=== PATIENT | male | born 1930 | race Caucasian/White ===

== ENCOUNTER → 2016-05-17 | Outpatient (CLI) | payer MEDICARE, BC, OTHER ==
[2016-05-17 10:06] LABS: APPEARANCE,URINE SLIGHTLY-CLOUDY; BILIRUBIN,URINE NEGATIVE (NEGATIVE); GLUCOSE, URINE NEGATIVE (NEGATIVE); KETONES,URINE NEGATIVE (NEGATIVE); LEUKOCYTE ESTERASE,URINE SMALL (NEGATIVE); NITRITE,URINE NEGATIVE (NEGATIVE); PROTEIN,URINE NEGATIVE (NEGATIVE); UROBILINOGEN,URINE NEGATIVE mg/dL (<2.0)
[2016-05-17 10:16] LABS: ABSOLUTE BASOPHILS # (AUTO) 0.1 10^3/uL (0.0-0.2); ABSOLUTE EOSINOPHILS # (AUTO) 0.3 10^3/uL (0.0-0.6); ABSOLUTE LYMPHOCYTES (AUTO) 1.3 10^3/uL (0.5-4.7); ABSOLUTE MONOCYTES (AUTO) 0.6 10^3/uL (0.1-1.4); ABSOLUTE NEUT (AUTO) 5.5 10^3/uL (1.7-8.2); BASOPHILS % (AUTO) 0.8 % (0-2); EOSINOPHILS % (AUTO) 3.4 % (0-6); HEMATOCRIT 37.7 % (37.9-51.0); HEMOGLOBIN 12.8 g/dL (13.5-17.0); HGB HCT DIFFERENCE 0.7; LYMPHOCYTES % (AUTO) 16.6 % (13-45); MEAN CORPUSCULAR HEMOGLOBIN 31.2 pg (27.0-33.4); MEAN CORPUSCULAR HGB CONC 33.9 g/dL (32.0-36.0); MEAN CORPUSCULAR VOLUME 92 fl (80-97); MONOCYTES % (AUTO) 8.3 % (3-13); RED BLOOD COUNT 4.09 10^6/uL (4.35-5.55); RED CELL DISTRIBUTION WIDTH 13.5 % (11.5-14.0); SEGMENTED NEUTROPHILS % (AUTO) 70.9 % (42-78); WHITE BLOOD COUNT 7.7 10^3/uL (4.0-10.5)
[2016-05-17 10:38] LABS: ALANINE AMINOTRANSFERASE 46 U/L (21-72); ALBUMIN 3.5 g/dL (3.5-5.0); ALKALINE PHOSPHATASE 86 U/L (38-126); ANION GAP 11 (5-19); ASPARTATE AMINO TRANSFERASE 32 U/L (17-59); BILIRUBIN,DIRECT 0.3 mg/dL (0.0-0.4); BILIRUBIN,TOTAL 0.5 mg/dL (0.2-1.3); BLOOD UREA NITROGEN 11 mg/dL (7-20); CALCIUM 8.8 mg/dL (8.4-10.2); CARBON DIOXIDE 26 mmol/L (22-30); CHLORIDE 109 mmol/L (98-107); CHOLESTEROL 126.69 mg/dL (0-200); CREATININE RESULT 0.86 mg/dL (0.52-1.25); Direct HDL 48 mg/dL (>40); GLUCOSE 96 mg/dL (75-110); POTASSIUM 4.4 mmol/L (3.6-5.0); SODIUM 146.4 mmol/L (137-145); TOTAL PROTEIN 6.1 g/dL (6.3-8.2); TRIGLYCERIDES 107 mg/dL (<150); URIC ACID 3.7 mg/dL (3.5-8.5)
[2016-05-17 10:49] LABS: DIRECT LDL 55 mg/dL (<100)
[2016-05-17 11:06] LABS: THYROID STIMULATING HORMONE 1.14 uIU/mL (0.47-4.68)
[2016-05-18 11:40] LABS: CREATININE URINE 165.4 mg/dL (Not Estab.); MICROALBUMIN URINE 29.6 ug/mL (Not Estab.)
== END ==
LOC: OD 09:04
PROVIDERS: ATTEND Internal Medicine
DX: E11.42 Type 2 diabetes mellitus with diabetic polyneuropathy (principal)
CPT/HCPCS: 36415; 80053; 80061; 81001; 82043; 82570; 83036; 84439; 84443; 84550; 85025

== ENCOUNTER 2016-08-08 10:51 | Emergency (ER) | payer MEDICARE, BC ==
[2016-08-08 11:01] VITALS: BP 173/88
--- NOTE | 2016-08-08 11:24 | RADIOLOGY REPORT (SQ) ---
EXAM DESCRIPTION: CT HEAD WITHOUT COMPLETED DATE/TIME: 08/08/2016 11:15 am REASON FOR STUDY: fall COMPARISON: None. TECHNIQUE: Axial images acquired through the brain without intravenous contrast. Images reviewed wi th bone, brain and subdural windows. Images stored on PACS. All CT scanners at this facility use dose modulation, iterative reconstruction, and/or weight based d osing when appropriate to reduce radiation dose to as low as reasonably achievable (ALARA). [facility]: Dose Right [facility]: CareDose [facility]: Dose Right [facility]: Teradose 4D [facility]: [employer] RADIATION DOSE: 64.61mGy. LIMITATIONS: None. FINDINGS: VENTRICLES: Prominent. CEREBRUM: No masses. No hemorrhage. No midline shift. Areas of low density in the white matter mos t likely due to chronic micro-vascular ischemic change. No evidence for acute infarction. CEREBELLUM: No masses. No hemorrhage. No alteration of density. No evidence for acute infarction. EXTRAAXIAL SPACES: Age-related involutional change. No fluid collections. No masses. ORBITS AND GLOBE: No intra- or extraconal masses. Normal contour of globe without masses. CALVARIUM: No fracture. PARANASAL SINUSES: No fluid or mucosal thickening. SOFT TISSUES: Large posterior scalp hematoma. OTHER: No other significant finding. IMPRESSION: SCALP HEMATOMA. NO FRACTURE OR ACUTE INTRACRANIAL PROCESS IDENTIFIED. TECHNICAL DOCUMENTATION: JOB ID: [id number] Quality ID # [id number]: Final reports with documentation of one or more dose reduction techniques (e.g., Au tomated exposure control, adjustment of the mA and/or kV according to patient size, use of iterative reconstruction technique) 2010 [employer]- All Rights Reserved
--- NOTE | 2016-08-08 13:24 | ER Document Report ---
ED General - General Chief Complaint: Fall Stated Complaint: FELL/HEAD PAIN Time Seen by Provider: 08/08/16 10:59 TRAVEL OUTSIDE OF THE [place] IN LAST 30 DAYS: No - HPI Patient complains to provider of: fall head trauma Notes: Patient coming in after he fell out of a chair. Patient fell backwards and hitting his head. Denies any loss of consciousness. Patient denies any blood thinning medications. Patient is awake alert and oriented at this time appropriate according to family members. Patient does have some bleeding going down the back of the head. - Related Data Allergies/Adverse Reactions: No Known Allergies Allergy (Verified 08/08/16 11:01) Past Medical History - Social History Smoking Status: Unknown if Ever Smoked Family History: Reviewed & Not Pertinent - Past Medical History Cardiac Medical History: Reports: Hx Atrial Fibrillation, Hx Hypertension Denies: Hx Coronary Artery Disease, Hx Heart Attack Pulmonary Medical History: Denies: Hx Asthma, Hx Bronchitis, Hx COPD, Hx Pneumonia Neurological Medical History: Denies: Hx Cerebrovascular Accident, Hx Seizures Renal/ Medical History: Denies: Hx Peritoneal Dialysis Musculoskeltal Medical History: Denies Hx Arthritis Psychiatric Medical History: Reports: Hx Depression - Immunizations Hx Diphtheria, Pertussis, Tetanus Vaccination: No - unsure Review of Systems - Review of Systems Constitutional: Other - Trauma to the head EENT: No symptoms reported Cardiovascular: No symptoms reported Respiratory: No symptoms reported Gastrointestinal: No symptoms reported Genitourinary: No symptoms reported Male Genitourinary: No symptoms reported Musculoskeletal: No symptoms reported Skin: No symptoms reported Hematologic/Lymphatic: No symptoms reported Neurological/Psychological: No symptoms reported Physical Exam - Vital signs Vitals: Temp Pulse Resp BP Pulse Ox 97.2 F 67 17 173/88 H 98 08/08/16 10:58 08/08/16 10:58 08/08/16 10:58 08/08/16 10:58 08/08/16 10:58 Interpretation: Normal - General General appearance: Appears well, Alert - HEENT Head: Normocephalic. No: Atraumatic - P hematoma to the superior occipital region of the head no laceration Eyes: Normal Pupils: PERRL - Respiratory Respiratory status: No respiratory distress Chest status: Nontender Breath sounds: Normal Chest palpation: Normal - Cardiovascular Rhythm: Regular Heart sounds: Normal auscultation Murmur: No - Abdominal Inspection: Normal Distension: No distension Bowel sounds: Normal Tenderness: Nontender Organomegaly: No organomegaly - Back Back: Normal, Nontender - Extremities General upper extremity: Normal inspection, Nontender, Normal color, Normal ROM , Normal temperature General lower extremity: Normal inspection, Nontender, Normal color, Normal ROM , Normal temperature, Normal weight bearing. No: [place]'s sign - Neurological Neuro grossly intact: Yes Cognition: Normal Orientation: AAOx4 [place] Coma Scale Eye Opening: Spontaneous [place] Coma Scale Verbal: Oriented [place]ma Coma Scale Motor: Obeys Commands Salma Coma Scale Total: 15 Speech: Normal Motor strength normal: LUE, RUE, LLE, RLE Sensory: Normal - Psychological Associated symptoms: Normal affect, Normal mood - Skin Skin Temperature: Warm Skin Moisture: Dry Skin Color: Normal Course - Re-evaluation Re-evalutation: 08/08/16 15:29 Patient coming in for head injury abrasion patient was dressed bleeding controlled no signs of the laceration repair. Patient will be discharged home - Vital Signs Vital signs: Temp Pulse Resp BP Pulse Ox 97.2 F 67 17 173/88 H 98 08/08/16 11:20 08/08/16 11:20 08/08/16 11:20 08/08/16 11:20 08/08/16 11:20 Discharge - Discharge Clinical Impression: Abrasions Head injury Qualifiers: Encounter type: initial encounter Qualified Code(s): S09.90XA - Unspecified injury of head, initial encounter Condition: Good Disposition: HOME, SELF-CARE Instructions: Abrasions ([facility]), Head Injury Precautions ([facility]) Additional Instructions: Please follow-up with your doctor as needed. Return to the ER for any concerning symptoms. Please keep antibiotic ointment on the wound. Referrals: ADELINA BERTRAND MD [Primary Care Provider] - Follow up as needed
== END 2016-08-08 13:36 | disposition home or self-care (01) ==
LOC: ER 10:51
DX: S09.90XA Unspecified injury of head, initial encounter (principal); S00.91XA Abrasion of unspecified part of head, initial encounter; R51 Headache; W19.XXXA Unspecified fall, initial encounter
CPT/HCPCS: 70450; 99284

== ENCOUNTER 2018-03-10 11:28 | Inpatient (IN) | payer MEDICARE, BC, OTHER ==
[2018-03-10] MEDS ORDERED: MORPHINE SULFATE 10 MG/ML INJ IV ONE (12:08)
[2018-03-10] MEDS ORDERED: ONDANSETRON HCL INJ/PF 4 MG/2 ML SDV IV ONE (12:08)
--- NOTE | 2018-03-10 12:08 | ER Document Report ---
ED Hip Pain/Injury - General Chief Complaint: Hip Injury Stated Complaint: FALL/HIP PAIN Time Seen by Provider: 03/10/18 11:32 Notes: 87-year-old male who fell several days ago complains of left hip pain. The patient missed a chair trying to sit down. states he tends to plop in the chair. He hit the chair then fell off the chair. Denies hitting his head or neck or have any loss of consciousness. She complains of sharp left hip pain. Patient is come to the ER for evaluation. Denies chest pain denies shortness of breath denies abdominal pain denies nausea vomiting. Patient did not pass out before or after the fall. The pain is severe again worse with movement TRAVEL OUTSIDE OF THE [place] IN LAST 30 DAYS: No - Related Data Allergies/Adverse Reactions: No Known Allergies Allergy (Verified 08/08/16 11:01) Past Medical History - Social History Smoking Status: Unknown if Ever Smoked Family History: Reviewed & Not Pertinent - Past Medical History Cardiac Medical History: Reports: Hx Atrial Fibrillation, Hx Hypertension Denies: Hx Coronary Artery Disease, Hx Heart Attack Pulmonary Medical History: Denies: Hx Asthma, Hx Bronchitis, Hx COPD, Hx Pneumonia Neurological Medical History: Denies: Hx Cerebrovascular Accident, Hx Seizures Renal/ Medical History: Denies: Hx Peritoneal Dialysis Musculoskeletal Medical History: Denies Hx Arthritis Psychiatric Medical History: Reports: Hx Depression - Immunizations Hx Diphtheria, Pertussis, Tetanus Vaccination: No - unsure Review of Systems - Review of Systems Constitutional: denies: Chills, Fever Cardiovascular: denies: Chest pain, Dyspnea Respiratory: denies: Short of breath Musculoskeletal: Joint pain. denies: Back pain Neurological/Psychological: denies: Lost consciousness, Headaches -: Yes All other systems reviewed and negative Physical Exam - Vital signs Vitals: Temp Pulse Resp BP Pulse Ox 98.9 F 65 16 161/79 H 98 03/10/18 11:35 03/10/18 11:35 03/10/18 11:35 03/10/18 11:35 03/10/18 11:35 - Notes Notes: GENERAL_APPEARANCE: well_nourished, alert, cooperative, appears very uncomfortable VITALS: reviewed, see vital signs table. HEAD: no_swelling\tenderness on the head. EYES: PERRL, EOMI, conjunctiva_clear. NOSE: no_nasal_discharge. MOUTH: (-)decreased moisture. THROAT: no_throat_inflammation, no_airway_obstruction. no_lymphadenopathy NECK: supple, no_neck_tenderness, (-)thyromegaly. BACK: no_back_tenderness. CHEST_WALL: no_chest_tenderness. LUNGS: no_wheezing, no_rales, no_rhonchi, (-)accessory muscle use, good air exchange bilateral. HEART: normal_rate, normal_rhythm, normal_S1, normal_S2, (-)S3, (-)S4, no_murmur, no_rub. ABDOMEN: normal_BS, soft, no_abd_tenderness, (-)guarding, (-)rebound, no_organomegaly, no_abd_masses. EXTREMITIES: Left hip pain at the greater trochanter with rotation shortening noted PMS intact distal SKIN: warm, dry, good_color, no_rash. MENTAL_STATUS: speech_clear, oriented_X_3, normal_affect, responds_appropria tely to questions. NEURO: Neg Motor or Sensory Deficits on exam, CN 2-12 intact, DTR 2+ symmetric x 4, No cerbellar signs Course - Re-evaluation Re-evalutation: 03/10/18 12:07 Patient has had a delayed presentation from a fall. He had no head or neck injury. He has left hip pain has obvious rotation or shortening we will get an x-ray to confirm fracture. We will draw preop labs. Pain control. 03/10/18 13:46 The patient does have a left intertrochanteric hip fracture. I spoke with orthopedics plant protection officer Dr. Grijalva. He recommends medicine to admit. I spoke with Dr. Martin. He will do the medical admit for the hospital. Spoke with the patient. The patient's coagulopathy studies are off. He is not on any anticoagulants just on aspirin. We will have to recheck that before any surgery is performed. - Vital Signs Vital signs: Temp Pulse Resp BP Pulse Ox 98.9 F 65 16 157/67 H 96 03/10/18 11:35 03/10/18 11:35 03/10/18 12:27 03/10/18 12:27 03/10/18 12:27 - Laboratory Result Diagrams: 03/10/18 12:27 03/10/18 12:27 Laboratory results interpreted by me: 03/10/18 03/10/18 03/10/18 12:27 12:27 12:27 RBC 3.27 L Hgb 10.6 L Hct 30.2 L Plt Count 138 L Seg Neutrophils % 79.2 H Lymphocytes % 10.4 L PT 16.8 H APTT 42.1 H Potassium 3.4 L Chloride 109 H Glucose 150 H Calcium 8.1 L Discharge - Discharge Clinical Impression: Closed left hip fracture Qualifiers: Encounter type: initial encounter Qualified Code(s): S72.002A - Fracture of unspecified part of neck of left femur, initial encounter for closed fracture Condition: Good Disposition: ADMITTED INPATIENT Admitting Provider: Veronica Unit Admitted: Surgical Floor Referrals: ADELINA MARTIN MD [Primary Care Provider] - Follow up as needed
[2018-03-10 12:36] LABS: ABSOLUTE BASOPHILS # (AUTO) 0.1 10^3/uL (0.0-0.2); ABSOLUTE EOSINOPHILS # (AUTO) 0.1 10^3/uL (0.0-0.6); ABSOLUTE MONOCYTES (AUTO) 0.9 10^3/uL (0.1-1.4); BASOPHILS % (AUTO) 0.6 % (0-2); EOSINOPHILS % (AUTO) 0.8 % (0-6); HEMATOCRIT 30.2 % (37.9-51.0); HEMOGLOBIN 10.6 g/dL (13.5-17.0); LYMPHOCYTES % (AUTO) 10.4 % (13-45); MEAN CORPUSCULAR HEMOGLOBIN 32.4 pg (27.0-33.4); MEAN CORPUSCULAR VOLUME 93 fl (80-97); PLATELET COUNT 138 10^3/uL (150-450); RED BLOOD COUNT 3.27 10^6/uL (4.35-5.55); RED CELL DISTRIBUTION WIDTH 13.5 % (11.5-14.0); SEGMENTED NEUTROPHILS % (AUTO) 79.2 % (42-78); TOTAL CELLS COUNTED % (AUTO) 100 %; WHITE BLOOD COUNT 10.1 10^3/uL (4.0-10.5)
--- NOTE | 2018-03-10 12:40 | RADIOLOGY REPORT (SQ) ---
EXAM DESCRIPTION: HIP LEFT AP/LATERAL COMPLETED DATE/TIME: 03/10/2018 12:24 pm REASON FOR STUDY: shortening COMPARISON: 08/12/2014 NUMBER OF VIEWS: Two views. TECHNIQUE: AP pelvis and additional frog-leg view of the left hip. LIMITATIONS: None. FINDINGS: MINERALIZATION: Normal. LEFT HIP: Intertrochanteric fracture. RIGHT HIP: No fracture or dislocation. No worrisome bone lesions. PUBIS AND ISCHIUM: No fracture. PELVIS: No fracture. SACRUM: No fracture or dislocation. No worrisome bone lesions. LOWER LUMBAR SPINE: No fracture or dislocation. No worrisome bone lesions. No significant disc disea se. SOFT TISSUES: No findings. OTHER: No other significant finding. IMPRESSION: Intertrochanteric fracture of the left hip. TECHNICAL DOCUMENTATION: JOB ID: [id number] [employer]- All Rights Reserved Reading location - IP/workstation name: [email or web address]
[2018-03-10 12:48] LABS: INTERNATIONAL RATION (INR) 1.29; PROTHROMBIN TIME 16.8 SEC (11.4-15.4)
[2018-03-10 12:49] LABS: PARTIAL THROMBOPLASTIN TIME 42.1 SEC (23.5-35.8)
[2018-03-10 13:00] LABS: ANION GAP 7 (5-19); BLOOD UREA NITROGEN 20 mg/dL (7-20); CALCIUM 8.1 mg/dL (8.4-10.2); CARBON DIOXIDE 26 mmol/L (22-30); CHLORIDE 109 mmol/L (98-107); GLUCOSE 150 mg/dL (75-110); POTASSIUM 3.4 mmol/L (3.6-5.0); SODIUM 142.1 mmol/L (137-145)
--- NOTE | 2018-03-10 15:37 | PDOC CONSULTATION ---
History of Present Illness Admission Date/PCP: 03/10/18 14:02 ADELINA BERTRAND MD Patient complains of: Left hip pain History of Present Illness: SIMRAN ARRIETA is a 87 year old male who sustained a fall on 03/07/18. Patient was seen by EMS and had attempted to ambulate on his lower extremity but he continued to have difficulty and pain. Thus was brought by EMS to the emergency room. While in the emergency room x-rays demonstrated fracture. States pain has been noticeable with attempted ambulation. Denies headache dizziness or trauma. Denies chest pain or shortness of breath. Denies numbness or tingling. Pain /10. Past Medical History Cardiac Medical History: Reports: Atrial Fibrillation, Hypertension Denies: Coronary Artery Disease, Myocardial Infarction Pulmonary Medical History: Denies: Asthma, Bronchitis, Chronic Obstructive Pulmonary Disease (COPD), Pneumonia Neurological Medical History: Denies: Seizures Musculoskeltal Medical History: Denies: Arthritis Psychiatric Medical History: Reports: Depression Hematology: Denies: Anemia Social History Smoking Status: Unknown if Ever Smoked Family History Family History: Reviewed & Not Pertinent Parental Family History Reviewed: No Children Family History Reviewed: No Sibling(s) Family History Reviewed.: No Medication/Allergy Home Medications: Aspirin [Ecotrin 81 mg EC Tablet] 81 mg PO DAILY 03/10/18 Bupropion HCl [Bupropion HCl Sr] 150 mg PO BID 03/10/18 Diltiazem HCl [Cardizem Cd 240 mg Capsule.cr] 240 mg PO DAILY 03/10/18 Metoprolol Succinate [Toprol Xl 25 mg Tab.sr] 25 mg PO Q12 03/10/18 Multivitamin [Daily Multiple Vitamin] 1 tab PO DAILY 03/10/18 Simvastatin [Zocor 10 mg Tablet] 10 mg PO QHS 03/10/18 Tamsulosin HCl [Flomax 0.4 mg Cap.sr] 0.4 mg PO PCSUPPER 03/10/18 Venlafaxine HCl ER [Effexor Xr 75 mg Cap.sr] 75 mg PO DAILY 03/10/18 Allergies/Adverse Reactions: No Known Allergies Allergy (Verified 08/08/16 11:01) Review of Systems Constitutional: ABSENT: chills, fever(s), headache(s), weight gain, weight loss Eyes: ABSENT: visual disturbances Ears: ABSENT: hearing changes Cardiovascular: ABSENT: chest pain, dyspnea on exertion, edema, orthropnea, palpitations Respiratory: ABSENT: cough, hemoptysis Gastrointestinal: ABSENT: abdominal pain, constipation, diarrhea, hematemesis, hematochezia, nausea, vomiting Genitourinary: ABSENT: dysuria, hematuria Integumentary: ABSENT: rash, wounds Neurological: ABSENT: abnormal gait, abnormal speech, confusion, dizziness, focal weakness, syncope Psychiatric: ABSENT: anxiety, depression, homidical ideation, suicidal ideation Endocrine: ABSENT: cold intolerance, heat intolerance, menstrual abnormalities, polydipsia, polyuria Hematologic/Lymphatic: ABSENT: easy bleeding, easy bruising, lymphadenopathy Physical Exam Vital Signs: Temp Pulse Resp BP Pulse Ox 98.9 F 65 18 159/68 H 98 03/10/18 11:35 03/10/18 11:35 03/10/18 14:01 03/10/18 14:01 03/10/18 14:01 Intake & Output 03/09/18 03/10/18 03/11/18 06:59 06:59 06:59 Weight 72.575 kg General appearance: PRESENT: no acute distress, well-developed, well-nourished Head exam: PRESENT: atraumatic, normocephalic Eye exam: PRESENT: conjunctiva pink, EOMI, PERRLA. ABSENT: scleral icterus Ear exam: PRESENT: normal external ear exam Mouth exam: PRESENT: moist, tongue midline Neck exam: PRESENT: full ROM. ABSENT: carotid bruit, JVD, lymphadenopathy, thyromegaly Respiratory exam: PRESENT: unlabored Cardiovascular exam: PRESENT: RRR. ABSENT: diastolic murmur, rubs, systolic murmur Pulses: PRESENT: normal dorsalis pedis pul, +2 pedal pulses bilateral Vascular exam: PRESENT: normal capillary refill GI/Abdominal exam: PRESENT: normal bowel sounds, soft. ABSENT: distended, guarding, mass, organolmegaly, rebound, tenderness Rectal exam: PRESENT: deferred Musculoskeletal exam: PRESENT: other - Left hip: Positive logroll, tenderness along the trochanteric region. Moderate thigh swelling without change, intact plantarflexion/dorsiflexion. No sensory deficits. No calf tenderness. Neurological exam: PRESENT: alert, awake, oriented to person, oriented to place, oriented to time, oriented to situation, CN II-XII grossly intact. ABSENT: motor sensory deficit Psychiatric exam: PRESENT: appropriate affect, normal mood. ABSENT: homicidal ideation, suicidal ideation Skin exam: PRESENT: dry, intact, warm. ABSENT: cyanosis, rash Results Laboratory Results: 03/10/18 12:27 03/10/18 12:27 03/10/18 03/10/18 12:27 12:27 WBC 10.1 RBC 3.27 L Hgb 10.6 L Hct 30.2 L MCV 93 MCH 32.4 MCHC 35.0 RDW 13.5 Plt Count 138 L Seg Neutrophils % 79.2 H Lymphocytes % 10.4 L Monocytes % 9.0 Eosinophils % 0.8 Basophils % 0.6 Absolute Neutrophils 8.0 Absolute Lymphocytes 1.0 Absolute Monocytes 0.9 Absolute Eosinophils 0.1 Absolute Basophils 0.1 Sodium 142.1 Potassium 3.4 L Chloride 109 H Carbon Dioxide 26 Anion Gap 7 BUN 20 Creatinine 0.80 Est GFR ( Amer) > 60 Est GFR (Non-Af Amer) > 60 Glucose 150 H Calcium 8.1 L Impressions: Hip X-Ray 03/10/18 00:00 IMPRESSION: Intertrochanteric fracture of the left hip. Assessment & Plan - Diagnosis (1) Fracture, intertrochanteric, left femur Qualifiers: Encounter type: initial encounter Fracture type: closed Fracture alignment: displaced Qualified Code(s): S72.142A - Displaced intertrochanteric fracture of left femur, initial encounter for closed fracture Is this a current diagnosis for this admission?: Yes Plan: Patient sustained a intertrochanteric fracture. Today we discussed findings and treatment options including operative versus nonoperative intervention patient is a community ambulator and thus decision was made to proceed with operative treatment. Patient and family understand he is at increased risk of anesthesia risks given his history of atrial fibrillation but despite this fact I feel operative intervention is warranted in patient's situation. After discussing the options with the patient and joint decision was made to proceed with operative treatment which includes left cephalo-medullary nail intertrochanteric fracture. Risks discussed include anesthetic complications, excessive bleeding, infection, injury to surrounding nerves, vessels and tendons, bruising, healing difficulties, scar formation, posttraumatic arthritis and any unforseen complication.
--- NOTE | 2018-03-10 17:43 | EKG REPORT ---
SEVERITY:- ABNORMAL ECG - SINUS RHYTHM PROBABLE POSTERIOR INFARCT NONSPECIFIC T ABNORMALITIES, INFERIOR LEADS : Confirmed by: Alvarez Magallon MD 10-Mar-2018 17:42:32
[2018-03-10] MEDS ORDERED: POTASSI CL 20 MEQ/50 ML RIDER 20 MEQ/50 ML RTUPB IV ONE (18:29)
[2018-03-10] MEDS ORDERED: HYDROMORPHONE HCL INJ/PF 2 MG/ML AMPULE IV PRN (18:54)
[2018-03-10 18:57] LABS: INTERNATIONAL RATION (INR) 1.23; PROTHROMBIN TIME 16.1 SEC (11.4-15.4)
[2018-03-10 18:58] LABS: PARTIAL THROMBOPLASTIN TIME 40.9 SEC (23.5-35.8)
[2018-03-10 19:17] LABS: ALANINE AMINOTRANSFERASE 24 U/L (21-72); ALBUMIN 3.1 g/dL (3.5-5.0); ALKALINE PHOSPHATASE 71 U/L (38-126); ASPARTATE AMINO TRANSFERASE 25 U/L (17-59); BILIRUBIN,DIRECT 0.3 mg/dL (0.0-0.4); BILIRUBIN,TOTAL 0.5 mg/dL (0.2-1.3); PHOSPHORUS 3.4 mg/dL (2.5-4.5); TOTAL PROTEIN 5.6 g/dL (6.3-8.2)
[2018-03-10 19:25] LABS: AMYLASE < 30 U/L (30-110); LIPASE < 10.0 U/L (23-300)
[2018-03-10] MEDS: VENLAFAXINE HCL 75 MG CAP.SR.24H PO SCH (19:26)
[2018-03-10] MEDS: ENOXAPARIN SODIUM INJ 40 MG/0.4 ML DISP.SYRIN SUBCUT SCH (19:27)
[2018-03-10] MEDS: TAMSULOSIN HCL 0.4 MG CAP.SR.24H PO SCH (19:27)
[2018-03-10] MEDS: MULTIVITAMIN TABLET PO SCH (19:27)
[2018-03-10 19:29] LABS: CREATINE KINASE MB 3.44 ng/mL (<4.55); TROPONIN I 0.02 ng/mL
[2018-03-10 19:32] LABS: FREE T4 (FREE THYROXINE) 1.17 ng/dL (0.78-2.19)
[2018-03-10 19:46] LABS: THYROID STIMULATING HORMONE 0.68 uIU/mL (0.47-4.68)
[2018-03-10] MEDS: DILTIAZEM HCL 240 MG CAPSULE.CR PO SCH (20:14)
--- NOTE | 2018-03-10 20:19 | PDOC H&P ---
History of Present Illness Admission Date/PCP: 03/10/18 14:02 ADELINA BERTRAND MD History of Present Illness: SIMRAN ARRIETA is a 87 year old male,He came to the emergency room for evalu ation of pain of the left hip joint ,he fell off the chair about 2 days ago there was no antecedent history of chest pain, no loss of consciousness, no shortness of breath he was not dizzy, in the emergency room he was evaluated, x- ray of the left hip joint was obtained it demonstrated intertrochanteric fracture of the left hip. Based on the revised cardiac risk index score, he has no history of CVA, he has no history of CHF, he has no history of CAD, he has no history of CKD with a serum creatinine of more than 2 he has no history of Diabetes mellitus requiring insulin the prospective procedure is intermediate risk for complications based on all these factors he has a very low cardioVascu lar risk in the perioperative period , Patient can proceed to surgery. Past Medical History Cardiac Medical History: Reports: Hypertension Endocrine Medical History: Reports: Diabetes Mellitus Type 2 Musculoskeltal Medical History: Denies: Arthritis Psychiatric Medical History: Reports: Depression Social History Smoking Status: Never Smoker Frequency of Alcohol Use: None Drugs: None Family History Family History: Reviewed & Not Pertinent Parental Family History Reviewed: Yes Children Family History Reviewed: Yes Sibling(s) Family History Reviewed.: Yes Medication/Allergy Home Medications: Aspirin [Ecotrin 81 mg EC Tablet] 81 mg PO DAILY 03/10/18 Bupropion HCl [Bupropion HCl Sr] 150 mg PO BID 03/10/18 Diltiazem HCl [Cardizem Cd 240 mg Capsule.cr] 240 mg PO DAILY 03/10/18 Metoprolol Succinate [Toprol Xl 25 mg Tab.sr] 25 mg PO Q12 03/10/18 RX: Multivitamin [Daily Multiple Vitamin] 1 tab PO DAILY 03/10/18 RX: Venlafaxine HCl ER [Effexor Xr 75 mg Cap.sr] 75 mg PO DAILY 03/10/18 Simvastatin [Zocor 10 mg Tablet] 10 mg PO QHS 03/10/18 Tamsulosin HCl [Flomax 0.4 mg Cap.sr] 0.4 mg PO PCSUPPER 03/10/18 Allergies/Adverse Reactions: No Known Allergies Allergy (Verified 08/08/16 11:01) Review of Systems Constitutional: ABSENT: chills, fever(s), headache(s), weight gain, weight loss Eyes: ABSENT: visual disturbances Ears: ABSENT: hearing changes Cardiovascular: ABSENT: chest pain, dyspnea on exertion, edema, orthropnea, palpitations Respiratory: ABSENT: cough, hemoptysis Gastrointestinal: ABSENT: abdominal pain, constipation, diarrhea, hematemesis, hematochezia, nausea, vomiting Genitourinary: ABSENT: dysuria, hematuria Musculoskeletal: PRESENT: other - Left hip joint pain. ABSENT: joint swelling Integumentary: ABSENT: rash, wounds Neurological: ABSENT: abnormal gait, abnormal speech, confusion, dizziness, fo jeff weakness, syncope Psychiatric: ABSENT: anxiety, depression, homidical ideation, suicidal ideation Endocrine: ABSENT: cold intolerance, heat intolerance, menstrual abnormalities, polydipsia, polyuria Hematologic/Lymphatic: ABSENT: easy bleeding, easy bruising, lymphadenopathy Physical Exam Vital Signs: Temp Pulse Resp BP Pulse Ox 98.2 F 59 L 18 167/59 H 94 03/10/18 17:59 03/10/18 17:59 03/10/18 17:59 03/10/18 17:59 03/10/18 17:59 Intake & Output 03/09/18 03/10/18 03/11/18 06:59 06:59 06:59 Weight 74.5 kg General appearance: PRESENT: no acute distress, well-developed, well-nourished Head exam: PRESENT: atraumatic, normocephalic Eye exam: PRESENT: conjunctiva pink, EOMI, PERRLA Ear exam: PRESENT: normal external ear exam Mouth exam: PRESENT: moist, tongue midline Neck exam: PRESENT: full ROM Respiratory exam: PRESENT: clear to auscultation karrie Cardiovascular exam: PRESENT: RRR, +S1, +S2 Pulses: PRESENT: normal dorsalis pedis pul, +2 pedal pulses bilateral Vascular exam: PRESENT: normal capillary refill GI/Abdominal exam: PRESENT: normal bowel sounds, soft Rectal exam: PRESENT: deferred Neurological exam: PRESENT: alert, CN II-XII grossly intact Psychiatric exam: PRESENT: appropriate affect, normal mood Skin exam: PRESENT: dry, intact, warm Results Laboratory Results: 03/10/18 12:27 03/10/18 12:27 03/10/18 03/10/18 03/10/18 12:27 12:27 18:42 WBC 10.1 RBC 3.27 L Hgb 10.6 L Hct 30.2 L MCV 93 MCH 32.4 MCHC 35.0 RDW 13.5 Plt Count 138 L Seg Neutrophils % 79.2 H Lymphocytes % 10.4 L Monocytes % 9.0 Eosinophils % 0.8 Basophils % 0.6 Absolute Neutrophils 8.0 Absolute Lymphocytes 1.0 Absolute Monocytes 0.9 Absolute Eosinophils 0.1 Absolute Basophils 0.1 Sodium 142.1 Potassium 3.4 L Chloride 109 H Carbon Dioxide 26 Anion Gap 7 BUN 20 Creatinine 0.80 Est GFR ( Amer) > 60 Est GFR (Non-Af Amer) > 60 Glucose 150 H Calcium 8.1 L Phosphorus 3.4 Magnesium 1.8 Total Bilirubin 0.5 AST 25 ALT 24 Alkaline Phosphatase 71 Ammonia Total Protein 5.6 L Albumin 3.1 L Amylase < 30 L Lipase < 10.0 L TSH Free T4 03/10/18 03/10/18 18:42 18:42 WBC RBC Hgb Hct MCV MCH MCHC RDW Plt Count Seg Neutrophils % Lymphocytes % Monocytes % Eosinophils % Basophils % Absolute Neutrophils Absolute Lymphocytes Absolute Monocytes Absolute Eosinophils Absolute Basophils Sodium Potassium Chloride Carbon Dioxide Anion Gap BUN Creatinine Est GFR ( Amer) Est GFR (Non-Af Amer) Glucose Calcium Phosphorus Magnesium Total Bilirubin AST ALT Alkaline Phosphatase Ammonia < 8.7 L Total Protein Albumin Amylase Lipase TSH 0.68 Free T4 1.17 03/10/18 03/10/18 03/10/18 18:42 18:42 18:42 Creatine Kinase 132 CK-MB (CK-2) 3.44 Troponin I 0.020 NT-Pro-B Natriuret Pep 1710 H Impressions: Hip X-Ray 03/10/18 00:00 IMPRESSION: Intertrochanteric fracture of the left hip. Assessment & Plan - Diagnosis (1) Fracture, intertrochanteric, left femur Qualifiers: Encounter type: initial encounter Fracture type: closed Fracture alignment: displaced Qualified Code(s): S72.142A - Displaced intertrochanteric fracture of left femur, initial encounter for closed fracture Is this a current diagnosis for this admission?: Yes Plan: Orthopedic consultation obtained (2) Preprocedural cardiovascular examination Is this a current diagnosis for this admission?: Yes Plan: Based on the revised cardiac risk index score, patient can proceed to surgery no further testing necessary (3) T2DM (type 2 diabetes mellitus) 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
--- NOTE | 2018-03-10 21:32 | RADIOLOGY REPORT (SQ) ---
EXAM DESCRIPTION: XR CHEST 1 VIEW COMPLETED DATE/TME: 03/10/2018 00:00 CLINICAL HISTORY: elevated bnp COMPARISON: November 16, 2012 FINDINGS: Contour of the mediastinum is unchanged compared with the prior examination. Patient is rotated. Cardiac silhouette is mildly enlarged, unchanged compared with the prior exam. EKG leads project over the chest. There is no focal parenchymal or pleural disease. There is no acute osseous process visualized. IMPRESSION: No evidence of acute cardiopulmonary disease.
[2018-03-10] MEDS: SIMVASTATIN 10 MG TABLET PO SCH (21:54)
[2018-03-10] MEDS: BUPROPION HCL 100 MG TABLET PO SCH (21:54)
[2018-03-10] MEDS: METOPROLOL SUCCINATE 25 MG TAB.SR.24H PO SCH (21:54)
[2018-03-10 23:14] LABS: APPEARANCE,URINE CLOUDY; BILIRUBIN,URINE NEGATIVE (NEGATIVE); COLOR,URINE YELLOW; GLUCOSE, URINE NEGATIVE (NEGATIVE); KETONES,URINE NEGATIVE (NEGATIVE); LEUKOCYTE ESTERASE,URINE LARGE (NEGATIVE); NITRITE,URINE POSITIVE (NEGATIVE); PROTEIN,URINE 100 mg/dL (NEGATIVE); URINE SPECIFIC GRAVITY 1.024; UROBILINOGEN,URINE NEGATIVE mg/dL (<2.0)
[2018-03-10 23:27] LABS: URINE AMPHETAMINES SCREEN NEGATIVE; URINE BARBITURATES SCREEN NEGATIVE; URINE BENZODIAZEPINES SCREEN NEGATIVE; URINE COCAINE SCREEN NEGATIVE; URINE MARIJUANA (THC) SCREEN NEGATIVE; URINE METHADONE SCREEN NEGATIVE; URINE PHENCYCLIDINE SCREEN NEGATIVE
[2018-03-11 01:24] LABS: CREATINE KINASE MB 2.95 ng/mL (<4.55); TROPONIN I 0.015 ng/mL
[2018-03-11] MEDS: BUPROPION HCL 100 MG TABLET PO SCH ×3 (05:05→21:48)
[2018-03-11] MEDS: NORMAL SALINE 1000 ML 1,000 ML IV PRN (05:06)
[2018-03-11 06:32] LABS: ABSOLUTE BASOPHILS # (AUTO) 0.1 10^3/uL (0.0-0.2); ABSOLUTE EOSINOPHILS # (AUTO) 0.2 10^3/uL (0.0-0.6); ABSOLUTE LYMPHOCYTES (AUTO) 1.2 10^3/uL (0.5-4.7); ABSOLUTE MONOCYTES (AUTO) 0.7 10^3/uL (0.1-1.4); ABSOLUTE NEUT (AUTO) 5.7 10^3/uL (1.7-8.2); BASOPHILS % (AUTO) 0.7 % (0-2); EOSINOPHILS % (AUTO) 2.8 % (0-6); HEMATOCRIT 27.7 % (37.9-51.0); HEMOGLOBIN 9.4 g/dL (13.5-17.0); LYMPHOCYTES % (AUTO) 15.6 % (13-45); MEAN CORPUSCULAR HEMOGLOBIN 31.6 pg (27.0-33.4); MEAN CORPUSCULAR HGB CONC 34.1 g/dL (32.0-36.0); MEAN CORPUSCULAR VOLUME 93 fl (80-97); MONOCYTES % (AUTO) 8.8 % (3-13); PLATELET COUNT 144 10^3/uL (150-450); RED BLOOD COUNT 2.99 10^6/uL (4.35-5.55); RED CELL DISTRIBUTION WIDTH 13.5 % (11.5-14.0); SEGMENTED NEUTROPHILS % (AUTO) 72.1 % (42-78); TOTAL CELLS COUNTED % (AUTO) 100 %; WHITE BLOOD COUNT 7.9 10^3/uL (4.0-10.5)
[2018-03-11 06:42] LABS: BLOOD UREA NITROGEN 20 mg/dL (7-20); CALCIUM 7.6 mg/dL (8.4-10.2); CREATINE KINASE 83 U/L (55-170); GLUCOSE 114 mg/dL (75-110); POTASSIUM 3.7 mmol/L (3.6-5.0); TRIGLYCERIDES 105 mg/dL (<150)
[2018-03-11 06:47] LABS: CARBON DIOXIDE 26 mmol/L (22-30); CHLORIDE 113 mmol/L (98-107); SODIUM 143.7 mmol/L (137-145)
[2018-03-11 06:52] LABS: ANION GAP 5 (5-19); CREATINE KINASE MB 2.36 ng/mL (<4.55); DIRECT LDL 60 mg/dL (<100)
[2018-03-11 06:59] LABS: TROPONIN I < 0.012 ng/mL
--- NOTE | 2018-03-11 08:16 | PDOC PROGRESS REPORT ---
Subjective Progress Note for:: 03/11/18 Subjective:: Patient lying in bed comfortably. Pain currently tolerable. No issues overnight. Denies chest pain or shortness of breath. Reason For Visit: CLOSED FRACTURE LEFT HIP Physical Exam Vital Signs: Temp Pulse Resp BP Pulse Ox 98.6 F 71 19 129/63 H 95 03/10/18 20:07 03/10/18 20:07 03/10/18 20:07 03/10/18 20:07 03/10/18 20:07 Intake & Output 03/10/18 03/11/18 03/12/18 06:59 06:59 06:59 Intake Total 160 Output Total 380 Balance -220 Weight 75.1 kg Musculoskeletal exam: PRESENT: other - Left lower extremity: Shortened/external rotated positive logroll. Intact plantar flexion/dorsiflexion. No sensory deficits. No calf tenderness. Results Laboratory Results: 03/11/18 06:20 03/11/18 06:20 03/10/18 03/10/18 03/10/18 12:27 12:27 18:42 WBC 10.1 RBC 3.27 L Hgb 10.6 L Hct 30.2 L MCV 93 MCH 32.4 MCHC 35.0 RDW 13.5 Plt Count 138 L Seg Neutrophils % 79.2 H Lymphocytes % 10.4 L Monocytes % 9.0 Eosinophils % 0.8 Basophils % 0.6 Absolute Neutrophils 8.0 Absolute Lymphocytes 1.0 Absolute Monocytes 0.9 Absolute Eosinophils 0.1 Absolute Basophils 0.1 Sodium 142.1 Potassium 3.4 L Chloride 109 H Carbon Dioxide 26 Anion Gap 7 BUN 20 Creatinine 0.80 Est GFR ( Amer) > 60 Est GFR (Non-Af Amer) > 60 Glucose 150 H Calcium 8.1 L Phosphorus 3.4 Magnesium 1.8 Total Bilirubin 0.5 AST 25 ALT 24 Alkaline Phosphatase 71 Ammonia Total Protein 5.6 L Albumin 3.1 L Triglycerides Cholesterol LDL Cholesterol Direct VLDL Cholesterol HDL Cholesterol Amylase < 30 L Lipase < 10.0 L TSH Free T4 Urine Color Urine Appearance Urine pH Ur Specific [place] Urine Protein Urine Glucose (UA) Urine Ketones Urine Blood Urine Nitrite Ur Leukocyte Esterase Urine WBC (Auto) Urine RBC (Auto) 03/10/18 03/10/18 03/10/18 18:42 18:42 22:58 WBC RBC Hgb Hct MCV MCH MCHC RDW Plt Count Seg Neutrophils % Lymphocytes % Monocytes % Eosinophils % Basophils % Absolute Neutrophils Absolute Lymphocytes Absolute Monocytes Absolute Eosinophils Absolute Basophils Sodium Potassium Chloride Carbon Dioxide Anion Gap BUN Creatinine Est GFR ( Amer) Est GFR (Non-Af Amer) Glucose Calcium Phosphorus Magnesium Total Bilirubin AST ALT Alkaline Phosphatase Ammonia < 8.7 L Total Protein Albumin Triglycerides Cholesterol LDL Cholesterol Direct VLDL Cholesterol HDL Cholesterol Amylase Lipase TSH 0.68 Free T4 1.17 Urine Color YELLOW Urine Appearance CLOUDY Urine pH 6.0 Ur Specific [place] 1.024 Urine Protein 100 H Urine Glucose (UA) NEGATIVE Urine Ketones NEGATIVE Urine Blood NEGATIVE Urine Nitrite POSITIVE H Ur Leukocyte Esterase LARGE H Urine WBC (Auto) >182 Urine RBC (Auto) 24 03/11/18 03/11/18 06:20 06:20 WBC 7.9 RBC 2.99 L Hgb 9.4 L Hct 27.7 L MCV 93 MCH 31.6 MCHC 34.1 RDW 13.5 Plt Count 144 L Seg Neutrophils % 72.1 Lymphocytes % 15.6 Monocytes % 8.8 Eosinophils % 2.8 Basophils % 0.7 Absolute Neutrophils 5.7 Absolute Lymphocytes 1.2 Absolute Monocytes 0.7 Absolute Eosinophils 0.2 Absolute Basophils 0.1 Sodium 143.7 Potassium 3.7 Chloride 113 H Carbon Dioxide 26 Anion Gap 5 BUN 20 Creatinine 0.87 Est GFR ( Amer) > 60 Est GFR (Non-Af Amer) > 60 Glucose 114 H Calcium 7.6 L Phosphorus Magnesium Total Bilirubin AST ALT Alkaline Phosphatase Ammonia Total Protein Albumin Triglycerides 105 Cholesterol 113.80 LDL Cholesterol Direct 60 VLDL Cholesterol 21.0 HDL Cholesterol 38 L Amylase Lipase TSH Free T4 Urine Color Urine Appearance Urine pH Ur Specific [place] Urine Protein Urine Glucose (UA) Urine Ketones Urine Blood Urine Nitrite Ur Leukocyte Esterase Urine WBC (Auto) Urine RBC (Auto) 03/10/18 03/10/18 03/10/18 18:42 18:42 18:42 Creatine Kinase 132 CK-MB (CK-2) 3.44 Troponin I 0.020 NT-Pro-B Natriuret Pep 1710 H 03/11/18 03/11/18 03/11/18 00:48 00:48 06:20 Creatine Kinase 102 83 CK-MB (CK-2) 2.95 Troponin I 0.015 NT-Pro-B Natriuret Pep 03/11/18 06:20 Creatine Kinase CK-MB (CK-2) 2.36 Troponin I < 0.012 NT-Pro-B Natriuret Pep Impressions: Chest X-Ray 03/10/18 00:00 IMPRESSION: No evidence of acute cardiopulmonary disease. Hip X-Ray 03/10/18 00:00 IMPRESSION: Intertrochanteric fracture of the left hip. Assessment & Plan - Diagnosis (1) Fracture, intertrochanteric, left femur Qualifiers: Encounter type: initial encounter Fracture type: closed Fracture alignment: displaced Qualified Code(s): S72.142A - Displaced intertrochanteric fracture of left femur, initial encounter for closed fracture Is this a current diagnosis for this admission?: Yes Plan: Patient sustained a intertrochanteric fracture. Today we discussed findings and treatment options including operative versus nonoperative intervention patient is a community ambulator and thus decision was made to proceed with operative treatment. Patient and family understand he is at increased risk of anesthesia risks given his history of atrial fibrillation but despite this fact I feel operative intervention is warranted in patient's situation. After discussing the options with the patient and joint decision was made to proceed with operative treatment which includes left cephalo-medullary nail intertrochanteric fracture. Risks discussed include anesthetic complications, excessive bleeding, infection, injury to surrounding nerves, vessels and tendons, bruising, healing difficulties, scar formation, posttraumatic arthritis and any unforseen complication. Patient has been medically optimized for operative intervention we will proceed on 03/12/18
[2018-03-11] MEDS: CIPROFLOXACIN 400 MG/D5W RTU 400 MG/200 ML RTUPB IV SCH ×2 (11:46→21:49)
[2018-03-11 12:33] LABS: UR PRO/CREAT RATIO RESULT 0.6 mg/mg (0.0-0.2); URINE CREATININE 170.4 mg/dL (22-328); URINE PROTEIN 104.7 mg/dL (<12)
[2018-03-11] MEDS ORDERED: GLUCAGON,HUMAN RECOMB 1 MG INJ SUBCUT PRN (13:51)
[2018-03-11] MEDS ORDERED: DEXTROSE 40% GEL 15 GM TUBE PO PRN ×2 (13:51)
[2018-03-11] MEDS ORDERED: DEXTROSE 50%-WATER 25 GM/50 ML DISP.SYRIN IV PRN ×2 (13:51)
[2018-03-11] MEDS: VENLAFAXINE HCL 75 MG CAP.SR.24H PO SCH (13:57)
[2018-03-11] MEDS: METOPROLOL SUCCINATE 25 MG TAB.SR.24H PO SCH ×2 (13:57→21:48)
[2018-03-11] MEDS: MULTIVITAMIN TABLET PO SCH (13:58)
[2018-03-11] MEDS: ENOXAPARIN SODIUM INJ 40 MG/0.4 ML DISP.SYRIN SUBCUT SCH (13:59)
[2018-03-11] MEDS: DILTIAZEM HCL 240 MG CAPSULE.CR PO SCH (14:01)
--- NOTE | 2018-03-11 15:14 | PDOC PROGRESS REPORT ---
Subjective Progress Note for:: 03/11/18 Subjective:: Patient was admitted yesterday for the management of fracture of the left femur, he was seen by orthopedic, scheduled for surgery tomorrow. The urinalysis was grossly abnormal, the urine dipstick was positive for protein, blood, nitrites, leukocyte esterase, the microscopy demonstrated bacteriuria, red blood cells, white blood cells in the urine, patient was started on Cipro empirically for presumed UTI Reason For Visit: CLOSED FRACTURE LEFT HIP Physical Exam Vital Signs: Temp Pulse Resp BP Pulse Ox 98.3 F 48 L 22 H 116/47 L 98 03/11/18 11:44 03/11/18 11:44 03/11/18 11:44 03/11/18 11:44 03/11/18 11:44 Intake & Output 03/10/18 03/11/18 03/12/18 06:59 06:59 06:59 Intake Total 160 200 Output Total 380 Balance -220 200 Weight 75.1 kg General appearance: PRESENT: no acute distress Eye exam: PRESENT: PERRLA Respiratory exam: PRESENT: clear to auscultation karrie Cardiovascular exam: PRESENT: +S1, +S2 GI/Abdominal exam: PRESENT: soft Neurological exam: PRESENT: alert, CN II-XII grossly intact Results Laboratory Results: 03/11/18 06:20 03/11/18 06:20 03/10/18 03/10/18 03/10/18 18:42 18:42 18:42 WBC RBC Hgb Hct MCV MCH MCHC RDW Plt Count Seg Neutrophils % Lymphocytes % Monocytes % Eosinophils % Basophils % Absolute Neutrophils Absolute Lymphocytes Absolute Monocytes Absolute Eosinophils Absolute Basophils Sodium Potassium Chloride Carbon Dioxide Anion Gap BUN Creatinine Est GFR ( Amer) Est GFR (Non-Af Amer) Glucose Calcium Phosphorus 3.4 Magnesium 1.8 Total Bilirubin 0.5 AST 25 ALT 24 Alkaline Phosphatase 71 Ammonia < 8.7 L Total Protein 5.6 L Albumin 3.1 L Triglycerides Cholesterol LDL Cholesterol Direct VLDL Cholesterol HDL Cholesterol Amylase < 30 L Lipase < 10.0 L TSH 0.68 Free T4 1.17 Urine Color Urine Appearance Urine pH Ur Specific [place] Urine Protein Urine Glucose (UA) Urine Ketones Urine Blood Urine Nitrite Ur Leukocyte Esterase Urine WBC (Auto) Urine RBC (Auto) 03/10/18 03/11/18 03/11/18 22:58 06:20 06:20 WBC 7.9 RBC 2.99 L Hgb 9.4 L Hct 27.7 L MCV 93 MCH 31.6 MCHC 34.1 RDW 13.5 Plt Count 144 L Seg Neutrophils % 72.1 Lymphocytes % 15.6 Monocytes % 8.8 Eosinophils % 2.8 Basophils % 0.7 Absolute Neutrophils 5.7 Absolute Lymphocytes 1.2 Absolute Monocytes 0.7 Absolute Eosinophils 0.2 Absolute Basophils 0.1 Sodium 143.7 Potassium 3.7 Chloride 113 H Carbon Dioxide 26 Anion Gap 5 BUN 20 Creatinine 0.87 Est GFR ( Amer) > 60 Est GFR (Non-Af Amer) > 60 Glucose 114 H Calcium 7.6 L Phosphorus Magnesium Total Bilirubin AST ALT Alkaline Phosphatase Ammonia Total Protein Albumin Triglycerides 105 Cholesterol 113.80 LDL Cholesterol Direct 60 VLDL Cholesterol 21.0 HDL Cholesterol 38 L Amylase Lipase TSH Free T4 Urine Color YELLOW Urine Appearance CLOUDY Urine pH 6.0 Ur Specific [place] 1.024 Urine Protein 100 H Urine Glucose (UA) NEGATIVE Urine Ketones NEGATIVE Urine Blood NEGATIVE Urine Nitrite POSITIVE H Ur Leukocyte Esterase LARGE H Urine WBC (Auto) >182 Urine RBC (Auto) 24 03/10/18 03/10/18 03/10/18 18:42 18:42 18:42 Creatine Kinase 132 CK-MB (CK-2) 3.44 Troponin I 0.020 NT-Pro-B Natriuret Pep 1710 H 03/11/18 03/11/18 03/11/18 00:48 00:48 06:20 Creatine Kinase 102 83 CK-MB (CK-2) 2.95 Troponin I 0.015 NT-Pro-B Natriuret Pep 03/11/18 06:20 Creatine Kinase CK-MB (CK-2) 2.36 Troponin I < 0.012 NT-Pro-B Natriuret Pep Impressions: Chest X-Ray 03/10/18 00:00 IMPRESSION: No evidence of acute cardiopulmonary disease. Hip X-Ray 03/10/18 00:00 IMPRESSION: Intertrochanteric fracture of the left hip. Assessment & Plan - Diagnosis (1) Fracture, intertrochanteric, left femur Qualifiers: Encounter type: initial encounter Fracture type: closed Fracture alignment: displaced Qualified Code(s): S72.142A - Displaced intertrochanteric fracture of left femur, initial encounter for closed fracture Is this a current diagnosis for this admission?: Yes Plan: Per orthopedics (2) Preprocedural cardiovascular examination Is this a current diagnosis for this admission?: Yes Plan: Based on the revised cardiac risk index score, patient can proceed to surgery no further testing necessary (3) T2DM (type 2 diabetes mellitus) 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
[2018-03-11 15:18] LABS: INTERNATIONAL RATION (INR) 1.21
[2018-03-11 15:19] LABS: PARTIAL THROMBOPLASTIN TIME 43.7 SEC (23.5-35.8)
[2018-03-11] MEDS: TAMSULOSIN HCL 0.4 MG CAP.SR.24H PO SCH (17:48)
[2018-03-11] MEDS: SIMVASTATIN 10 MG TABLET PO SCH (21:48)
[2018-03-12 04:55] LABS: ABSOLUTE EOSINOPHILS # (AUTO) 0.2 10^3/uL (0.0-0.6); ABSOLUTE LYMPHOCYTES (AUTO) 1.2 10^3/uL (0.5-4.7); ABSOLUTE MONOCYTES (AUTO) 0.7 10^3/uL (0.1-1.4); ABSOLUTE NEUT (AUTO) 5.5 10^3/uL (1.7-8.2); BASOPHILS % (AUTO) 0.5 % (0-2); EOSINOPHILS % (AUTO) 2.7 % (0-6); HEMATOCRIT 25.2 % (37.9-51.0); HEMOGLOBIN 8.7 g/dL (13.5-17.0); LYMPHOCYTES % (AUTO) 15.3 % (13-45); MEAN CORPUSCULAR HEMOGLOBIN 31.9 pg (27.0-33.4); MEAN CORPUSCULAR HGB CONC 34.4 g/dL (32.0-36.0); MEAN CORPUSCULAR VOLUME 93 fl (80-97); MONOCYTES % (AUTO) 9.6 % (3-13); PLATELET COUNT 150 10^3/uL (150-450); RED BLOOD COUNT 2.71 10^6/uL (4.35-5.55); RED CELL DISTRIBUTION WIDTH 13.2 % (11.5-14.0); SEGMENTED NEUTROPHILS % (AUTO) 71.9 % (42-78); TOTAL CELLS COUNTED % (AUTO) 100 %; WHITE BLOOD COUNT 7.6 10^3/uL (4.0-10.5)
[2018-03-12 04:56] LABS: INTERNATIONAL RATION (INR) 1.18; PROTHROMBIN TIME 15.6 SEC (11.4-15.4)
[2018-03-12 04:57] LABS: PARTIAL THROMBOPLASTIN TIME 41.4 SEC (23.5-35.8)
[2018-03-12 05:06] LABS: ANION GAP 5 (5-19); BLOOD UREA NITROGEN 22 mg/dL (7-20); CALCIUM 7.5 mg/dL (8.4-10.2); CARBON DIOXIDE 26 mmol/L (22-30); CHLORIDE 113 mmol/L (98-107); GLUCOSE 107 mg/dL (75-110); POTASSIUM 3.4 mmol/L (3.6-5.0); SODIUM 143.6 mmol/L (137-145)
[2018-03-12] MEDS: BUPROPION HCL 100 MG TABLET PO SCH ×3 (06:01→21:23)
[2018-03-12] MEDS: NORMAL SALINE 1000 ML 1,000 ML IV PRN (06:02)
[2018-03-12] MEDS: CIPROFLOXACIN 400 MG/D5W RTU 400 MG/200 ML RTUPB IV SCH ×2 (09:12→21:24)
[2018-03-12] MEDS: METOPROLOL SUCCINATE 25 MG TAB.SR.24H PO SCH ×2 (09:12→21:23)
[2018-03-12] MEDS: VENLAFAXINE HCL 75 MG CAP.SR.24H PO SCH (09:12)
[2018-03-12] MEDS: MULTIVITAMIN TABLET PO SCH (09:18)
[2018-03-12] MEDS: DILTIAZEM HCL 240 MG CAPSULE.CR PO SCH (09:18)
[2018-03-12] MEDS: ENOXAPARIN SODIUM INJ 40 MG/0.4 ML DISP.SYRIN SUBCUT SCH (09:19)
--- NOTE | 2018-03-12 10:54 | PDOC PROGRESS REPORT ---
Subjective Progress Note for:: 03/12/18 Subjective:: Patient lying in bed comfortably. Pain currently tolerable. No issues overnight. Denies chest pain or shortness of breath. Reason For Visit: CLOSED FRACTURE LEFT HIP Physical Exam Vital Signs: Temp Pulse Resp BP Pulse Ox 98.9 F 65 18 160/64 H 94 03/12/18 07:55 03/12/18 07:55 03/12/18 07:55 03/12/18 07:55 03/12/18 07:55 Intake & Output 03/11/18 03/12/18 03/13/18 06:59 06:59 06:59 Intake Total 160 2116 Output Total 380 600 Balance -220 1516 Weight 75.1 kg 77.9 kg Musculoskeletal exam: PRESENT: other - Left lower extremity: Short/external rotated. Pain with logroll. Intact plantar flexion/dorsiflexion. No calf tenderness. No sensory deficits. Results Laboratory Results: 03/12/18 04:39 03/12/18 04:39 03/12/18 03/12/18 03/12/18 04:39 04:39 08:33 WBC 7.6 RBC 2.71 L Hgb 8.7 L Hct 25.2 L MCV 93 MCH 31.9 MCHC 34.4 RDW 13.2 Plt Count 150 Seg Neutrophils % 71.9 Lymphocytes % 15.3 Monocytes % 9.6 Eosinophils % 2.7 Basophils % 0.5 Absolute Neutrophils 5.5 Absolute Lymphocytes 1.2 Absolute Monocytes 0.7 Absolute Eosinophils 0.2 Absolute Basophils 0.0 Sodium 143.6 Potassium 3.4 L Chloride 113 H Carbon Dioxide 26 Anion Gap 5 BUN 22 H Creatinine 0.96 Est GFR ( Amer) > 60 Est GFR (Non-Af Amer) > 60 Glucose 107 Calcium 7.5 L Blood Type O POSITIVE Antibody Screen NEGATIVE 03/10/18 03/10/18 03/10/18 18:42 18:42 18:42 Creatine Kinase 132 CK-MB (CK-2) 3.44 Troponin I 0.020 NT-Pro-B Natriuret Pep 1710 H 03/11/18 03/11/18 03/11/18 00:48 00:48 06:20 Creatine Kinase 102 83 CK-MB (CK-2) 2.95 Troponin I 0.015 NT-Pro-B Natriuret Pep 03/11/18 06:20 Creatine Kinase CK-MB (CK-2) 2.36 Troponin I < 0.012 NT-Pro-B Natriuret Pep Impressions: Chest X-Ray 03/10/18 00:00 IMPRESSION: No evidence of acute cardiopulmonary disease. Hip X-Ray 03/10/18 00:00 IMPRESSION: Intertrochanteric fracture of the left hip. Assessment & Plan - Diagnosis (1) Fracture, intertrochanteric, left femur Qualifiers: Encounter type: initial encounter Fracture type: closed Fracture alignment: displaced Qualified Code(s): S72.142A - Displaced intertrochanteric fracture of left femur, initial encounter for closed fracture Is this a current diagnosis for this admission?: Yes Plan: Patient sustained a intertrochanteric fracture. Today we discussed findings and treatment options including operative versus nonoperative intervention patient is a community ambulator and thus decision was made to proceed with operative treatment. Patient and family understand he is at increased risk of anesthesia risks given his history of atrial fibrillation but despite this fact I feel operative intervention is warranted in patient's situation. After discussing the options with the patient and joint decision was made to proceed with operative treatment which includes left cephalo-medullary nail intertrochanteric fracture. Risks discussed include anesthetic complications, excessive bleeding, infection, injury to surrounding nerves, vessels and tendons, bruising, healing difficulties, scar formation, posttraumatic arthritis and any unforseen complication. Patient surgery has been postponed given anesthesia request that they obtain a spinal as opposed to general anesthesia will await PT/PTT/INR at the appropriate level for anesthesia to comfortably proceed with operative intervention.
--- NOTE | 2018-03-12 13:44 | PDOC PROGRESS REPORT ---
Subjective Progress Note for:: 03/12/18 Subjective:: Patient was supposed to have surgery today but anesthesiologist was concerned because of prolongation of PT/PTT because he intended to do spinal anesthesia and he felt that he might bleed. The prolongation of PT PTT is most likely from Lovenox, she is on Lovenox for VTE prophylaxis, Lovenox to be discontinued. He has no history of liver disease that would make me suspect coagulopathy but I will request for the analysis of factor VIII, factor VII, factor V Reason For Visit: CLOSED FRACTURE LEFT HIP Physical Exam Vital Signs: Temp Pulse Resp BP Pulse Ox 98.5 F 69 20 133/57 H 91 L 03/12/18 11:36 03/12/18 11:36 03/12/18 11:36 03/12/18 11:36 03/12/18 11:36 Intake & Output 03/11/18 03/12/18 03/13/18 06:59 06:59 06:59 Intake Total 160 2116 200 Output Total 380 600 Balance -220 1516 200 Weight 75.1 kg 77.9 kg General appearance: PRESENT: no acute distress Eye exam: PRESENT: PERRLA Respiratory exam: PRESENT: clear to auscultation karrie Cardiovascular exam: PRESENT: +S1, +S2 Neurological exam: PRESENT: alert Results Laboratory Results: 03/12/18 04:39 03/12/18 04:39 03/12/18 03/12/18 03/12/18 04:39 04:39 08:33 WBC 7.6 RBC 2.71 L Hgb 8.7 L Hct 25.2 L MCV 93 MCH 31.9 MCHC 34.4 RDW 13.2 Plt Count 150 Seg Neutrophils % 71.9 Lymphocytes % 15.3 Monocytes % 9.6 Eosinophils % 2.7 Basophils % 0.5 Absolute Neutrophils 5.5 Absolute Lymphocytes 1.2 Absolute Monocytes 0.7 Absolute Eosinophils 0.2 Absolute Basophils 0.0 Sodium 143.6 Potassium 3.4 L Chloride 113 H Carbon Dioxide 26 Anion Gap 5 BUN 22 H Creatinine 0.96 Est GFR ( Amer) > 60 Est GFR (Non-Af Amer) > 60 Glucose 107 Calcium 7.5 L Blood Type O POSITIVE Antibody Screen NEGATIVE 03/10/18 03/10/18 03/10/18 18:42 18:42 18:42 Creatine Kinase 132 CK-MB (CK-2) 3.44 Troponin I 0.020 NT-Pro-B Natriuret Pep 1710 H 03/11/18 03/11/18 03/11/18 00:48 00:48 06:20 Creatine Kinase 102 83 CK-MB (CK-2) 2.95 Troponin I 0.015 NT-Pro-B Natriuret Pep 03/11/18 06:20 Creatine Kinase CK-MB (CK-2) 2.36 Troponin I < 0.012 NT-Pro-B Natriuret Pep Impressions: Chest X-Ray 03/10/18 00:00 IMPRESSION: No evidence of acute cardiopulmonary disease. Hip X-Ray 03/10/18 00:00 IMPRESSION: Intertrochanteric fracture of the left hip. Assessment & Plan - Diagnosis (1) Fracture, intertrochanteric, left femur Qualifiers: Encounter type: initial encounter Fracture type: closed Fracture alignment: displaced Qualified Code(s): S72.142A - Displaced intertrochanteric fracture of left femur, initial encounter for closed fracture Is this a current diagnosis for this admission?: Yes (2) Preprocedural cardiovascular examination Is this a current diagnosis for this admission?: Yes (3) T2DM (type 2 diabetes mellitus) Qualifiers: Diabetes mellitus intermodal customer service insulin use: without half-way use Diabetes mellitus complication status: without complication Qualified Code(s): E11.9 - Type 2 diabetes mellitus without complications Is this a current diagnosis for this admission?: Yes (4) Urinary tract infection Qualifiers: Urinary tract infection type: acute cystitis Hematuria presence: without hematuria Qualified Code(s): N30.00 - Acute cystitis without hematuria Is this a current diagnosis for this admission?: Yes Plan: Urine culture is growing gram-negative rods patient already on IV antibiotic emprically (5) Medication induced coagulopathy Is this a current diagnosis for this admission?: Yes Plan: Coagulopathy is most likely from Lovenox, he has no history of liver disease for me to suspect deficiency of coagulation factors. Factor V factor VII factor VIII analysis is requested
[2018-03-12] MEDS ORDERED: POTASSIUM CHLORIDE 10 MEQ CAPSULE.ER PO ONE (16:00)
[2018-03-12] MEDS: TAMSULOSIN HCL 0.4 MG CAP.SR.24H PO SCH (17:40)
[2018-03-12 19:00] LABS: ALANINE AMINOTRANSFERASE 26 U/L (21-72); ALBUMIN 2.7 g/dL (3.5-5.0); ALKALINE PHOSPHATASE 60 U/L (38-126); ASPARTATE AMINO TRANSFERASE 23 U/L (17-59); BILIRUBIN,DIRECT 0.2 mg/dL (0.0-0.4); BILIRUBIN,TOTAL 0.6 mg/dL (0.2-1.3)
[2018-03-12] MEDS: SIMVASTATIN 10 MG TABLET PO SCH (21:23)
[2018-03-13] MEDS: BUPROPION HCL 100 MG TABLET PO SCH ×3 (05:29→21:22)
[2018-03-13] MEDS: NORMAL SALINE 1000 ML 1,000 ML IV PRN (05:43)
[2018-03-13 06:39] LABS: ABSOLUTE BASOPHILS # (AUTO) 0.1 10^3/uL (0.0-0.2); ABSOLUTE EOSINOPHILS # (AUTO) 0.2 10^3/uL (0.0-0.6); ABSOLUTE LYMPHOCYTES (AUTO) 1.3 10^3/uL (0.5-4.7); ABSOLUTE MONOCYTES (AUTO) 0.7 10^3/uL (0.1-1.4); ABSOLUTE NEUT (AUTO) 5.6 10^3/uL (1.7-8.2); BASOPHILS % (AUTO) 0.7 % (0-2); HEMATOCRIT 25.9 % (37.9-51.0); HEMOGLOBIN 8.8 g/dL (13.5-17.0); MEAN CORPUSCULAR HEMOGLOBIN 31.4 pg (27.0-33.4); MEAN CORPUSCULAR HGB CONC 33.9 g/dL (32.0-36.0); MEAN CORPUSCULAR VOLUME 93 fl (80-97); MONOCYTES % (AUTO) 9.3 % (3-13); PLATELET COUNT 153 10^3/uL (150-450); RED CELL DISTRIBUTION WIDTH 13.4 % (11.5-14.0); TOTAL CELLS COUNTED % (AUTO) 100 %; WHITE BLOOD COUNT 7.9 10^3/uL (4.0-10.5)
[2018-03-13 06:46] LABS: INTERNATIONAL RATION (INR) 1.12
[2018-03-13 06:47] LABS: PARTIAL THROMBOPLASTIN TIME 39.2 SEC (23.5-35.8)
[2018-03-13 06:59] LABS: BLOOD UREA NITROGEN 17 mg/dL (7-20); CALCIUM 7.7 mg/dL (8.4-10.2); GLUCOSE 108 mg/dL (75-110); POTASSIUM 3.6 mmol/L (3.6-5.0)
[2018-03-13 07:05] LABS: CARBON DIOXIDE 25 mmol/L (22-30); CHLORIDE 116 mmol/L (98-107); SODIUM 144.6 mmol/L (137-145)
[2018-03-13 07:11] LABS: ANION GAP 4 (5-19)
[2018-03-13] MEDS ORDERED: PROPOFOL INJ 200 MG/20 ML VIAL IV ONE (07:37)
[2018-03-13] MEDS ORDERED: LIDOCAINE 2% INJ-PF (20 MG/ML) 10 ML AMPUL ONE (07:37)
[2018-03-13] MEDS ORDERED: FENTANYL CITRATE INJ/PF 100 MCG/2 ML AMPUL ONE (07:37)
[2018-03-13] MEDS ORDERED: ACETAMINOPHEN 1,000 MG/100 ML RTUPB IV ONE (07:37)
[2018-03-13] MEDS ORDERED: EPHEDRINE SULFATE INJ 50 MG/1 ML AMPULE ONE (07:37)
[2018-03-13] MEDS ORDERED: MIDAZOLAM 2 MG/2 ML INJ ONE (07:40)
[2018-03-13] MEDS ORDERED: BUPIVACAINE HCL/DEX-WATER/PF 15 MG/2 ML AMPULE ONE (07:41)
[2018-03-13] MEDS: CIPROFLOXACIN 400 MG/D5W RTU 400 MG/200 ML RTUPB IV SCH ×2 (10:15→21:22)
[2018-03-13] MEDS ORDERED: MEPERIDINE HCL/PF INJ 25 MG/1 ML DISP.SYRIN IV PRN (10:42)
[2018-03-13] MEDS ORDERED: MORPHINE SULFATE 10 MG/ML INJ IV PRN (10:42)
[2018-03-13] MEDS ORDERED: DIPHENHYDRAMINE HCL 50 MG/ML VIAL IV PRN (10:42)
[2018-03-13] MEDS ORDERED: PROMETHAZINE HCL INJ 25 MG/1 ML VIAL IV PRN (10:42)
[2018-03-13] MEDS ORDERED: FENTANYL CITRATE INJ/PF 100 MCG/2 ML AMPUL IV PRN ×3 (10:42)
--- NOTE | 2018-03-13 10:58 | Operative Report ---
Operative Report DATE OF SURGERY: 03/13/18 PREOPERATIVE DIAGNOSIS: Left intratrochanteric femur fracture OPERATION: Open reduction internal fixation left intertrochanteric femur fracture SURGEON: PRAVEENA RAMIREZ ANESTHESIA: Spinal ESTIMATED BLOOD LOSS: 50 PROCEDURE: With the patient supine on the table the left lower extremity is manipulated fluoroscopic guidance to affect a near anatomic reduction. It subsequently prepped and draped in a sterile fashion. Under fluoroscopic guidance a pin is placed percutaneously through the greater trochanter down into the proximal metadiaphysis. A combined reamer was then used to fashion a cortical opening. The combined reamer and pin are subsequently removed. A ball-tipped guide rods placed down the femur and its length measured to be 360 mm. Subsequently a tocario gamma 3 nail 11 mm x 125 degrees x 360 mm is advanced over the ball- tipped guide ayana for appropriate depth for the proximal interlock. Subsequently a 95 mm proximal interlock is placed. Under fluoroscopic guidance a 52.5 mm distal interlock is placed. The entire construct is examined fluoroscopically for both fracture reduction and hardware placement felt to be adequate. The wounds are irrigated with bulb lavage. The closure is interrupted Vicryl followed by mike. A sterile compressive dressing is applied and patient's return to PACU in satisfactory condition.
[2018-03-13] MEDS ORDERED: ONDANSETRON 4 MG TAB.RAPDIS PO PRN (11:30)
[2018-03-13] MEDS ORDERED: RINGERS SOLUTION,LACTATED 1,000 ML IV PRN (11:32)
--- NOTE | 2018-03-13 11:54 | RADIOLOGY REPORT (SQ) ---
EXAM DESCRIPTION: NO CHG FLUORO; HIP IN OPERATING RM COMPLETED DATE/TIME: 03/13/2018 11:21 am REASON FOR STUDY: ORIF LEFT HIP ASST WITH FLUORO IN OR COMPARISON: None. FLUOROSCOPY TIME: 1.0 minutes 4 images saved to PACS. TECHNIQUE: Intra-operative images acquired during surgical procedure to evaluate progress. NUMBER OF IMAGES: 4 LIMITATIONS: None. FINDINGS: Selected images from ayana and dynamic hip compression screw fixation of intertrochanteric f emoral neck fracture. IMPRESSION: IMAGE(S) OBTAINED DURING PROCEDURE. COMMENT: Quality ID 145: Final reports for procedures using fluoroscopy that document radiation exp osure indices, or exposure time and number of fluorographic images (if radiation exposure indices are not available) Please consult full operative report of the attending physician for description of the procedure. TECHNICAL DOCUMENTATION: JOB ID: [id number] [employer]- All Rights Reserved Reading location - IP/workstation name: [email or web address]
--- NOTE | 2018-03-13 11:54 | RADIOLOGY REPORT (SQ) ---
EXAM DESCRIPTION: NO CHG FLUORO; HIP IN OPERATING RM COMPLETED DATE/TIME: 03/13/2018 11:21 am REASON FOR STUDY: ORIF LEFT HIP ASST WITH FLUORO IN OR COMPARISON: None. FLUOROSCOPY TIME: 1.0 minutes 4 images saved to PACS. TECHNIQUE: Intra-operative images acquired during surgical procedure to evaluate progress. NUMBER OF IMAGES: 4 LIMITATIONS: None. FINDINGS: Selected images from ayana and dynamic hip compression screw fixation of intertrochanteric f emoral neck fracture. IMPRESSION: IMAGE(S) OBTAINED DURING PROCEDURE. COMMENT: Quality ID 145: Final reports for procedures using fluoroscopy that document radiation exp osure indices, or exposure time and number of fluorographic images (if radiation exposure indices are not available) Please consult full operative report of the attending physician for description of the procedure. TECHNICAL DOCUMENTATION: JOB ID: [id number] [employer]- All Rights Reserved Reading location - IP/workstation name: [email or web address]
[2018-03-13] MEDS: OXYCODONE HCL IR 5 MG TABLET PO PRN (14:32)
[2018-03-13] MEDS: METOPROLOL SUCCINATE 25 MG TAB.SR.24H PO SCH ×2 (14:33→21:21)
[2018-03-13] MEDS: VENLAFAXINE HCL 75 MG CAP.SR.24H PO SCH (14:33)
[2018-03-13] MEDS: MULTIVITAMIN TABLET PO SCH (14:33)
[2018-03-13] MEDS: DILTIAZEM HCL 240 MG CAPSULE.CR PO SCH (14:35)
[2018-03-13] MEDS: TAMSULOSIN HCL 0.4 MG CAP.SR.24H PO SCH (17:33)
--- NOTE | 2018-03-13 20:42 | PDOC PROGRESS REPORT ---
Subjective Progress Note for:: 03/13/18 Subjective:: Patient had ORIF of the left femur today, still drowsy from anesthesia Reason For Visit: CLOSED FRACTURE LEFT HIP Physical Exam Vital Signs: Temp Pulse Resp BP Pulse Ox 98.4 F 59 L 18 149/52 H 95 03/13/18 17:10 03/13/18 17:10 03/13/18 17:10 03/13/18 17:10 03/13/18 17:10 Intake & Output 03/12/18 03/13/18 03/14/18 06:59 06:59 06:59 Intake Total 2116 2112 1686 Output Total 600 850 450 Balance 1516 1262 1236 Weight 77.9 kg 79.3 kg Eye exam: PRESENT: PERRLA Respiratory exam: PRESENT: clear to auscultation karrie Cardiovascular exam: PRESENT: +S1, +S2 Results Laboratory Results: 03/13/18 06:30 03/13/18 06:30 03/13/18 03/13/18 06:30 06:30 WBC 7.9 RBC 2.80 L Hgb 8.8 L Hct 25.9 L MCV 93 MCH 31.4 MCHC 33.9 RDW 13.4 Plt Count 153 Seg Neutrophils % 71.0 Lymphocytes % 16.0 Monocytes % 9.3 Eosinophils % 3.0 Basophils % 0.7 Absolute Neutrophils 5.6 Absolute Lymphocytes 1.3 Absolute Monocytes 0.7 Absolute Eosinophils 0.2 Absolute Basophils 0.1 Sodium 144.6 Potassium 3.6 Chloride 116 H Carbon Dioxide 25 Anion Gap 4 L BUN 17 Creatinine 0.88 Est GFR ( Amer) > 60 Est GFR (Non-Af Amer) > 60 Glucose 108 Calcium 7.7 L 03/10/18 22:58 Catheterized Urine Urine Culture - Final Proteus Mirabilis 03/11/18 12:00 Clean Catch Midstream Urine Culture - Final Proteus Mirabilis 03/10/18 03/10/18 03/10/18 18:42 18:42 18:42 Creatine Kinase 132 CK-MB (CK-2) 3.44 Troponin I 0.020 NT-Pro-B Natriuret Pep 1710 H 03/11/18 03/11/18 03/11/18 00:48 00:48 06:20 Creatine Kinase 102 83 CK-MB (CK-2) 2.95 Troponin I 0.015 NT-Pro-B Natriuret Pep 03/11/18 06:20 Creatine Kinase CK-MB (CK-2) 2.36 Troponin I < 0.012 NT-Pro-B Natriuret Pep Impressions: Chest X-Ray 03/10/18 00:00 IMPRESSION: No evidence of acute cardiopulmonary disease. Fluoroscopy 03/13/18 00:00 IMPRESSION: IMAGE(S) OBTAINED DURING PROCEDURE. Hip X-Ray 03/13/18 00:00 IMPRESSION: IMAGE(S) OBTAINED DURING PROCEDURE. Assessment & Plan - Diagnosis (1) Fracture, intertrochanteric, left femur Qualifiers: Encounter type: initial encounter Fracture type: closed Fracture alignment: displaced Qualified Code(s): S72.142A - Displaced intertrochanteric fracture of left femur, initial encounter for closed fracture Is this a current diagnosis for this admission?: Yes Plan: Status post ORIF of left femur (2) Preprocedural cardiovascular examination Is this a current diagnosis for this admission?: Yes (3) T2DM (type 2 diabetes mellitus) Qualifiers: Diabetes mellitus senior care insulin use: without manager intermediate use Diabetes mellitus complication status: without complication Qualified Code(s): E11.9 - Type 2 diabetes mellitus without complications Is this a current diagnosis for this admission?: Yes (4) Urinary tract infection Qualifiers: Urinary tract infection type: acute cystitis Hematuria presence: without hematuria Qualified Code(s): N30.00 - Acute cystitis without hematuria Is this a current diagnosis for this admission?: Yes (5) Medication induced coagulopathy Is this a current diagnosis for this admission?: Yes (6) Urinary tract infection due to Proteus Is this a current diagnosis for this admission?: Yes Plan: Urine culture grew Proteus mirabilis, continue IV Cipro
[2018-03-13] MEDS: SIMVASTATIN 10 MG TABLET PO SCH (21:22)
[2018-03-14] MEDS: OXYCODONE HCL IR 5 MG TABLET PO PRN ×2 (05:38→18:33)
[2018-03-14] MEDS: BUPROPION HCL 100 MG TABLET PO SCH ×3 (05:38→22:13)
[2018-03-14 05:57] LABS: HEMATOCRIT 23.6 % (37.9-51.0); HEMOGLOBIN 8.1 g/dL (13.5-17.0); MEAN CORPUSCULAR HEMOGLOBIN 31.9 pg (27.0-33.4); MEAN CORPUSCULAR HGB CONC 34.5 g/dL (32.0-36.0); MEAN CORPUSCULAR VOLUME 93 fl (80-97); PLATELET COUNT 161 10^3/uL (150-450); RED BLOOD COUNT 2.55 10^6/uL (4.35-5.55); RED CELL DISTRIBUTION WIDTH 13.5 % (11.5-14.0); WHITE BLOOD COUNT 9.1 10^3/uL (4.0-10.5)
[2018-03-14 06:21] LABS: BLOOD UREA NITROGEN 14 mg/dL (7-20); CALCIUM 7.4 mg/dL (8.4-10.2); GLUCOSE 104 mg/dL (75-110); POTASSIUM 3.2 mmol/L (3.6-5.0)
[2018-03-14 06:27] LABS: CARBON DIOXIDE 25 mmol/L (22-30); CHLORIDE 112 mmol/L (98-107); SODIUM 140.1 mmol/L (137-145)
[2018-03-14 06:33] LABS: ANION GAP 3 (5-19)
--- NOTE | 2018-03-14 06:51 | PDOC PROGRESS REPORT ---
Subjective Progress Note for:: 03/14/18 Reason For Visit: CLOSED FRACTURE LEFT HIP 87-year-old white male now postop day 1 status post open reduction internal fixation of the left intratrochanteric femur fracture. No complaints overnight. Hematocrit is down to 23%. Physical Exam Vital Signs: Temp Pulse Resp BP Pulse Ox 36.9 C 64 19 132/64 H 97 03/13/18 20:00 03/13/18 20:00 03/13/18 20:00 03/13/18 20:00 03/13/18 20:00 Intake & Output 03/12/18 03/13/18 03/14/18 06:59 06:59 06:59 Intake Total 2116 2112 2596 Output Total 600 850 450 Balance 1516 1262 2146 Weight 77.9 kg 79.3 kg 99.4 kg General appearance: PRESENT: no acute distress Head exam: PRESENT: normocephalic Respiratory exam: PRESENT: unlabored Cardiovascular exam: PRESENT: RRR Pulses: PRESENT: +1 pedal pulses bilateral Vascular exam: PRESENT: normal capillary refill GI/Abdominal exam: PRESENT: soft Rectal exam: PRESENT: deferred Extremities exam: PRESENT: other - Slight serosanguineous drainage on the upper to dressings. Lower dressing is dry. Leg lengths are equal. Distal neurovascular examination is intact. Neurological exam: PRESENT: alert, awake, oriented to person, oriented to place, oriented to time, oriented to situation. ABSENT: motor sensory deficit Skin exam: PRESENT: dry, intact, warm. ABSENT: cyanosis, rash Results Laboratory Results: 03/14/18 05:24 03/14/18 05:24 03/13/18 03/14/18 03/14/18 06:30 05:24 05:24 WBC 9.1 RBC 2.55 L Hgb 8.1 L Hct 23.6 L MCV 93 MCH 31.9 MCHC 34.5 RDW 13.5 Plt Count 161 Sodium 144.6 140.1 Potassium 3.6 3.2 L Chloride 116 H 112 H Carbon Dioxide 25 25 Anion Gap 4 L 3 L BUN 17 14 Creatinine 0.88 0.76 Est GFR ( Amer) > 60 > 60 Est GFR (Non-Af Amer) > 60 > 60 Glucose 108 104 Calcium 7.7 L 7.4 L 03/10/18 22:58 Catheterized Urine Urine Culture - Final Proteus Mirabilis 03/11/18 12:00 Clean Catch Midstream Urine Culture - Final Proteus Mirabilis 03/10/18 03/10/18 03/10/18 18:42 18:42 18:42 Creatine Kinase 132 CK-MB (CK-2) 3.44 Troponin I 0.020 NT-Pro-B Natriuret Pep 1710 H 03/11/18 03/11/18 03/11/18 00:48 00:48 06:20 Creatine Kinase 102 83 CK-MB (CK-2) 2.95 Troponin I 0.015 NT-Pro-B Natriuret Pep 03/11/18 06:20 Creatine Kinase CK-MB (CK-2) 2.36 Troponin I < 0.012 NT-Pro-B Natriuret Pep Impressions: Chest X-Ray 03/10/18 00:00 IMPRESSION: No evidence of acute cardiopulmonary disease. Fluoroscopy 03/13/18 00:00 IMPRESSION: IMAGE(S) OBTAINED DURING PROCEDURE. Hip X-Ray 03/13/18 00:00 IMPRESSION: IMAGE(S) OBTAINED DURING PROCEDURE. Status: Imported from PACS Assessment & Plan - Diagnosis (1) Acute blood loss anemia Is this a current diagnosis for this admission?: Yes Plan: Hematocrits down to 23%. 2 units of packed red blood cells have been typed and crossed. Nursing has been instructed to transfuse these with a post transfusion hematocrit tomorrow morning. (2) Fracture, intertrochanteric, left femur Qualifiers: Encounter type: initial encounter Fracture type: closed Fracture alignment: displaced Qualified Code(s): S72.142A - Displaced intertrochanteric fracture of left femur, initial encounter for closed fracture Is this a current diagnosis for this admission?: Yes Plan: Patient can be mobilized with physical therapy and weightbearing as tolerated basis. - Time Time Spent with patient: 15-24 minutes Anticipated discharge: SNF Within: when bed available - Plan Summary Plan Summary: [facility] be [facility] a [facility] when bed available.
[2018-03-14] MEDS: MULTIVITAMIN TABLET PO SCH (09:50)
[2018-03-14] MEDS: ENOXAPARIN SODIUM INJ 40 MG/0.4 ML DISP.SYRIN SUBCUT SCH (09:50)
[2018-03-14] MEDS: VENLAFAXINE HCL 75 MG CAP.SR.24H PO SCH (09:50)
[2018-03-14] MEDS: ASPIRIN 81 MG TABLET, ENT COATED PO SCH (09:50)
[2018-03-14] MEDS: METOPROLOL SUCCINATE 25 MG TAB.SR.24H PO SCH ×2 (09:50→22:12)
[2018-03-14] MEDS: CIPROFLOXACIN 400 MG/D5W RTU 400 MG/200 ML RTUPB IV SCH ×2 (10:44→22:12)
[2018-03-14 13:00] LABS: FACTOR V ACTIVITY 124 % (70-150)
[2018-03-14] MEDS: DILTIAZEM HCL 240 MG CAPSULE.CR PO SCH (14:15)
[2018-03-14] MEDS: TAMSULOSIN HCL 0.4 MG CAP.SR.24H PO SCH (17:23)
--- NOTE | 2018-03-14 21:34 | PDOC PROGRESS REPORT ---
Subjective Progress Note for:: 03/14/18 Subjective:: Patient seen by the bedside alert oriented no new complaints Reason For Visit: CLOSED FRACTURE LEFT HIP Physical Exam Vital Signs: Temp Pulse Resp BP Pulse Ox 99.7 F 67 20 165/75 H 92 03/14/18 17:45 03/14/18 17:45 03/14/18 17:45 03/14/18 17:45 03/14/18 17:45 Intake & Output 03/13/18 03/14/18 03/15/18 06:59 06:59 06:59 Intake Total 2112 2596 1155 Output Total 850 450 Balance 1262 2146 1155 Weight 79.3 kg 99.4 kg General appearance: PRESENT: no acute distress Eye exam: PRESENT: PERRLA Respiratory exam: PRESENT: clear to auscultation karrie Cardiovascular exam: PRESENT: +S1, +S2 GI/Abdominal exam: PRESENT: soft Neurological exam: PRESENT: alert, CN II-XII grossly intact Results Laboratory Results: 03/14/18 05:24 03/14/18 05:24 03/12/18 03/14/18 03/14/18 08:33 05:24 05:24 WBC 9.1 RBC 2.55 L Hgb 8.1 L Hct 23.6 L MCV 93 MCH 31.9 MCHC 34.5 RDW 13.5 Plt Count 161 Sodium 140.1 Potassium 3.2 L Chloride 112 H Carbon Dioxide 25 Anion Gap 3 L BUN 14 Creatinine 0.76 Est GFR ( Amer) > 60 Est GFR (Non-Af Amer) > 60 Glucose 104 Calcium 7.4 L Blood Type O POSITIVE Antibody Screen NEGATIVE 03/10/18 03/10/18 03/10/18 18:42 18:42 18:42 Creatine Kinase 132 CK-MB (CK-2) 3.44 Troponin I 0.020 NT-Pro-B Natriuret Pep 1710 H 03/11/18 03/11/18 03/11/18 00:48 00:48 06:20 Creatine Kinase 102 83 CK-MB (CK-2) 2.95 Troponin I 0.015 NT-Pro-B Natriuret Pep 03/11/18 06:20 Creatine Kinase CK-MB (CK-2) 2.36 Troponin I < 0.012 NT-Pro-B Natriuret Pep Impressions: Chest X-Ray 03/10/18 00:00 IMPRESSION: No evidence of acute cardiopulmonary disease. Fluoroscopy 03/13/18 00:00 IMPRESSION: IMAGE(S) OBTAINED DURING PROCEDURE. Hip X-Ray 03/13/18 00:00 IMPRESSION: IMAGE(S) OBTAINED DURING PROCEDURE. Assessment & Plan - Diagnosis (1) Fracture, intertrochanteric, left femur Qualifiers: Encounter type: initial encounter Fracture type: closed Fracture alignment: displaced Qualified Code(s): S72.142A - Displaced intertrochanteric fracture of left femur, initial encounter for closed fracture Is this a current diagnosis for this admission?: Yes (2) Preprocedural cardiovascular examination Is this a current diagnosis for this admission?: Yes (3) T2DM (type 2 diabetes mellitus) Qualifiers: Diabetes mellitus terminal computer operator insulin use: without terminal computer operator use Diabetes mellitus complication status: without complication Qualified Code(s): E11.9 - Type 2 diabetes mellitus without complications Is this a current diagnosis for this admission?: Yes (4) Urinary tract infection Qualifiers: Urinary tract infection type: acute cystitis Hematuria presence: without hematuria Qualified Code(s): N30.00 - Acute cystitis without hematuria Is this a current diagnosis for this admission?: Yes (5) Medication induced coagulopathy Is this a current diagnosis for this admission?: Yes (6) Urinary tract infection due to Proteus Is this a current diagnosis for this admission?: Yes Plan: Urine culture grew Proteus mirabilis, continue IV Cipro - Plan Summary Plan Summary: Continue present treatment
[2018-03-14] MEDS: SIMVASTATIN 10 MG TABLET PO SCH (22:12)
[2018-03-15 05:48] LABS: HEMATOCRIT 28.1 % (37.9-51.0); HEMOGLOBIN 9.9 g/dL (13.5-17.0); MEAN CORPUSCULAR HGB CONC 35.2 g/dL (32.0-36.0); MEAN CORPUSCULAR VOLUME 91 fl (80-97); PLATELET COUNT 152 10^3/uL (150-450); RED CELL DISTRIBUTION WIDTH 13.5 % (11.5-14.0); WHITE BLOOD COUNT 9.1 10^3/uL (4.0-10.5)
[2018-03-15 06:09] LABS: ANION GAP 5 (5-19); BLOOD UREA NITROGEN 14 mg/dL (7-20); CALCIUM 7.4 mg/dL (8.4-10.2); CARBON DIOXIDE 25 mmol/L (22-30); CHLORIDE 111 mmol/L (98-107); GLUCOSE 93 mg/dL (75-110); SODIUM 141.4 mmol/L (137-145)
[2018-03-15] MEDS: BUPROPION HCL 100 MG TABLET PO SCH ×2 (06:11→13:23)
[2018-03-15] MEDS ORDERED: POTASSIUM CHLORIDE 10 MEQ CAPSULE.ER PO ONE (07:00)
--- NOTE | 2018-03-15 07:52 | PDOC TRANSFER SUMMARY ---
General - Admit/Disc Date/PCP Admission Date/Primary Care Provider: 03/10/18 14:02 ADELINA BERTRAND MD Discharge Date: 03/15/18 - Discharge Diagnosis (1) Acute blood loss anemia Is this a current diagnosis for this admission?: Yes Summary: Posttransfusion hematocrit to 28% (2) Fracture, intertrochanteric, left femur Is this a current diagnosis for this admission?: Yes Summary: Status post open reduction internal fixation (3) Hypokalemia Is this a current diagnosis for this admission?: Yes Summary: Potassium this morning decreased to 3.0. Oral supplementation. - Additional Information Resuscitation Status: Full Code Home Medications: Aspirin [Ecotrin 81 mg EC Tablet] 81 mg PO DAILY 03/10/18 Bupropion HCl [Bupropion HCl Sr] 150 mg PO BID 03/10/18 Diltiazem HCl [Cardizem Cd 240 mg Capsule.cr] 240 mg PO DAILY 03/10/18 Metoprolol Succinate [Toprol Xl 25 mg Tab.sr] 25 mg PO Q12 03/10/18 Multivitamin [Daily Multiple Vitamin] 1 tab PO DAILY 03/10/18 Simvastatin [Zocor 10 mg Tablet] 10 mg PO QHS 03/10/18 Tamsulosin HCl [Flomax 0.4 mg Cap.sr] 0.4 mg PO PCSUPPER 03/10/18 Venlafaxine HCl ER [Effexor Xr 75 mg Cap.sr] 75 mg PO DAILY 03/10/18 History of Present Illness Admission Date/PCP: 03/10/18 14:02 ADELINA BERTRAND MD History of Present Illness: SIMRAN ARRIETA is a 87 year old male Patient is an 87-year-old white male who fell at home and sustained a left intratrochanteric femur fracture. He was brought to the emergency room and admitted to the primary care physician service. Orthopedics consulted for fracture management. Hospital Course Hospital Course: Patient is taken to the operating room and undergoes uncomplicated open reduction internal fixation of a left intratrochanteric femur fracture. Is returned to floor in satisfactory condition. Makes limited progress with physical therapy. Physical Exam Vital Signs: Temp Pulse Resp BP Pulse Ox 37.3 C 66 19 164/70 H 97 03/14/18 23:39 03/14/18 23:39 03/14/18 20:07 03/14/18 23:39 03/14/18 23:39 Intake & Output 03/14/18 03/15/18 03/16/18 06:59 06:59 06:59 Intake Total 2596 1495 Output Total 450 Balance 2146 1495 Weight 99.4 kg 87.7 kg Results Laboratory Results: 03/15/18 04:26 03/15/18 04:26 03/12/18 03/15/18 03/15/18 08:33 04:26 04:26 WBC 9.1 RBC 3.10 L Hgb 9.9 L Hct 28.1 L MCV 91 MCH 32.0 MCHC 35.2 RDW 13.5 Plt Count 152 Sodium 141.4 Potassium 3.0 L* Chloride 111 H Carbon Dioxide 25 Anion Gap 5 BUN 14 Creatinine 0.91 Est GFR ( Amer) > 60 Est GFR (Non-Af Amer) > 60 Glucose 93 Calcium 7.4 L Blood Type O POSITIVE Antibody Screen NEGATIVE 03/10/18 03/10/18 03/10/18 18:42 18:42 18:42 Creatine Kinase 132 CK-MB (CK-2) 3.44 Troponin I 0.020 NT-Pro-B Natriuret Pep 1710 H 03/11/18 03/11/18 03/11/18 00:48 00:48 06:20 Creatine Kinase 102 83 CK-MB (CK-2) 2.95 Troponin I 0.015 NT-Pro-B Natriuret Pep 03/11/18 06:20 Creatine Kinase CK-MB (CK-2) 2.36 Troponin I < 0.012 NT-Pro-B Natriuret Pep Impressions: Chest X-Ray 03/10/18 00:00 IMPRESSION: No evidence of acute cardiopulmonary disease. Fluoroscopy 03/13/18 00:00 IMPRESSION: IMAGE(S) OBTAINED DURING PROCEDURE. Hip X-Ray 03/13/18 00:00 IMPRESSION: IMAGE(S) OBTAINED DURING PROCEDURE. Status: Imported from PACS Transfer Plan - Disposition Transfer Plan: [facility] Patient can have dressing changes as needed to the left lower extremity. Physical therapy can work on weightbearing as tolerated ambulation. Follow-up with Dr. العلي in 2 weeks for staple removal. - Time Spent with Patient Time spent with patient: Less than 30 Minutes Qualifiers - * PATIENT BEING DISCHARGED WITH ANY OF THE FOLLOWING DIAGNOSIS: No VTE patient discharged on overlapping Therapy?: Yes
[2018-03-15] MEDS: OXYCODONE HCL IR 5 MG TABLET PO PRN (08:06)
[2018-03-15] MEDS: DILTIAZEM HCL 240 MG CAPSULE.CR PO SCH (10:05)
[2018-03-15] MEDS: CIPROFLOXACIN 400 MG/D5W RTU 400 MG/200 ML RTUPB IV SCH (10:05)
[2018-03-15] MEDS: MULTIVITAMIN TABLET PO SCH (10:06)
[2018-03-15] MEDS: ENOXAPARIN SODIUM INJ 40 MG/0.4 ML DISP.SYRIN SUBCUT SCH (10:06)
[2018-03-15] MEDS: ASPIRIN 81 MG TABLET, ENT COATED PO SCH (10:06)
[2018-03-15] MEDS: VENLAFAXINE HCL 75 MG CAP.SR.24H PO SCH (10:06)
[2018-03-15] MEDS: METOPROLOL SUCCINATE 25 MG TAB.SR.24H PO SCH (10:07)
--- NOTE | 2018-03-15 15:51 | PDOC TRANSFER SUMMARY ---
General - Admit/Disc Date/PCP Admission Date/Primary Care Provider: 03/10/18 14:02 ADLEINA BERTRAND MD Discharge Date: 03/15/18 - Discharge Diagnosis (1) Fracture, intertrochanteric, left femur Is this a current diagnosis for this admission?: Yes (2) Preprocedural cardiovascular examination Is this a current diagnosis for this admission?: Yes (3) T2DM (type 2 diabetes mellitus) Is this a current diagnosis for this admission?: Yes (4) Urinary tract infection Is this a current diagnosis for this admission?: Yes (5) Medication induced coagulopathy Is this a current diagnosis for this admission?: Yes (6) Urinary tract infection due to Proteus Is this a current diagnosis for this admission?: Yes - Additional Information Resuscitation Status: Full Code Prescriptions: Oxycodone HCl [Oxy-Ir 5 mg Tablet] 5 mg PO Q6HP PRN #60 tablet PRN Reason: Enoxaparin Sodium [Lovenox Inj 40 mg/0.4 ml Disp.syrin] 40 mg SUBCUT DAILY #99 disp.syrin Home Medications: Aspirin [Ecotrin 81 mg EC Tablet] 81 mg PO DAILY 03/10/18 Bupropion HCl [Bupropion HCl Sr] 150 mg PO BID 03/10/18 Diltiazem HCl [Cardizem Cd 240 mg Capsule.cr] 240 mg PO DAILY 03/10/18 Metoprolol Succinate [Toprol Xl 25 mg Tab.sr] 25 mg PO Q12 03/10/18 Multivitamin [Daily Multiple Vitamin] 1 tab PO DAILY 03/10/18 Tamsulosin HCl [Flomax 0.4 mg Cap.sr] 0.4 mg PO PCSUPPER 03/10/18 Venlafaxine HCl ER [Effexor Xr 75 mg Cap.sr] 75 mg PO DAILY 03/10/18 Enoxaparin Sodium [Lovenox Inj 40 mg/0.4 ml Disp.syrin] 40 mg SUBCUT DAILY #99 disp.syrin 03/15/18 Oxycodone HCl [Oxy-Ir 5 mg Tablet] 5 mg PO Q6HP PRN #60 tablet 03/15/18 Venlafaxine HCl ER [Effexor Xr 75 mg Cap.sr] 75 mg PO DAILY cap.sr.24h 03/15/18 History of Present Illness Admission Date/PCP: 03/10/18 14:02 ADELINA BERTRAND MD History of Present Illness: SIMRAN ARRIETA is a 87 year old male,He came to the emergency room for evaluation of pain of the left hip joint ,he fell off the chair about 2 days ago there was no antecedent history of chest pain, no loss of consciousness, no shortness of breath he was not dizzy, in the emergency room he was evaluated, x- ray of the left hip joint was obtained it demonstrated intertrochanteric fracture of the left hip. Based on the revised cardiac risk index score, he has no history of CVA, he has no history of CHF, he has no history of CAD, he has no history of CKD with a serum creatinine of more than 2 he has no history of Di abetes mellitus requiring insulin the prospective procedure is intermediate risk for complications based on all these factors he has a very low cardioVascular risk in the perioperative period , Patient can proceed to surgery. Hospital Course Hospital Course: Patient was admitted for the management of left hip fracture, UTI due to Proteus, he was seen by orthopedic he underwent ORIF, the plan is to transfer the care home for rehabilitation Physical Exam Vital Signs: Temp Pulse Resp BP Pulse Ox 98.4 F 72 17 146/56 H 96 03/15/18 12:00 03/15/18 12:00 03/15/18 12:00 03/15/18 12:00 03/15/18 12:00 Intake & Output 03/14/18 03/15/18 03/16/18 06:59 06:59 06:59 Intake Total 2596 1495 318 Output Total 450 Balance 2146 1495 318 Weight 99.4 kg 87.7 kg General appearance: PRESENT: no acute distress Head exam: PRESENT: atraumatic Eye exam: PRESENT: PERRLA Ear exam: PRESENT: normal external ear exam Respiratory exam: PRESENT: clear to auscultation karrie Cardiovascular exam: PRESENT: RRR, +S1, +S2 Pulses: PRESENT: normal dorsalis pedis pul Vascular exam: PRESENT: normal capillary refill GI/Abdominal exam: PRESENT: normal bowel sounds, soft Rectal exam: PRESENT: deferred Extremities exam: PRESENT: full ROM Neurological exam: PRESENT: alert, awake, oriented to person, oriented to place, oriented to time, oriented to situation, CN II-XII grossly intact Psychiatric exam: PRESENT: appropriate affect, normal mood Skin exam: PRESENT: dry, intact, warm Results Laboratory Results: 03/15/18 04:26 03/15/18 04:26 03/15/18 03/15/18 04:26 04:26 WBC 9.1 RBC 3.10 L Hgb 9.9 L Hct 28.1 L MCV 91 MCH 32.0 MCHC 35.2 RDW 13.5 Plt Count 152 Sodium 141.4 Potassium 3.0 L* Chloride 111 H Carbon Dioxide 25 Anion Gap 5 BUN 14 Creatinine 0.91 Est GFR ( Amer) > 60 Est GFR (Non-Af Amer) > 60 Glucose 93 Calcium 7.4 L 03/10/18 03/10/18 03/10/18 18:42 18:42 18:42 Creatine Kinase 132 CK-MB (CK-2) 3.44 Troponin I 0.020 NT-Pro-B Natriuret Pep 1710 H 03/11/18 03/11/18 03/11/18 00:48 00:48 06:20 Creatine Kinase 102 83 CK-MB (CK-2) 2.95 Troponin I 0.015 NT-Pro-B Natriuret Pep 03/11/18 06:20 Creatine Kinase CK-MB (CK-2) 2.36 Troponin I < 0.012 NT-Pro-B Natriuret Pep Impressions: Chest X-Ray 03/10/18 00:00 IMPRESSION: No evidence of acute cardiopulmonary disease. Fluoroscopy 03/13/18 00:00 IMPRESSION: IMAGE(S) OBTAINED DURING PROCEDURE. Hip X-Ray 03/13/18 00:00 IMPRESSION: IMAGE(S) OBTAINED DURING PROCEDURE. Qualifiers - * PATIENT BEING DISCHARGED WITH ANY OF THE FOLLOWING DIAGNOSIS: No
[2018-03-15] MEDS: TAMSULOSIN HCL 0.4 MG CAP.SR.24H PO SCH (17:18)
[2018-03-15 20:20] VITALS: BP 149/53
== END 2018-03-15 21:30 | DRG 481 ==
LOC: ER 11:28 → EH 14:02 → 4N 17:58
PROVIDERS: ADMIT Internal Medicine; ATTEND Internal Medicine
PROC: 0QS736Z Reposition Left Upper Femur with Intramedullary Internal Fixation Device, Percutaneous Approach (ICD-10-PCS; principal; 2018-03-13 08:45)
PROC: 30233N1 Transfusion of Nonautologous Red Blood Cells into Peripheral Vein, Percutaneous Approach (ICD-10-PCS; 2018-03-14)
DX: S72.142A Displaced intertrochanteric fracture of left femur, initial encounter for closed fracture (principal); N30.00 Acute cystitis without hematuria; D62 Acute posthemorrhagic anemia; D68.32 Hemorrhagic disorder due to extrinsic circulating anticoagulants; E11.9 Type 2 diabetes mellitus without complications; B96.4 Proteus (mirabilis) (morganii) as the cause of diseases classified elsewhere; I48.91 Unspecified atrial fibrillation; W07.XXXA Fall from chair, initial encounter; I10 Essential (primary) hypertension; F32.9 Major depressive disorder, single episode, unspecified; E87.6 Hypokalemia; R33.9 Retention of urine, unspecified; Z79.82 Long term (current) use of aspirin
CPT/HCPCS: 01230; 36415; 36430; 71045; 80048; 80061; 80076; 80307; 81001; 82140; 82150; 82550; 82553; 82570; 83036; 83690; 83735; 83880; 84100; 84156; 84439; 84443; 84484; 85025; 85027; 85220; 85230; 85240; 85384; 85610; 85730; 86850; 86900; 86901; 86920; 87086; 87088; 87186; 93005; 93010; 96374; 96375; 99285; C1713; C1769; J0131; J0744; J1170; J1650; J2250; J2270; J2405; J2704; J3010; J3480; J3490; J7030; P9016

== ENCOUNTER 2018-08-04 15:01 | Emergency (ER) | payer MEDICARE, BC, OTHER ==
--- NOTE | 2018-08-04 15:15 | ER Document Report ---
ED General - General Chief Complaint: Near Syncope Stated Complaint: SYNCOPE Time Seen by Provider: 08/04/18 15:11 Primary Care Provider: ADELINA BERTRAND MD [Primary Care Provider] - Follow up as needed Notes: Patient is a 88-year-old male with history of atrial fibrillation and hypertension that presents to the emergency department for chief complaint of near syncopal episode, shortly after a bowel movement. Patient states that he apparently had almost passed out, but does not remember all these events, his apparently thought it looked like he was going to pass out. He states that he is feeling well at this time, denies any complaints. Denies any recent chest pain, shortness of breath, nausea, vomiting. Denies any lightheadedness or dizziness at this time. No complaints of pain. He reports being on several blood pressure medications. Per EMS the patient was hypotensive with a systolic pressure in the 80s upon arrival, they gave him a small fluid bolus in route to the hospital. Past Medical History: Atrial fibrillation, hypertension, BPH Past Surgical History: Back surgery, left hip ORIF Social History: Denies current tobacco, alcohol or drug use, lives at home, gets around using wheelchair. Family History: Reviewed and noncontributory for presenting illness Allergies: Reviewed, see documented allergy list. REVIEW OF SYSTEMS: Other than noted above, the 12 point review of systems was reviewed with the patient and were negative, all pertinent findings are included in the HPI. PHYSICAL EXAMINATION: Vital signs reviewed, nursing noted reviewed. GENERAL: Elderly male, no acute distress HEAD: Atraumatic, normocephalic. EYES: Eyes appear normal, extraocular movements intact, sclera anicteric, conjunctiva are normal. ENT: nares patent, oropharynx clear without exudates. Moist mucous membranes. NECK: Normal range of motion, supple without lymphadenopathy LUNGS: Breath sounds clear to auscultation bilaterally and equal. No wheezes rales or rhonchi. HEART: Heart rate bradycardic, regular rhythm, no audible murmur ABDOMEN: Soft, nontender, normoactive bowel sounds. No rebound, guarding, or rigidity. No masses appreciated. EXTREMITIES: Nontender, decreased range of motion of the left hip, chronic per patient after her left hip surgery, 2+ pitting edema to the proximal tibias bilaterally, chronic per patient. NEUROLOGICAL: No focal neurological deficits. Moves all extremities spontaneously Motor and sensory grossly intact on exam. PSYCH: Normal mood, normal affect. SKIN: Warm, Dry, normal turgor, no rashes or lesions noted on exposed skin TRAVEL OUTSIDE OF THE [place] IN LAST 30 DAYS: No - Related Data Allergies/Adverse Reactions: No Known Allergies Allergy (Verified 03/10/18 20:45) Past Medical History - Social History Smoking Status: Former Smoker Family History: Reviewed & Not Pertinent - Past Medical History Cardiac Medical History: Reports: Hx Atrial Fibrillation, Hx Hypertension Denies: Hx Coronary Artery Disease, Hx Heart Attack Pulmonary Medical History: Denies: Hx Asthma, Hx Bronchitis, Hx COPD, Hx Pneumonia Neurological Medical History: Denies: Hx Cerebrovascular Accident, Hx Seizures Endocrine Medical History: Reports: Hx Diabetes Mellitus Type 2 Renal/ Medical History: Denies: Hx Peritoneal Dialysis Musculoskeletal Medical History: Denies Hx Arthritis Psychiatric Medical History: Reports: Hx Depression - Immunizations Hx Diphtheria, Pertussis, Tetanus Vaccination: No - unsure Physical Exam - Vital signs Vitals: Temp Pulse Resp BP Pulse Ox 97.9 F 50 L 13 138/89 H 96 08/04/18 15:05 08/04/18 15:05 08/04/18 15:05 08/04/18 15:05 08/04/18 15:05 Course - Re-evaluation Re-evalutation: Patient seen and examined vital signs reviewed. Laboratory data and/or imaging were ordered as appropriate for the patient's presenting symptoms and complaint, with consideration of any critical or life threatening conditions that may be associated with their obtained history and exam as noted above. Patient was treated with IV magnesium, and IV potassium chloride, 40 mEq, and p.o. potassium chloride 40 mEq, as his potassium was noted to be 2.7 The patient was re-evaluated and was stable, no acute complaints, was overall feeling well. I did discuss the case with the patient's primary care physician, Dr. Bertrand, who agreed with plan of care to replace potassium, and I discussed with him holding his Cardizem, which he agreed with as well, and to follow-up in the office next week of which the patient was agreeable to. Evaluation was most consistent with symptomatic bradycardia, hypokalemia Results were discussed with the patient at this point, after careful cons ideration I feel that that patient can be discharged from the emergency department, the patient was educated treatments and reasons to return to the emergency department based on their presumed diagnosis as noted above, they were advised to followup with a primary care physician in 2-3 days. Patient was agreeable to plan of care. *Note is created using voice recognition software and may contain spelling, syntax or grammatical errors. Laboratory 08/04/18 08/04/18 08/04/18 15:00 15:00 15:00 WBC 9.3 RBC 3.59 L Hgb 10.9 L Hct 32.2 L MCV 90 MCH 30.3 MCHC 33.7 RDW 14.6 H Plt Count 211 Seg Neutrophils % 71.6 Lymphocytes % 16.4 Monocytes % 8.0 Eosinophils % 3.1 Basophils % 0.9 Absolute Neutrophils 6.7 Absolute Lymphocytes 1.5 Absolute Monocytes 0.7 Absolute Eosinophils 0.3 Absolute Basophils 0.1 Sodium 145.1 H Potassium 2.7 L* Chloride 109 H Carbon Dioxide 28 Anion Gap 8 BUN 12 Creatinine 1.04 Est GFR ( Amer) > 60 Est GFR (Non-Af Amer) > 60 Glucose 132 H Calcium 7.1 L Total Bilirubin 0.2 Direct Bilirubin 0.2 Neonat Total Bilirubin Not Reportable Neonat Direct Bilirubin Not Reportable Neonat Indirect Bili Not Reportable AST 20 ALT 22 Alkaline Phosphatase 72 Creatine Kinase Cancelled CK-MB (CK-2) Cancelled Troponin I < 0.012 Total Protein 5.3 L Albumin 2.7 L Chest X-Ray 08/04/18 15:12 IMPRESSION: Prominence the upper mediastinum. This has progressed when compared to 2012. No significant interval change from February of this year. - Vital Signs Vital signs: Temp Pulse Resp BP Pulse Ox 97.9 F 50 L 17 157/69 H 95 08/04/18 15:05 08/04/18 15:05 08/04/18 16:01 08/04/18 16:01 08/04/18 16:01 - Laboratory Result Diagrams: 08/04/18 15:00 08/04/18 15:00 Laboratory results interpreted by me: 08/04/18 08/04/18 15:00 15:00 RBC 3.59 L Hgb 10.9 L Hct 32.2 L RDW 14.6 H Sodium 145.1 H Potassium 2.7 L* Chloride 109 H Glucose 132 H Calcium 7.1 L Total Protein 5.3 L Albumin 2.7 L - EKG Interpretation by Me Additional EKG results interpreted by me: EKG demonstrates atrial fibrillation with a ventricular rate of 48 bpm, normal axis, QTC 447 ms, T wave flattening in leads aVF, V4 through V6, this is compared with a prior EKG from 03/10/2018, without significant change aside from decreased rate. Critical Care Note - Critical Care Note Total time excluding time spent on procedures (mins): 35 Comments: Critical care time 35 minutes exclusive from separate billable procedures for a patient requiring complex medical decision making, and high potential for clinical deterioration. In a patient with severe hyperkalemia requiring IV replacement, and close monitoring. Time spent obtaining history from patient or surrogate, discussions with consultants, development of treatment plan with patient or surrogate, evaluation of patient's response to treatment, examination of patient, ordering and performing treatments and interventions, ordering and review of laboratory studies, re-evaluation of patient's condition, ordering and review of radiographic studies and review of old charts Discharge - Discharge Clinical Impression: Near syncope, Bradycardia, Hypokalemia Condition: Stable Disposition: HOME, SELF-CARE Instructions: Near Syncopal Episode ([facility]) Additional Instructions: Please discontinue taking your diltiazem XL, 240 mg tablet, until further instructed by your primary care physician, Dr. Bertrand. If you develop any worsening of your symptoms, do not hesitate to return to the emergency department. Referrals: ADELINA BERTRAND MD [Primary Care Provider] - Follow up in 3-5 days
[2018-08-04 15:19] LABS: ABSOLUTE BASOPHILS # (AUTO) 0.1 10^3/uL (0.0-0.2); ABSOLUTE EOSINOPHILS # (AUTO) 0.3 10^3/uL (0.0-0.6); ABSOLUTE LYMPHOCYTES (AUTO) 1.5 10^3/uL (0.5-4.7); ABSOLUTE MONOCYTES (AUTO) 0.7 10^3/uL (0.1-1.4); ABSOLUTE NEUT (AUTO) 6.7 10^3/uL (1.7-8.2); BASOPHILS % (AUTO) 0.9 % (0-2); EOSINOPHILS % (AUTO) 3.1 % (0-6); HEMATOCRIT 32.2 % (37.9-51.0); HEMOGLOBIN 10.9 g/dL (13.5-17.0); LYMPHOCYTES % (AUTO) 16.4 % (13-45); MEAN CORPUSCULAR HEMOGLOBIN 30.3 pg (27.0-33.4); MEAN CORPUSCULAR HGB CONC 33.7 g/dL (32.0-36.0); MEAN CORPUSCULAR VOLUME 90 fl (80-97); PLATELET COUNT 211 10^3/uL (150-450); RED BLOOD COUNT 3.59 10^6/uL (4.35-5.55); RED CELL DISTRIBUTION WIDTH 14.6 % (11.5-14.0); SEGMENTED NEUTROPHILS % (AUTO) 71.6 % (42-78); TOTAL CELLS COUNTED % (AUTO) 100 %; WHITE BLOOD COUNT 9.3 10^3/uL (4.0-10.5)
[2018-08-04 15:39] LABS: ALANINE AMINOTRANSFERASE 22 U/L (21-72); ALBUMIN 2.7 g/dL (3.5-5.0); ALKALINE PHOSPHATASE 72 U/L (38-126); ANION GAP 8 (5-19); ASPARTATE AMINO TRANSFERASE 20 U/L (17-59); BILIRUBIN,DIRECT 0.2 mg/dL (0.0-0.4); BILIRUBIN,TOTAL 0.2 mg/dL (0.2-1.3); BLOOD UREA NITROGEN 12 mg/dL (7-20); CALCIUM 7.1 mg/dL (8.4-10.2); CARBON DIOXIDE 28 mmol/L (22-30); CHLORIDE 109 mmol/L (98-107); GLUCOSE 132 mg/dL (75-110); SODIUM 145.1 mmol/L (137-145); TOTAL PROTEIN 5.3 g/dL (6.3-8.2)
[2018-08-04 15:41] LABS: POTASSIUM 2.7 mmol/L (3.6-5.0)
[2018-08-04] MEDS ORDERED: POTASSIUM CHLORIDE 10 MEQ CAPSULE.ER PO ONE (15:45)
[2018-08-04] MEDS ORDERED: POTASSI CL 20 MEQ/50 ML RIDER 20 MEQ/50 ML RTUPB IV SCH (15:45)
--- NOTE | 2018-08-04 15:46 | RADIOLOGY REPORT (SQ) ---
EXAM DESCRIPTION: CHEST SINGLE VIEW COMPLETED DATE/TIME: 08/04/2018 3:36 pm REASON FOR STUDY: near syncope COMPARISON: 03/10/2018 NUMBER OF VIEWS: One view. TECHNIQUE: Single frontal radiographic view of the chest acquired. LIMITATIONS: None. FINDINGS: LUNGS AND PLEURA: No opacities, masses or pneumothorax. No pleural effusion. MEDIASTINUM AND HILAR STRUCTURES: There is persistent fullness in the upper mediastinum this may repr esent tortuous great vessels. Upper mediastinal mass cannot be excluded. HEART AND VASCULAR STRUCTURES: Heart normal in size. Normal vasculature. BONES: No acute findings. HARDWARE: None in the chest. OTHER: No other significant finding. IMPRESSION: Prominence the upper mediastinum. This has progressed when compared to 2013. No signif icant interval change from February of this year. TECHNICAL DOCUMENTATION: JOB ID: [id number] [employer]- All Rights Reserved Reading location - IP/workstation name: [email or web address]
[2018-08-04] MEDS: MAGNESIUM SULFATE/D5W 1 GM/100 ML RTUPB IV SCH ×2 (16:05→17:41)
[2018-08-04] MEDS ORDERED: POTASSIUM CHLORIDE 20 MEQ/50 ML RTU IV ONE ×2 (18:30→21:00)
[2018-08-04 21:08] LABS: APPEARANCE,URINE SLIGHTLY-CLOUDY; BILIRUBIN,URINE NEGATIVE (NEGATIVE); COLOR,URINE YELLOW; GLUCOSE, URINE NEGATIVE (NEGATIVE); KETONES,URINE NEGATIVE (NEGATIVE); LEUKOCYTE ESTERASE,URINE TRACE (NEGATIVE); NITRITE,URINE POSITIVE (NEGATIVE); PROTEIN,URINE NEGATIVE (NEGATIVE); URINE SPECIFIC GRAVITY 1.009; UROBILINOGEN,URINE NEGATIVE mg/dL (<2.0)
[2018-08-04] MEDS ORDERED: CEPHALEXIN 500 MG CAPSULE PO ONE (21:10)
--- NOTE | 2018-08-04 22:19 | EKG REPORT ---
SEVERITY:- BORDERLINE ECG - BRADYCARDIA WITH IRREGULAR RATE 40-51 BORDERLINE T ABNORMALITIES, DIFFUSE LEADS : Confirmed by: Alvarez Magallon MD 04-Aug-2018 22:18:58
[2018-08-04 23:33] VITALS: BP 183/78
== END 2018-08-04 22:36 | disposition home or self-care (01) ==
LOC: ER 15:01
DX: R55 Syncope and collapse (principal); R00.1 Bradycardia, unspecified; E87.6 Hypokalemia; N39.0 Urinary tract infection, site not specified; I10 Essential (primary) hypertension; R60.0 Localized edema; E11.9 Type 2 diabetes mellitus without complications; I48.91 Unspecified atrial fibrillation; Z87.891 Personal history of nicotine dependence
CPT/HCPCS: 93005; 36415; 87086; 85025; 87088; 80053; 81001; 84484; 87186; 71045; 93010; A9270 ×2; J3475; J3480; 96365; 96366; 96367; 99284

== ENCOUNTER → 2019-09-24 | Outpatient (CLI) | payer MEDICARE, BC ==
--- NOTE | 2019-09-24 16:23 | RADIOLOGY REPORT (SQ) ---
EXAM DESCRIPTION: U/S RETROPERITON (RENAL/AORTA) IMAGES COMPLETED DATE/TIME: 09/24/2019 4:08 pm REASON FOR STUDY: R94.4 ABNORMAL RESULTS OF KIDNEY FUNCTION STUDIES R94.4 ABNORMAL RESULTS OF KIDNE Y FUNCTION STUDIES COMPARISON: None. TECHNIQUE: Dynamic and static grayscale images acquired of the kidneys and bladder and recorded on P ACS. Additional selected color Doppler and spectral images recorded. LIMITATIONS: None. FINDINGS: RIGHT KIDNEY: The right kidney measures 8.7 cm in length. Normal echogenicity. No annalisa id or suspicious masses. No hydronephrosis. No calcifications. LEFT KIDNEY: The left kidney measures 10.3 cm in length. Normal echogenicity. No solid or suspic ious masses. No hydronephrosis. No calcifications. BLADDER: No masses. OTHER FINDINGS: No other significant finding. IMPRESSION: NORMAL RENAL AND BLADDER ULTRASOUND. TECHNICAL DOCUMENTATION: JOB ID: [id number] [employer]- All Rights Reserved Reading location - IP/workstation name: [email or web address]
== END ==
LOC: RAD 15:31
PROVIDERS: ATTEND Internal Medicine
DX: R94.4 Abnormal results of kidney function studies (principal)
CPT/HCPCS: 76770

== ENCOUNTER 2019-10-04 12:29 | Observation (INO) | payer MEDICARE, BC, OTHER ==
--- NOTE | 2019-10-04 12:49 | ER Document Report ---
ED Medical Screen (RME) - General Chief Complaint: Direct Admit/Private MD Stated Complaint: DIRECT ADMIT Primary Care Provider: ADELINA BERTRAND MD [Primary Care Provider] - Follow up as needed Notes: Patient is an 89-year-old male sent here from his primary doctor Dr. Bertrand for direct admission of CHF and lower extremity edema. Patient is well- appearing at this time. I have treated and performed a rapid initial assessment of this patient. A comprehensive ED assessment and evaluation of the patient, analysis of test results and completion of medical decision making process will be conducted by additional ED providers. PHYSICAL EXAMINATION: GENERAL: Well-appearing, well-nourished and in no acute distress. A&Ox4. Answers questions appropriately. TRAVEL OUTSIDE OF THE [place] IN LAST 30 DAYS: No - Related Data Allergies/Adverse Reactions: No Known Allergies Allergy (Verified 10/04/19 12:45) Past Medical History - Past Medical History Cardiac Medical History: Reports: Hx Atrial Fibrillation, Hx Hypertension Denies: Hx Coronary Artery Disease, Hx Heart Attack Pulmonary Medical History: Denies: Hx Asthma, Hx Bronchitis, Hx COPD, Hx Pneumonia Neurological Medical History: Denies: Hx Cerebrovascular Accident, Hx Seizures Endocrine Medical History: Reports: Hx Diabetes Mellitus Type 2 Renal/ Medical History: Denies: Hx Peritoneal Dialysis Musculoskeltal Medical History: Denies Hx Arthritis Psychiatric Medical History: Reports: Hx Depression Past Surgical History: Reports: Hx Orthopedic Surgery - back, R ankle, R hip - Immunizations Hx Diphtheria, Pertussis, Tetanus Vaccination: No - unsure Physical Exam - Vital signs Vitals: Temp Pulse Resp BP Pulse Ox 97.6 F 59 L 20 145/63 H 98 10/04/19 12:36 10/04/19 12:36 10/04/19 12:36 10/04/19 12:36 10/04/19 12:36 Course - Vital Signs Vital signs: Temp Pulse Resp BP Pulse Ox 97.6 F 59 L 20 145/63 H 98 10/04/19 12:36 10/04/19 12:36 10/04/19 12:36 10/04/19 12:36 10/04/19 12:36 Doctor's Discharge - Discharge Referrals: ADELINA BERTRAND MD [Primary Care Provider] - Follow up as needed
[2019-10-04] MEDS ORDERED: NORMAL SALINE 250 ML with FUROSEMIDE 250 MG IV PRN ×2 (13:23)
--- NOTE | 2019-10-04 13:50 | RADIOLOGY REPORT (SQ) ---
EXAM DESCRIPTION: CHEST 2 VIEWS IMAGES COMPLETED DATE/TIME: 10/04/2019 1:36 pm REASON FOR STUDY: er chf,cellulitis COMPARISON: 08/04/2018, 03/10/2018, 11/16/2012 EXAM PARAMETERS: NUMBER OF VIEWS: two views TECHNIQUE: Digital Frontal and Lateral radiographic views of the chest acquired. RADIATION DOSE: NA LIMITATIONS: none FINDINGS: LUNGS AND PLEURA: No opacities, masses or pneumothorax. No pleural effusion. MEDIASTINUM AND HILAR STRUCTURES: The appearance of a widened superior mediastinum is not significant ly changed dating back to 11/16/2012. HEART AND VASCULAR STRUCTURES: Heart normal size. No evidence for failure. BONES: No acute findings. HARDWARE: None in the chest. OTHER: No other significant finding. IMPRESSION: No evidence of acute cardiopulmonary abnormality. 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 TECHNICAL DOCUMENTATION: JOB ID: [id number] 2010 [employer]- All Rights Reserved Reading location - IP/workstation name: [email or web address]
[2019-10-04 13:54] LABS: ABSOLUTE BASOPHILS # (AUTO) 0.1 10^3/uL (0.0-0.2); ABSOLUTE EOSINOPHILS # (AUTO) 0.5 10^3/uL (0.0-0.6); ABSOLUTE LYMPHOCYTES (AUTO) 1.8 10^3/uL (0.5-4.7); ABSOLUTE MONOCYTES (AUTO) 0.7 10^3/uL (0.1-1.4); BASOPHILS % (AUTO) 1.1 % (0-2); EOSINOPHILS % (AUTO) 5.9 % (0-6); HEMATOCRIT 36.1 % (37.9-51.0); HEMOGLOBIN 12.1 g/dL (13.5-17.0); LYMPHOCYTES % (AUTO) 22.3 % (13-45); MEAN CORPUSCULAR HEMOGLOBIN 31.7 pg (27.0-33.4); MEAN CORPUSCULAR HGB CONC 33.6 g/dL (32.0-36.0); MEAN CORPUSCULAR VOLUME 94 fl (80-97); MONOCYTES % (AUTO) 8.3 % (3-13); PLATELET COUNT 183 10^3/uL (150-450); RED BLOOD COUNT 3.82 10^6/uL (4.35-5.55); RED CELL DISTRIBUTION WIDTH 13.6 % (11.5-14.0); SEGMENTED NEUTROPHILS % (AUTO) 62.4 % (42-78); TOTAL CELLS COUNTED % (AUTO) 100 %; WHITE BLOOD COUNT 8.1 10^3/uL (4.0-10.5)
[2019-10-04 13:57] LABS: APPEARANCE,URINE SLIGHTLY-CLOUDY; BILIRUBIN,URINE NEGATIVE (NEGATIVE); COLOR,URINE YELLOW; GLUCOSE, URINE NEGATIVE (NEGATIVE); KETONES,URINE NEGATIVE (NEGATIVE); LEUKOCYTE ESTERASE,URINE NEGATIVE (NEGATIVE); NITRITE,URINE POSITIVE (NEGATIVE); PROTEIN,URINE NEGATIVE (NEGATIVE); URINE SPECIFIC GRAVITY 1.013; UROBILINOGEN,URINE NEGATIVE mg/dL (<2.0)
[2019-10-04 14:04] LABS: ALKALINE PHOSPHATASE 94 U/L (38-126); ANION GAP 6 (5-19); ASPARTATE AMINO TRANSFERASE 31 U/L (17-59); BILIRUBIN,TOTAL 0.3 mg/dL (0.2-1.3); BLOOD UREA NITROGEN 19 mg/dL (7-20); CALCIUM 7.9 mg/dL (8.4-10.2); CARBON DIOXIDE 23 mmol/L (22-30); CHLORIDE 114 mmol/L (98-107); GLUCOSE 107 mg/dL (75-110); TOTAL PROTEIN 7.3 g/dL (6.3-8.2)
[2019-10-04 14:20] LABS: FREE T4 (FREE THYROXINE) 0.92 ng/dL (0.78-2.19); URINE CREATININE 60.7 mg/dL (22-328); URINE PROTEIN 24.1 mg/dL (<12)
[2019-10-04 14:33] LABS: THYROID STIMULATING HORMONE 1.21 uIU/mL (0.47-4.68)
[2019-10-04] MEDS: CLINDAMYCIN 600 MG/D5W RTU 600 MG/50 ML RTUPB IV SCH ×2 (16:42→23:19)
--- NOTE | 2019-10-04 19:10 | PDOC H&P ---
History of Present Illness Admission Date/PCP: 10/04/19 17:09 ADELINA BERTRAND MD History of Present Illness: SIMRAN ARRIETA is a 89 year old male, He came to the office for evaluation of bilateral leg swelling with redness of the skin, he denies any shortness of breath or chest pain. Patient is sedentary, he ambulates in a wheelchair, it was difficult to completely rule out CHF, nephrotic syndrome, I felt patient needed to be admitted into the hospital for further evaluation especially this particular patient very elderly, sedentary.The B type natruretic peptide was elevated, but today she was normal, the transthoracic echocardiogram, a very poor study, showed preserved ejection fraction of left ventricle difficult to evaluate for diastolic function, the venous Doppler of the legs negative for DVT.The urine protein creatinine ratio 0.4 this essentially rule out nephrotic s yndrome, patient was admitted treated with intravenous diuretic. Initially the intent was to admit inpatient but after evaluation it was felt that patient only meets observation Past Medical History Cardiac Medical History: Reports: Hypertension Endocrine Medical History: Reports: Diabetes Mellitus Type 2 Musculoskeltal Medical History: Denies: Arthritis Psychiatric Medical History: Reports: Depression Past Surgical History Past Surgical History: Reports: Orthopedic Surgery - back, R ankle, R hip Social History Smoking Status: Former Smoker Electronic Cigarette use?: No Frequency of Alcohol Use: None Hx Recreational Drug Use: No Drugs: None Hx Prescription Drug Abuse: No Family History Family History: Reviewed & Not Pertinent Parental Family History Reviewed: Yes Children Family History Reviewed: Yes Sibling(s) Family History Reviewed.: Yes Medication/Allergy Home Medications: Bupropion HCl [Bupropion HCl Sr] 150 mg PO BID 03/10/18 Tamsulosin HCl [Flomax 0.4 mg Cap.sr] 0.4 mg PO PCSUPPER 03/10/18 Venlafaxine HCl ER [Effexor Xr 75 mg Cap.sr] 75 mg PO DAILY cap.sr.24h 03/15/18 Amlodipine/Valsartan/Hcthiazid [Exforge Hct 10-320-25 mg Tab] 1 each PO DAILY 10/04/19 Cholecalciferol (Vitamin D3) [Vitamin D3 400 Unit Tablet] 400 unit PO DAILY 10/04/19 Metoprolol Succinate [Toprol Xl] 100 mg PO DAILY 10/04/19 Potassium Chloride 20 meq PO DAILY 10/04/19 Simvastatin [Zocor 10 mg Tablet] 10 mg PO QHS 10/04/19 Allergies/Adverse Reactions: No Known Allergies Allergy (Verified 10/04/19 12:45) Review of Systems Constitutional: ABSENT: chills, fever(s), headache(s), weight gain, weight loss Eyes: ABSENT: visual disturbances Ears: ABSENT: hearing changes Cardiovascular: PRESENT: edema. ABSENT: chest pain, dyspnea on exertion, orthropnea, palpitations Respiratory: ABSENT: cough, hemoptysis Gastrointestinal: ABSENT: abdominal pain, constipation, diarrhea, hematemesis, hematochezia, nausea, vomiting Genitourinary: ABSENT: dysuria, hematuria Musculoskeletal: ABSENT: joint swelling Integumentary: ABSENT: rash, wounds Neurological: ABSENT: abnormal gait, abnormal speech, confusion, dizziness, f ocal weakness, syncope Psychiatric: ABSENT: anxiety, depression, homidical ideation, suicidal ideation Endocrine: ABSENT: cold intolerance, heat intolerance, menstrual abnormalities, polydipsia, polyuria Hematologic/Lymphatic: ABSENT: easy bleeding, easy bruising, lymphadenopathy Physical Exam Vital Signs: Temp Pulse Resp BP Pulse Ox 97.9 F 59 L 17 128/73 H 98 10/04/19 16:16 10/04/19 12:36 10/04/19 18:01 10/04/19 18:01 10/04/19 18:01 Intake & Output 10/03/19 10/04/19 10/05/19 06:59 06:59 06:59 Intake Total 50 Balance 50 Weight 78.7 kg General appearance: PRESENT: no acute distress Head exam: PRESENT: atraumatic, normocephalic Eye exam: PRESENT: PERRLA Ear exam: PRESENT: normal external ear exam Mouth exam: PRESENT: moist, tongue midline Neck exam: PRESENT: full ROM Respiratory exam: PRESENT: clear to auscultation karrie Cardiovascular exam: PRESENT: RRR, +S1, +S2 Pulses: PRESENT: normal dorsalis pedis pul, +2 pedal pulses bilateral Vascular exam: PRESENT: normal capillary refill GI/Abdominal exam: PRESENT: normal bowel sounds, soft Rectal exam: PRESENT: deferred Extremities exam: PRESENT: pedal edema Neurological exam: PRESENT: alert, CN II-XII grossly intact Psychiatric exam: PRESENT: appropriate affect, normal mood Skin exam: PRESENT: dry, intact, warm Results Laboratory Results: 10/04/19 13:11 10/04/19 13:11 10/04/19 10/04/19 10/04/19 13:11 13:11 13:11 WBC 8.1 RBC 3.82 L Hgb 12.1 L Hct 36.1 L MCV 94 MCH 31.7 MCHC 33.6 RDW 13.6 Plt Count 183 Seg Neutrophils % 62.4 Sodium 143.3 Potassium 4.0 Chloride 114 H Carbon Dioxide 23 Anion Gap 6 BUN 19 Creatinine 1.28 H Est GFR ( Amer) > 60 Glucose 107 Calcium 7.9 L Total Bilirubin 0.3 AST 31 Alkaline Phosphatase 94 Total Protein 7.3 Albumin 4.0 TSH 1.21 Free T4 0.92 Urine Color Urine Appearance Urine pH Ur Specific [place] Urine Protein Urine Glucose (UA) Urine Ketones Urine Blood Urine Nitrite Ur Leukocyte Esterase Urine WBC (Auto) Urine RBC (Auto) 10/04/19 13:11 WBC RBC Hgb Hct MCV MCH MCHC RDW Plt Count Seg Neutrophils % Sodium Potassium Chloride Carbon Dioxide Anion Gap BUN Creatinine Est GFR ( Amer) Glucose Calcium Total Bilirubin AST Alkaline Phosphatase Total Protein Albumin TSH Free T4 Urine Color YELLOW Urine Appearance SLIGHTLY-CLOUDY Urine pH 5.0 Ur Specific [place] 1.013 Urine Protein NEGATIVE Urine Glucose (UA) NEGATIVE Urine Ketones NEGATIVE Urine Blood NEGATIVE Urine Nitrite POSITIVE H Ur Leukocyte Esterase NEGATIVE Urine WBC (Auto) 5 Urine RBC (Auto) 1 10/04/19 13:11 NT-Pro-B Natriuret Pep 1150 H Impressions: Chest X-Ray 10/04/19 00:00 IMPRESSION: No evidence of acute cardiopulmonary abnormality. 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
[2019-10-04 19:55] LABS: UR PRO/CREAT RATIO RESULT 0.4 mg/mg (0.0-0.2); URINE CREATININE 60.7 mg/dL (22-328); URINE PROTEIN 24.1 mg/dL (<12)
[2019-10-05] MEDS: CLINDAMYCIN 600 MG/D5W RTU 600 MG/50 ML RTUPB IV SCH (05:06)
[2019-10-05] MEDS ORDERED: (PENDING PHARMACY ID) (Amlodipine/Valsartan/Hcthiazid [Exforge Hct 10-320-25 Mg Tab] 1 EAC PO SCH (08:00)
[2019-10-05] MEDS ORDERED: CHOLECALCIFEROL (D3) 400 UNIT TABLET PO SCH (10:00)
[2019-10-05] MEDS ORDERED: ENOXAPARIN SODIUM INJ 40 MG/0.4 ML DISP.SYRIN SUBCUT SCH (10:00)
[2019-10-05] MEDS ORDERED: VENLAFAXINE HCL 75 MG CAP.SR.24H PO SCH (10:00)
[2019-10-05] MEDS ORDERED: BUPROPION HCL 100 MG TABLET PO SCH (10:15)
[2019-10-05] MEDS ORDERED: METOPROLOL SUCCINATE 50 MG TAB.SR.24H PO SCH (10:30)
[2019-10-05] MEDS ORDERED: AMLODIPINE BESYLATE 10 MG TABLET PO SCH (10:30)
--- NOTE | 2019-10-05 10:34 | RADIOLOGY REPORT (SQ) ---
EXAM DESCRIPTION: VENOUS BILATERAL LOWER IMAGES COMPLETED DATE/TIME: 10/05/2019 10:24 am REASON FOR STUDY: BLE EDEMA, suspect DVT COMPARISON: None. TECHNIQUE: Dynamic and static erwin scale and color images acquired of both lower extremity venous sy stems. Selected spectral images acquired with additional compression and augmentation maneuvers. Imag es stored on PACS. LIMITATIONS: None. FINDINGS: RIGHT LEG COMMON FEMORAL AND FEMORAL: Normal phasicity, compression and augmentation. No visualized echogenic m aterial on erwin scale. No defects on color images. POPLITEAL: Normal compression and augmentation. No visualized echogenic material on erwin scale. No de fects on color images. CALF VESSELS: Normal compression and augmentation. No visualized echogenic material on erwin scale. No defects on color image. GSV AND SSV: Normal compression. No visualized echogenic material on erwin scale. No defects on color images. ANY DEEP VENOUS INSUFFICIENCY: Not evaluated. ANY EVIDENCE OF POPLITEAL CYST: No. OTHER: There is right lower extremity subcutaneous edema. LEFT LEG COMMON FEMORAL AND FEMORAL: Normal phasicity, compression and augmentation. No visualized echogenic m aterial on erwin scale. No defects on color images. POPLITEAL: Normal compression and augmentation. No visualized echogenic material on erwin scale. No de fects on color images. CALF VESSELS: Normal compression and augmentation. No visualized echogenic material on erwin scale. No defects on color images. GSV AND SSV: Normal compression. No visualized echogenic material on erwin scale. No defects on color images. ANY DEEP VENOUS INSUFFICIENCY: Not evaluated. ANY EVIDENCE POPLITEAL CYST: No. OTHER: There is left lower extremity subcutaneous edema. IMPRESSION: 1. No evidence of DVT or SVT in either leg. 2. Bilateral lower extremity subcutaneous edema. TECHNICAL DOCUMENTATION: JOB ID: [id number] 2010 [employer]- All Rights Reserved Reading location - IP/workstation name: [email or web address]
[2019-10-05 10:42] LABS: ALBUMIN 3.8 g/dL (3.5-5.0); ALKALINE PHOSPHATASE 89 U/L (38-126); ANION GAP 8 (5-19); ASPARTATE AMINO TRANSFERASE 25 U/L (17-59); BILIRUBIN,DIRECT 0.1 mg/dL (0.0-0.4); BILIRUBIN,TOTAL 0.4 mg/dL (0.2-1.3); BLOOD UREA NITROGEN 22 mg/dL (7-20); CALCIUM 7.4 mg/dL (8.4-10.2); CARBON DIOXIDE 25 mmol/L (22-30); CHLORIDE 110 mmol/L (98-107); GLUCOSE 94 mg/dL (75-110); POTASSIUM 3.2 mmol/L (3.6-5.0); TOTAL PROTEIN 6.9 g/dL (6.3-8.2)
[2019-10-05] MEDS ORDERED: VALSARTAN 160 MG TABLET PO SCH (11:00)
[2019-10-05] MEDS ORDERED: HYDROCHLOROTHIAZIDE 12.5 MG TABLET PO SCH (11:00)
[2019-10-05] MEDS ORDERED: POTASSIUM CHLORIDE 10 MEQ TABLET.ER PO ONE (12:15)
[2019-10-05 13:48] VITALS: BP 128/73
--- NOTE | 2019-10-05 17:51 | PDOC DISCHARGE SUMMARY ---
Impression - Admit/DC Date/PCP Admission Date/Primary Care Provider: 10/04/19 17:09 ADELINA BERTRAND MD Discharge Date: 10/05/19 - Discharge Diagnosis (1) Chronic venous hypertension (idiopathic) with inflammation of bilateral lower extremity Is this a current diagnosis for this admission?: Yes (2) T2DM (type 2 diabetes mellitus) Is this a current diagnosis for this admission?: Yes - Additional Information Referrals: ADELINA BERTRAND MD [Primary Care Provider] - 10/11/19 1:30 pm Home Medications: RX: Bupropion HCl [Bupropion HCl Sr] 150 mg PO BID 03/10/18 RX: Tamsulosin HCl [Flomax 0.4 mg Cap.sr] 0.4 mg PO PCSUPPER 03/10/18 RX: Venlafaxine HCl ER [Effexor Xr 75 mg Cap.sr] 75 mg PO DAILY cap.sr.24h 03/15/18 RX: Amlodipine/Valsartan/Hcthiazid [Exforge Hct 10-320-25 mg Tab] 1 each PO DAILY 10/04/19 RX: Cholecalciferol (Vitamin D3) [Vitamin D3 400 Unit Tablet] 400 unit PO DAILY 10/04/19 RX: Metoprolol Succinate [Toprol Xl] 100 mg PO DAILY 10/04/19 RX: Potassium Chloride 20 meq PO DAILY 10/04/19 RX: Simvastatin [Zocor 10 mg Tablet] 10 mg PO QHS 10/04/19 History of Present Illiness History of Present Illness: SIMRAN ARRIETA is a 89 year old male, He came to the office for evaluation of bilateral leg swelling with redness of the skin, he denies any shortness of breath or chest pain. Patient is sedentary, he ambulates in a wheelchair, it was difficult to completely rule out CHF, nephrotic syndrome, I felt patient needed to be admitted into the hospital for further evaluation especially this particular patient very elderly, sedentary.The B type natruretic peptide was elevated, but today she was normal, the transthoracic echocardiogram, a very poor study, showed preserved ejection fraction of left ventricle difficult to evaluate for diastolic function, the venous Doppler of the legs negative for DVT.The urine protein creatinine ratio 0.4 this essentially rule out nephrotic syndrome, patient was admitted treated with intravenous diuretic. Initially the intent was to admit inpatient but after evaluation it was felt that patient only met observation Hospital Course Hospital Course: Patient was admitted for the management of edema of lower extremity he was treated with furosemide infusion with good result, CHF was ruled out, nephrotic syndrome was ruled out. He had redness of the skin initially cellulitis was suspected, he was empirically treated with IV antibiotic clindamycin ultimately it was felt that erythema of the skin is most likely from venous stasis Physical Exam Vital Signs: Temp Pulse Resp BP Pulse Ox 98.5 F 63 17 128/73 H 95 10/05/19 13:46 10/05/19 13:46 10/05/19 13:46 10/05/19 13:46 10/05/19 13:46 Intake & Output 10/04/19 10/05/19 10/06/19 06:59 06:59 06:59 Intake Total 150 472 Output Total 825 1000 Balance -675 -528 Weight 79 kg General appearance: PRESENT: no acute distress Eye exam: PRESENT: PERRLA Respiratory exam: PRESENT: clear to auscultation karrie Cardiovascular exam: PRESENT: +S1, +S2 GI/Abdominal exam: PRESENT: soft Neurological exam: PRESENT: alert Results Laboratory Results: WBC 8.1 10^3/uL (4.0-10.5) 10/04/19 13:11 RBC 3.82 10^6/uL (4.35-5.55) L 10/04/19 13:11 Hgb 12.1 g/dL (13.5-17.0) L 10/04/19 13:11 Hct 36.1 % (37.9-51.0) L 10/04/19 13:11 MCV 94 fl (80-97) 10/04/19 13:11 MCH 31.7 pg (27.0-33.4) 10/04/19 13:11 MCHC 33.6 g/dL (32.0-36.0) 10/04/19 13:11 RDW 13.6 % (11.5-14.0) 10/04/19 13:11 Plt Count 183 10^3/uL (150-450) 10/04/19 13:11 Lymph % (Auto) 22.3 % (13-45) 10/04/19 13:11 [place] % (Auto) 8.3 % (3-13) 10/04/19 13:11 Eos % (Auto) 5.9 % (0-6) 10/04/19 13:11 Baso % (Auto) 1.1 % (0-2) 10/04/19 13:11 Absolute Neuts (auto) 5.0 10^3/uL (1.7-8.2) 10/04/19 13:11 Absolute Lymphs (auto) 1.8 10^3/uL (0.5-4.7) 10/04/19 13:11 Absolute Monos (auto) 0.7 10^3/uL (0.1-1.4) 10/04/19 13:11 Absolute Eos (auto) 0.5 10^3/uL (0.0-0.6) 10/04/19 13:11 Absolute Basos (auto) 0.1 10^3/uL (0.0-0.2) 10/04/19 13:11 Seg Neutrophils % 62.4 % (42-78) 10/04/19 13:11 Sodium 143.3 mmol/L (137-145) 10/05/19 09:36 Potassium 3.2 mmol/L (3.6-5.0) L 10/05/19 09:36 Chloride 110 mmol/L (98-107) H 10/05/19 09:36 Carbon Dioxide 25 mmol/L (22-30) 10/05/19 09:36 Anion Gap 8 (5-19) 10/05/19 09:36 BUN 22 mg/dL (7-20) H 10/05/19 09:36 Creatinine 1.46 mg/dL (0.52-1.25) H 10/05/19 09:36 Est GFR ( Amer) 55 (>60) L 10/05/19 09:36 Est GFR (MDRD) Non-Af 45 (>60) L 10/05/19 09:36 Glucose 94 mg/dL (75-110) 10/05/19 09:36 POC Glucose 147 mg/dL (70-110) H 10/04/19 18:39 Calcium 7.4 mg/dL (8.4-10.2) L 10/05/19 09:36 Total Bilirubin 0.4 mg/dL (0.2-1.3) 10/05/19 09:36 Direct Bilirubin 0.1 mg/dL (0.0-0.4) 10/05/19 09:36 Neonat Total Bilirubin Not Reportable 10/05/19 09:36 Neonat Direct Bilirubin Not Reportable 10/05/19 09:36 Neonat Indirect Bili Not Reportable 10/05/19 09:36 AST 25 U/L (17-59) 10/05/19 09:36 ALT 28 U/L (<50) 10/05/19 09:36 Alkaline Phosphatase 89 U/L (38-126) 10/05/19 09:36 NT-Pro-B Natriuret Pep 1150 pg/mL (<450) H 10/04/19 13:11 Total Protein 6.9 g/dL (6.3-8.2) 10/05/19 09:36 Albumin 3.8 g/dL (3.5-5.0) 10/05/19 09:36 TSH 1.21 uIU/mL (0.47-4.68) 10/04/19 13:11 Free T4 0.92 ng/dL (0.78-2.19) 10/04/19 13:11 Urine Color YELLOW 10/04/19 13:11 Urine Appearance SLIGHTLY-CLOUDY 10/04/19 13:11 Urine pH 5.0 (5.0-9.0) 10/04/19 13:11 Ur Specific [place] 1.013 10/04/19 13:11 Urine Protein NEGATIVE mg/dL (NEGATIVE) 10/04/19 13:11 Urine Glucose (UA) NEGATIVE mg/dL (NEGATIVE) 10/04/19 13:11 Urine Ketones NEGATIVE mg/dL (NEGATIVE) 10/04/19 13:11 Urine Blood NEGATIVE (NEGATIVE) 10/04/19 13:11 Urine Nitrite POSITIVE (NEGATIVE) H 10/04/19 13:11 Urine Bilirubin NEGATIVE (NEGATIVE) 10/04/19 13:11 Urine Urobilinogen NEGATIVE mg/dL (<2.0) 10/04/19 13:11 Ur Leukocyte Esterase NEGATIVE (NEGATIVE) 10/04/19 13:11 Urine WBC (Auto) 5 /HPF 10/04/19 13:11 Urine RBC (Auto) 1 /HPF 10/04/19 13:11 Squamous Epi Cells Auto 1 /HPF 10/04/19 13:11 Urine Mucus (Auto) RARE /LPF 10/04/19 13:11 Urine Creatinine 60.7 mg/dL (22-328) 10/04/19 13:11 Urine Creatinine 60.7 mg/dL (22-328) 10/04/19 13:11 Protein/Creatinin Ratio 0.4 mg/mg (0.0-0.2) H 10/04/19 13:11 Urine Total Protein 24.1 mg/dL (<12) H 10/04/19 13:11 Urine Total Protein 24.1 mg/dL (<12) H 10/04/19 13:11 Urine Ascorbic Acid NEGATIVE (NEGATIVE) 10/04/19 13:11 10/04/19 13:11 NT-Pro-B Natriuret Pep 1150 H Impressions: Chest X-Ray 10/04/19 00:00 IMPRESSION: No evidence of acute cardiopulmonary abnormality. 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 Venous Doppler Study 10/05/19 00:00 IMPRESSION: 1. No evidence of DVT or SVT in either leg. 2. Bilateral lower extremity subcutaneous edema. Stroke Is this a Stroke Patient?: No Acute Heart Failure - Is this a Heart Failure Patient?: No
[2019-10-05] MEDS ORDERED: TAMSULOSIN HCL 0.4 MG CAP.SR.24H PO SCH (18:00)
[2019-10-05] MEDS ORDERED: PHARMACY COMMUNICATION ORDER MC SCH (18:00)
--- NOTE | 2019-10-05 21:33 | XCELERA REPORT ---
[address] [address] Transthoracic Echocardiogram Report Name: SIMRAN ARRIETA Age: 89 yrs Gender: Male : 1930 Patient Status: Inpatient Patient Location: [place] [address]^A Study Date: 10/04/2019 05:19 PM Height: 67 in Weight: 173 lb BSA: 1.9 m2 Procedure: A two-dimensional transthoracic echocardiogram with color flow and Doppler was performed. Study Quality: Poor. Reason For Study: CHF / EDEMA History: CHF / EDEMA. Ordering Physician: ADELINA BERTRAND Performed By: Lona Ag Interpretation Summary The left ventricle is normal in size. There is normal left ventricular wall thickness. Left ventricular systolic function is normal. LV EF is 55% to 60% Doppler measurements suggest impaired left ventricular relaxation, which is associated with grade I/IV or mild diastolic dysfunction There is no thrombus. Cannot assess ASD ,VSD,or PFO. The right ventricle is grossly normal size. The right atrium is normal. The left atrial size is normal. There is no evidence of mitral valve prolapse. There is no vegetation seen on the mitral valve. There is no mitral valve stenosis. There is a mild amount of mitral regurgitation There is no aortic valvular vegetation. There is no aortic valve stenosis There is aortic sclerosis without aortic stenosis. There is no LVOT obstruction. No aortic regurgitation is present. There is no tricuspid stenosis. There is a trace amount of tricuspid regurgitation Tricuspid regurgitation jet envelope not well defined to measure RV systolic pressure accurately. There is no pulmonic valvular stenosis. There is no pulmonic valvular regurgitation. The aortic root is not well visualized but is probably normal size. The inferior vena cava appeared normal and decreased < 50% with respiration (RAP 10-15 mmHg) There is no pericardial effusion. MMode/2D Measurements & Calculations RVDd: 4.0 cm LVIDd: 5.0 cm FS: 29.4 % Ao root diam: 2.7 cm IVSd: 1.1 cm LVIDs: 3.5 cm EDV(Teich): 118.2 ml Ao root area: 5.5 cm2 LVPWd: 0.98 cm ESV(Teich): 52.0 ml LA dimension: 3.8 cm EF(Teich): 56.1 % Doppler Measurements & Calculations MV E max omar: MV P1/2t max omar: Ao V2 max: AI max omar: 51.4 cm/sec 67.5 cm/sec 159.0 cm/sec 142.7 cm/sec MV A max omar: MV P1/2t: 108.1 msec Ao max PG: AI max P.1 mmHg 77.8 cm/sec MVA(P1/2t): 2.0 cm2 10.1 mmHg AI dec slope: MV E/A: 0.66 MV dec slope: 16.7 cm/sec2 AI P1/2t: 2502 msec 182.8 cm/sec2 MV dec time: 0.30 sec LV V1 max PG: PA V2 max: AV P1/2t-pr_phl: MV P1/2t-pr_phl: 2.9 mmHg 87.8 cm/sec 2502 msec 108.1 msec LV V1 max: PA max P.1 mmHg 85.4 cm/sec Left Ventricle The left ventricle is normal in size. There is normal left ventricular wall thickness. Left ventricular systolic function is normal. LV EF is 55% to 60%. Doppler measurements suggest impaired left ventricular relaxation, which is associated with grade I/IV or mild diastolic dysfunction. The left ventricular wall motion is normal. There is no thrombus. Cannot assess ASD ,VSD,or PFO. Right Ventricle The right ventricle is grossly normal size. The right ventricle is not well visualized secondary to technical limitations. Atria The right atrium is normal. The left atrial size is normal. Mitral Valve There is no evidence of mitral valve prolapse. There is no vegetation seen on the mitral valve. There is no mitral valve stenosis. There is a mild amount of mitral regurgitation. Aortic Valve There is no aortic valvular vegetation. There is no aortic valve stenosis. There is aortic sclerosis without aortic stenosis. There is no LVOT obstruction. No aortic regurgitation is present. Tricuspid Valve There is no tricuspid stenosis. There is a trace amount of tricuspid regurgitation. Tricuspid regurgitation jet envelope not well defined to measure RV systolic pressure accurately. Pulmonic Valve There is no pulmonic valvular stenosis. There is no pulmonic valvular regurgitation. Great Vessels The aortic root is not well visualized but is probably normal size. The inferior vena cava appeared normal and decreased < 50% with respiration (RAP 10-15 mmHg). Effusions There is no pericardial effusion. : ADELINA BERTRAND Lakshmi
[2019-10-05] MEDS ORDERED: SIMVASTATIN 10 MG TABLET PO SCH (22:00)
== END 2019-10-05 14:34 | disposition home or self-care (01) ==
LOC: ER 12:29 → EH 17:09 → INTOOBSV 17:09 → 5 18:59
PROVIDERS: ADMIT Internal Medicine; ATTEND Internal Medicine
DX: I87.323 Chronic venous hypertension (idiopathic) with inflammation of bilateral lower extremity (principal); E11.9 Type 2 diabetes mellitus without complications; I10 Essential (primary) hypertension; Z79.899 Other long term (current) drug therapy; Z87.891 Personal history of nicotine dependence
CPT/HCPCS: 99284; 36415 ×2; 87040; 87086; 84439; 82962; 84156; 84443; 82570; 85025; 87088; 80076; 80048; 80053; 81001; 87186; 83880; 93306; 93970; 71046; J1940; A9270 ×6; J1650; J7050; J3490

== ENCOUNTER 2019-10-20 10:29 | Inpatient (IN) | payer MEDICARE, BC, OTHER ==
[2019-10-20] MEDS ORDERED: NORMAL SALINE 500 ML IV ONE (11:54)
[2019-10-20 12:07] LABS: ABSOLUTE LYMPHOCYTES (AUTO) 0.7 10^3/uL (0.5-4.7); ABSOLUTE MONOCYTES (AUTO) 0.7 10^3/uL (0.1-1.4); ABSOLUTE NEUT (AUTO) 11.4 10^3/uL (1.7-8.2); BASOPHILS % (AUTO) 0.2 % (0-2); EOSINOPHILS % (AUTO) 0.3 % (0-6); HEMATOCRIT 30.6 % (37.9-51.0); HEMOGLOBIN 10.4 g/dL (13.5-17.0); LYMPHOCYTES % (AUTO) 5.3 % (13-45); MEAN CORPUSCULAR HEMOGLOBIN 31.3 pg (27.0-33.4); MEAN CORPUSCULAR VOLUME 92 fl (80-97); MONOCYTES % (AUTO) 5.1 % (3-13); PLATELET COUNT 171 10^3/uL (150-450); RED BLOOD COUNT 3.32 10^6/uL (4.35-5.55); RED CELL DISTRIBUTION WIDTH 13.8 % (11.5-14.0); SEGMENTED NEUTROPHILS % (AUTO) 89.1 % (42-78); TOTAL CELLS COUNTED % (AUTO) 100 %; WHITE BLOOD COUNT 12.8 10^3/uL (4.0-10.5)
[2019-10-20 12:49] LABS: APPEARANCE,URINE SLIGHTLY-CLOUDY; BILIRUBIN,URINE NEGATIVE (NEGATIVE); COLOR,URINE YELLOW; GLUCOSE, URINE NEGATIVE (NEGATIVE); KETONES,URINE NEGATIVE (NEGATIVE); LEUKOCYTE ESTERASE,URINE NEGATIVE (NEGATIVE); NITRITE,URINE NEGATIVE (NEGATIVE); PROTEIN,URINE NEGATIVE (NEGATIVE); URINE SPECIFIC GRAVITY 1.011; UROBILINOGEN,URINE NEGATIVE mg/dL (<2.0)
[2019-10-20 13:08] LABS: ALBUMIN 2.9 g/dL (3.5-5.0); ALKALINE PHOSPHATASE 67 U/L (38-126); ANION GAP 17 (5-19); ASPARTATE AMINO TRANSFERASE 58 U/L (17-59); BILIRUBIN,DIRECT 0.4 mg/dL (0.0-0.4); BILIRUBIN,TOTAL 0.5 mg/dL (0.2-1.3); BLOOD UREA NITROGEN 74 mg/dL (7-20); CHLORIDE 117 mmol/L (98-107); CREATINE KINASE 1513 U/L (55-170); GLUCOSE 79 mg/dL (75-110); POTASSIUM 3.1 mmol/L (3.6-5.0); TOTAL PROTEIN 6.1 g/dL (6.3-8.2)
[2019-10-20 13:21] LABS: CALCIUM 4.5 mg/dL (8.4-10.2); CARBON DIOXIDE 10 mmol/L (22-30)
--- NOTE | 2019-10-20 14:16 | RADIOLOGY REPORT (SQ) ---
EXAM DESCRIPTION: CT HEAD WITHOUT IMAGES COMPLETED DATE/TIME: 10/20/2019 1:07 pm REASON FOR STUDY: traumatic fall COMPARISON: CT head, 08/08/2016 TECHNIQUE: Axial images acquired through the brain without intravenous contrast. Images reviewed wi th bone, brain and subdural windows. Additional sagittal and coronal reconstructions were generated. Images stored on PACS. All CT scanners at this facility use dose modulation, iterative reconstruction, and/or weight based d osing when appropriate to reduce radiation dose to as low as reasonably achievable (ALARA). [facility]: Dose Right [facility]: CareDose [facility]: Dose Right [facility]: Teradose 4D [facility]: Smart WizIQ RADIATION DOSE: CT Rad equipment meets quality standard of care and radiation dose reduction techniq ues were employed. CTDIvol: 53.2 mGy. DLP: 1928 mGy-cm. mGy. LIMITATIONS: None. FINDINGS: VENTRICLES: Normal size and contour. CEREBRUM: No masses. No hemorrhage. No midline shift. No evidence for acute infarction. Normal gra y-white matter differentiation. Mild patchy periventricular and deep white matter hypodense attenuat ion consistent with mild chronic small vessel ischemic change. There is intracranial atherosclerosis . CEREBELLUM: No masses. No hemorrhage. No alteration of density. No evidence for acute infarction. EXTRAAXIAL SPACES: No fluid collections. No masses. ORBITS AND GLOBE: No intra- or extraconal masses. Normal contour of globe without masses. CALVARIUM: No fracture. PARANASAL SINUSES: No fluid or mucosal thickening. SOFT TISSUES: No mass or hematoma. OTHER: No other significant finding. IMPRESSION: No acute intracranial hemorrhage, mass, or evidence of acute territorial infarct. EVIDENCE OF ACUTE STROKE: NO. COMMENT: Quality ID # [id number]: Final reports with documentation of one or more dose reduction techniques (e.g., Automated exposure control, adjustment of the mA and/or kV according to patient size, use of iterative reconstruction technique) TECHNICAL DOCUMENTATION: JOB ID: [id number] 2010 [employer]- All Rights Reserved Reading location - IP/workstation name: [email or web address]
--- NOTE | 2019-10-20 14:31 | RADIOLOGY REPORT (SQ) ---
EXAM DESCRIPTION: CT CERVICAL SPINE WITHOUT IMAGES COMPLETED DATE/TIME: 10/20/2019 1:07 pm REASON FOR STUDY: traumatic fall COMPARISON: None. TECHNIQUE: Axial images acquired through the cervical spine without intravenous contrast. Images re viewed with lung, soft tissue and bone windows. Reconstructed coronal and sagittal MPR images review ed. Images stored on PACS. All CT scanners at this facility use dose modulation, iterative reconstruction, and/or weight based d osing when appropriate to reduce radiation dose to as low as reasonably achievable (ALARA). [facility]: Dose Right [facility]: CareDose [facility]: Dose Right [facility]: Teradose 4D [facility]: Smart [employer] RADIATION DOSE: CT Rad equipment meets quality standard of care and radiation dose reduction techniq ues were employed. CTDIvol: 22.1 mGy. DLP: 481 mGy-cm. mGy. LIMITATIONS: None. FINDINGS: ALIGNMENT: There is mild anterolisthesis C3 on C4 approximately 5 mm. MINERALIZATION: Normal. VERTEBRAL BODIES: No acute fracture or loss of vertebral body heights. Multilevel spondylosis, subch ondral sclerosis and cystic change. Posterior projecting marginal osteophytes. DISCS: Degenerative disc disease with loss of intervertebral disc height. FACETS, LATERAL MASSES, POSTERIOR ELEMENTS: No fractures. No dislocation. No acute findings. HARDWARE: None in the spine. VISUALIZED RIBS: No fractures. LUNG APICES AND SOFT TISSUES: Patchy areas of ground-glass attenuation and mild consolidation in the upper lobes. Please see separate dictation of CT chest, abdomen and pelvis. OTHER: No other significant finding. IMPRESSION: No acute fracture or dislocation of the cervical spine. Multilevel spondylosis, degener ative disc disease, and facet arthropathy. TECHNICAL DOCUMENTATION: JOB ID: [id number] Quality ID # [id number]: Final reports with documentation of one or more dose reduction techniques (e.g., Au tomated exposure control, adjustment of the mA and/or kV according to patient size, use of iterative reconstruction technique) 2010 [employer]- All Rights Reserved Reading location - IP/workstation name: [email or web address]
--- NOTE | 2019-10-20 14:38 | RADIOLOGY REPORT (SQ) ---
EXAM DESCRIPTION: CT CHEST WITHOUT; CT ABD/PELVIS NO ORAL OR IV IMAGES COMPLETED DATE/TIME: 10/20/2019 1:07 pm REASON FOR STUDY: traumatic fall COMPARISON: Pelvis radiograph, 03/10/2018. Two-view chest radiograph, 10/04/2019. TECHNIQUE: CT scan of the chest performed without intravenous contrast using helical scanning techni que. Images reviewed with lung, soft tissue and bone windows. Reconstructed coronal and sagittal MPR images reviewed. All images stored on PACS. CT scan of the abdomen and pelvis performed without intravenous contrast and withoutoral contrast usi ng helical scanning technique with dynamic intravenous contrast injection. Images reviewed with lung , soft tissue and bone windows. Reconstructed coronal and sagittal MPR images reviewed. All images stored on PACS. All CT scanners at this facility use dose modulation, iterative reconstruction, and/or weight based d osing when appropriate to reduce radiation dose to as low as reasonably achievable (ALARA). [facility]: Dose Right [facility]: CareDose [facility]: Dose Right [facility]: Teradose 4D [facility]: [employer] RADIATION DOSE: CT Rad equipment meets quality standard of care and radiation dose reduction techniq ues were employed. CTDIvol: 14.4 mGy. DLP: 961 mGy-cm. mGy. LIMITATIONS: No technical limitations. FINDINGS: CHEST: AXILLAE: No adenopathy. CHEST WALL: No masses. No subcutaneous air. LUNGS: The trachea has normal caliber and appearance. There are patchy areas of consolidation and gr ound-glass attenuation in both lungs, with more nodular components in the left upper lobe with a grou nd-glass nodule measuring 1.3 cm and a more focal nodule in the right upper lobe, sub solid nodule me asuring 2.3 cm. No pleural effusion or pneumothorax. PLEURA: No effusions. No calcifications. THYROID: Thyromegaly with retrosternal component. No focal thyroid nodule. HILAR AND MEDIASTINAL STRUCTURES: Small hiatal hernia. No mediastinal mass or adenopathy. AORTA AND GREAT VESSELS: No aneurysm. HEART: There is moderate cardiomegaly. No pericardial effusion. Calcified coronary arteries. HARDWARE AND LIFELINES: None. BONES: A nondisplaced fractures of the left anterior 8th, 9th, and 10th ribs. No suspicious bone les ions. Spondylosis and degenerative disc disease in the thoracic spine. Osteoarthritis bilateral braxton ulders. Chronic healed right anterolateral 5th-7th ribs. OTHER: No other significant finding. ABDOMEN AND PELVIS: LIVER: There is beam hardening artifact through the liver which obscures some detail. Evaluation of the parenchyma is limited due to artifact and lack of IV contrast. Normal size and contour. No bili tracy ductal dilation. SPLEEN: Pain has normal size. Evaluation of the parenchyma is limited due to motion and beam hardeni ng artifact. PANCREAS: There appear to be multiple pancreatic calcifications within the parenchyma, consistent wit h sequelae from chronic pancreatitis. No peripancreatic inflammation. No pancreatic ductal dilation . GALLBLADDER: No identified stones by CT criteria. No inflammatory changes to suggest cholecystitis. ADRENAL GLANDS: No significant masses or asymmetry. RIGHT KIDNEY AND URETER: No solid masses. Assessment limited by lack of IV contrast. No significant calcifications. No hydronephrosis or hydroureter. LEFT KIDNEY AND URETER: No solid masses. Assessment limited by lack of IV contrast. No significant calcifications. No hydronephrosis or hydroureter. AORTA AND VESSELS: No aneurysm. RETROPERITONEUM: No retroperitoneal adenopathy, hemorrhage or masses. APPENDIX: Normal. LARGE AND SMALL BOWEL: No dilatation. No masses. No wall thickening. ABDOMINAL WALL: No hernia or masses. PERITONEAL CAVITY: No free air. No free fluid. No peritoneal implants or masses. PELVIS: Multiple calcified pelvic phleboliths. Urinary bladder is unremarkable. Small fat containin g left inguinal hernia. Prostate has normal size. No pelvic mass. No pelvic adenopathy. No free f luid. BONES: Although there is motion in the area, there appears to be an acute subcapital fracture of th e right femur. Partial visualization left femur intramedullary ayana and pin fixation. Age-indetermin ate compression fracture at T12 with moderate height loss. No retropulsed fracture fragments. Posto perative changes with laminectomy in the lumbar spine. No suspicious bone lesions. OTHER: No other significant finding. IMPRESSION: 1. Although there is motion in the pelvis, there appears to be an acute impacted subcapital fracture of the right proximal femur. Further evaluation with dedicated two view radiograph is recommended. 2. Age-indeterminate moderate compression fracture at T12, however this is stable since 10/04/2019 radi ograph. This may be subacute or chronic. No retropulsed fracture fragments. 3. Acute appearing fractures of the anterolateral left 8-10th ribs. 4. Patchy areas of consolidation with areas of nodular consolidation in both lungs, suggestive of inf ectious/ inflammatory process. Given nodular components, a follow-up CT of the chest in 3 months is recommended to confirm complete resolution. Commonly reported imaging features of COVID-19 pneumoni a are present. Other processes such as influenza pneumonia and organizing pneumonia, as can be seen w ith drug toxicity and connective tissue disease, can cause a similar imaging pattern. 5. No evidence of acute traumatic solid organ or vascular injury in the chest, abdomen or pelvis. COMMENT: Findings were called to Dr. Pedersen on 10/20/2019 at 1425 hours. TECHNICAL DOCUMENTATION: JOB ID: [id number] Quality ID # [id number]: Final reports with documentation of one or more dose reduction techniques (e.g., Au tomated exposure control, adjustment of the mA and/or kV according to patient size, use of iterative reconstruction technique) 2010 [employer]- All Rights Reserved Reading location - IP/workstation name: [email or web address]
[2019-10-20] MEDS ORDERED: MORPHINE SULFATE 10 MG/ML INJ IV ONE ×2 (14:45→17:13)
[2019-10-20] MEDS ORDERED: ONDANSETRON HCL INJ/PF 4 MG/2 ML SDV IV ONE (14:46)
[2019-10-20] MEDS ORDERED: POTASSI CL 20 MEQ/50 ML RIDER 20 MEQ/50 ML RTUPB IV ONE (14:47)
[2019-10-20] MEDS ORDERED: CEFEPIME 2 GM/D5W RTU 2 GM/50 ML RTUPB IV ONE (14:51)
[2019-10-20] MEDS ORDERED: AZITHROMYCIN INJ 500 MG VIAL IV ONE (14:52)
[2019-10-20] MEDS ORDERED: CALCIUM GLUCONATE 1000 MG/10 ML INJ IV ONE ×5 (14:53→20:41)
[2019-10-20] MEDS: NORMAL SALINE 1000 ML 1,000 ML IV PRN ×4 (14:55→21:50)
--- NOTE | 2019-10-20 15:16 | RADIOLOGY REPORT (SQ) ---
EXAM DESCRIPTION: HIP RIGHT AP/LATERAL IMAGES COMPLETED DATE/TIME: 10/20/2019 1:53 pm REASON FOR STUDY: pain COMPARISON: CT chest, abdomen and pelvis same date. NUMBER OF VIEWS: Two views. TECHNIQUE: AP pelvis and cross-table lateral view of the right hip. LIMITATIONS: None. FINDINGS: MINERALIZATION: Osteopenia. RIGHT HIP: There is an acute subcapital fracture of the right proximal femur. Moderate osteoarthriti s of the femoroacetabular joint. LEFT HIP: Postoperative changes of ORIF left femur. Moderate osteoarthritis femoroacetabular joint. PUBIS AND ISCHIUM: No fracture. PELVIS: No fracture. SACRUM: No fracture or dislocation. No worrisome bone lesions. LOWER LUMBAR SPINE: No fracture or dislocation. No worrisome bone lesions. No significant disc disea se. SOFT TISSUES: No findings. OTHER: No other significant finding. IMPRESSION: 1. Acute subcapital fracture right femur. 2. Moderate osteopenia. TECHNICAL DOCUMENTATION: JOB ID: [id number] 2010 [employer]- All Rights Reserved Reading location - IP/workstation name: [email or web address]
[2019-10-20] MEDS ORDERED: LIDOCAINE 2% URO-JET 5 ML KIT MM ONE (15:23)
[2019-10-20 17:02] LABS: INTERNATIONAL RATION (INR) 1.65; PROTHROMBIN TIME 19.6 SEC (11.4-15.4)
[2019-10-20 17:03] LABS: PARTIAL THROMBOPLASTIN TIME 52.1 SEC (23.5-35.8)
[2019-10-20 17:10] LABS: ANION GAP 15 (5-19); CHLORIDE 119 mmol/L (98-107)
[2019-10-20 17:22] LABS: BLOOD UREA NITROGEN 71 mg/dL (7-20); GLUCOSE 87 mg/dL (75-110); POTASSIUM 3.3 mmol/L (3.6-5.0)
[2019-10-20 17:34] LABS: CALCIUM 4.6 mg/dL (8.4-10.2); CARBON DIOXIDE 10 mmol/L (22-30)
[2019-10-20] MEDS: MAGNESIUM SULFATE/D5W 1 GM/100 ML RTUPB IV PRN ×2 (17:47→19:45)
[2019-10-20] MEDS ORDERED: POTASSI CL 20 MEQ/50 ML RIDER 20 MEQ/50 ML RTUPB IV SCH (17:54)
[2019-10-20 17:56] LABS: ARTERIAL BLOOD BASE EXCESS -16.6 mmol/L; ARTERIAL BLOOD H2CO3 0.65 mmol/L (1.05-1.35); ARTERIAL BLOOD HCO3 9.1 mmol/L (20-24); ARTERIAL BLOOD PCO2 21.7 mmHg (35-45); ARTERIAL BLOOD PH 7.24 (7.35-7.45); ARTERIAL BLOOD PO2 74.9 mmHg (80-100); ARTERIAL BLOOD TOTAL CO2 9.7 mmol/L (23-27)
[2019-10-20 17:57] LABS: ARTERIAL BLOOD FIO2 28%
[2019-10-20] MEDS ORDERED: MAGNESIUM SULFATE/D5W 1 GM/100 ML RTUPB IV SCH (18:00)
[2019-10-20] MEDS ORDERED: MAGNESIUM SULFATE/D5W 1 GM/100 ML RTUPB IV ONE ×3 (18:19→21:30)
[2019-10-20] MEDS ORDERED: NORMAL SALINE 1000 ML 1,000 ML IV PRN (18:33)
--- NOTE | 2019-10-20 18:34 | PDOC CRITICAL CARE PROG REPORT ---
General Date:: 10/20/19 Hospital Day:: 1 Resuscitation Status: Do Not Resuscitate Events in the past 12 to 24 Hours:: Weak, fractured hip multiple electrolyte disturbances, ARF Review of systems relevant to events:: Renal, pulmonary Reason for ICU Addmission:: Evaluation - Medications: Medications reviewed and adjusted accordingly: Yes Vasopressors:: None Sedation:: None Physical Exam Vital Signs: Temp Pulse Resp BP Pulse Ox 98 F 70 19 114/60 92 10/20/19 10:44 10/20/19 10:44 10/20/19 14:07 10/20/19 10:44 10/20/19 14:07 Intake & Output 10/19/19 10/20/19 10/21/19 06:59 06:59 06:59 Intake Total 2287 Balance 2287 Weight 76.1 kg Weight/Height Weight 76.1 kg Height 5 ft 7 in General appearance: PRESENT: no acute distress, cooperative Head exam: PRESENT: atraumatic, normocephalic Eye exam: PRESENT: conjunctiva pink, EOMI, PERRLA. ABSENT: scleral icterus Ear exam: PRESENT: normal external ear exam Mouth exam: PRESENT: dry mucosa Respiratory exam: PRESENT: crackles, symmetrical, unlabored Cardiovascular exam: PRESENT: RRR. ABSENT: diastolic murmur, rubs, systolic murmur GI/Abdominal exam: PRESENT: normal bowel sounds, soft. ABSENT: distended, guarding, mass, organolmegaly, rebound, tenderness Rectal exam: PRESENT: deferred Extremities exam: PRESENT: +2 edema, other - R foot rotated outward, says normal. Neurological exam: PRESENT: alert, awake, oriented to person, oriented to place, oriented to time, oriented to situation, CN II-XII grossly intact. ABSENT: motor sensory deficit Psychiatric exam: PRESENT: appropriate affect, normal mood. ABSENT: homicidal ideation, suicidal ideation Skin exam: PRESENT: dry, intact, warm. ABSENT: cyanosis, rash Laboratory/Radiographs Laboratory Results: 10/20/19 11:40 10/20/19 16:40 10/20/19 10/20/19 10/20/19 11:40 11:40 12:27 WBC 12.8 H RBC 3.32 L Hgb 10.4 L Hct 30.6 L MCV 92 MCH 31.3 MCHC 34.0 RDW 13.8 Plt Count 171 Seg Neutrophils % 89.1 H Carbonic Acid HCO3/H2CO3 Ratio ABG pH ABG pCO2 ABG pO2 ABG HCO3 ABG O2 Saturation ABG Base Excess FiO2 Sodium Cancelled Potassium Cancelled Chloride Cancelled Carbon Dioxide Cancelled Anion Gap Cancelled BUN Cancelled Creatinine Cancelled Est GFR ( Amer) Cancelled Est GFR (Non-Af Amer) Cancelled Glucose Cancelled Lactic Acid Calcium Cancelled Magnesium Total Bilirubin Cancelled AST Cancelled Alkaline Phosphatase Cancelled Total Protein Cancelled Albumin Cancelled Urine Color YELLOW Urine Appearance SLIGHTLY-CLOUDY Urine pH 5.0 Ur Specific Dairy 1.011 Urine Protein NEGATIVE Urine Glucose (UA) NEGATIVE Urine Ketones NEGATIVE Urine Blood SMALL H Urine Nitrite NEGATIVE Ur Leukocyte Esterase NEGATIVE Urine WBC (Auto) 2 Urine RBC (Auto) 1 10/20/19 10/20/19 10/20/19 12:38 12:38 12:38 WBC RBC Hgb Hct MCV MCH MCHC RDW Plt Count Seg Neutrophils % Carbonic Acid HCO3/H2CO3 Ratio ABG pH ABG pCO2 ABG pO2 ABG HCO3 ABG O2 Saturation ABG Base Excess FiO2 Sodium 144.0 Potassium 3.1 L Chloride 117 H Carbon Dioxide 10 L* Anion Gap 17 BUN 74 H Creatinine 4.77 H Est GFR ( Amer) 14 L Est GFR (Non-Af Amer) Glucose 79 Lactic Acid 0.6 L Calcium 4.5 L* Magnesium 0.9 L* Total Bilirubin 0.5 AST 58 Alkaline Phosphatase 67 Total Protein 6.1 L Albumin 2.9 L Urine Color Urine Appearance Urine pH Ur Specific Dairy Urine Protein Urine Glucose (UA) Urine Ketones Urine Blood Urine Nitrite Ur Leukocyte Esterase Urine WBC (Auto) Urine RBC (Auto) 10/20/19 10/20/19 16:40 17:35 WBC RBC Hgb Hct MCV MCH MCHC RDW Plt Count Seg Neutrophils % Carbonic Acid 0.65 L HCO3/H2CO3 Ratio 14:1 ABG pH 7.24 L ABG pCO2 21.7 L ABG pO2 74.9 L ABG HCO3 9.1 L ABG O2 Saturation 93.0 L ABG Base Excess -16.6 FiO2 28% Sodium 143.9 Potassium 3.3 L Chloride 119 H Carbon Dioxide 10 L* Anion Gap 15 BUN 71 H Creatinine 4.29 H Est GFR ( Amer) 16 L Est GFR (Non-Af Amer) Glucose 87 Lactic Acid Calcium 4.6 L* Magnesium Total Bilirubin AST Alkaline Phosphatase Total Protein Albumin Urine Color Urine Appearance Urine pH Ur Specific Dairy Urine Protein Urine Glucose (UA) Urine Ketones Urine Blood Urine Nitrite Ur Leukocyte Esterase Urine WBC (Auto) Urine RBC (Auto) 10/20/19 10/20/19 10/20/19 11:40 11:40 12:38 Creatine Kinase Cancelled 1513 H Troponin I Cancelled NT-Pro-B Natriuret Pep 10/20/19 10/20/19 12:38 12:38 Creatine Kinase Troponin I 0.122 NT-Pro-B Natriuret Pep 4610 H Impressions: Cervical Spine CT 10/20/19 12:18 IMPRESSION: No acute fracture or dislocation of the cervical spine. Multilevel spondylosis, degenerative disc disease, and facet arthropathy. Head CT 10/20/19 12:18 IMPRESSION: No acute intracranial hemorrhage, mass, or evidence of acute territorial infarct. EVIDENCE OF ACUTE STROKE: NO. Chest CT 10/20/19 12:21 IMPRESSION: 1. Although there is motion in the pelvis, there appears to be an acute impacted subcapital fracture of the right proximal femur. Further evaluation with dedicated two view radiograph is recommended. 2. Age-indeterminate moderate compression fracture at T12, however this is stable since 10/04/2019 radiograph. This may be subacute or chronic. No retropulsed fracture fragments. 3. Acute appearing fractures of the anterolateral left 8-10th ribs. 4. Patchy areas of consolidation with areas of nodular consolidation in both lungs, suggestive of infectious/ inflammatory process. Given nodular components, a follow-up CT of the chest in 3 months is recommended to confirm complete resolution. Commonly reported imaging features of COVID-19 pneumonia are present. Other processes such as influenza pneumonia and organizing pneumonia, as can be seen with drug toxicity and connective tissue disease, can cause a similar imaging pattern. 5. No evidence of acute traumatic solid organ or vascular injury in the chest, abdomen or pelvis. Abdomen/Pelvis CT 10/20/19 12:23 IMPRESSION: 1. Although there is motion in the pelvis, there appears to be an acute impacted subcapital fracture of the right proximal femur. Further evaluation with dedicated two view radiograph is recommended. 2. Age-indeterminate moderate compression fracture at T12, however this is stable since 10/04/2019 radiograph. This may be subacute or chronic. No retropulsed fracture fragments. 3. Acute appearing fractures of the anterolateral left 8-10th ribs. 4. Patchy areas of consolidation with areas of nodular consolidation in both lungs, suggestive of infectious/ inflammatory process. Given nodular co mponents, a follow-up CT of the chest in 3 months is recommended to confirm complete resolution. Commonly reported imaging features of COVID-19 pneumonia are present. Other processes such as influenza pneumonia and organizing pneumonia, as can be seen with drug toxicity and connective tissue disease, can cause a similar imaging pattern. 5. No evidence of acute traumatic solid organ or vascular injury in the chest, abdomen or pelvis. Hip/Pelvis X-Ray 10/20/19 14:33 IMPRESSION: 1. Acute subcapital fracture right femur. 2. Moderate osteopenia. EKG: Accelerated junctional All labs, radiographs, diagnostic studies and EKGs were personally reviewed: Yes In addition, reports of radiographic and diagnostic studies were read: Yes Assessment and Plan - Diagnosis (1) ARF (acute renal failure) Qualifiers: Acute renal failure type: unspecified Qualified Code(s): N17.9 - Acute kidney failure, unspecified Is this a current diagnosis for this admission?: Yes Plan: He is very dehydrated. His says he has not been eating or drinking well for 3 days or more. He is acidotic but not hyperkalemic and does not need dialysis. He needs fluid slowly in view of his BNP which is likely pulmonary HTN. (2) Hypocalcemia Is this a current diagnosis for this admission?: Yes Plan: His level is 4.5. I would give calcium, 4gms and recheck level in AM (3) Hypomagnesemia Is this a current diagnosis for this admission?: Yes Plan: This is quite low at 0.9. He will likely need more than 2 gms, but I would do 2 then recheck in a day in view of his ARF (4) Pneumonia Qualifiers: Pneumonia type: due to unspecified organism Laterality: bilateral Is this a current diagnosis for this admission?: Yes Plan: This is likel aspiration. However a bacterial infection cannot be ruled out. COVID is a possibility but at age 89 I would think he would be sicker. (5) Closed left hip fracture Qualifiers: Encounter type: initial encounter Qualified Code(s): S72.002A - Fracture of unspecified part of neck of left femur, initial encounter for closed fracture Is this a current diagnosis for this admission?: Yes Plan: Impacted fracture of L hip. Ideally this should be intraoperatively repaired. His dehydration, electrolytes must be replaced, recovery from PNA before this can be entertained at all, if ever. He will need SNF placement regardless. (6) Metabolic acidosis Is this a current diagnosis for this admission?: Yes Plan: This is from renal failure and he would benefit from a bicarb drip and nephrology consult. Plan Summary: He needs admission for these issues but he is not in need of the ICU at this time. He is also DNR Critical Time Critical Time (minutes): 40 Level of Care: IMCU Anticipated discharge: SNF Anticipated DC Timeframe: Other -: 1. The care of a critical patient is a dynamic process. This note is a event sales representative synopsis but static in nature. The timeframe for treatments given in order is not necessarily the actual time these treatments may have been done. 2. This patient requires critical care secondary to ongoing requirements for therapy not offered or safe outside the critical care environment. Transfer to a lower level of care will result in altered life or limb morbidity and mortality. 3. Multidisciplinary rounds completed. 4. ABCDE bundle addressed.
--- NOTE | 2019-10-20 18:34 | ER Document Report ---
Entered by CHEYENNE PELAYO SCRIBE 10/20/19 1146 Acting as scribe for:ALVINO EUBANKS MD ED General - General Chief Complaint: Medical Complaint Stated Complaint: WELLNESS CHECK Time Seen by Provider: 10/20/19 10:43 Primary Care Provider: ADELINA BERTRAND MD [Primary Care Provider] - Follow up as needed Mode of Arrival: Ambulatory Information source: Patient Notes: This 89 year old male patient presents to the emergency department today with absolutely no complaints. He states that his called EMS because she did not think he was acting right. Patient denies any and all symptoms including pain, headache, dizziness, chest pain, or shortness of breath. is now here and is able to provide more history. Per they have been 70 years and she is unable to care for him at home any longer. She reports multiple recent falls at home. Today he asked her for pain medication for a painful hip likely related to a fall. TRAVEL OUTSIDE OF THE [place] IN LAST 30 DAYS: No - Related Data Allergies/Adverse Reactions: No Known Allergies Allergy (Verified 10/04/19 12:45) Home Medications: aspirin, bupropion, hydrochlorothiazide, metoprolol, tamsulosin, venlafaxine Past Medical History - General Information source: Patient - Social History Smoking Status: Never Smoker Cigarette use (# per day): No Chew tobacco use (# tins/day): No Frequency of alcohol use: None Drug Abuse: None Lives with: Family Family History: Reviewed & Not Pertinent - Past Medical History Cardiac Medical History: Reports: Hx Atrial Fibrillation, Hx Hypertension Endocrine Medical History: Reports: Hx Diabetes Mellitus Type 2 Psychiatric Medical History: Reports: Hx Depression Past Surgical History: Reports: Hx Orthopedic Surgery - back, R ankle, R hip - Immunizations Hx Diphtheria, Pertussis, Tetanus Vaccination: No - unsure Review of Systems - Review of Systems Constitutional: No symptoms reported EENT: No symptoms reported Cardiovascular: No symptoms reported Respiratory: No symptoms reported Gastrointestinal: No symptoms reported Genitourinary: No symptoms reported Male Genitourinary: No symptoms reported Musculoskeletal: No symptoms reported Skin: No symptoms reported Hematologic/Lymphatic: No symptoms reported Neurological/Psychological: No symptoms reported -: Yes All other systems reviewed and negative Physical Exam - Vital signs Vitals: Temp Pulse Resp BP Pulse Ox 98 F 70 18 114/60 94 0822/20 10:44 10/20/19 10:44 10/20/19 10:44 10/20/19 10:44 10/20/19 10:44 Interpretation: Normal - General General appearance: Appears well, Alert - HEENT Head: Normocephalic, Atraumatic Eyes: Normal Pupils: PERRL Mucous membranes: Dry - oral mucosa is quite dry - Respiratory Respiratory status: No respiratory distress Chest status: Nontender Breath sounds: Normal Chest palpation: Normal - Cardiovascular Rhythm: Regular Heart sounds: Normal auscultation Murmur: No - Abdominal Inspection: Normal Distension: No distension Bowel sounds: Normal Tenderness: Nontender Organomegaly: No organomegaly - Back Back: Normal, Nontender - Extremities General upper extremity: Normal ROM Hip: Tender - There is tenderness to palpation of the right hip. Passive ROM of knee causes pain in right hip. - Neurological Neuro grossly intact: Yes Cognition: Normal Orientation: AAOx4 [place] Coma Scale Eye Opening: Spontaneous [place] Coma Scale Verbal: Oriented [place] Coma Scale Motor: Obeys Commands [place] Coma Scale Total: 15 Speech: Normal Motor strength normal: LUE, RUE, LLE, RLE Sensory: Normal - Psychological Associated symptoms: Normal affect, Normal mood - Skin Skin Temperature: Warm Skin Moisture: Dry Skin Color: Normal Course - Re-evaluation Re-evalutation: 10/20/19 16:26 Right hip pain, still causing distress with movement. Patient has multiple medical conditions occurring at this time patient has a cl osed left hip fracture right hip fracture also pneumonia noted on CT scan of chest with left rib fractures 8 through 10 without a pneumothorax or hemothorax , elevated troponin non-STEMI without ST elevations, acute metabolic acidosis with acute on chronic renal failure with a BUN of 74 and creatinine of 4.7, , and metabolic derangement with a low potassium low magnesium and a low calcium level. Patient has acute onset of congestive heart failure with a BNP of 4000 at this time.. A Slater catheter was placed and patient diuresed about 700 mL of urine clear color. Patient is on 2 L nasal O2 at this time with a sat around 92 to 95%. 10/20/19 16:57 Of note discussed with patient advanced directive considerations and she reports to me that she and her have talked about this prior to this date and neither 1 would prefer to have any heroic measures including CPR intubation or resuscitation performed if there heart or respirations were . Therefore DNR DO NOT RESUSCITATE order has been implemented and signed by Dr. Eubanks today. 10/20/19 17:01 Patient is hemodynamically stable at this time and his diuresed over thousand milliliters of urine at this time. Patient sats are 95 to 97% on 2 L nasal O2 patient appears to be resting more comfortable at this time. As noted patient is a DO NOT RESUSCITATE with multiple medical and traumatic problems at this time. The trauma seems to be subacute inasmuch as patient has ecchymosis on the right hip area that appears to be changed in color from purple to green to yellow. Patient's history is that he is been falling over the last 3 weeks and more recently was getting worse and being able to turn and stand with his assisting him out of the wheelchair. At this point waiting for consultation from Dr. Serrato the licensed weigher as to placing patient in the ICU, versus transfer to a trauma center, versus admit to local hospital. 10/20/19 17:05 My opinion at this point time patient does not indicate any need for emergent dialysis inasmuch as he is diuresing fluid and does not have hyperkalemia and is tolerating p.o. 2 L nasal O2 with a normal saturation. - Vital Signs Vital signs: Temp Pulse Resp BP Pulse Ox 98 F 70 19 114/60 92 10/20/19 10:44 10/20/19 10:44 10/20/19 14:07 10/20/19 10:44 10/20/19 14:07 10/20/19 16:31 As above pulse ox 92% with a blood pressure 114/60 respiratory rate 19 pulse of 70 and afebrile. Patient denies any chest pain at this time. - Laboratory Result Diagrams: 10/20/19 11:40 10/20/19 16:40 Laboratory results interpreted by me: 10/20/19 10/20/19 10/20/19 11:40 11:40 11:40 WBC 12.8 H RBC 3.32 L Hgb 10.4 L Hct 30.6 L Lymph % (Auto) 5.3 L Absolute Neuts (auto) 11.4 H Seg Neutrophils % 89.1 H PT 19.6 H APTT 52.1 H D-Dimer 3.00 H Carbonic Acid ABG pH ABG pCO2 ABG pO2 ABG HCO3 ABG Total CO2 ABG O2 Saturation Potassium Chloride Carbon Dioxide BUN Creatinine Est GFR ( Amer) Est GFR (MDRD) Non-Af Lactic Acid Calcium Magnesium Creatine Kinase NT-Pro-B Natriuret Pep Total Protein Albumin Urine Blood 10/20/19 10/20/19 10/20/19 12:27 12:38 12:38 WBC RBC Hgb Hct Lymph % (Auto) Absolute Neuts (auto) Seg Neutrophils % PT APTT D-Dimer Carbonic Acid ABG pH ABG pCO2 ABG pO2 ABG HCO3 ABG Total CO2 ABG O2 Saturation Potassium 3.1 L Chloride 117 H Carbon Dioxide 10 L* BUN 74 H Creatinine 4.77 H Est GFR ( Amer) 14 L Est GFR (MDRD) Non-Af 12 L Lactic Acid 0.6 L Calcium 4.5 L* Magnesium Creatine Kinase 1513 H NT-Pro-B Natriuret Pep Total Protein 6.1 L Albumin 2.9 L Urine Blood SMALL H 10/20/19 10/20/19 10/20/19 12:38 12:38 16:40 WBC RBC Hgb Hct Lymph % (Auto) Absolute Neuts (auto) Seg Neutrophils % PT APTT D-Dimer Carbonic Acid ABG pH ABG pCO2 ABG pO2 ABG HCO3 ABG Total CO2 ABG O2 Saturation Potassium 3.3 L Chloride 119 H Carbon Dioxide 10 L* BUN 71 H Creatinine 4.29 H Est GFR ( Amer) 16 L Est GFR (MDRD) Non-Af 13 L Lactic Acid Calcium 4.6 L* Magnesium 0.9 L* Creatine Kinase NT-Pro-B Natriuret Pep 4610 H Total Protein Albumin Urine Blood 10/20/19 17:35 WBC RBC Hgb Hct Lymph % (Auto) Absolute Neuts (auto) Seg Neutrophils % PT APTT D-Dimer Carbonic Acid 0.65 L ABG pH 7.24 L ABG pCO2 21.7 L ABG pO2 74.9 L ABG HCO3 9.1 L ABG Total CO2 9.7 L ABG O2 Saturation 93.0 L Potassium Chloride Carbon Dioxide BUN Creatinine Est GFR ( Amer) Est GFR (MDRD) Non-Af Lactic Acid Calcium Magnesium Creatine Kinase NT-Pro-B Natriuret Pep Total Protein Albumin Urine Blood Other laboratory abnormalities not mentioned above in the course includes a CO2 of 10 and a d-dimer 3.0 - Diagnostic Test Radiology reviewed: Image reviewed, Reports reviewed Radiology results interpreted by me: 10/20/19 16:35 CT scan of head shows no acute stroke no evidence of trauma. 10/20/19 16:35 CT scan scan cervical spine shows multilevel degenerative changes no no fracture and spondylo-los is noted 10/20/19 16:37 CT scan chest shows multinodular and patchy densities of consolidation in both lungs consistent with an infectious/inflammatory process. Of interest this could be COVID-19 pneumonia.. All also noted on chest CT is apparent acute left rib fractures 8 through 10 without evidence of any pneumothorax or hemothorax. Also an old T12 vertebral body fracture. 10/20/19 16:38 10/20/19 16:39 CT abdomen and pelvis shows no acute injury to the abdomen pelvis solid organs or skeleton. However noted is a subcapital femoral neck fracture in the right hip area. 10/20/19 16:42 Plain film x-rays right hip shows a sup acute subcapital femoral fracture. 10/20/19 16:50 - EKG Interpretation by Me Additional EKG results interpreted by me: 10/20/19 16:48 Twelve-lead EKG shows 10/20/19 16:56 Twelve-lead EKG shows an indeterminate rhythm ventricular rate is 69 with artifact noted to obscure interpretation as to P waves versus artifact. No ST elevations or depressions to suggest ischemia. Repeat EKG is ordered. Apparent prolonged QT interval noted 10/20/19 17:32 Repeat twelve-lead EKG shows an accelerated junctional rhythm rate of 70 with nonspecific intraventricular conduction delay. Critical Care Note - Critical Care Note Total time excluding time spent on procedures (mins): 65 - Patient with multiple medical problems and trauma problems including closed right hip fracture closed left rib fractures, metabolic derangement with acute renal failure and hypokalemia hypocalcemia and hypomagnesemia, acute metabolic acidosis, pneumonia with concerns for COVID-19 and the appearance of the pneumonia, IV fluid management and replacement of metabolic derangement minerals. IV antibiotics to treat pneumonia and pain management. Also consultation with primary care physician who is doing the admission as well as licensed weigher. Also consult with orthopedic physician. Discharge - Discharge Clinical Impression: Acute renal failure, Hypokalemia, Hypomagnesemia, Hypocalcemia, Leukocytosis, Pneumonia, Suspected COVID-19 virus infection, Closed right hip fracture, Left rib fracture, Congestive heart failure, Metabolic acidosis, Do not resuscitate Condition: Critical Disposition: ADMITTED INPATIENT Admitting Provider: Abby Unit Admitted: [facility] Referrals: ADELINA BERTRAND MD [Primary Care Provider] - Follow up as needed I personally performed the services described in the documentation, reviewed and edited the documentation which was dictated to the scribe in my presence, and it accurately records my words and actions.
[2019-10-20] MEDS ORDERED: POTASSIUM CHLORIDE 20 MEQ/50 ML RTU IV ONE (20:30)
[2019-10-20] MEDS: CALCIUM GLUCONATE 1 GM/NS 50 ML RTU IV SCH ×3 (20:52→22:21)
[2019-10-21 00:37] LABS: C-REACTIVE PROTEIN 152.3 mg/L (<10.0)
[2019-10-21] MEDS: NORMAL SALINE 1000 ML 1,000 ML IV PRN ×3 (02:12→23:26)
[2019-10-21] MEDS: PANTOPRAZOLE SODIUM 40 MG TABLET.DR PO SCH (05:00)
[2019-10-21 05:53] LABS: ABSOLUTE EOSINOPHILS # (AUTO) 0.1 10^3/uL (0.0-0.6); ABSOLUTE LYMPHOCYTES (AUTO) 0.8 10^3/uL (0.5-4.7); ABSOLUTE MONOCYTES (AUTO) 0.6 10^3/uL (0.1-1.4); ABSOLUTE NEUT (AUTO) 9.4 10^3/uL (1.7-8.2); BASOPHILS % (AUTO) 0.2 % (0-2); EOSINOPHILS % (AUTO) 0.9 % (0-6); HEMATOCRIT 27.8 % (37.9-51.0); HEMOGLOBIN 9.4 g/dL (13.5-17.0); MEAN CORPUSCULAR HEMOGLOBIN 31.5 pg (27.0-33.4); MEAN CORPUSCULAR HGB CONC 33.9 g/dL (32.0-36.0); MEAN CORPUSCULAR VOLUME 93 fl (80-97); MONOCYTES % (AUTO) 5.9 % (3-13); PLATELET COUNT 167 10^3/uL (150-450); RED BLOOD COUNT 2.99 10^6/uL (4.35-5.55); RED CELL DISTRIBUTION WIDTH 13.7 % (11.5-14.0); TOTAL CELLS COUNTED % (AUTO) 100 %; WHITE BLOOD COUNT 10.9 10^3/uL (4.0-10.5)
[2019-10-21 06:19] LABS: ALBUMIN 2.4 g/dL (3.5-5.0); ALKALINE PHOSPHATASE 58 U/L (38-126); ANION GAP 15 (5-19); ASPARTATE AMINO TRANSFERASE 54 U/L (17-59); BILIRUBIN,DIRECT 0.3 mg/dL (0.0-0.4); BILIRUBIN,TOTAL 0.4 mg/dL (0.2-1.3); BLOOD UREA NITROGEN 63 mg/dL (7-20); CHLORIDE 120 mmol/L (98-107); POTASSIUM 3.3 mmol/L (3.6-5.0); TOTAL PROTEIN 5.4 g/dL (6.3-8.2)
[2019-10-21 06:23] LABS: GLUCOSE 67 mg/dL (75-110)
[2019-10-21 06:37] LABS: CALCIUM 5.2 mg/dL (8.4-10.2); CARBON DIOXIDE 9 mmol/L (22-30)
[2019-10-21] MEDS: MORPHINE SULFATE 10 MG/ML INJ IV PRN (06:55)
[2019-10-21] MEDS: HEPARIN SOD (PORCINE) 5,000 UNIT/ML 1 ML VIAL SUBCUT SCH ×3 (07:06→23:19)
[2019-10-21] MEDS: ZINC SULFATE 220 MG CAPSULE PO SCH (09:34)
[2019-10-21] MEDS: CEFEPIME 1 GM/D5W RTU 1 GM/50 ML RTUPB IV SCH (09:34)
[2019-10-21] MEDS: ASCORBIC ACID 500 MG TABLET PO SCH ×2 (09:34→17:51)
[2019-10-21] MEDS ORDERED: CALCIUM GLUCONATE 6,666 MG in DEXTROSE 5%-WATER 500 ML IV ONE (10:00)
[2019-10-21] MEDS ORDERED: AZITHROMYCIN 500 MG in DEXTROSE 5%-WATER 250 ML IV SCH (10:00)
--- NOTE | 2019-10-21 13:53 | PDOC CONSULTATION ---
Consultation Consult Date: 10/21/19 Attending physician:: ADELINA BERTRAND Provider Consulted: RADHA RODRIGUEZ Consult reason:: Displaced right subcapital femoral neck fracture History of Present Illness Admission Date/PCP: 10/20/19 18:50 ADELINA BERTRAND MD Patient complains of: 1. Right hip pain and inability to ambulate. 2. General malaise History of Present Illness: SIMRAN ARRIETA is a 89 year old male brought by EMS to the emergency department. The patient was brought by his because she felt that he was not acting normally and she was unable to care for him. He has sustained multiple falls over the last week. He has not been eating or drinking well. The patient is admitted to the [facility] service with acute renal failure, multiple electrolyte abnormalities, pneumonia(COVID test pending), multiple left-sided rib fractures, and a displaced subcapital femoral neck fracture of the right hip. Past Medical History Cardiac Medical History: Reports: Atrial Fibrillation, Hypertension Denies: Coronary Artery Disease, Myocardial Infarction Pulmonary Medical History: Denies: Asthma, Bronchitis, Chronic Obstructive Pulmonary Disease (COPD), Pneumonia Neurological Medical History: Denies: Seizures Endocrine Medical History: Reports: Diabetes Mellitus Type 2 Musculoskeltal Medical History: Denies: Arthritis Psychiatric Medical History: Reports: Depression Hematology: Denies: Anemia Past Surgical History Past Surgical History: Reports: Orthopedic Surgery - back, R ankle, left hip gamma nail Social History Lives with: Family Smoking Status: Never Smoker Electronic Cigarette use?: No Frequency of Alcohol Use: None Hx Recreational Drug Use: No Drugs: None Hx Prescription Drug Abuse: No - Advance Directive Resuscitation Status: Do Not Resuscitate Family History Family History: Reviewed & Not Pertinent Parental Family History Reviewed: No Children Family History Reviewed: No Sibling(s) Family History Reviewed.: No Medication/Allergy Home Medications: Bupropion HCl [Bupropion HCl Sr] 150 mg PO BID 03/10/18 Tamsulosin HCl [Flomax 0.4 mg Cap.sr] 0.4 mg PO PCSUPPER 03/10/18 Amlodipine/Valsartan/Hcthiazid [Exforge Hct 10-320-25 mg Tab] 1 tab PO QAM 10/04/19 Cholecalciferol (Vitamin D3) [Vitamin D3 400 Unit Tablet] 400 unit PO QAM 10/04/19 Metoprolol Succinate [Toprol Xl] 100 mg PO QAM 10/04/19 Potassium Chloride 20 meq PO DAILY 10/04/19 Simvastatin [Zocor 10 mg Tablet] 10 mg PO QHS 10/04/19 Aspirin [Adult Low Dose Aspirin EC] 81 mg PO QAM 10/21/19 Multivitamin [Multiple Vitamins] 1 tab PO QAM 10/21/19 Venlafaxine HCl ER [Effexor Xr 75 mg Cap.sr] 75 mg PO QAM 10/21/19 Allergies/Adverse Reactions: No Known Allergies Allergy (Verified 10/04/19 12:45) Review of Systems ROS unobtainable: Other - As per HPI Physical Exam Vital Signs: Temp Pulse Resp BP Pulse Ox 99.2 F 80 21 H 151/71 H 95 10/21/19 12:00 10/21/19 12:00 10/21/19 12:00 10/21/19 12:00 10/21/19 12:00 Intake & Output 10/20/19 10/21/19 10/22/19 06:59 06:59 06:59 Intake Total 4716 787 Output Total 2220 Balance 2496 787 Weight 82.7 kg General appearance: PRESENT: cooperative, disheveled Head exam: PRESENT: atraumatic Respiratory exam: PRESENT: accessory muscle use, crackles Cardiovascular exam: PRESENT: systolic murmur Pulses: PRESENT: other - Pedal pulses are not palpable on the right leg. There is significant edema present of both lower extremities. Rectal exam: PRESENT: deferred Musculoskeletal exam: PRESENT: other - The right leg is shortened and externally rotated. The patient is able to dorsiflex and plantarflex the right foot. Sensation is diminished symmetrically in a stocking glove distribution which the patient states is his baseline. Pulses are nonpalpable. Results Laboratory Results: 10/21/19 05:15 10/21/19 05:15 10/20/19 10/20/19 10/20/19 12:38 16:40 16:55 WBC RBC Hgb Hct MCV MCH MCHC RDW Plt Count Seg Neutrophils % Carbonic Acid HCO3/H2CO3 Ratio ABG pH ABG pCO2 ABG pO2 ABG HCO3 ABG O2 Saturation ABG Base Excess FiO2 Sodium 143.9 Potassium 3.3 L Chloride 119 H Carbon Dioxide 10 L* Anion Gap 15 BUN 71 H Creatinine 4.29 H Est GFR ( Amer) 16 L Glucose 87 Calcium 4.6 L* Magnesium 0.9 L* Total Bilirubin AST Alkaline Phosphatase C-Reactive Protein Total Protein Albumin Triglycerides Blood Type O POSITIVE Antibody Screen NEGATIVE 10/20/19 10/20/19 10/21/19 17:35 23:53 05:15 WBC 10.9 H RBC 2.99 L Hgb 9.4 L Hct 27.8 L MCV 93 MCH 31.5 MCHC 33.9 RDW 13.7 Plt Count 167 Seg Neutrophils % 86.0 H Carbonic Acid 0.65 L HCO3/H2CO3 Ratio 14:1 ABG pH 7.24 L ABG pCO2 21.7 L ABG pO2 74.9 L ABG HCO3 9.1 L ABG O2 Saturation 93.0 L ABG Base Excess -16.6 FiO2 28% Sodium Potassium Chloride Carbon Dioxide Anion Gap BUN Creatinine Est GFR ( Amer) Glucose Calcium Magnesium Total Bilirubin AST Alkaline Phosphatase C-Reactive Protein 152.3 H Total Protein Albumin Triglycerides 132 Blood Type Antibody Screen 10/21/19 05:15 WBC RBC Hgb Hct MCV MCH MCHC RDW Plt Count Seg Neutrophils % Carbonic Acid HCO3/H2CO3 Ratio ABG pH ABG pCO2 ABG pO2 ABG HCO3 ABG O2 Saturation ABG Base Excess FiO2 Sodium 144.1 Potassium 3.3 L Chloride 120 H Carbon Dioxide 9 L* Anion Gap 15 BUN 63 H Creatinine 3.83 H Est GFR ( Amer) 18 L Glucose 67 L Calcium 5.2 L* Magnesium 1.5 L Total Bilirubin 0.4 AST 54 Alkaline Phosphatase 58 C-Reactive Protein Total Protein 5.4 L Albumin 2.4 L Triglycerides Blood Type Antibody Screen 10/20/19 10/20/19 10/20/19 11:40 11:40 12:38 Creatine Kinase Cancelled 1513 H Troponin I Cancelled NT-Pro-B Natriuret Pep 10/20/19 10/20/19 10/20/19 12:38 12:38 16:55 Creatine Kinase Troponin I 0.122 0.111 NT-Pro-B Natriuret Pep 4610 H Impressions: Cervical Spine CT 10/20/19 12:18 IMPRESSION: No acute fracture or dislocation of the cervical spine. Multilevel spondylosis, degenerative disc disease, and facet arthropathy. Head CT 10/20/19 12:18 IMPRESSION: No acute intracranial hemorrhage, mass, or evidence of acute territorial infarct. EVIDENCE OF ACUTE STROKE: NO. Chest CT 10/20/19 12:21 IMPRESSION: 1. Although there is motion in the pelvis, there appears to be an acute impacted subcapital fracture of the right proximal femur. Further evaluation with de dicated two view radiograph is recommended. 2. Age-indeterminate moderate compression fracture at T12, however this is stable since 10/04/2019 radiograph. This may be subacute or chronic. No retropulsed fracture fragments. 3. Acute appearing fractures of the anterolateral left 8-10th ribs. 4. Patchy areas of consolidation with areas of nodular consolidation in both lungs, suggestive of infectious/ inflammatory process. Given nodular components, a follow-up CT of the chest in 3 months is recommended to confirm complete resolution. Commonly reported imaging features of COVID-19 pneumonia are present. Other processes such as influenza pneumonia and organizing pneumonia, as can be seen with drug toxicity and connective tissue disease, can cause a similar imaging pattern. 5. No evidence of acute traumatic solid organ or vascular injury in the chest, abdomen or pelvis. Abdomen/Pelvis CT 10/20/19 12:23 IMPRESSION: 1. Although there is motion in the pelvis, there appears to be an acute impacted subcapital fracture of the right proximal femur. Further evaluation with dedicated two view radiograph is recommended. 2. Age-indeterminate moderate compression fracture at T12, however this is stable since 10/04/2019 radiograph. This may be subacute or chronic. No retropulsed fracture fragments. 3. Acute appearing fractures of the anterolateral left 8-10th ribs. 4. Patchy areas of consolidation with areas of nodular consolidation in both lungs, suggestive of infectious/ inflammatory process. Given nodular components, a follow-up CT of the chest in 3 months is recommended to confirm complete resolution. Commonly reported imaging features of COVID-19 pneumonia are present. Other processes such as influenza pneumonia and organizing pneumonia, as can be seen with drug toxicity and connective tissue disease, can cause a similar imaging pattern. 5. No evidence of acute traumatic solid organ or vascular injury in the chest, abdomen or pelvis. Hip/Pelvis X-Ray 10/20/19 14:33 IMPRESSION: 1. Acute subcapital fracture right femur. 2. Moderate osteopenia. Assessment & Plan - Diagnosis (1) ARF (acute renal failure) Qualifiers: Acute renal failure type: unspecified Qualified Code(s): N17.9 - Acute kidney failure, unspecified Is this a current diagnosis for this admission?: Yes (4) Hypocalcemia Is this a current diagnosis for this admission?: Yes (7) Subcapital fracture of right femur Qualifiers: Encounter type: initial encounter Is this a current diagnosis for this admission?: Yes - Time Time Spent: 30 to 50 Minutes Anticipated discharge: SNF Anticipated DC Timeframe: Other - Plan Summary Plan Summary: The patient is an 89-year-old man with multiple medical abnormalities including acute renal failure, congestive heart failure, pneumonia, multiple left-sided rib fractures, electrolyte abnormalities, and a displaced subcapital fracture of the right hip. The patient may benefit from right hip hemiarthroplasty to restore his ability to ambulate once his medical morbidities are optimized. This may take several days given his current status. I have discussed the findings and surgical procedure with the patient. I will tentatively plan on performing hemiarthroplasty Tuesday or Tuesday this week if this is medically feasible. I would appreciate some form of direct communication through the page operator/assistant foreman when the medical team feels that he is optimized to undergo the surgical procedure.
[2019-10-21] MEDS: AZITHROMYCIN 500 MG in DEXTROSE 5%-WATER 250 ML IV SCH (17:51)
--- NOTE | 2019-10-21 19:41 | PDOC H&P ---
History of Present Illness Admission Date/PCP: 10/20/19 18:50 ADELINA BERTRAND MD History of Present Illness: SIMRAN ARRIETA is a 89 year old male patient of Dr. Bertrand who presented to the ED with spouse reported recurrent falls and worsening ability to care for himself or participate in his assistance. Patient denied any difficulty with his breathing or chest pain but expressed right hip pain and requested for pain medication as per his report. No reported nausea, vomiting, or abdominal pain. He denied headache, dizziness, fever or chills. His initial ED evaluation revealed severe electrolytes derangement, right hip subcapital fracture with multiple left rib fractures and bilateral consolidations suggestive of COVID-19 infection. Also, there is thyromegaly with retrosternal component. Patient was advised hospitalization for further evaluation and management. His morbidities are as listed below. Past Medical History Cardiac Medical History: Reports: Atrial Fibrillation, Hypertension Denies: Coronary Artery Disease, Myocardial Infarction Pulmonary Medical History: Denies: Asthma, Bronchitis, Chronic Obstructive Pulmonary Disease (COPD), Pneumonia Neurological Medical History: Denies: Seizures Endocrine Medical History: Reports: Diabetes Mellitus Type 2 Musculoskeltal Medical History: Denies: Arthritis Psychiatric Medical History: Reports: Depression Hematology: Denies: Anemia Past Surgical History Past Surgical History: Reports: Orthopedic Surgery - back, R ankle, R hip Social History Lives with: Family Smoking Status: Never Smoker Electronic Cigarette use?: No Frequency of Alcohol Use: None Hx Recreational Drug Use: No Drugs: None Hx Prescription Drug Abuse: No - Advance Directive Resuscitation Status: Do Not Resuscitate Family History Family History: Reviewed & Not Pertinent Parental Family History Reviewed: Yes Children Family History Reviewed: Yes Sibling(s) Family History Reviewed.: Yes Medication/Allergy Home Medications: Bupropion HCl [Bupropion HCl Sr] 150 mg PO BID 03/10/18 Tamsulosin HCl [Flomax 0.4 mg Cap.sr] 0.4 mg PO PCSUPPER 03/10/18 Amlodipine/Valsartan/Hcthiazid [Exforge Hct 10-320-25 mg Tab] 1 tab PO QAM 10/04/19 Cholecalciferol (Vitamin D3) [Vitamin D3 400 Unit Tablet] 400 unit PO QAM 10/04/19 Metoprolol Succinate [Toprol Xl] 100 mg PO QAM 10/04/19 Potassium Chloride 20 meq PO DAILY 10/04/19 Simvastatin [Zocor 10 mg Tablet] 10 mg PO QHS 10/04/19 Aspirin [Adult Low Dose Aspirin EC] 81 mg PO QAM 10/21/19 Multivitamin [Multiple Vitamins] 1 tab PO QAM 10/21/19 Venlafaxine HCl ER [Effexor Xr 75 mg Cap.sr] 75 mg PO QAM 10/21/19 Allergies/Adverse Reactions: No Known Allergies Allergy (Verified 10/04/19 12:45) Review of Systems Constitutional: PRESENT: weakness. ABSENT: chills, fever(s), headache(s) Eyes: ABSENT: visual disturbances Ears: ABSENT: hearing changes Cardiovascular: ABSENT: chest pain, dyspnea on exertion, edema, orthropnea, palpitations Respiratory: ABSENT: cough, hemoptysis Gastrointestinal: ABSENT: abdominal pain, constipation, diarrhea, hematemesis, hematochezia, nausea, vomiting Genitourinary: ABSENT: dysuria, hematuria Musculoskeletal: PRESENT: other - right hip pain. ABSENT: joint swelling Integumentary: ABSENT: rash, wounds Neurological: PRESENT: confusion - reported that he was not acting right., weakness - generalized. ABSENT: abnormal gait, abnormal speech, dizziness, focal weakness, syncope Psychiatric: ABSENT: anxiety, depression, homidical ideation, suicidal ideation Endocrine: ABSENT: cold intolerance, heat intolerance, menstrual abnormalities, polydipsia, polyuria Hematologic/Lymphatic: ABSENT: easy bleeding, easy bruising, lymphadenopathy Allergic/Immunologic: ABSENT: seasonal rhinorrhea Physical Exam Vital Signs: Temp Pulse Resp BP Pulse Ox 98.2 F 60 18 119/70 94 10/20/19 20:43 10/20/19 20:43 10/20/19 20:43 10/20/19 20:43 10/20/19 20:43 Intake & Output 10/19/19 10/20/19 10/21/19 06:59 06:59 06:59 Intake Total 4716 Output Total 970 Balance 3746 Weight 76.1 kg General appearance: PRESENT: no acute distress, disheveled Head exam: PRESENT: atraumatic, normocephalic Eye exam: PRESENT: conjunctiva pink, EOMI, PERRLA. ABSENT: scleral icterus Ear exam: PRESENT: normal external ear exam Mouth exam: PRESENT: moist, tongue midline Neck exam: PRESENT: full ROM. ABSENT: carotid bruit, JVD, lymphadenopathy, thyromegaly Respiratory exam: PRESENT: crackles - scattered bilaterally, decreased breath sounds Cardiovascular exam: PRESENT: RRR, +S1, +S2. ABSENT: diastolic murmur, rubs, systolic murmur Pulses: PRESENT: normal dorsalis pedis pul, +2 pedal pulses bilateral Vascular exam: PRESENT: normal capillary refill. ABSENT: pallor GI/Abdominal exam: PRESENT: normal bowel sounds, soft. ABSENT: distended, guarding, mass, organolmegaly, rebound, tenderness Rectal exam: PRESENT: deferred Musculoskeletal exam: PRESENT: deformity - exterally rotated right lower extremity, tenderness - right hip joint with motion Neurological exam: PRESENT: alert, awake, oriented to person, oriented to place, oriented to time, oriented to situation, CN II-XII grossly intact. ABSENT: motor sensory deficit Psychiatric exam: PRESENT: appropriate affect, normal mood. ABSENT: homicidal ideation, suicidal ideation Skin exam: PRESENT: dry, intact, warm. ABSENT: cyanosis, rash Results Laboratory Results: 10/20/19 11:40 10/20/19 16:40 10/20/19 10/20/19 10/20/19 11:40 11:40 12:27 WBC 12.8 H RBC 3.32 L Hgb 10.4 L Hct 30.6 L MCV 92 MCH 31.3 MCHC 34.0 RDW 13.8 Plt Count 171 Seg Neutrophils % 89.1 H Carbonic Acid HCO3/H2CO3 Ratio ABG pH ABG pCO2 ABG pO2 ABG HCO3 ABG O2 Saturation ABG Base Excess FiO2 Sodium Cancelled Potassium Cancelled Chloride Cancelled Carbon Dioxide Cancelled Anion Gap Cancelled BUN Cancelled Creatinine Cancelled Est GFR ( Amer) Cancelled Est GFR (Non-Af Amer) Cancelled Glucose Cancelled Lactic Acid Calcium Cancelled Magnesium Total Bilirubin Cancelled AST Cancelled Alkaline Phosphatase Cancelled Total Protein Cancelled Albumin Cancelled Urine Color YELLOW Urine Appearance SLIGHTLY-CLOUDY Urine pH 5.0 Ur Specific [place] 1.011 Urine Protein NEGATIVE Urine Glucose (UA) NEGATIVE Urine Ketones NEGATIVE Urine Blood SMALL H Urine Nitrite NEGATIVE Ur Leukocyte Esterase NEGATIVE Urine WBC (Auto) 2 Urine RBC (Auto) 1 Blood Type Antibody Screen 10/20/19 10/20/19 10/20/19 12:38 12:38 12:38 WBC RBC Hgb Hct MCV MCH MCHC RDW Plt Count Seg Neutrophils % Carbonic Acid HCO3/H2CO3 Ratio ABG pH ABG pCO2 ABG pO2 ABG HCO3 ABG O2 Saturation ABG Base Excess FiO2 Sodium 144.0 Potassium 3.1 L Chloride 117 H Carbon Dioxide 10 L* Anion Gap 17 BUN 74 H Creatinine 4.77 H Est GFR ( Amer) 14 L Est GFR (Non-Af Amer) Glucose 79 Lactic Acid 0.6 L Calcium 4.5 L* Magnesium 0.9 L* Total Bilirubin 0.5 AST 58 Alkaline Phosphatase 67 Total Protein 6.1 L Albumin 2.9 L Urine Color Urine Appearance Urine pH Ur Specific [place] Urine Protein Urine Glucose (UA) Urine Ketones Urine Blood Urine Nitrite Ur Leukocyte Esterase Urine WBC (Auto) Urine RBC (Auto) Blood Type Antibody Screen 10/20/19 10/20/19 10/20/19 16:40 16:55 17:35 WBC RBC Hgb Hct MCV MCH MCHC RDW Plt Count Seg Neutrophils % Carbonic Acid 0.65 L HCO3/H2CO3 Ratio 14:1 ABG pH 7.24 L ABG pCO2 21.7 L ABG pO2 74.9 L ABG HCO3 9.1 L ABG O2 Saturation 93.0 L ABG Base Excess -16.6 FiO2 28% Sodium 143.9 Potassium 3.3 L Chloride 119 H Carbon Dioxide 10 L* Anion Gap 15 BUN 71 H Creatinine 4.29 H Est GFR ( Amer) 16 L Est GFR (Non-Af Amer) Glucose 87 Lactic Acid Calcium 4.6 L* Magnesium Total Bilirubin AST Alkaline Phosphatase Total Protein Albumin Urine Color Urine Appearance Urine pH Ur Specific [place] Urine Protein Urine Glucose (UA) Urine Ketones Urine Blood Urine Nitrite Ur Leukocyte Esterase Urine WBC (Auto) Urine RBC (Auto) Blood Type O POSITIVE Antibody Screen NEGATIVE 10/20/19 10/20/19 10/20/19 11:40 11:40 12:38 Creatine Kinase Cancelled 1513 H Troponin I Cancelled NT-Pro-B Natriuret Pep 10/20/19 10/20/19 10/20/19 12:38 12:38 16:55 Creatine Kinase Troponin I 0.122 0.111 NT-Pro-B Natriuret Pep 4610 H Impressions: Cervical Spine CT 10/20/19 12:18 IMPRESSION: No acute fracture or dislocation of the cervical spine. Multilevel spondylosis, degenerative disc disease, and facet arthropathy. Head CT 10/20/19 12:18 IMPRESSION: No acute intracranial hemorrhage, mass, or evidence of acute territorial infarct. EVIDENCE OF ACUTE STROKE: NO. Chest CT 10/20/19 12:21 IMPRESSION: 1. Although there is motion in the pelvis, there appears to be an acute impacted subcapital fracture of the right proximal femur. Further evaluation with dedicated two view radiograph is recommended. 2. Age-indeterminate moderate compression fracture at T12, however this is stable since 10/04/2019 radiograph. This may be subacute or chronic. No retro pulsed fracture fragments. 3. Acute appearing fractures of the anterolateral left 8-10th ribs. 4. Patchy areas of consolidation with areas of nodular consolidation in both lungs, suggestive of infectious/ inflammatory process. Given nodular components, a follow-up CT of the chest in 3 months is recommended to confirm complete resolution. Commonly reported imaging features of COVID-19 pneumonia are present. Other processes such as influenza pneumonia and organizing pneumonia, as can be seen with drug toxicity and connective tissue disease, can cause a similar imaging pattern. 5. No evidence of acute traumatic solid organ or vascular injury in the chest, abdomen or pelvis. Abdomen/Pelvis CT 10/20/19 12:23 IMPRESSION: 1. Although there is motion in the pelvis, there appears to be an acute impacted subcapital fracture of the right proximal femur. Further evaluation with dedicated two view radiograph is recommended. 2. Age-indeterminate moderate compression fracture at T12, however this is stable since 10/04/2019 radiograph. This may be subacute or chronic. No retropulsed fracture fragments. 3. Acute appearing fractures of the anterolateral left 8-10th ribs. 4. Patchy areas of consolidation with areas of nodular consolidation in both lungs, suggestive of infectious/ inflammatory process. Given nodular components, a follow-up CT of the chest in 3 months is recommended to confirm complete resolution. Commonly reported imaging features of COVID-19 pneumonia are present. Other processes such as influenza pneumonia and organizing pneumonia, as can be seen with drug toxicity and connective tissue disease, can cause a similar imaging pattern. 5. No evidence of acute traumatic solid organ or vascular injury in the chest, abdomen or pelvis. Hip/Pelvis X-Ray 10/20/19 14:33 IMPRESSION: 1. Acute subcapital fracture right femur. 2. Moderate osteopenia. Assessment & Plan - Diagnosis (1) Recurrent falls Is this a current diagnosis for this admission?: Yes Plan: See covering attending physician orders for details about care plan. (2) Subcapital fracture of right femur Qualifiers: Encounter type: initial encounter Is this a current diagnosis for this admission?: Yes Plan: See covering attending physician orders for details about care plan. (3) Pneumonia Qualifiers: Pneumonia type: due to unspecified organism Laterality: bilateral Is this a current diagnosis for this admission?: Yes Plan: See covering attending physician orders for details about care plan. (4) Suspected COVID-19 virus infection Is this a current diagnosis for this admission?: Yes Plan: See covering attending physician orders for details about care plan. (5) ARF (acute renal failure) Qualifiers: Acute renal failure type: unspecified Qualified Code(s): N17.9 - Acute kidney failure, unspecified Is this a current diagnosis for this admission?: Yes Plan: See covering attending physician orders for details about care plan. (6) Hypocalcemia Is this a current diagnosis for this admission?: Yes Plan: See covering attending physician orders for details about care plan. (7) Hypokalemia Is this a current diagnosis for this admission?: Yes Plan: See covering attending physician orders for details about care plan. (8) Hypomagnesemia Is this a current diagnosis for this admission?: Yes Plan: See covering attending physician orders for details about care plan. (9) Left rib fracture Qualifiers: Encounter type: initial encounter Fracture type: closed Is this a current diagnosis for this admission?: Yes Plan: See covering attending physician orders for details about care plan. (10) Thyromegaly Is this a current diagnosis for this admission?: Yes Plan: See covering attending physician orders for details about care plan. - Time Time Spent: 50 to 70 Minutes Medications reviewed and adjusted accordingly: Yes Anticipated Discharge Disposition: [facility] Facility Anticipated Discharge Timeframe: within 72 hours - Inpatient Certification Based on my medical assessment, after consideration of the patient's comorbidities, presenting symptoms, or acuity I expect that the services needed warrant INPATIENT care.: Yes I certify that my determination is in accordance with my understanding of Medicare's requirements for reasonable and necessary INPATIENT services [42 CFR 412.3e].: Yes Medical Necessity: Significant Comorbidiites Make Outpatient Treatment Too Risky, Need Close Monitoring Due to Risk of Patient Decompensation, Need For IV Fluids, Need For Continuous Telemetry Monitoring, Need for Pain Control, Need for IV Antibiotics, Need for Surgery, Risk of Complication if Not Cared For in Hospital, Risk of Diagnosis Which Will Require Inpatient Eval/Care/Monitoring Post Hospital Care: D/C or Transfer Summary - Plan Summary Plan Summary: See covering attending physician orders for details about care plan.
--- NOTE | 2019-10-21 19:52 | PDOC PROGRESS REPORT ---
Subjective Progress Note for:: 10/21/19 Subjective:: Patient reported adequate pain control. Awaiting COVID-19 test result to determine time for surgical intervention. No chest pain or difficulty with breathing. Reason For Visit: RECURRENT FALLS,RIGHT FEMORAL FRACTURE,PNEUMONIA, Physical Exam Vital Signs: Temp Pulse Resp BP Pulse Ox 99.1 F 87 23 H 166/88 H 94 10/21/19 16:00 10/21/19 16:00 10/21/19 16:00 10/21/19 16:00 10/21/19 16:00 Intake & Output 10/20/19 10/21/19 10/22/19 06:59 06:59 06:59 Intake Total 4716 1823.66 Output Total 2220 1100 Balance 2496 723.66 Weight 82.7 kg General appearance: PRESENT: no acute distress Head exam: PRESENT: atraumatic, normocephalic Eye exam: PRESENT: conjunctiva pink. ABSENT: scleral icterus Mouth exam: PRESENT: moist Respiratory exam: PRESENT: clear to auscultation karrie Cardiovascular exam: PRESENT: RRR, +S1, +S2. ABSENT: diastolic murmur, rubs, systolic murmur Vascular exam: ABSENT: pallor GI/Abdominal exam: PRESENT: normal bowel sounds, soft. ABSENT: tenderness Musculoskeletal exam: PRESENT: deformity - external rotation of right lower extremity, tenderness - right hip joint Neurological exam: PRESENT: alert, awake, oriented to person, oriented to place, oriented to time, oriented to situation, CN II-XII grossly intact. ABSENT: motor sensory deficit Psychiatric exam: PRESENT: appropriate affect, normal mood. ABSENT: homicidal ideation, suicidal ideation Skin exam: PRESENT: dry, warm Results Laboratory Results: 10/21/19 05:15 10/21/19 05:15 10/20/19 10/21/19 10/21/19 23:53 05:15 05:15 WBC 10.9 H RBC 2.99 L Hgb 9.4 L Hct 27.8 L MCV 93 MCH 31.5 MCHC 33.9 RDW 13.7 Plt Count 167 Seg Neutrophils % 86.0 H Sodium 144.1 Potassium 3.3 L Chloride 120 H Carbon Dioxide 9 L* Anion Gap 15 BUN 63 H Creatinine 3.83 H Est GFR ( Amer) 18 L Glucose 67 L Calcium 5.2 L* Magnesium 1.5 L Total Bilirubin 0.4 AST 54 Alkaline Phosphatase 58 C-Reactive Protein 152.3 H Total Protein 5.4 L Albumin 2.4 L Triglycerides 132 10/20/19 10/20/19 10/20/19 11:40 11:40 12:38 Creatine Kinase Cancelled 1513 H Troponin I Cancelled NT-Pro-B Natriuret Pep 10/20/19 10/20/19 10/20/19 12:38 12:38 16:55 Creatine Kinase Troponin I 0.122 0.111 NT-Pro-B Natriuret Pep 4610 H Impressions: Cervical Spine CT 10/20/19 12:18 IMPRESSION: No acute fracture or dislocation of the cervical spine. Multilevel spondylosis, degenerative disc disease, and facet arthropathy. Head CT 10/20/19 12:18 IMPRESSION: No acute intracranial hemorrhage, mass, or evidence of acute territorial infarct. EVIDENCE OF ACUTE STROKE: NO. Chest CT 10/20/19 12:21 IMPRESSION: 1. Although there is motion in the pelvis, there appears to be an acute impacted subcapital fracture of the right proximal femur. Further evaluation with dedicated two view radiograph is recommended. 2. Age-indeterminate moderate compression fracture at T12, however this is stable since 10/04/2019 radiograph. This may be subacute or chronic. No retropulsed fracture fragments. 3. Acute appearing fractures of the anterolateral left 8-10th ribs. 4. Patchy areas of consolidation with areas of nodular consolidation in both lungs, suggestive of infectious/ inflammatory process. Given nodular components, a follow-up CT of the chest in 3 months is recommended to confirm complete resolution. Commonly reported imaging features of COVID-19 pneumonia are present. Other processes such as influenza pneumonia and organizing pneumonia, as can be seen with drug toxicity and connective tissue disease, can cause a similar imaging pattern. 5. No evidence of acute traumatic solid organ or vascular injury in the chest, abdomen or pelvis. Abdomen/Pelvis CT 10/20/19 12:23 IMPRESSION: 1. Although there is motion in the pelvis, there appears to be an acute impacted subcapital fracture of the right proximal femur. Further evaluation with dedicated two view radiograph is recommended. 2. Age-indeterminate moderate compression fracture at T12, however this is stable since 10/04/2019 radiograph. This may be subacute or chronic. No retropulsed fracture fragments. 3. Acute appearing fractures of the anterolateral left 8-10th ribs. 4. Patchy areas of consolidation with areas of nodular consolidation in both lungs, suggestive of infectious/ inflammatory process. Given nodular components, a follow-up CT of the chest in 3 months is recommended to confirm complete resolution. Commonly reported imaging features of COVID-19 pneumonia are present. Other processes such as influenza pneumonia and organizing pneumonia, as can be seen with drug toxicity and connective tissue disease, can cause a similar imaging pattern. 5. No evidence of acute traumatic solid organ or vascular injury in the chest, abdomen or pelvis. Hip/Pelvis X-Ray 10/20/19 14:33 IMPRESSION: 1. Acute subcapital fracture right femur. 2. Moderate osteopenia. Assessment & Plan - Diagnosis (1) Recurrent falls Is this a current diagnosis for this admission?: Yes (2) Subcapital fracture of right femur Qualifiers: Encounter type: initial encounter Is this a current diagnosis for this admission?: Yes (3) Pneumonia Qualifiers: Pneumonia type: due to unspecified organism Laterality: bilateral Is this a current diagnosis for this admission?: Yes (4) Suspected COVID-19 virus infection Is this a current diagnosis for this admission?: Yes (5) ARF (acute renal failure) Qualifiers: Acute renal failure type: unspecified Qualified Code(s): N17.9 - Acute kidney failure, unspecified Is this a current diagnosis for this admission?: Yes (6) Hypocalcemia Is this a current diagnosis for this admission?: Yes (7) Hypokalemia Is this a current diagnosis for this admission?: Yes (8) Hypomagnesemia Is this a current diagnosis for this admission?: Yes (9) Left rib fracture Qualifiers: Encounter type: initial encounter Fracture type: closed Is this a current diagnosis for this admission?: Yes (10) Thyromegaly Is this a current diagnosis for this admission?: Yes - Time Time Spent with patient: 25-34 minutes Level of Care: IMCU Medications reviewed and adjusted accordingly: Yes Anticipated discharge: SNF Anticipated DC Timeframe: within 72 hours - Inpatient Certification Based on my medical assessment, after consideration of the patient's comorbidities, presenting symptoms, or acuity I expect that the services needed warrant INPATIENT care.: Yes I certify that my determination is in accordance with my understanding of Medicare's requirements for reasonable and necessary INPATIENT services [42 CFR 412.3e].: Yes Medical Necessity: Significant Comorbidiites Make Outpatient Treatment Too Risky, Need Close Monitoring Due to Risk of Patient Decompensation, Need For IV Fluids, Need For Continuous Telemetry Monitoring, Need for Pain Control, Need for IV Antibiotics, Risk of Complication if Not Cared For in Hospital, Risk of Diagnosis Which Will Require Inpatient Eval/Care/Monitoring Post Hospital Care: D/C or Transfer Summary - Plan Summary Plan Summary: Continue current medication management. Follow up on pending lab results.
--- NOTE | 2019-10-21 20:29 | EKG REPORT ---
SEVERITY:- ABNORMAL ECG - SINUS RHYTHM PROBABLE LEFT ATRIAL ABNORMALITY NONSPECIFIC T ABNORMALITIES, INFERIOR LEADS PROLONGED QT INTERVAL : Confirmed by: Nan Lea 21-Oct-2019 20:27:58
--- NOTE | 2019-10-21 20:29 | EKG REPORT ---
SEVERITY:- ABNORMAL ECG - SINUS RHYTHM NONSPECIFIC INTRAVENTRICULAR CONDUCTION DELAY : Confirmed by: Nan Lea 21-Oct-2019 20:27:40
[2019-10-22] MEDS ORDERED: LINEZOLID 600 MG/300 ML RTUPB IV ONE
[2019-10-22] MEDS: HEPARIN SOD (PORCINE) 5,000 UNIT/ML 1 ML VIAL SUBCUT SCH ×3 (05:02→21:09)
[2019-10-22] MEDS: PANTOPRAZOLE SODIUM 40 MG TABLET.DR PO SCH (05:08)
[2019-10-22] MEDS: MORPHINE SULFATE 10 MG/ML INJ IV PRN ×2 (06:14→21:08)
[2019-10-22] MEDS: NORMAL SALINE 1000 ML 1,000 ML IV PRN ×2 (06:15→21:09)
[2019-10-22] MEDS: MULTIVITAMIN TABLET PO SCH (08:22)
[2019-10-22] MEDS: ZINC SULFATE 220 MG CAPSULE PO SCH (10:12)
[2019-10-22] MEDS: ASCORBIC ACID 500 MG TABLET PO SCH ×2 (10:12→18:40)
[2019-10-22] MEDS: LINEZOLID 600 MG/300 ML RTUPB IV SCH ×2 (10:12)
[2019-10-22] MEDS: CEFEPIME 1 GM/D5W RTU 1 GM/50 ML RTUPB IV SCH (10:12)
[2019-10-22] MEDS: AZITHROMYCIN 500 MG in DEXTROSE 5%-WATER 250 ML IV SCH (18:40)
[2019-10-22] MEDS: DEXAMETHASONE SOD PHOSPHATE INJ 4 MG/1 ML VIAL IV SCH (18:40)
[2019-10-22 18:49] LABS: ABSOLUTE EOSINOPHILS # (AUTO) 0.2 10^3/uL (0.0-0.6); ABSOLUTE LYMPHOCYTES (AUTO) 0.8 10^3/uL (0.5-4.7); ABSOLUTE MONOCYTES (AUTO) 0.6 10^3/uL (0.1-1.4); BASOPHILS % (AUTO) 0.4 % (0-2); EOSINOPHILS % (AUTO) 2.1 % (0-6); HEMATOCRIT 28.2 % (37.9-51.0); HEMOGLOBIN 9.7 g/dL (13.5-17.0); LYMPHOCYTES % (AUTO) 10.9 % (13-45); MEAN CORPUSCULAR HEMOGLOBIN 31.4 pg (27.0-33.4); MEAN CORPUSCULAR HGB CONC 34.4 g/dL (32.0-36.0); MEAN CORPUSCULAR VOLUME 91 fl (80-97); MONOCYTES % (AUTO) 7.5 % (3-13); PLATELET COUNT 178 10^3/uL (150-450); RED BLOOD COUNT 3.09 10^6/uL (4.35-5.55); RED CELL DISTRIBUTION WIDTH 13.9 % (11.5-14.0); SEGMENTED NEUTROPHILS % (AUTO) 79.1 % (42-78); TOTAL CELLS COUNTED % (AUTO) 100 %; WHITE BLOOD COUNT 7.6 10^3/uL (4.0-10.5)
[2019-10-22 18:55] LABS: ALBUMIN 2.5 g/dL (3.5-5.0); ALKALINE PHOSPHATASE 58 U/L (38-126); ANION GAP 9 (5-19); ASPARTATE AMINO TRANSFERASE 41 U/L (17-59); BILIRUBIN,DIRECT 0.1 mg/dL (0.0-0.4); BILIRUBIN,TOTAL 0.4 mg/dL (0.2-1.3); BLOOD UREA NITROGEN 46 mg/dL (7-20); CARBON DIOXIDE 17 mmol/L (22-30); CHLORIDE 117 mmol/L (98-107); GLUCOSE 123 mg/dL (75-110); TOTAL PROTEIN 5.5 g/dL (6.3-8.2)
[2019-10-22 19:11] LABS: CALCIUM 5.8 mg/dL (8.4-10.2); POTASSIUM 2.8 mmol/L (3.6-5.0)
[2019-10-22] MEDS ORDERED: REMDESIVIR (EUA) 200 MG in NORMAL SALINE 250 ML IV ONE (20:15)
--- NOTE | 2019-10-22 20:34 | PDOC PROGRESS REPORT ---
Subjective Progress Note for:: 10/22/19 Subjective:: Patient was admitted over the weekend for the management of pneumonia, he was admitted in IMCU in isolation, the SARS-CoV-2 test was positive suggesting he has COVID pneumonia. I reviewed records he had CT chest done without contrast, the trachea was normal in caliber. There are patchy areas of consolidation and groundglass attenuation in both lungs with more nodular components in the left upper lobe with a ground glass nodule that measure 1.3 cm and the more focal nodule in the right upper lobe also found was a nondisplaced fractures of the left anterior eighth ninth and 10th ribs, no suspicious bone lesion, the pancreas also suggest multiple calcifications to the parenchyma consistent with chronic pancreatitis also found was an acute subcapital fracture of the right femur. Age indeterminate fracture at T12. I spoke to the today, she stated that he did not have a major injury/fall she was very surprised of this multiple fractures, this sounds like pathologic fracture either from osteoporosis or other causes, we need to rule out paraproteinemia Reason For Visit: RECURRENT FALLS,RIGHT FEMORAL FRACTURE,PNEUMONIA, Physical Exam Vital Signs: Temp Pulse Resp BP Pulse Ox 98.7 F 74 20 137/58 H 91 L 10/22/19 15:28 10/22/19 15:28 10/22/19 15:28 10/22/19 15:28 10/22/19 15:28 Intake & Output 10/21/19 10/22/19 10/23/19 06:59 06:59 06:59 Intake Total 4716 3055.66 865 Output Total 2220 2650 1400 Balance 2496 405.66 -535 Weight 82.7 kg 78.6 kg 78.6 kg General appearance: PRESENT: no acute distress Eye exam: PRESENT: PERRLA Respiratory exam: PRESENT: rhonchi Cardiovascular exam: PRESENT: +S1, +S2 GI/Abdominal exam: PRESENT: soft Neurological exam: PRESENT: other - Alert but confused Results Laboratory Results: 10/22/19 18:28 10/22/19 18:28 10/22/19 10/22/19 10/22/19 18:28 18:28 18:28 WBC 7.6 RBC 3.09 L Hgb 9.7 L Hct 28.2 L MCV 91 MCH 31.4 MCHC 34.4 RDW 13.9 Plt Count 178 Seg Neutrophils % 79.1 H Sodium 143.2 Potassium 2.8 L* Chloride 117 H Carbon Dioxide 17 L Anion Gap 9 BUN 46 H Creatinine 3.01 H Est GFR ( Amer) 24 L Glucose 123 H Calcium 5.8 L* Total Bilirubin 0.4 AST 41 Alkaline Phosphatase 58 Total Protein 5.5 L Albumin 2.5 L PTH Intact 234.7 H 10/20/19 10/20/19 10/20/19 11:40 11:40 12:38 Creatine Kinase Cancelled 1513 H Troponin I Cancelled NT-Pro-B Natriuret Pep 10/20/19 10/20/19 10/20/19 12:38 12:38 16:55 Creatine Kinase Troponin I 0.122 0.111 NT-Pro-B Natriuret Pep 4610 H Impressions: Cervical Spine CT 10/20/19 12:18 IMPRESSION: No acute fracture or dislocation of the cervical spine. Multilevel spondylosis, degenerative disc disease, and facet arthropathy. Head CT 10/20/19 12:18 IMPRESSION: No acute intracranial hemorrhage, mass, or evidence of acute territorial infarct. EVIDENCE OF ACUTE STROKE: NO. Chest CT 10/20/19 12:21 IMPRESSION: 1. Although there is motion in the pelvis, there appears to be an acute impacted subcapital fracture of the right proximal femur. Further evaluation with dedicated two view radiograph is recommended. 2. Age-indeterminate moderate compression fracture at T12, however this is stable since 10/04/2019 radiograph. This may be subacute or chronic. No retropulsed fracture fragments. 3. Acute appearing fractures of the anterolateral left 8-10th ribs. 4. Patchy areas of consolidation with areas of nodular consolidation in both lungs, suggestive of infectious/ inflammatory process. Given nodular components, a follow-up CT of the chest in 3 months is recommended to confirm complete resolution. Commonly reported imaging features of COVID-19 pneumonia are present. Other processes such as influenza pneumonia and organizing pneumonia, as can be seen with drug toxicity and connective tissue disease, can cause a similar imaging pattern. 5. No evidence of acute traumatic solid organ or vascular injury in the chest, abdomen or pelvis. Abdomen/Pelvis CT 10/20/19 12:23 IMPRESSION: 1. Although there is motion in the pelvis, there appears to be an acute impacted subcapital fracture of the right proximal femur. Further evaluation with dedicated two view radiograph is recommended. 2. Age-indeterminate moderate compression fracture at T12, however this is stable since 10/04/2019 radiograph. This may be subacute or chronic. No retropulsed fracture fragments. 3. Acute appearing fractures of the anterolateral left 8-10th ribs. 4. Patchy areas of consolidation with areas of nodular consolidation in both lungs, suggestive of infectious/ inflammatory process. Given nodular components, a follow-up CT of the chest in 3 months is recommended to confirm complete resolution. Commonly reported imaging features of COVID-19 pneumonia are present. Other processes such as influenza pneumonia and organizing pneumon ia, as can be seen with drug toxicity and connective tissue disease, can cause a similar imaging pattern. 5. No evidence of acute traumatic solid organ or vascular injury in the chest, abdomen or pelvis. Hip/Pelvis X-Ray 10/20/19 14:33 IMPRESSION: 1. Acute subcapital fracture right femur. 2. Moderate osteopenia. Assessment & Plan - Diagnosis (1) Sepsis Qualifiers: Sepsis type: methicillin susceptible Staphylococcus aureus Sepsis acute organ dysfunction status: with acute organ dysfunction Severe sepsis acute organ dysfunction type: acute renal failure Acute renal failure type: with acute tubular necrosis Severe sepsis shock status: without septic shock Qualified Code(s): A41.01 - Sepsis due to Methicillin susceptible Staphylococcus aureus; R65.20 - Severe sepsis without septic shock; N17.0 - Acute kidney failure with tubular necrosis Is this a current diagnosis for this admission?: Yes (2) Pneumonia due to COVID-19 virus Is this a current diagnosis for this admission?: Yes Plan: The patient be started on Remdesivir and dexamethasone (3) Staphylococcus aureus septicemia Is this a current diagnosis for this admission?: Yes Plan: He has a methicillin sensitive staph aureus, MSSA, and with de-escalate antibiotic, DC Zyvox, DC azithromycin continue cefepime (4) Acute kidney injury Is this a current diagnosis for this admission?: Yes Plan: CKD he has acute kidney injury on a persistent CKD continue present treatment (5) Multiple fractures of ribs of left side Qualifiers: Encounter type: initial encounter Fracture type: closed Qualified Code(s): S22.42XA - Multiple fractures of ribs, left side, initial encounter for closed fracture Is this a current diagnosis for this admission?: Yes (6) Compression fracture of T12 vertebra Qualifiers: Encounter type: initial encounter Qualified Code(s): S22.080A - Wedge compression fracture of T11-T12 vertebra, initial encounter for closed fracture Is this a current diagnosis for this admission?: Yes (7) Pathologic fracture Qualifiers: Pathology associated with fracture: osteoporosis Osteoporosis type: age- related Site of pathological fracture: vertebra Encounter type: initial encounter Qualified Code(s): M80.08XA - Age-related osteoporosis with current pathological fracture, vertebra(e), initial encounter for fracture Is this a current diagnosis for this admission?: Yes Plan: He has multiple fracture in the setting of very minimal fall that would warrant such extensive fracture suggesting this is probably pathology fracture. Probably from the osteoporosis related to elevated PTH (8) Hypocalcemia Is this a current diagnosis for this admission?: Yes Plan: He has severe hypocalcemia with appropriate hyperparathyroidism hypocalcemia is the most potent stimulus of PTH secretion, this suggests the hypercalcemia is probably related to kidney disease patient has underlining CKD stage II -III now present with acute kidney injury probably related to sepsis. Patient will be treated with calcium intravenously (9) Metabolic acidosis Is this a current diagnosis for this admission?: Yes (10) Subcapital fracture of right femur Qualifiers: Encounter type: initial encounter Fracture type: closed Qualified Code(s): S72.011A - Unspecified intracapsular fracture of right femur, initial encounter for closed fracture Is this a current diagnosis for this admission?: Yes Plan: Consult orthopedic - Time Time Spent with patient: 35 or more minutes Level of Care: ICU Medications reviewed and adjusted accordingly: Yes Anticipated discharge: Home Anticipated DC Timeframe: Other - Inpatient Certification Based on my medical assessment, after consideration of the patient's comorbidities, presenting symptoms, or acuity I expect that the services needed warrant INPATIENT care.: Yes I certify that my determination is in accordance with my understanding of Medicare's requirements for reasonable and necessary INPATIENT services [42 CFR 412.3e].: Yes
--- NOTE | 2019-10-22 20:37 | ADVANCED CARE ---
- Diagnosis (1) Sepsis Diagnosis Current: Yes (2) Pneumonia due to COVID-19 virus Diagnosis Current: Yes (3) Staphylococcus aureus septicemia Diagnosis Current: Yes (4) Acute kidney injury Diagnosis Current: Yes (5) Multiple fractures of ribs of left side Diagnosis Current: Yes (6) Compression fracture of T12 vertebra Diagnosis Current: Yes (7) Pathologic fracture Diagnosis Current: Yes (8) Hypocalcemia Diagnosis Current: Yes (9) Metabolic acidosis Diagnosis Current: Yes (10) Subcapital fracture of right femur Diagnosis Current: Yes Resuscitation Status: Do Not Resuscitate Discussion: Discussed with spouse
[2019-10-22 20:57] LABS: ALKALINE PHOSPHATASE 57 U/L (38-126); AMYLASE < 30 U/L (30-110)
[2019-10-22] MEDS: POTASSI CL 20 MEQ/50 ML RIDER 20 MEQ/50 ML RTUPB IV SCH ×2 (21:07→23:03)
[2019-10-22] MEDS: CALCITRIOL 0.25 MCG CAPSULE PO SCH (21:08)
[2019-10-22] MEDS: CALCIUM CARBONATE 600 MG TABLET PO SCH (21:08)
[2019-10-22] MEDS ORDERED: CALCIUM GLUC IN NACL, ISO-OSM 1 GM/50 ML RTUPB IV ONE (21:45)
[2019-10-23] MEDS: MORPHINE SULFATE 10 MG/ML INJ IV PRN ×2 (03:51→22:36)
[2019-10-23] MEDS: NORMAL SALINE 1000 ML 1,000 ML IV PRN ×2 (03:53→17:34)
[2019-10-23] MEDS: HEPARIN SOD (PORCINE) 5,000 UNIT/ML 1 ML VIAL SUBCUT SCH ×3 (05:10→22:35)
[2019-10-23] MEDS: DEXAMETHASONE SOD PHOSPHATE INJ 4 MG/1 ML VIAL IV SCH ×2 (05:16→17:34)
[2019-10-23] MEDS: PANTOPRAZOLE SODIUM 40 MG VIAL IV SCH (05:54)
[2019-10-23 06:42] LABS: ABSOLUTE LYMPHOCYTES (AUTO) 0.4 10^3/uL (0.5-4.7); ABSOLUTE MONOCYTES (AUTO) 0.2 10^3/uL (0.1-1.4); ABSOLUTE NEUT (AUTO) 5.7 10^3/uL (1.7-8.2); BASOPHILS % (AUTO) 0.1 % (0-2); HEMATOCRIT 28.6 % (37.9-51.0); HEMOGLOBIN 9.8 g/dL (13.5-17.0); LYMPHOCYTES % (AUTO) 6.3 % (13-45); MEAN CORPUSCULAR HEMOGLOBIN 31.3 pg (27.0-33.4); MEAN CORPUSCULAR HGB CONC 34.3 g/dL (32.0-36.0); MEAN CORPUSCULAR VOLUME 91 fl (80-97); MONOCYTES % (AUTO) 2.7 % (3-13); PLATELET COUNT 170 10^3/uL (150-450); RED BLOOD COUNT 3.14 10^6/uL (4.35-5.55); RED CELL DISTRIBUTION WIDTH 13.7 % (11.5-14.0); SEGMENTED NEUTROPHILS % (AUTO) 90.9 % (42-78); TOTAL CELLS COUNTED % (AUTO) 100 %; WHITE BLOOD COUNT 6.3 10^3/uL (4.0-10.5)
[2019-10-23 07:00] LABS: ALBUMIN 2.6 g/dL (3.5-5.0); ALKALINE PHOSPHATASE 60 U/L (38-126); ANION GAP 12 (5-19); ASPARTATE AMINO TRANSFERASE 42 U/L (17-59); BILIRUBIN,DIRECT 0.4 mg/dL (0.0-0.4); BILIRUBIN,TOTAL 0.5 mg/dL (0.2-1.3); BLOOD UREA NITROGEN 44 mg/dL (7-20); CARBON DIOXIDE 15 mmol/L (22-30); CHLORIDE 119 mmol/L (98-107); GLUCOSE 161 mg/dL (75-110); POTASSIUM 3.6 mmol/L (3.6-5.0); TOTAL PROTEIN 5.5 g/dL (6.3-8.2)
[2019-10-23] MEDS: ZINC SULFATE 220 MG CAPSULE PO SCH (09:31)
[2019-10-23] MEDS: ASCORBIC ACID 500 MG TABLET PO SCH ×2 (09:31→17:34)
[2019-10-23] MEDS: METOPROLOL SUCCINATE 50 MG TAB.SR.24H PO SCH (09:31)
[2019-10-23] MEDS: ASPIRIN 81 MG TABLET, CHEWABLE PO SCH (09:31)
[2019-10-23] MEDS: AMLODIPINE BESYLATE 2.5 MG TABLET PO SCH (09:31)
[2019-10-23] MEDS: CALCITRIOL 0.25 MCG CAPSULE PO SCH (09:31)
[2019-10-23] MEDS: MULTIVITAMIN TABLET PO SCH (09:31)
[2019-10-23] MEDS: CALCIUM CARBONATE 600 MG TABLET PO SCH ×2 (09:31→22:33)
[2019-10-23] MEDS: CEFEPIME 1 GM/D5W RTU 1 GM/50 ML RTUPB IV SCH (09:32)
--- NOTE | 2019-10-23 17:18 | RADIOLOGY REPORT (SQ) ---
EXAM DESCRIPTION: BONE SURVEY COMPLETE IMAGES COMPLETED DATE/TIME: 10/23/2019 4:25 pm REASON FOR STUDY: multiple bone fracture COMPARISON: None. TECHNIQUE: Images of the axial and proximal appendicular skeleton are obtained, along with lateral s kull and frontal chest films. LIMITATIONS: None. FINDINGS: AP CHEST: No bony findings. Lungs are clear. Possible widening of the upper mediastinum. SKULL: No worrisome bone lesions or fractures. AP BOTH HUMERI: No worrisome bone lesions or fractures. TWO-VIEW LUMBAR SPINE: No worrisome bone lesions. Scoliosis. Degenerative disc disease and spondylo sis. No fractures. TWO-VIEW THORACIC SPINE: Thoracic spondylosis. No fractures. No worrisome bone lesions. AP PELVIS: Impacted fracture of the right femoral neck. AP BOTH FEMURS: No worrisome bone lesions. Impacted fracture of the right femoral neck. OTHER: Internal fixation of prior right ankle fracture. IMPRESSION: 1. Acute/subacute impacted fracture of the right femoral neck. 2. Findings as described. TECHNICAL DOCUMENTATION: JOB ID: [id number] 2010 [employer]- All Rights Reserved Reading location - IP/workstation name: [email or web address]
[2019-10-23] MEDS: TAMSULOSIN HCL 0.4 MG CAP.SR.24H PO SCH (17:34)
--- NOTE | 2019-10-23 19:05 | PDOC PROGRESS REPORT ---
Subjective Progress Note for:: 10/23/19 Subjective:: Patient seen by the bedside, he is more alert today and responsive Reason For Visit: RECURRENT FALLS,RIGHT FEMORAL FRACTURE,PNEUMONIA, Physical Exam Vital Signs: Temp Pulse Resp BP Pulse Ox 97.8 F 58 L 19 141/50 H 93 10/23/19 16:50 10/23/19 16:50 10/23/19 16:50 10/23/19 16:50 10/23/19 16:50 Intake & Output 10/22/19 10/23/19 10/24/19 06:59 06:59 06:59 Intake Total 3055.66 2741 1050 Output Total 2650 2800 Balance 405.66 -59 1050 Weight 78.6 kg 78.6 kg General appearance: PRESENT: no acute distress Respiratory exam: PRESENT: clear to auscultation karrie Cardiovascular exam: PRESENT: +S1, +S2 GI/Abdominal exam: PRESENT: soft Results Laboratory Results: 10/23/19 06:05 10/23/19 06:05 10/22/19 10/22/19 10/22/19 18:28 18:28 18:28 WBC RBC Hgb Hct MCV MCH MCHC RDW Plt Count Seg Neutrophils % Sodium 143.2 Potassium 2.8 L* Chloride 117 H Carbon Dioxide 17 L Anion Gap 9 BUN 46 H Creatinine 3.01 H Est GFR ( Amer) 24 L Glucose 123 H Calcium 5.8 L* Phosphorus 4.3 Total Bilirubin 0.4 AST 41 Alkaline Phosphatase 58 Total Protein 5.5 L Albumin 2.5 L Amylase Lipase PTH Intact 234.7 H 10/22/19 10/23/19 10/23/19 18:28 06:05 06:05 WBC 6.3 RBC 3.14 L Hgb 9.8 L Hct 28.6 L MCV 91 MCH 31.3 MCHC 34.3 RDW 13.7 Plt Count 170 Seg Neutrophils % 90.9 H Sodium 145.5 H Potassium 3.6 Chloride 119 H Carbon Dioxide 15 L Anion Gap 12 BUN 44 H Creatinine 2.72 H Est GFR ( Amer) 27 L Glucose 161 H Calcium 6.0 L* Phosphorus Total Bilirubin 0.5 AST 42 Alkaline Phosphatase 57 60 Total Protein 5.5 L Albumin 2.6 L Amylase < 30 L Lipase < 10.0 L PTH Intact 10/20/19 13:05 Blood Blood Culture (PCR) - Final 10/20/19 10/20/19 10/20/19 11:40 11:40 12:38 Creatine Kinase Cancelled 1513 H Troponin I Cancelled NT-Pro-B Natriuret Pep 10/20/19 10/20/19 10/20/19 12:38 12:38 16:55 Creatine Kinase Troponin I 0.122 0.111 NT-Pro-B Natriuret Pep 4610 H Impressions: Cervical Spine CT 10/20/19 12:18 IMPRESSION: No acute fracture or dislocation of the cervical spine. Multilevel spondylosis, degenerative disc disease, and facet arthropathy. Head CT 10/20/19 12:18 IMPRESSION: No acute intracranial hemorrhage, mass, or evidence of acute territorial infarct. EVIDENCE OF ACUTE STROKE: NO. Chest CT 10/20/19 12:21 IMPRESSION: 1. Although there is motion in the pelvis, there appears to be an acute impacted subcapital fracture of the right proximal femur. Further evaluation with dedicated two view radiograph is recommended. 2. Age-indeterminate moderate compression fracture at T12, however this is stable since 10/04/2019 radiograph. This may be subacute or chronic. No retropulsed fracture fragments. 3. Acute appearing fractures of the anterolateral left 8-10th ribs. 4. Patchy areas of consolidation with areas of nodular consolidation in both lungs, suggestive of infectious/ inflammatory process. Given nodular components, a follow-up CT of the chest in 3 months is recommended to confirm complete resolution. Commonly reported imaging features of COVID-19 pneumonia are present. Other processes such as influenza pneumonia and organizing pneumonia, as can be seen with drug toxicity and connective tissue disease, can cause a similar imaging pattern. 5. No evidence of acute traumatic solid organ or vascular injury in the chest, abdomen or pelvis. Abdomen/Pelvis CT 10/20/19 12:23 IMPRESSION: 1. Although there is motion in the pelvis, there appears to be an acute impacted subcapital fracture of the right proximal femur. Further evaluation with dedicated two view radiograph is recommended. 2. Age-indeterminate moderate compression fracture at T12, however this is stable since 10/04/2019 radiograph. This may be subacute or chronic. No retropulsed fracture fragments. 3. Acute appearing fractures of the anterolateral left 8-10th ribs. 4. Patchy areas of consolidation with areas of nodular consolidation in both lungs, suggestive of infectious/ inflammatory process. Given nodular co mponents, a follow-up CT of the chest in 3 months is recommended to confirm complete resolution. Commonly reported imaging features of COVID-19 pneumonia are present. Other processes such as influenza pneumonia and organizing pneumonia, as can be seen with drug toxicity and connective tissue disease, can cause a similar imaging pattern. 5. No evidence of acute traumatic solid organ or vascular injury in the chest, abdomen or pelvis. Hip/Pelvis X-Ray 10/20/19 14:33 IMPRESSION: 1. Acute subcapital fracture right femur. 2. Moderate osteopenia. Skeletal Survey 10/23/19 07:00 IMPRESSION: 1. Acute/subacute impacted fracture of the right femoral neck. 2. Findings as described. Assessment & Plan - Diagnosis (1) Sepsis Qualifiers: Sepsis type: methicillin susceptible Staphylococcus aureus Sepsis acute organ dysfunction status: with acute organ dysfunction Severe sepsis acute organ dysfunction type: acute renal failure Acute renal failure type: with acute tubular necrosis Severe sepsis shock status: without septic shock Qualified Code(s): A41.01 - Sepsis due to Methicillin susceptible Staphylococcus aureus; R65.20 - Severe sepsis without septic shock; N17.0 - Acute kidney failure with tubular necrosis Is this a current diagnosis for this admission?: Yes Plan: He has staph aureus septicemia, on IV antibiotic, Cefepime (2) Pneumonia due to COVID-19 virus Is this a current diagnosis for this admission?: Yes Plan: continue Remdesivir for 5 days and dexamethasone for 10 days (3) Staphylococcus aureus septicemia Is this a current diagnosis for this admission?: Yes Plan: He has methicillin sensitive staph aureus, MSSA, continue cefepime (4) Acute kidney injury Is this a current diagnosis for this admission?: Yes Plan: improving (5) Multiple fractures of ribs of left side Qualifiers: Encounter type: initial encounter Fracture type: closed Qualified Code(s): S22.42XA - Multiple fractures of ribs, left side, initial encounter for closed fracture Is this a current diagnosis for this admission?: Yes (6) Compression fracture of T12 vertebra Qualifiers: Encounter type: initial encounter Qualified Code(s): S22.080A - Wedge compression fracture of T11-T12 vertebra, initial encounter for closed fracture Is this a current diagnosis for this admission?: Yes Plan: This is due to osteoporosis (7) Pathologic fracture Qualifiers: Pathology associated with fracture: osteoporosis Osteoporosis type: age-related Site of pathological fracture: vertebra Encounter type: initial encounter Qualified Code(s): M80.08XA - Age-related osteoporosis with current pathological fracture, vertebra(e), initial encounter for fracture Is this a current diagnosis for this admission?: Yes (8) Hypocalcemia Is this a current diagnosis for this admission?: Yes (9) Metabolic acidosis Is this a current diagnosis for this admission?: Yes Plan: improving (10) Subcapital fracture of right femur Qualifiers: Encounter type: initial encounter Fracture type: closed Qualified Code(s): S72.011A - Unspecified intracapsular fracture of right femur, initial encounter for closed fracture Is this a current diagnosis for this admission?: Yes Plan: This is most likely secondary to osteoporotic fracture (11) Secondary hyperparathyroidism Is this a current diagnosis for this admission?: Yes Plan: He has secondary hyperparathyroidism, he was started on calcitriol yesterday - Time Time Spent with patient: 25-34 minutes Level of Care: IMCU Medications reviewed and adjusted accordingly: Yes Anticipated discharge: SNF Anticipated DC Timeframe: when bed available - Inpatient Certification Based on my medical assessment, after consideration of the patient's comorbidities, presenting symptoms, or acuity I expect that the services needed warrant INPATIENT care.: Yes I certify that my determination is in accordance with my understanding of Medicare's requirements for reasonable and necessary INPATIENT services [42 CFR 412.3e].: Yes
[2019-10-23 21:20] LABS: UR PRO/CREAT RATIO RESULT 1.9 mg/mg (0.0-0.2); URINE CREATININE 15.9 mg/dL (22-328); URINE PROTEIN 30.6 mg/dL (<12)
[2019-10-23] MEDS: REMDESIVIR (EUA) 100 MG in NORMAL SALINE 250 ML IV SCH (22:34)
[2019-10-23] MEDS: SIMVASTATIN 10 MG TABLET PO SCH (22:35)
[2019-10-24] MEDS: NORMAL SALINE 1000 ML 1,000 ML IV PRN ×3 (04:33→15:46)
[2019-10-24] MEDS: HEPARIN SOD (PORCINE) 5,000 UNIT/ML 1 ML VIAL SUBCUT SCH ×3 (05:39→21:20)
[2019-10-24] MEDS: DEXAMETHASONE SOD PHOSPHATE INJ 4 MG/1 ML VIAL IV SCH ×2 (06:24→17:05)
[2019-10-24] MEDS: PANTOPRAZOLE SODIUM 40 MG VIAL IV SCH (06:24)
[2019-10-24 07:28] LABS: ALBUMIN 2.7 g/dL (3.5-5.0); ALKALINE PHOSPHATASE 60 U/L (38-126); ANION GAP 11 (5-19); ASPARTATE AMINO TRANSFERASE 34 U/L (17-59); BILIRUBIN,DIRECT 0.4 mg/dL (0.0-0.4); BILIRUBIN,TOTAL 0.6 mg/dL (0.2-1.3); BLOOD UREA NITROGEN 39 mg/dL (7-20); CARBON DIOXIDE 17 mmol/L (22-30); CHLORIDE 119 mmol/L (98-107); GLUCOSE 162 mg/dL (75-110); TOTAL PROTEIN 5.8 g/dL (6.3-8.2)
[2019-10-24 07:40] LABS: CALCIUM 5.7 mg/dL (8.4-10.2)
[2019-10-24] MEDS ORDERED: CALCIUM GLUC IN NACL, ISO-OSM 1 GM/50 ML RTUPB IV ONE (08:29)
[2019-10-24] MEDS: MAGNESIUM SULFATE 1 GM/D5W 100 ML IV SCH ×2 (08:30→10:38)
[2019-10-24] MEDS: MULTIVITAMIN TABLET PO SCH (08:30)
[2019-10-24] MEDS: POTASSIUM CHLORIDE 20 MEQ/50 ML RTU IV SCH ×2 (08:31→10:39)
[2019-10-24] MEDS ORDERED: CALCIUM GLUCONATE 1 GM/NS 50 ML RTU IV ONE (09:30)
[2019-10-24] MEDS: CALCITRIOL 0.25 MCG CAPSULE PO SCH (10:38)
[2019-10-24] MEDS: CEFEPIME 1 GM/D5W RTU 1 GM/50 ML RTUPB IV SCH (10:38)
[2019-10-24] MEDS: ZINC SULFATE 220 MG CAPSULE PO SCH (10:38)
[2019-10-24] MEDS: AMLODIPINE BESYLATE 2.5 MG TABLET PO SCH (10:38)
[2019-10-24] MEDS: CALCIUM CARBONATE 600 MG TABLET PO SCH ×2 (10:39→21:56)
[2019-10-24] MEDS: ASPIRIN 81 MG TABLET, CHEWABLE PO SCH (10:39)
[2019-10-24] MEDS: METOPROLOL SUCCINATE 50 MG TAB.SR.24H PO SCH (10:39)
[2019-10-24] MEDS: ASCORBIC ACID 500 MG TABLET PO SCH ×2 (10:39→17:05)
--- NOTE | 2019-10-24 15:36 | PDOC PROGRESS REPORT ---
Subjective Progress Note for:: 10/24/19 Subjective:: Patient seen by the bedside, there is lateral derangement with ,hypokalemia hyperchloremic metabolic acidosis, he is more alert today and oriented Reason For Visit: RECURRENT FALLS,RIGHT FEMORAL FRACTURE,PNEUMONIA, Physical Exam Vital Signs: Temp Pulse Resp BP Pulse Ox 97.2 F 53 L 19 142/78 H 99 10/24/19 12:17 10/24/19 14:00 10/24/19 12:17 10/24/19 12:17 10/24/19 12:17 Intake & Output 10/23/19 10/24/19 10/25/19 06:59 06:59 06:59 Intake Total 2741 2300 752 Output Total 2800 4250 Balance - 752 Weight 78.6 kg 80.7 kg General appearance: PRESENT: no acute distress Eye exam: PRESENT: PERRLA Respiratory exam: PRESENT: rhonchi Cardiovascular exam: PRESENT: +S1, +S2 GI/Abdominal exam: PRESENT: soft Neurological exam: PRESENT: alert Results Laboratory Results: 10/23/19 06:05 10/24/19 06:53 10/24/19 06:53 Sodium 146.8 H Potassium 3.0 L* Chloride 119 H Carbon Dioxide 17 L Anion Gap 11 BUN 39 H Creatinine 2.06 H Est GFR ( Amer) 37 L Glucose 162 H Calcium 5.7 L* Magnesium 1.1 L* Total Bilirubin 0.6 AST 34 Alkaline Phosphatase 60 Total Protein 5.8 L Albumin 2.7 L 10/22/19 00:00 Stool - Stool - Final 10/22/19 00:00 Stool - Stool Stool Culture - Final NO SALMONELLA, SHIGELLA, CAMPYLOBACTER, OR E.COLI 0157 RECOVERED. NEGATIVE FOR SHIGA TOXINS 1&2. 10/20/19 13:05 Blood Blood Culture (PCR) - Final 10/20/19 13:05 Blood Blood Culture - Final Staphylococcus Aureus Streptococcus Salivarius 10/20/19 10/20/19 10/20/19 11:40 11:40 12:38 Creatine Kinase Cancelled 1513 H Troponin I Cancelled NT-Pro-B Natriuret Pep 10/20/19 10/20/19 10/20/19 12:38 12:38 16:55 Creatine Kinase Troponin I 0.122 0.111 NT-Pro-B Natriuret Pep 4610 H Impressions: Cervical Spine CT 10/20/19 12:18 IMPRESSION: No acute fracture or dislocation of the cervical spine. Multilevel spondylosis, degenerative disc disease, and facet arthropathy. Head CT 10/20/19 12:18 IMPRESSION: No acute intracranial hemorrhage, mass, or evidence of acute territorial infarct. EVIDENCE OF ACUTE STROKE: NO. Chest CT 10/20/19 12:21 IMPRESSION: 1. Although there is motion in the pelvis, there appears to be an acute impacted subcapital fracture of the right proximal femur. Further evaluation with dedicated two view radiograph is recommended. 2. Age-indeterminate moderate compression fracture at T12, however this is stable since 10/04/2019 radiograph. This may be subacute or chronic. No retropulsed fracture fragments. 3. Acute appearing fractures of the anterolateral left 8-10th ribs. 4. Patchy areas of consolidation with areas of nodular consolidation in both lungs, suggestive of infectious/ inflammatory process. Given nodular components, a follow-up CT of the chest in 3 months is recommended to confirm complete resolution. Commonly reported imaging features of COVID-19 pneumonia are present. Other processes such as influenza pneumonia and organizing pneumonia, as can be seen with drug toxicity and connective tissue disease, can cause a similar imaging pattern. 5. No evidence of acute traumatic solid organ or vascular injury in the chest, abdomen or pelvis. Abdomen/Pelvis CT 10/20/19 12:23 IMPRESSION: 1. Although there is motion in the pelvis, there appears to be an acute impacted subcapital fracture of the right proximal femur. Further evaluation with dedicated two view radiograph is recommended. 2. Age-indeterminate moderate compression fracture at T12, however this is stable since 10/04/2019 radiograph. This may be subacute or chronic. No retropulsed fracture fragments. 3. Acute appearing fractures of the anterolateral left 8-10th ribs. 4. Patchy areas of consolidation with areas of nodular consolidation in both lungs, suggestive of infectious/ inflammatory process. Given nodular components, a follow-up CT of the chest in 3 months is recommended to confirm complete resolution. Commonly reported imaging features of COVID-19 pneumonia are present. Other processes such as influenza pneumonia and organizing pneumonia, as can be seen with drug toxicity and connective tissue disease, can cause a similar imaging pattern. 5. No evidence of acute traumatic solid organ or vascular injury in the chest, abdomen or pelvis. Hip/Pelvis X-Ray 10/20/19 14:33 IMPRESSION: 1. Acute subcapital fracture right femur. 2. Moderate osteopenia. Skeletal Survey 10/23/19 07:00 IMPRESSION: 1. Acute/subacute impacted fracture of the right femoral neck. 2. Findings as described. Assessment & Plan - Diagnosis (1) Sepsis Qualifiers: Sepsis type: methicillin susceptible Staphylococcus aureus Sepsis acute organ dysfunction status: with acute organ dysfunction Severe sepsis acute organ dysfunction type: acute renal failure Acute renal failure type: with acute tubular necrosis Severe sepsis shock status: without septic shock Qualified Code(s): A41.01 - Sepsis due to Methicillin susceptible Staphylococcus aureus; R65.20 - Severe sepsis without septic shock; N17.0 - Acute kidney failure with tubular necrosis Is this a current diagnosis for this admission?: Yes Plan: Patient with staph aureus septicemia, on antibiotic with cefepime he has MSSA (2) Pneumonia due to COVID-19 virus Is this a current diagnosis for this admission?: Yes Plan: Patient will continue remdesivir for 5 days, dexamethasone for 10 days (3) Staphylococcus aureus septicemia Is this a current diagnosis for this admission?: Yes Plan: He has methicillin sensitive staph aureus, MSSA, continue cefepime (4) Acute kidney injury Is this a current diagnosis for this admission?: Yes Plan: improving (5) Multiple fractures of ribs of left side Qualifiers: Encounter type: initial encounter Fracture type: closed Qualified Code(s ): S22.42XA - Multiple fractures of ribs, left side, initial encounter for closed fracture Is this a current diagnosis for this admission?: Yes Plan: This is most likely from osteoporosis (6) Compression fracture of T12 vertebra Qualifiers: Encounter type: initial encounter Qualified Code(s): S22.080A - Wedge compression fracture of T11-T12 vertebra, initial encounter for closed fracture Is this a current diagnosis for this admission?: Yes Plan: This is due to osteoporotic fracture (7) Pathologic fracture Qualifiers: Pathology associated with fracture: osteoporosis Osteoporosis type: age- related Site of pathological fracture: vertebra Encounter type: initial encounter Qualified Code(s): M80.08XA - Age-related osteoporosis with current pathological fracture, vertebra(e), initial encounter for fracture Is this a current diagnosis for this admission?: Yes (8) Hypocalcemia Is this a current diagnosis for this admission?: Yes Plan: This is secondary to CKD (9) Metabolic acidosis Is this a current diagnosis for this admission?: Yes (10) Subcapital fracture of right femur Qualifiers: Encounter type: initial encounter Fracture type: closed Qualified Code(s): S72.011A - Unspecified intracapsular fracture of right femur, initial encounter for closed fracture Is this a current diagnosis for this admission?: Yes Plan: This is due to osteoporotic fracture (11) Secondary hyperparathyroidism Is this a current diagnosis for this admission?: Yes Plan: He has secondary hyperparathyroidism,Continue, calcitriol ,vitamin D - Time Time Spent with patient: 35 or more minutes Level of Care: IMCU Medications reviewed and adjusted accordingly: Yes Anticipated discharge: SNF Anticipated DC Timeframe: Other
[2019-10-24] MEDS: TAMSULOSIN HCL 0.4 MG CAP.SR.24H PO SCH (17:05)
[2019-10-24 21:37] LABS: URINE PROTEIN 31.4 mg/dL (<12)
[2019-10-24 21:38] LABS: 24 HOUR URINE PROTEIN RESULT 502 mg/day (42-225)
[2019-10-24] MEDS: SIMVASTATIN 10 MG TABLET PO SCH (21:56)
[2019-10-24] MEDS: REMDESIVIR (EUA) 100 MG in NORMAL SALINE 250 ML IV SCH (21:56)
[2019-10-25] MEDS: PANTOPRAZOLE SODIUM 40 MG VIAL IV SCH (05:08)
[2019-10-25] MEDS: DEXAMETHASONE SOD PHOSPHATE INJ 4 MG/1 ML VIAL IV SCH ×2 (05:08→17:51)
[2019-10-25] MEDS: HEPARIN SOD (PORCINE) 5,000 UNIT/ML 1 ML VIAL SUBCUT SCH ×3 (05:09→21:56)
[2019-10-25] MEDS: AMLODIPINE BESYLATE 2.5 MG TABLET PO SCH (10:13)
[2019-10-25] MEDS: CALCITRIOL 0.25 MCG CAPSULE PO SCH (10:13)
[2019-10-25] MEDS: ZINC SULFATE 220 MG CAPSULE PO SCH (10:13)
[2019-10-25] MEDS: CALCIUM CARBONATE 600 MG TABLET PO SCH ×2 (10:13→21:55)
[2019-10-25] MEDS: ASPIRIN 81 MG TABLET, CHEWABLE PO SCH (10:14)
[2019-10-25] MEDS: NORMAL SALINE 1000 ML 1,000 ML IV PRN ×3 (10:14→21:58)
[2019-10-25] MEDS: CEFEPIME 1 GM/D5W RTU 1 GM/50 ML RTUPB IV SCH (10:14)
[2019-10-25] MEDS: METOPROLOL SUCCINATE 50 MG TAB.SR.24H PO SCH (10:14)
[2019-10-25] MEDS: MULTIVITAMIN TABLET PO SCH (10:14)
[2019-10-25] MEDS: ASCORBIC ACID 500 MG TABLET PO SCH ×2 (10:15→17:51)
[2019-10-25 10:17] LABS: HEMATOCRIT 34.8 % (37.9-51.0); HEMOGLOBIN 11.7 g/dL (13.5-17.0); MEAN CORPUSCULAR HEMOGLOBIN 30.6 pg (27.0-33.4); MEAN CORPUSCULAR HGB CONC 33.6 g/dL (32.0-36.0); MEAN CORPUSCULAR VOLUME 91 fl (80-97); PLATELET COUNT 255 10^3/uL (150-450); RED BLOOD COUNT 3.83 10^6/uL (4.35-5.55); RED CELL DISTRIBUTION WIDTH 14.3 % (11.5-14.0)
[2019-10-25 10:36] LABS: ALBUMIN 2.8 g/dL (3.5-5.0); ALKALINE PHOSPHATASE 66 U/L (38-126); ANION GAP 8 (5-19); ASPARTATE AMINO TRANSFERASE 29 U/L (17-59); BILIRUBIN,DIRECT 0.4 mg/dL (0.0-0.4); BILIRUBIN,TOTAL 0.5 mg/dL (0.2-1.3); BLOOD UREA NITROGEN 32 mg/dL (7-20); CARBON DIOXIDE 23 mmol/L (22-30); CHLORIDE 116 mmol/L (98-107); GLUCOSE 164 mg/dL (75-110)
[2019-10-25 10:46] LABS: CALCIUM 5.7 mg/dL (8.4-10.2); POTASSIUM 2.9 mmol/L (3.6-5.0)
[2019-10-25 10:47] LABS: ABSOLUTE LYMPHOCYTES# (MANUAL) 0.3 10^3/uL (0.5-4.7); ABSOLUTE MONOCYTES # (MANUAL) 0.4 10^3/uL (0.1-1.4); BASOPHILS % (MANUAL) 0 % (0-2); EOSINOPHILS % (MANUAL) 0 % (0-6); LYMPHOCYTES % (MANUAL) 3 % (13-45); MONOCYTES % (MANUAL) 4 % (3-13); SEGMENTED NEUTROPHILS % (MAN) 93 % (42-78); TOTAL CELLS COUNTED 100
[2019-10-25 10:49] LABS: ANISOCYTOSIS SLIGHT; BURR CELLS SLIGHT; PLATELET COMMENT ADEQUATE; TARGET CELLS SLIGHT
[2019-10-25 15:37] LABS: ALBUMIN UR 24.3 % (.); ALPHA-1-GLOBULIN URINE 3.6 % (.); ALPHA-2-GLOBULIN URINE 16.1 % (.); GAMMA GLOBULIN URINE 29.6 % (.); M-SPIKE % UR 4.1 % (Not Observ)
[2019-10-25] MEDS: POTASSIUM CHLORIDE 10 MEQ TABLET.ER PO SCH ×3 (17:51→23:09)
[2019-10-25] MEDS: TAMSULOSIN HCL 0.4 MG CAP.SR.24H PO SCH (17:51)
[2019-10-25] MEDS: MORPHINE SULFATE 10 MG/ML INJ IV PRN (18:22)
--- NOTE | 2019-10-25 19:04 | PDOC PROGRESS REPORT ---
Subjective Progress Note for:: 10/25/19 Subjective:: Patient seen by the bedside, there is no new complaints Reason For Visit: RECURRENT FALLS,RIGHT FEMORAL FRACTURE,PNEUMONIA, Physical Exam Vital Signs: Temp Pulse Resp BP Pulse Ox 98.3 F 57 L 16 168/80 H 93 10/25/19 17:06 10/25/19 17:06 10/25/19 17:06 10/25/19 17:06 10/25/19 17:06 Intake & Output 10/24/19 10/25/19 10/26/19 06:59 06:59 06:59 Intake Total 2300 3752 50 Output Total 4250 1500 Balance -1950 2252 50 Weight 80.7 kg 80.7 kg 80.7 kg General appearance: PRESENT: no acute distress Eye exam: PRESENT: PERRLA Respiratory exam: PRESENT: clear to auscultation karrie Cardiovascular exam: PRESENT: +S1, +S2 GI/Abdominal exam: PRESENT: soft Results Laboratory Results: 10/25/19 09:36 10/25/19 09:36 10/24/19 10/25/19 10/25/19 20:30 09:36 09:36 WBC 9.0 RBC 3.83 L Hgb 11.7 L Hct 34.8 L MCV 91 MCH 30.6 MCHC 33.6 RDW 14.3 H Plt Count 255 Seg Neutrophils % Not Reportable Sodium 147.0 H Potassium 2.9 L* Chloride 116 H Carbon Dioxide 23 Anion Gap 8 BUN 32 H Creatinine 1.56 H Est GFR ( Amer) 51 L Glucose 164 H Calcium 5.7 L* Total Bilirubin 0.5 AST 29 Alkaline Phosphatase 66 Total Protein 6.0 L Albumin 2.8 L Ur 24 Hour Volume 1600 Ur Total Protein 24 Hr 502 H 10/20/19 12:38 Blood Blood Culture - Final NO GROWTH IN 5 DAYS 10/20/19 10/20/19 10/20/19 11:40 11:40 12:38 Creatine Kinase Cancelled 1513 H Troponin I Cancelled NT-Pro-B Natriuret Pep 10/20/19 10/20/19 10/20/19 12:38 12:38 16:55 Creatine Kinase Troponin I 0.122 0.111 NT-Pro-B Natriuret Pep 4610 H Impressions: Cervical Spine CT 10/20/19 12:18 IMPRESSION: No acute fracture or dislocation of the cervical spine. Multilevel spondylosis, degenerative disc disease, and facet arthropathy. Head CT 10/20/19 12:18 IMPRESSION: No acute intracranial hemorrhage, mass, or evidence of acute t erritorial infarct. EVIDENCE OF ACUTE STROKE: NO. Chest CT 10/20/19 12:21 IMPRESSION: 1. Although there is motion in the pelvis, there appears to be an acute impacted subcapital fracture of the right proximal femur. Further evaluation with dedicated two view radiograph is recommended. 2. Age-indeterminate moderate compression fracture at T12, however this is stable since 10/04/2019 radiograph. This may be subacute or chronic. No retropulsed fracture fragments. 3. Acute appearing fractures of the anterolateral left 8-10th ribs. 4. Patchy areas of consolidation with areas of nodular consolidation in both lungs, suggestive of infectious/ inflammatory process. Given nodular components, a follow-up CT of the chest in 3 months is recommended to confirm complete resolution. Commonly reported imaging features of COVID-19 pneumonia are present. Other processes such as influenza pneumonia and organizing pneumonia, as can be seen with drug toxicity and connective tissue disease, can cause a similar imaging pattern. 5. No evidence of acute traumatic solid organ or vascular injury in the chest, abdomen or pelvis. Abdomen/Pelvis CT 10/20/19 12:23 IMPRESSION: 1. Although there is motion in the pelvis, there appears to be an acute impacted subcapital fracture of the right proximal femur. Further evaluation with dedicated two view radiograph is recommended. 2. Age-indeterminate moderate compression fracture at T12, however this is stable since 10/04/2019 radiograph. This may be subacute or chronic. No retropulsed fracture fragments. 3. Acute appearing fractures of the anterolateral left 8-10th ribs. 4. Patchy areas of consolidation with areas of nodular consolidation in both lungs, suggestive of infectious/ inflammatory process. Given nodular components, a follow-up CT of the chest in 3 months is recommended to confirm complete resolution. Commonly reported imaging features of COVID-19 pneumonia are present. Other processes such as influenza pneumonia and organizing pneumonia, as can be seen with drug toxicity and connective tissue disease, can cause a similar imaging pattern. 5. No evidence of acute traumatic solid organ or vascular injury in the chest, abdomen or pelvis. Hip/Pelvis X-Ray 10/20/19 14:33 IMPRESSION: 1. Acute subcapital fracture right femur. 2. Moderate osteopenia. Skeletal Survey 10/23/19 07:00 IMPRESSION: 1. Acute/subacute impacted fracture of the right femoral neck. 2. Findings as described. Assessment & Plan - Diagnosis (1) Sepsis Qualifiers: Sepsis type: methicillin susceptible Staphylococcus aureus Sepsis acute organ dysfunction status: with acute organ dysfunction Severe sepsis acute or fide dysfunction type: acute renal failure Acute renal failure type: with acute tubular necrosis Severe sepsis shock status: without septic shock Qualified Code(s): A41.01 - Sepsis due to Methicillin susceptible Staphylococcus aureus; R65.20 - Severe sepsis without septic shock; N17.0 - Acute kidney failure with tubular necrosis Is this a current diagnosis for this admission?: Yes Plan: Patient with staph aureus septicemia, on antibiotic with cefepime he has MSSA (2) Pneumonia due to COVID-19 virus Is this a current diagnosis for this admission?: Yes Plan: Patient will continue remdesivir for 5 days, dexamethasone for 10 days (3) Staphylococcus aureus septicemia Is this a current diagnosis for this admission?: Yes Plan: He has methicillin sensitive staph aureus, MSSA, continue cefepime (4) Acute kidney injury Is this a current diagnosis for this admission?: Yes Plan: improving (5) Multiple fractures of ribs of left side Qualifiers: Encounter type: initial encounter Fracture type: closed Qualified Code(s): S22.42XA - Multiple fractures of ribs, left side, initial encounter for closed fracture Is this a current diagnosis for this admission?: Yes Plan: This is most likely from osteoporosis (6) Compression fracture of T12 vertebra Qualifiers: Encounter type: initial encounter Qualified Code(s): S22.080A - Wedge compression fracture of T11-T12 vertebra, initial encounter for closed fracture Is this a current diagnosis for this admission?: Yes Plan: This is due to osteoporotic fracture (7) Pathologic fracture Qualifiers: Pathology associated with fracture: osteoporosis Osteoporosis type: age- related Site of pathological fracture: vertebra Encounter type: initial encounter Qualified Code(s): M80.08XA - Age-related osteoporosis with current pathological fracture, vertebra(e), initial encounter for fracture Is this a current diagnosis for this admission?: Yes (8) Hypocalcemia Is this a current diagnosis for this admission?: Yes Plan: This is secondary to CKD (9) Metabolic acidosis Is this a current diagnosis for this admission?: Yes (10) Subcapital fracture of right femur Qualifiers: Encounter type: initial encounter Fracture type: closed Qualified Co de(s): S72.011A - Unspecified intracapsular fracture of right femur, initial encounter for closed fracture Is this a current diagnosis for this admission?: Yes Plan: This is due to osteoporotic fracture (11) Secondary hyperparathyroidism Is this a current diagnosis for this admission?: Yes Plan: He has secondary hyperparathyroidism,Continue, calcitriol ,vitamin D - Time Time Spent with patient: 35 or more minutes Level of Care: IMCU Medications reviewed and adjusted accordingly: Yes Anticipated discharge: SNF Anticipated DC Timeframe: when bed available - Inpatient Certification Based on my medical assessment, after consideration of the patient's comorbidities, presenting symptoms, or acuity I expect that the services needed warrant INPATIENT care.: Yes I certify that my determination is in accordance with my understanding of Medicare's requirements for reasonable and necessary INPATIENT services [42 CFR 412.3e].: Yes
[2019-10-25] MEDS: REMDESIVIR (EUA) 100 MG in NORMAL SALINE 250 ML IV SCH (21:54)
[2019-10-25] MEDS: SIMVASTATIN 10 MG TABLET PO SCH (21:55)
[2019-10-26] MEDS: MORPHINE SULFATE 10 MG/ML INJ IV PRN ×2 (00:32→16:36)
[2019-10-26] MEDS: POTASSIUM CHLORIDE 10 MEQ TABLET.ER PO SCH (03:13)
[2019-10-26 05:13] LABS: ABSOLUTE LYMPHOCYTES (AUTO) 0.5 10^3/uL (0.5-4.7); ABSOLUTE MONOCYTES (AUTO) 0.6 10^3/uL (0.1-1.4); ABSOLUTE NEUT (AUTO) 9.2 10^3/uL (1.7-8.2); BASOPHILS % (AUTO) 0.1 % (0-2); HEMATOCRIT 32.8 % (37.9-51.0); HEMOGLOBIN 11.3 g/dL (13.5-17.0); LYMPHOCYTES % (AUTO) 5.2 % (13-45); MEAN CORPUSCULAR HEMOGLOBIN 31.2 pg (27.0-33.4); MEAN CORPUSCULAR HGB CONC 34.3 g/dL (32.0-36.0); MEAN CORPUSCULAR VOLUME 91 fl (80-97); MONOCYTES % (AUTO) 5.7 % (3-13); PLATELET COUNT 252 10^3/uL (150-450); RED CELL DISTRIBUTION WIDTH 14.3 % (11.5-14.0); TOTAL CELLS COUNTED % (AUTO) 100 %; WHITE BLOOD COUNT 10.4 10^3/uL (4.0-10.5)
[2019-10-26] MEDS: PANTOPRAZOLE SODIUM 40 MG TABLET.DR PO SCH (05:17)
[2019-10-26] MEDS: DEXAMETHASONE SOD PHOSPHATE INJ 4 MG/1 ML VIAL IV SCH ×2 (05:17→17:01)
[2019-10-26] MEDS: HEPARIN SOD (PORCINE) 5,000 UNIT/ML 1 ML VIAL SUBCUT SCH ×3 (05:18→21:58)
[2019-10-26 05:37] LABS: ALBUMIN 2.6 g/dL (3.5-5.0); ALKALINE PHOSPHATASE 69 U/L (38-126); ANION GAP 8 (5-19); ASPARTATE AMINO TRANSFERASE 35 U/L (17-59); BILIRUBIN,DIRECT 0.4 mg/dL (0.0-0.4); BILIRUBIN,TOTAL 0.5 mg/dL (0.2-1.3); BLOOD UREA NITROGEN 31 mg/dL (7-20); CARBON DIOXIDE 22 mmol/L (22-30); CHLORIDE 117 mmol/L (98-107); GLUCOSE 164 mg/dL (75-110); TOTAL PROTEIN 5.7 g/dL (6.3-8.2)
[2019-10-26 05:46] LABS: POTASSIUM 4.1 mmol/L (3.6-5.0)
[2019-10-26 05:47] LABS: CALCIUM 5.5 mg/dL (8.4-10.2)
[2019-10-26] MEDS: ASPIRIN 81 MG TABLET, CHEWABLE PO SCH (09:26)
[2019-10-26] MEDS: ASCORBIC ACID 500 MG TABLET PO SCH ×2 (09:26→17:01)
[2019-10-26] MEDS: ZINC SULFATE 220 MG CAPSULE PO SCH (09:26)
[2019-10-26] MEDS: METOPROLOL SUCCINATE 50 MG TAB.SR.24H PO SCH (09:26)
[2019-10-26] MEDS: CALCIUM CARBONATE 600 MG TABLET PO SCH ×2 (09:26→21:54)
[2019-10-26] MEDS: CALCITRIOL 0.25 MCG CAPSULE PO SCH (09:26)
[2019-10-26] MEDS: AMLODIPINE BESYLATE 2.5 MG TABLET PO SCH (09:26)
[2019-10-26] MEDS: CEFEPIME 1 GM/D5W RTU 1 GM/50 ML RTUPB IV SCH (09:26)
[2019-10-26] MEDS: MULTIVITAMIN TABLET PO SCH (09:26)
[2019-10-26] MEDS: NORMAL SALINE 1000 ML 1,000 ML IV PRN (16:36)
[2019-10-26] MEDS: TAMSULOSIN HCL 0.4 MG CAP.SR.24H PO SCH (16:37)
--- NOTE | 2019-10-26 20:17 | PDOC PROGRESS REPORT ---
Subjective Progress Note for:: 10/26/19 Subjective:: Patient seen by the bedside,Patient is improving still somewhat confused, he had a video conference with the spouse today. Reason For Visit: RECURRENT FALLS,RIGHT FEMORAL FRACTURE,PNEUMONIA, Physical Exam Vital Signs: Temp Pulse Resp BP Pulse Ox 97.4 F 68 16 163/75 H 97 10/26/19 15:37 10/26/19 15:37 10/26/19 15:37 10/26/19 15:37 10/26/19 15:37 Intake & Output 10/25/19 10/26/19 10/27/19 06:59 06:59 06:59 Intake Total 4002 1665 1050 Output Total 1500 3575 Balance 2502 -1910 1050 Weight 80.7 kg 78 kg General appearance: PRESENT: no acute distress Eye exam: PRESENT: PERRLA Respiratory exam: PRESENT: clear to auscultation karrie Cardiovascular exam: PRESENT: +S1, +S2 GI/Abdominal exam: PRESENT: soft Neurological exam: PRESENT: alert Results Laboratory Results: 10/26/19 03:50 10/26/19 03:50 10/26/19 10/26/19 03:50 03:50 WBC 10.4 RBC 3.60 L Hgb 11.3 L Hct 32.8 L MCV 91 MCH 31.2 MCHC 34.3 RDW 14.3 H Plt Count 252 Seg Neutrophils % 89.0 H Sodium 147.4 H Potassium 4.1 D Chloride 117 H Carbon Dioxide 22 Anion Gap 8 BUN 31 H Creatinine 1.48 H Est GFR ( Amer) 54 L Glucose 164 H Calcium 5.5 L* Total Bilirubin 0.5 AST 35 Alkaline Phosphatase 69 Total Protein 5.7 L Albumin 2.6 L 10/20/19 10/20/19 10/20/19 11:40 11:40 12:38 Creatine Kinase Cancelled 1513 H Troponin I Cancelled NT-Pro-B Natriuret Pep 10/20/19 10/20/19 10/20/19 12:38 12:38 16:55 Creatine Kinase Troponin I 0.122 0.111 NT-Pro-B Natriuret Pep 4610 H Impressions: Cervical Spine CT 10/20/19 12:18 IMPRESSION: No acute fracture or dislocation of the cervical spine. Multilevel spondylosis, degenerative disc disease, and facet arthropathy. Head CT 10/20/19 12:18 IMPRESSION: No acute intracranial hemorrhage, mass, or evidence of acute territorial infarct. EVIDENCE OF ACUTE STROKE: NO. Chest CT 10/20/19 12:21 IMPRESSION: 1. Although there is motion in the pelvis, there appears to be an acute impacted subcapital fracture of the right proximal femur. Further evaluation with dedicated two view radiograph is recommended. 2. Age-indeterminate moderate compression fracture at T12, however this is stable since 10/04/2019 radiograph. This may be subacute or chronic. No retropulsed fracture fragments. 3. Acute appearing fractures of the anterolateral left 8-10th ribs. 4. Patchy areas of consolidation with areas of nodular consolidation in both lungs, suggestive of infectious/ inflammatory process. Given nodular components, a follow-up CT of the chest in 3 months is recommended to confirm complete resolution. Commonly reported imaging features of COVID-19 pneumonia are present. Other processes such as influenza pneumonia and organizing pneumonia, as can be seen with drug toxicity and connective tissue disease, can cause a similar imaging pattern. 5. No evidence of acute traumatic solid organ or vascular injury in the chest, abdomen or pelvis. Abdomen/Pelvis CT 10/20/19 12:23 IMPRESSION: 1. Although there is motion in the pelvis, there appears to be an acute impacted subcapital fracture of the right proximal femur. Further evaluation with dedica sydnie two view radiograph is recommended. 2. Age-indeterminate moderate compression fracture at T12, however this is stable since 10/04/2019 radiograph. This may be subacute or chronic. No retropulsed fracture fragments. 3. Acute appearing fractures of the anterolateral left 8-10th ribs. 4. Patchy areas of consolidation with areas of nodular consolidation in both lungs, suggestive of infectious/ inflammatory process. Given nodular components, a follow-up CT of the chest in 3 months is recommended to confirm complete resolution. Commonly reported imaging features of COVID-19 pneumonia are present. Other processes such as influenza pneumonia and organizing pneumonia, as can be seen with drug toxicity and connective tissue disease, can cause a similar imaging pattern. 5. No evidence of acute traumatic solid organ or vascular injury in the chest, abdomen or pelvis. Hip/Pelvis X-Ray 10/20/19 14:33 IMPRESSION: 1. Acute subcapital fracture right femur. 2. Moderate osteopenia. Skeletal Survey 10/23/19 07:00 IMPRESSION: 1. Acute/subacute impacted fracture of the right femoral neck. 2. Findings as described. Assessment & Plan - Diagnosis (1) Sepsis Qualifiers: Sepsis type: methicillin susceptible Staphylococcus aureus Sepsis acute organ dysfunction status: with acute organ dysfunction Severe sepsis acute organ dysfunction type: acute renal failure Acute renal failure type: with acute tubular necrosis Severe sepsis shock status: without septic shock Qualified Code(s): A41.01 - Sepsis due to Methicillin susceptible Staphylococcus aureus; R65.20 - Severe sepsis without septic shock; N17.0 - Acute kidney failure with tubular necrosis Is this a current diagnosis for this admission?: Yes Plan: Patient with staph aureus septicemia, on antibiotic with cefepime he has MSSA (2) Pneumonia due to COVID-19 virus Is this a current diagnosis for this admission?: Yes Plan: Patient will continue remdesivir for 5 days, dexamethasone for 10 days (3) Staphylococcus aureus septicemia Is this a current diagnosis for this admission?: Yes Plan: He has methicillin sensitive staph aureus, MSSA, continue cefepime (4) Acute kidney injury Is this a current diagnosis for this admission?: Yes Plan: improving (5) Multiple fractures of ribs of left side Qualifiers: Encounter type: initial encounter Fracture type: closed Qualified Code(s): S22.42XA - Multiple fractures of ribs, left side, initial encounter for closed fracture Is this a current diagnosis for this admission?: Yes Plan: This is most likely from osteoporosis (6) Compression fracture of T12 vertebra Qualifiers: Encounter type: initial encounter Qualified Code(s): S22.080A - Wedge compression fracture of T11-T12 vertebra, initial encounter for closed fracture Is this a current diagnosis for this admission?: Yes Plan: This is due to osteoporotic fracture (7) Pathologic fracture Qualifiers: Pathology associated with fracture: osteoporosis Osteoporosis type: age- related Site of pathological fracture: vertebra Encounter type: initial encounter Qualified Code(s): M80.08XA - Age-related osteoporosis with current pathological fracture, vertebra(e), initial encounter for fracture Is this a current diagnosis for this admission?: Yes (8) Hypocalcemia Is this a current diagnosis for this admission?: Yes Plan: This is secondary to CKD (9) Metabolic acidosis Is this a current diagnosis for this admission?: Yes (10) Subcapital fracture of right femur Qualifiers: Encounter type: initial encounter Fracture type: closed Qualified Code(s): S72.011A - Unspecified intracapsular fracture of right femur, initial encounter for closed fracture Is this a current diagnosis for this admission?: Yes Plan: This is due to osteoporotic fracture (11) Secondary hyperparathyroidism Is this a current diagnosis for this admission?: Yes Plan: He has secondary hyperparathyroidism,Continue, calcitriol ,vitamin D - Time Time Spent with patient: 25-34 minutes Level of Care: IMCU Medications reviewed and adjusted accordingly: Yes Anticipated discharge: SNF Anticipated DC Timeframe: when bed available
[2019-10-26] MEDS: REMDESIVIR (EUA) 100 MG in NORMAL SALINE 250 ML IV SCH (21:58)
[2019-10-26] MEDS: ACETAMINOPHEN 325 MG TABLET PO PRN (21:59)
[2019-10-26] MEDS: SIMVASTATIN 10 MG TABLET PO SCH (21:59)
[2019-10-27] MEDS: MORPHINE SULFATE 10 MG/ML INJ IV PRN ×2 (01:01→22:31)
[2019-10-27 02:40] LABS: HEMATOCRIT 35.5 % (37.9-51.0); HEMOGLOBIN 11.9 g/dL (13.5-17.0); MEAN CORPUSCULAR HEMOGLOBIN 30.6 pg (27.0-33.4); MEAN CORPUSCULAR HGB CONC 33.5 g/dL (32.0-36.0); MEAN CORPUSCULAR VOLUME 91 fl (80-97); PLATELET COUNT 259 10^3/uL (150-450); RED BLOOD COUNT 3.88 10^6/uL (4.35-5.55); RED CELL DISTRIBUTION WIDTH 14.2 % (11.5-14.0); WHITE BLOOD COUNT 9.4 10^3/uL (4.0-10.5)
[2019-10-27] MEDS: NORMAL SALINE 1000 ML 1,000 ML IV PRN ×2 (02:40→13:52)
[2019-10-27 03:00] LABS: ANION GAP 8 (5-19); BLOOD UREA NITROGEN 31 mg/dL (7-20); CARBON DIOXIDE 22 mmol/L (22-30); CHLORIDE 116 mmol/L (98-107); CREATINE KINASE 106 U/L (55-170); GLUCOSE 188 mg/dL (75-110)
[2019-10-27 03:07] LABS: CALCIUM 5.5 mg/dL (8.4-10.2)
[2019-10-27 03:11] LABS: CREATINE KINASE MB 2.04 ng/mL (<4.55); TROPONIN I 0.013 ng/mL
[2019-10-27] MEDS: PANTOPRAZOLE SODIUM 40 MG TABLET.DR PO SCH (05:23)
[2019-10-27] MEDS: DEXAMETHASONE SOD PHOSPHATE INJ 4 MG/1 ML VIAL IV SCH ×2 (05:23→17:19)
[2019-10-27] MEDS: HEPARIN SOD (PORCINE) 5,000 UNIT/ML 1 ML VIAL SUBCUT SCH ×3 (05:24→22:32)
[2019-10-27] MEDS: MULTIVITAMIN TABLET PO SCH (09:16)
[2019-10-27] MEDS: CALCIUM CARBONATE 600 MG TABLET PO SCH ×2 (09:16→22:32)
[2019-10-27] MEDS: CALCITRIOL 0.25 MCG CAPSULE PO SCH (09:16)
[2019-10-27] MEDS: CEFEPIME 1 GM/D5W RTU 1 GM/50 ML RTUPB IV SCH (09:16)
[2019-10-27] MEDS: ASCORBIC ACID 500 MG TABLET PO SCH ×2 (09:17→17:19)
[2019-10-27] MEDS: ZINC SULFATE 220 MG CAPSULE PO SCH (09:17)
[2019-10-27] MEDS: ASPIRIN 81 MG TABLET, CHEWABLE PO SCH (09:17)
[2019-10-27] MEDS: METOPROLOL SUCCINATE 50 MG TAB.SR.24H PO SCH ×2 (09:17→10:40)
[2019-10-27] MEDS: AMLODIPINE BESYLATE 2.5 MG TABLET PO SCH (09:17)
[2019-10-27 10:19] LABS: C DIFFICILE GDH NEGATIVE (NEGATIVE)
[2019-10-27] MEDS: MAGNESIUM SULFATE 1 GM/D5W 100 ML IV SCH ×2 (10:40→11:50)
[2019-10-27] MEDS: MAGNESIUM OXIDE 400 MG TABLET PO SCH (10:40)
--- NOTE | 2019-10-27 12:19 | PDOC PROGRESS REPORT ---
Subjective Progress Note for:: 10/27/19 Subjective:: Patient seen by the bedside, I spoke to his to update about patient's condition, I indicated that patient will be in the hospital for at least 10 days, after that, he will be seen by orthopedic for ORIF of the fracture hip joint and then transferred to rehabilitation.The nursing staff upset because patient is in sinus bradycardia, he is on metoprolol for rate control blood pressure, sinus bradycardia is expected effects of beta-devin provided blood pressure is maintained there is no need for panic. The systolic blood pressures actually was 170, there is no indication not to administer metoprolol because of bradycardia especially when the blood pressure is severely elevated. The urine electrophoresis was positive for M spike suggesting multiple myeloma, I will request for serum protein electrophoresis Reason For Visit: RECURRENT FALLS,RIGHT FEMORAL FRACTURE,PNEUMONIA, Physical Exam Vital Signs: Temp Pulse Resp BP Pulse Ox 97.7 F 63 13 172/81 H 94 10/27/19 10:00 10/27/19 08:03 10/27/19 08:03 10/27/19 08:03 10/27/19 08:03 Intake & Output 10/26/19 10/27/19 10/28/19 06:59 06:59 06:59 Intake Total 1665 2300 150 Output Total 3575 1900 Balance -1910 400 150 Weight 78 kg 78 kg 78 kg General appearance: PRESENT: no acute distress Eye exam: PRESENT: PERRLA Respiratory exam: PRESENT: clear to auscultation karrie Cardiovascular exam: PRESENT: +S1, +S2 GI/Abdominal exam: PRESENT: soft Neurological exam: PRESENT: alert Results Laboratory Results: 10/27/19 02:31 10/27/19 02:31 10/27/19 10/27/19 10/27/19 02:31 02:31 02:31 WBC 9.4 RBC 3.88 L Hgb 11.9 L Hct 35.5 L MCV 91 MCH 30.6 MCHC 33.5 RDW 14.2 H Plt Count 259 Sodium 145.7 H Potassium 4.0 Chloride 116 H Carbon Dioxide 22 Anion Gap 8 BUN 31 H Creatinine 1.21 Est GFR ( Amer) > 60 Glucose 188 H Lactic Acid 0.9 Calcium 5.5 L* Magnesium 1.1 L* 10/20/19 10/20/19 10/20/19 11:40 11:40 12:38 Creatine Kinase Cancelled 1513 H CK-MB (CK-2) Troponin I Cancelled NT-Pro-B Natriuret Pep 10/20/19 10/20/19 10/20/19 12:38 12:38 16:55 Creatine Kinase CK-MB (CK-2) Troponin I 0.122 0.111 NT-Pro-B Natriuret Pep 4610 H 10/27/19 10/27/19 02:31 02:31 Creatine Kinase 106 CK-MB (CK-2) 2.04 Troponin I 0.013 NT-Pro-B Natriuret Pep Impressions: Cervical Spine CT 10/20/19 12:18 IMPRESSION: No acute fracture or dislocation of the cervical spine. Multilevel spondylosis, degenerative disc disease, and facet arthropathy. Head CT 10/20/19 12:18 IMPRESSION: No acute intracranial hemorrhage, mass, or evidence of acute territorial infarct. EVIDENCE OF ACUTE STROKE: NO. Chest CT 10/20/19 12:21 IMPRESSION: 1. Although there is motion in the pelvis, there appears to be an acute impacted subcapital fracture of the right proximal femur. Further evaluation with dedicated two view radiograph is recommended. 2. Age-indeterminate moderate compression fracture at T12, however this is stable since 10/04/2019 radiograph. This may be subacute or chronic. No retropulsed fracture fragments. 3. Acute appearing fractures of the anterolateral left 8-10th ribs. 4. Patchy areas of consolidation with areas of nodular consolidation in both lungs, suggestive of infectious/ inflammatory process. Given nodular components, a follow-up CT of the chest in 3 months is recommended to confirm complete resolution. Commonly reported imaging features of COVID-19 pneumonia are present. Other processes such as influenza pneumonia and organizing pneumonia, as can be seen with drug toxicity and connective tissue disease, can cause a similar imaging pattern. 5. No evidence of acute traumatic solid organ or vascular injury in the chest, abdomen or pelvis. Abdomen/Pelvis CT 10/20/19 12:23 IMPRESSION: 1. Although there is motion in the pelvis, there appears to be an acute impacted subcapital fracture of the right proximal femur. Further evaluation with de dicated two view radiograph is recommended. 2. Age-indeterminate moderate compression fracture at T12, however this is stable since 10/04/2019 radiograph. This may be subacute or chronic. No retropulsed fracture fragments. 3. Acute appearing fractures of the anterolateral left 8-10th ribs. 4. Patchy areas of consolidation with areas of nodular consolidation in both lungs, suggestive of infectious/ inflammatory process. Given nodular components, a follow-up CT of the chest in 3 months is recommended to confirm complete resolution. Commonly reported imaging features of COVID-19 pneumonia are present. Other processes such as influenza pneumonia and organizing pneumonia, as can be seen with drug toxicity and connective tissue disease, can cause a similar imaging pattern. 5. No evidence of acute traumatic solid organ or vascular injury in the chest, abdomen or pelvis. Hip/Pelvis X-Ray 10/20/19 14:33 IMPRESSION: 1. Acute subcapital fracture right femur. 2. Moderate osteopenia. Skeletal Survey 10/23/19 07:00 IMPRESSION: 1. Acute/subacute impacted fracture of the right femoral neck. 2. Findings as described. Assessment & Plan - Diagnosis (1) Sepsis Qualifiers: Sepsis type: methicillin susceptible Staphylococcus aureus Sepsis acute organ dysfunction status: with acute organ dysfunction Severe sepsis acute organ dysfunction type: acute renal failure Acute renal failure type: with acute tubular necrosis Severe sepsis shock status: without septic shock Qualified Code(s): A41.01 - Sepsis due to Methicillin susceptible Staphylococcus aureus; R65.20 - Severe sepsis without septic shock; N17.0 - Acute kidney failure with tubular necrosis Is this a current diagnosis for this admission?: Yes Plan: Patient with staph aureus septicemia, on antibiotic with cefepime he has MSSA (2) Pneumonia due to COVID-19 virus Is this a current diagnosis for this admission?: Yes Plan: Patient will continue remdesivir for 5 days, dexamethasone for 10 days (3) Staphylococcus aureus septicemia Is this a current diagnosis for this admission?: Yes Plan: He has methicillin sensitive staph aureus, MSSA, continue cefepime (4) Acute kidney injury Is this a current diagnosis for this admission?: Yes Plan: improving (5) Multiple fractures of ribs of left side Qualifiers: Encounter type: initial encounter Fracture type: closed Qualified Code(s): S22.42XA - Multiple fractures of ribs, left side, initial encounter for closed fracture Is this a current diagnosis for this admission?: Yes Plan: This is most likely from osteoporosis (6) Compression fracture of T12 vertebra Qualifiers: Encounter type: initial encounter Qualified Code(s): S22.080A - Wedge compression fracture of T11-T12 vertebra, initial encounter for closed fracture Is this a current diagnosis for this admission?: Yes Plan: This is due to osteoporotic fracture (7) Pathologic fracture Qualifiers: Pathology associated with fracture: osteoporosis Osteoporosis type: age- related Site of pathological fracture: vertebra Encounter type: initial encounter Qualified Code(s): M80.08XA - Age-related osteoporosis with current pathological fracture, vertebra(e), initial encounter for fracture Is this a current diagnosis for this admission?: Yes (8) Hypocalcemia Is this a current diagnosis for this admission?: Yes Plan: This is secondary to CKD (9) Metabolic acidosis Is this a current diagnosis for this admission?: Yes (10) Subcapital fracture of right femur Qualifiers: Encounter type: initial encounter Fracture type: closed Qualified Code(s): S72.011A - Unspecified intracapsular fracture of right femur, initial encounter for closed fracture Is this a current diagnosis for this admission?: Yes Plan: This is due to osteoporotic fracture (11) Secondary hyperparathyroidism Is this a current diagnosis for this admission?: Yes Plan: He has secondary hyperparathyroidism,Continue, calcitriol ,vitamin D (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
[2019-10-27] MEDS: TAMSULOSIN HCL 0.4 MG CAP.SR.24H PO SCH (17:19)
[2019-10-27] MEDS: ACETAMINOPHEN 325 MG TABLET PO PRN (22:32)
[2019-10-27] MEDS: SIMVASTATIN 10 MG TABLET PO SCH (22:32)
[2019-10-28] MEDS: HEPARIN SOD (PORCINE) 5,000 UNIT/ML 1 ML VIAL SUBCUT SCH ×3 (05:30→21:29)
[2019-10-28] MEDS: PANTOPRAZOLE SODIUM 40 MG TABLET.DR PO SCH (05:30)
[2019-10-28] MEDS: DEXAMETHASONE SOD PHOSPHATE INJ 4 MG/1 ML VIAL IV SCH ×2 (05:31→17:56)
[2019-10-28 06:14] LABS: ABSOLUTE EOSINOPHILS # (AUTO) 0.1 10^3/uL (0.0-0.6); ABSOLUTE LYMPHOCYTES (AUTO) 0.7 10^3/uL (0.5-4.7); ABSOLUTE MONOCYTES (AUTO) 0.9 10^3/uL (0.1-1.4); ABSOLUTE NEUT (AUTO) 11.1 10^3/uL (1.7-8.2); BASOPHILS % (AUTO) 0.2 % (0-2); EOSINOPHILS % (AUTO) 0.5 % (0-6); HEMATOCRIT 33.6 % (37.9-51.0); HEMOGLOBIN 11.2 g/dL (13.5-17.0); LYMPHOCYTES % (AUTO) 5.7 % (13-45); MEAN CORPUSCULAR HGB CONC 33.3 g/dL (32.0-36.0); MEAN CORPUSCULAR VOLUME 93 fl (80-97); MONOCYTES % (AUTO) 6.9 % (3-13); PLATELET COUNT 210 10^3/uL (150-450); RED CELL DISTRIBUTION WIDTH 14.3 % (11.5-14.0); SEGMENTED NEUTROPHILS % (AUTO) 86.7 % (42-78); TOTAL CELLS COUNTED % (AUTO) 100 %; WHITE BLOOD COUNT 12.8 10^3/uL (4.0-10.5)
[2019-10-28] MEDS: ACETAMINOPHEN 325 MG TABLET PO PRN (06:14)
[2019-10-28 06:42] LABS: ALBUMIN 2.6 g/dL (3.5-5.0); ALKALINE PHOSPHATASE 53 U/L (38-126); ANION GAP 9 (5-19); ASPARTATE AMINO TRANSFERASE 35 U/L (17-59); BILIRUBIN,DIRECT 0.4 mg/dL (0.0-0.4); BILIRUBIN,TOTAL 0.7 mg/dL (0.2-1.3); BLOOD UREA NITROGEN 32 mg/dL (7-20); CARBON DIOXIDE 22 mmol/L (22-30); CHLORIDE 111 mmol/L (98-107); GLUCOSE 160 mg/dL (75-110); POTASSIUM 4.4 mmol/L (3.6-5.0); TOTAL PROTEIN 5.4 g/dL (6.3-8.2)
[2019-10-28 07:10] LABS: CALCIUM 5.8 mg/dL (8.4-10.2)
[2019-10-28] MEDS: ZINC SULFATE 220 MG CAPSULE PO SCH (10:22)
[2019-10-28] MEDS: AMLODIPINE BESYLATE 2.5 MG TABLET PO SCH (10:22)
[2019-10-28] MEDS: ASCORBIC ACID 500 MG TABLET PO SCH ×2 (10:22→17:56)
[2019-10-28] MEDS: CALCITRIOL 0.25 MCG CAPSULE PO SCH (10:23)
[2019-10-28] MEDS: CEFEPIME 1 GM/D5W RTU 1 GM/50 ML RTUPB IV SCH (10:23)
[2019-10-28] MEDS: ASPIRIN 81 MG TABLET, CHEWABLE PO SCH (10:23)
[2019-10-28] MEDS: MAGNESIUM OXIDE 400 MG TABLET PO SCH (10:23)
[2019-10-28] MEDS: METOPROLOL SUCCINATE 25 MG TAB.SR.24H PO SCH (10:23)
[2019-10-28] MEDS: CALCIUM CARBONATE 600 MG TABLET PO SCH ×2 (10:23→21:29)
[2019-10-28] MEDS: MULTIVITAMIN TABLET PO SCH (10:23)
--- NOTE | 2019-10-28 12:31 | RADIOLOGY REPORT (SQ) ---
EXAM DESCRIPTION: CHEST SINGLE VIEW IMAGES COMPLETED DATE/TIME: 10/28/2019 11:52 am REASON FOR STUDY: pneumonia COMPARISON: Chest radiograph 10/04/2019 NUMBER OF VIEWS: One view. TECHNIQUE: Single frontal radiographic view of the chest acquired. LIMITATIONS: None. FINDINGS: LUNGS AND PLEURA: Interval development of patchy opacity at the left lung base obscuring t he left hemidiaphragm. MEDIASTINUM AND HILAR STRUCTURES: Similar widened mediastinum, unchanged dating back to 2012. HEART AND VASCULAR STRUCTURES: Heart normal in size. Normal vasculature. BONES: No acute findings. HARDWARE: None in the chest. OTHER: No other significant finding. IMPRESSION: Interval development of patchy opacity at the left lung base obscuring the left hemidiap hragm suspicious for infection. Recommend radiographic follow-up after appropriate treatment interva l to document resolution. TECHNICAL DOCUMENTATION: JOB ID: [id number] 2010 [employer]- All Rights Reserved Reading location - IP/workstation name: [email or web address]
[2019-10-28] MEDS ORDERED: MORPHINE SULFATE 10 MG/ML INJ IV PRN (13:19)
[2019-10-28] MEDS ORDERED: DEXTROSE 50%-WATER SYRINGE 25 GM/50 ML DOSE IV PRN (14:00)
[2019-10-28] MEDS ORDERED: GLUCAGON,HUMAN RECOMB 1 MG INJ IM PRN (14:00)
[2019-10-28] MEDS ORDERED: DEXTROSE 50%-WATER SYRINGE 12.5 GM/25 ML DOSE IV PRN (14:00)
[2019-10-28] MEDS ORDERED: DEXTROSE 40% GEL 15 GM TUBE PO PRN (14:00)
[2019-10-28] MEDS ORDERED: DEXTROSE 40% GEL 15 GM TUBE X 2 PO PRN (14:00)
[2019-10-28] MEDS: BUPROPION HCL 100 MG TABLET PO SCH ×2 (14:06→21:29)
[2019-10-28] MEDS: VENLAFAXINE HCL 75 MG CAP.SR.24H PO SCH (14:06)
[2019-10-28] MEDS: NORMAL SALINE 1000 ML 1,000 ML IV PRN ×2 (14:06)
--- NOTE | 2019-10-28 15:16 | PDOC PROGRESS REPORT ---
Subjective Progress Note for:: 10/28/19 Subjective:: Patient somewhat confused today, started back on Effexor Reason For Visit: RECURRENT FALLS,RIGHT FEMORAL FRACTURE,PNEUMONIA, Physical Exam Vital Signs: Temp Pulse Resp BP Pulse Ox 97.6 F 61 19 180/75 H 92 10/28/19 08:00 10/28/19 08:00 10/28/19 08:00 10/28/19 08:00 10/28/19 08:00 Intake & Output 10/27/19 10/28/19 10/29/19 06:59 06:59 06:59 Intake Total 2300 3590 1050 Output Total 1900 2700 600 Balance 400 890 450 Weight 78 kg 80.2 kg General appearance: PRESENT: no acute distress Eye exam: PRESENT: PERRLA Respiratory exam: PRESENT: clear to auscultation karrie Cardiovascular exam: PRESENT: +S1, +S2 Results Laboratory Results: 10/28/19 06:01 10/28/19 06:01 10/28/19 10/28/19 10/28/19 06:01 06:01 06:44 WBC 12.8 H RBC 3.60 L Hgb 11.2 L Hct 33.6 L MCV 93 MCH 31.0 MCHC 33.3 RDW 14.3 H Plt Count 210 Seg Neutrophils % 86.7 H Sodium 141.5 Potassium 4.4 Chloride 111 H Carbon Dioxide 22 Anion Gap 9 BUN 32 H Creatinine 1.13 Est GFR ( Amer) > 60 Glucose 160 H Calcium 5.8 L* Magnesium 1.4 L Total Bilirubin 0.7 AST 35 Alkaline Phosphatase 53 Total Protein 5.4 L Albumin 2.6 L 10/20/19 10/20/19 10/20/19 11:40 11:40 12:38 Creatine Kinase Cancelled 1513 H CK-MB (CK-2) Troponin I Cancelled NT-Pro-B Natriuret Pep 10/20/19 10/20/19 10/20/19 12:38 12:38 16:55 Creatine Kinase CK-MB (CK-2) Troponin I 0.122 0.111 NT-Pro-B Natriuret Pep 4610 H 10/27/19 10/27/19 02:31 02:31 Creatine Kinase 106 CK-MB (CK-2) 2.04 Troponin I 0.013 NT-Pro-B Natriuret Pep Impressions: Cervical Spine CT 08/22/20 12:18 IMPRESSION: No acute fracture or dislocation of the cervical spine. Multilevel spondylosis, degenerative disc disease, and facet arthropathy. Head CT 10/20/19 12:18 IMPRESSION: No acute intracranial hemorrhage, mass, or evidence of acute territorial infarct. EVIDENCE OF ACUTE STROKE: NO. Chest CT 10/20/19 12:21 IMPRESSION: 1. Although there is motion in the pelvis, there appears to be an acute impacted subcapital fracture of the right proximal femur. Further evaluation with dedicated two view radiograph is recommended. 2. Age-indeterminate moderate compression fracture at T12, however this is stable since 10/04/2019 radiograph. This may be subacute or chronic. No retropulsed fracture fragments. 3. Acute appearing fractures of the anterolateral left 8-10th ribs. 4. Patchy areas of consolidation with areas of nodular consolidation in both lungs, suggestive of infectious/ inflammatory process. Given nodular components, a follow-up CT of the chest in 3 months is recommended to confirm complete resolution. Commonly reported imaging features of COVID-19 pneumonia are present. Other processes such as influenza pneumonia and organizing pneumo breanne, as can be seen with drug toxicity and connective tissue disease, can cause a similar imaging pattern. 5. No evidence of acute traumatic solid organ or vascular injury in the chest, abdomen or pelvis. Abdomen/Pelvis CT 10/20/19 12:23 IMPRESSION: 1. Although there is motion in the pelvis, there appears to be an acute impacted subcapital fracture of the right proximal femur. Further evaluation with dedicated two view radiograph is recommended. 2. Age-indeterminate moderate compression fracture at T12, however this is stable since 10/04/2019 radiograph. This may be subacute or chronic. No retropulsed fracture fragments. 3. Acute appearing fractures of the anterolateral left 8-10th ribs. 4. Patchy areas of consolidation with areas of nodular consolidation in both lungs, suggestive of infectious/ inflammatory process. Given nodular components, a follow-up CT of the chest in 3 months is recommended to confirm complete resolution. Commonly reported imaging features of COVID-19 pneumonia are present. Other processes such as influenza pneumonia and organizing pneumonia, as can be seen with drug toxicity and connective tissue disease, can cause a similar imaging pattern. 5. No evidence of acute traumatic solid organ or vascular injury in the chest, abdomen or pelvis. Hip/Pelvis X-Ray 10/20/19 14:33 IMPRESSION: 1. Acute subcapital fracture right femur. 2. Moderate osteopenia. Skeletal Survey 10/23/19 07:00 IMPRESSION: 1. Acute/subacute impacted fracture of the right femoral neck. 2. Findings as described. Chest X-Ray 10/28/19 00:00 IMPRESSION: Interval development of patchy opacity at the left lung base obscuring the left hemidiaphragm suspicious for infection. Recommend radiographic follow-up after appropriate treatment interval to document resolu tion. Assessment & Plan - Diagnosis (1) Sepsis Qualifiers: Sepsis type: methicillin susceptible Staphylococcus aureus Sepsis acute organ dysfunction status: with acute organ dysfunction Severe sepsis acute organ dysfunction type: acute renal failure Acute renal failure type: with acute tubular necrosis Severe sepsis shock status: without septic shock Qualified Code(s): A41.01 - Sepsis due to Methicillin susceptible Staphylococcus aureus; R65.20 - Severe sepsis without septic shock; N17.0 - Acute kidney failure with tubular necrosis Is this a current diagnosis for this admission?: Yes Plan: Patient with staph aureus septicemia, on antibiotic with cefepime he has MSSA (2) Pneumonia due to COVID-19 virus Is this a current diagnosis for this admission?: Yes (3) Staphylococcus aureus septicemia Is this a current diagnosis for this admission?: Yes Plan: He has methicillin sensitive staph aureus, MSSA, continue cefepime (4) Acute kidney injury Is this a current diagnosis for this admission?: Yes Plan: improving (5) Multiple fractures of ribs of left side Qualifiers: Encounter type: initial encounter Fracture type: closed Qualified Code(s): S22.42XA - Multiple fractures of ribs, left side, initial encounter for closed fracture Is this a current diagnosis for this admission?: Yes Plan: This is most likely from osteoporosis (6) Compression fracture of T12 vertebra Qualifiers: Encounter type: initial encounter Qualified Code(s): S22.080A - Wedge compression fracture of T11-T12 vertebra, initial encounter for closed fracture Is this a current diagnosis for this admission?: Yes Plan: This is due to osteoporotic fracture (7) Pathologic fracture Qualifiers: Pathology associated with fracture: osteoporosis Osteoporosis type: age- related Site of pathological fracture: vertebra Encounter type: initial encounter Qualified Code(s): M80.08XA - Age-related osteoporosis with current pathological fracture, vertebra(e), initial encounter for fracture Is this a current diagnosis for this admission?: Yes (8) Hypocalcemia Is this a current diagnosis for this admission?: Yes Plan: This is secondary to CKD (9) Metabolic acidosis Is this a current diagnosis for this admission?: Yes (10) Subcapital fracture of right femur Qualifiers: Encounter type: initial encounter Fracture type: closed Qualified Code(s): S72.011A - Unspecified intracapsular fracture of right femur, initial encounter for closed fracture Is this a current diagnosis for this admission?: Yes Plan: This is due to osteoporotic fracture (11) Secondary hyperparathyroidism Is this a current diagnosis for this admission?: Yes Plan: He has secondary hyperparathyroidism,Continue, calcitriol ,vitamin D (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
[2019-10-28] MEDS: TAMSULOSIN HCL 0.4 MG CAP.SR.24H PO SCH (17:57)
[2019-10-28] MEDS: INSULIN LISPRO 100 UNIT/ML 3 ML VIAL SUBCUT SCH ×2 (17:57→21:30)
[2019-10-28] MEDS ORDERED: TAMSULOSIN HCL 0.4 MG CAP.SR.24H PO SCH (18:00)
[2019-10-28] MEDS: SIMVASTATIN 10 MG TABLET PO SCH (21:29)
[2019-10-29] MEDS: PANTOPRAZOLE SODIUM 40 MG TABLET.DR PO SCH (06:08)
[2019-10-29] MEDS: BUPROPION HCL 100 MG TABLET PO SCH ×3 (06:08→22:25)
[2019-10-29] MEDS: HEPARIN SOD (PORCINE) 5,000 UNIT/ML 1 ML VIAL SUBCUT SCH ×3 (06:09→22:26)
[2019-10-29] MEDS: DEXAMETHASONE SOD PHOSPHATE INJ 4 MG/1 ML VIAL IV SCH ×2 (06:09→17:02)
[2019-10-29] MEDS: INSULIN LISPRO 100 UNIT/ML 3 ML VIAL SUBCUT SCH ×5 (09:42→22:26)
[2019-10-29] MEDS: CEFEPIME 1 GM/D5W RTU 1 GM/50 ML RTUPB IV SCH (09:47)
[2019-10-29] MEDS: ASCORBIC ACID 500 MG TABLET PO SCH ×2 (09:48→17:03)
[2019-10-29] MEDS: MAGNESIUM OXIDE 400 MG TABLET PO SCH (09:48)
[2019-10-29] MEDS: ASPIRIN 81 MG TABLET, CHEWABLE PO SCH (09:48)
[2019-10-29] MEDS: VENLAFAXINE HCL 75 MG CAP.SR.24H PO SCH (09:48)
[2019-10-29] MEDS: ZINC SULFATE 220 MG CAPSULE PO SCH (09:48)
[2019-10-29] MEDS: METOPROLOL SUCCINATE 25 MG TAB.SR.24H PO SCH (09:48)
[2019-10-29] MEDS: CALCITRIOL 0.25 MCG CAPSULE PO SCH (09:48)
[2019-10-29] MEDS: AMLODIPINE BESYLATE 2.5 MG TABLET PO SCH (09:49)
[2019-10-29] MEDS: MULTIVITAMIN TABLET PO SCH (09:49)
[2019-10-29] MEDS: CALCIUM CARBONATE 600 MG TABLET PO SCH ×2 (09:49→22:25)
[2019-10-29 10:31] LABS: HEMATOCRIT 35.1 % (37.9-51.0); HEMOGLOBIN 11.7 g/dL (13.5-17.0); MEAN CORPUSCULAR HEMOGLOBIN 30.5 pg (27.0-33.4); MEAN CORPUSCULAR HGB CONC 33.4 g/dL (32.0-36.0); MEAN CORPUSCULAR VOLUME 91 fl (80-97); PLATELET COUNT 224 10^3/uL (150-450); RED BLOOD COUNT 3.84 10^6/uL (4.35-5.55); WHITE BLOOD COUNT 13.3 10^3/uL (4.0-10.5)
[2019-10-29 10:49] LABS: ALBUMIN 2.7 g/dL (3.5-5.0); ALKALINE PHOSPHATASE 71 U/L (38-126); ANION GAP 6 (5-19); ASPARTATE AMINO TRANSFERASE 41 U/L (17-59); BILIRUBIN,DIRECT 0.4 mg/dL (0.0-0.4); BILIRUBIN,TOTAL 0.8 mg/dL (0.2-1.3); BLOOD UREA NITROGEN 31 mg/dL (7-20); CARBON DIOXIDE 27 mmol/L (22-30); CHLORIDE 107 mmol/L (98-107); GLUCOSE 104 mg/dL (75-110); POTASSIUM 4.2 mmol/L (3.6-5.0); TOTAL PROTEIN 5.3 g/dL (6.3-8.2)
[2019-10-29 10:57] LABS: CALCIUM 5.9 mg/dL (8.4-10.2)
[2019-10-29 11:30] LABS: ABSOLUTE LYMPHOCYTES# (MANUAL) 0.7 10^3/uL (0.5-4.7); ABSOLUTE MONOCYTES # (MANUAL) 0.5 10^3/uL (0.1-1.4); BAND NEUTROPHILS % (MANUAL) 1 % (3-5); BASOPHILS % (MANUAL) 0 % (0-2); EOSINOPHILS % (MANUAL) 0 % (0-6); LYMPHOCYTES % (MANUAL) 4 % (13-45); MONOCYTES % (MANUAL) 4 % (3-13); SEGMENTED NEUTROPHILS % (MAN) 90 % (42-78); TOTAL CELLS COUNTED 100
[2019-10-29 11:31] LABS: ANISOCYTOSIS SLIGHT; PLATELET COMMENT ADEQUATE; POLYCHROMASIA SLIGHT
[2019-10-29] MEDS: TAMSULOSIN HCL 0.4 MG CAP.SR.24H PO SCH (17:03)
--- NOTE | 2019-10-29 19:43 | PDOC PROGRESS REPORT ---
Subjective Progress Note for:: 10/29/19 Subjective:: Patient seen by the bedside Reason For Visit: RECURRENT FALLS,RIGHT FEMORAL FRACTURE,PNEUMONIA, Physical Exam Vital Signs: Temp Pulse Resp BP Pulse Ox 97.9 F 63 18 133/64 H 97 10/29/19 12:08 10/29/19 19:00 10/29/19 12:08 10/29/19 12:08 10/29/19 12:08 Intake & Output 10/28/19 10/29/19 10/30/19 06:59 06:59 06:59 Intake Total 3590 1150 822 Output Total 2700 1500 400 Balance 890 -350 422 Weight 80.2 kg 79.6 kg General appearance: PRESENT: no acute distress Neurological exam: PRESENT: alert, CN II-XII grossly intact Results Laboratory Results: 10/29/19 10:01 10/29/19 10:01 10/29/19 10/29/19 10:01 10:01 WBC 13.3 H RBC 3.84 L Hgb 11.7 L Hct 35.1 L MCV 91 MCH 30.5 MCHC 33.4 RDW 14.0 Plt Count 224 Seg Neutrophils % Not Reportable Sodium 140.4 Potassium 4.2 Chloride 107 Carbon Dioxide 27 Anion Gap 6 BUN 31 H Creatinine 1.04 Est GFR ( Amer) > 60 Glucose 104 Calcium 5.9 L* Total Bilirubin 0.8 AST 41 Alkaline Phosphatase 71 Total Protein 5.3 L Albumin 2.7 L 10/20/19 10/20/19 10/20/19 11:40 11:40 12:38 Creatine Kinase Cancelled 1513 H CK-MB (CK-2) Troponin I Cancelled NT-Pro-B Natriuret Pep 10/20/19 10/20/19 10/20/19 12:38 12:38 16:55 Creatine Kinase CK-MB (CK-2) Troponin I 0.122 0.111 NT-Pro-B Natriuret Pep 4610 H 10/27/19 10/27/19 02:31 02:31 Creatine Kinase 106 CK-MB (CK-2) 2.04 Troponin I 0.013 NT-Pro-B Natriuret Pep Impressions: Cervical Spine CT 10/20/19 12:18 IMPRESSION: No acute fracture or dislocation of the cervical spine. Multilevel spondylosis, degenerative disc disease, and facet arthropathy. Head CT 10/20/19 12:18 IMPRESSION: No acute intracranial hemorrhage, mass, or evidence of acute territorial infarct. EVIDENCE OF ACUTE STROKE: NO. Chest CT 10/20/19 12:21 IMPRESSION: 1. Although there is motion in the pelvis, there appears to be an acute impacted subcapital fracture of the right proximal femur. Further evaluation with dedicated two view radiograph is recommended. 2. Age-indeterminate moderate compression fracture at T12, however this is stable since 10/04/2019 radiograph. This may be subacute or chronic. No retropulsed fracture fragments. 3. Acute appearing fractures of the anterolateral left 8-10th ribs. 4. Patchy areas of consolidation with areas of nodular consolidation in both lungs, suggestive of infectious/ inflammatory process. Given nodular components, a follow-up CT of the chest in 3 months is recommended to confirm complete resolution. Commonly reported imaging features of COVID-19 pneumonia are present. Other processes such as influenza pneumonia and organizing pneumonia, as can be seen with drug toxicity and connective tissue disease, can cause a similar imaging pattern. 5. No evidence of acute traumatic solid organ or vascular injury in the chest, abdomen or pelvis. Abdomen/Pelvis CT 10/20/19 12:23 IMPRESSION: 1. Although there is motion in the pelvis, there appears to be an acute impacted subcapital fracture of the right proximal femur. Further evaluation with dedicated two view radiograph is recommended. 2. Age-indeterminate moderate compression fracture at T12, however this is stable since 10/04/2019 radiograph. This may be subacute or chronic. No retropulsed fracture fragments. 3. Acute appearing fractures of the anterolateral left 8-10th ribs. 4. Patchy areas of consolidation with areas of nodular consolidation in both lungs, suggestive of infectious/ inflammatory process. Given nodular components, a follow-up CT of the chest in 3 months is recommended to confirm complete resolution. Commonly reported imaging features of COVID-19 pneumonia are present. Other processes such as influenza pneumonia and organizing pneumonia, as can be seen with drug toxicity and connective tissue disease, can cause a similar imaging pattern. 5. No evidence of acute traumatic solid organ or vascular injury in the chest, abdomen or pelvis. Hip/Pelvis X-Ray 10/20/19 14:33 IMPRESSION: 1. Acute subcapital fracture right femur. 2. Moderate osteopenia. Skeletal Survey 10/23/19 07:00 IMPRESSION: 1. Acute/subacute impacted fracture of the right femoral neck. 2. Findings as described. Chest X-Ray 10/28/19 00:00 IMPRESSION: Interval development of patchy opacity at the left lung base obscuring the left hemidiaphragm suspicious for infection. Recommend radiographic follow-up after appropriate treatment interval to document resolution. Assessment & Plan - Diagnosis (1) Sepsis Qualifiers: Sepsis type: methicillin susceptible Staphylococcus aureus Sepsis acute organ dysfunction status: with acute organ dysfunction Severe sepsis acute organ dysfunction type: acute renal failure Acute renal failure type: with acute tubular necrosis Severe sepsis shock status: without septic shock Qualified Code(s): A41.01 - Sepsis due to Methicillin susceptible Staphylococcus aureus; R65.20 - Severe sepsis without septic shock; N17.0 - Acute kidney failure with tubular necrosis Is this a current diagnosis for this admission?: Yes Plan: Patient with staph aureus septicemia, on antibiotic with cefepime he has MSSA (2) Pneumonia due to COVID-19 virus Is this a current diagnosis for this admission?: Yes (3) Staphylococcus aureus septicemia Is this a current diagnosis for this admission?: Yes Plan: He has methicillin sensitive staph aureus, MSSA, continue cefepime (4) Acute kidney injury Is this a current diagnosis for this admission?: Yes Plan: improving (5) Multiple fractures of ribs of left side Qualifiers: Encounter type: initial encounter Fracture type: closed Qualified Code (s): S22.42XA - Multiple fractures of ribs, left side, initial encounter for closed fracture Is this a current diagnosis for this admission?: Yes Plan: This is most likely from osteoporosis (6) Compression fracture of T12 vertebra Qualifiers: Encounter type: initial encounter Qualified Code(s): S22.080A - Wedge compression fracture of T11-T12 vertebra, initial encounter for closed fracture Is this a current diagnosis for this admission?: Yes Plan: This is due to osteoporotic fracture (7) Pathologic fracture Qualifiers: Pathology associated with fracture: osteoporosis Osteoporosis type: age- related Site of pathological fracture: vertebra Encounter type: initial encounter Qualified Code(s): M80.08XA - Age-related osteoporosis with current pathological fracture, vertebra(e), initial encounter for fracture Is this a current diagnosis for this admission?: Yes (8) Hypocalcemia Is this a current diagnosis for this admission?: Yes Plan: This is secondary to CKD (9) Metabolic acidosis Is this a current diagnosis for this admission?: Yes (10) Subcapital fracture of right femur Qualifiers: Encounter type: initial encounter Fracture type: closed Qualified Code(s): S72.011A - Unspecified intracapsular fracture of right femur, initial encounter for closed fracture Is this a current diagnosis for this admission?: Yes (11) Secondary hyperparathyroidism Is this a current diagnosis for this admission?: Yes Plan: He has secondary hyperparathyroidism,Continue, calcitriol ,vitamin D (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
[2019-10-29] MEDS: SIMVASTATIN 10 MG TABLET PO SCH (22:25)
[2019-10-29] MEDS: NORMAL SALINE 1000 ML 1,000 ML IV PRN (22:30)
[2019-10-30] MEDS: HEPARIN SOD (PORCINE) 5,000 UNIT/ML 1 ML VIAL SUBCUT SCH ×3 (05:25→22:26)
[2019-10-30] MEDS: BUPROPION HCL 100 MG TABLET PO SCH ×3 (05:25→22:26)
[2019-10-30] MEDS: DEXAMETHASONE SOD PHOSPHATE INJ 4 MG/1 ML VIAL IV SCH ×2 (05:25→17:32)
[2019-10-30] MEDS: PANTOPRAZOLE SODIUM 40 MG TABLET.DR PO SCH (05:25)
[2019-10-30 05:56] LABS: ALBUMIN 2.5 g/dL (3.5-5.0); ALKALINE PHOSPHATASE 68 U/L (38-126); ANION GAP 7 (5-19); ASPARTATE AMINO TRANSFERASE 33 U/L (17-59); BILIRUBIN,DIRECT 0.3 mg/dL (0.0-0.4); BILIRUBIN,TOTAL 0.6 mg/dL (0.2-1.3); BLOOD UREA NITROGEN 32 mg/dL (7-20); CARBON DIOXIDE 26 mmol/L (22-30); CHLORIDE 108 mmol/L (98-107); GLUCOSE 129 mg/dL (75-110); POTASSIUM 3.9 mmol/L (3.6-5.0); TOTAL PROTEIN 4.9 g/dL (6.3-8.2)
[2019-10-30 06:07] LABS: HEMATOCRIT 31.4 % (37.9-51.0); HEMOGLOBIN 10.2 g/dL (13.5-17.0); MEAN CORPUSCULAR HEMOGLOBIN 29.8 pg (27.0-33.4); MEAN CORPUSCULAR HGB CONC 32.6 g/dL (32.0-36.0); MEAN CORPUSCULAR VOLUME 92 fl (80-97); PLATELET COUNT 192 10^3/uL (150-450); RED BLOOD COUNT 3.42 10^6/uL (4.35-5.55); RED CELL DISTRIBUTION WIDTH 13.9 % (11.5-14.0); WHITE BLOOD COUNT 11.7 10^3/uL (4.0-10.5)
[2019-10-30 06:09] LABS: CALCIUM 5.8 mg/dL (8.4-10.2)
[2019-10-30 06:10] LABS: ABSOLUTE LYMPHOCYTES# (MANUAL) 1.5 10^3/uL (0.5-4.7); ABSOLUTE MONOCYTES # (MANUAL) 0.2 10^3/uL (0.1-1.4); BASOPHILS % (MANUAL) 0 % (0-2); EOSINOPHILS % (MANUAL) 0 % (0-6); LYMPHOCYTES % (MANUAL) 13 % (13-45); MONOCYTES % (MANUAL) 2 % (3-13); SEGMENTED NEUTROPHILS % (MAN) 85 % (42-78); TOTAL CELLS COUNTED 100
[2019-10-30 06:12] LABS: OVALOCYTES SLIGHT; PLATELET COMMENT ADEQUATE; POIKILOCYTOSIS SLIGHT; TEAR DROP CELLS SLIGHT; TOXIC GRANULATION 1+
[2019-10-30] MEDS: INSULIN LISPRO 100 UNIT/ML 3 ML VIAL SUBCUT SCH ×4 (09:35→22:27)
[2019-10-30] MEDS: VENLAFAXINE HCL 75 MG CAP.SR.24H PO SCH (09:38)
[2019-10-30] MEDS: MULTIVITAMIN TABLET PO SCH (09:38)
[2019-10-30] MEDS: ZINC SULFATE 220 MG CAPSULE PO SCH (09:38)
[2019-10-30] MEDS: ASCORBIC ACID 500 MG TABLET PO SCH ×2 (09:38→17:32)
[2019-10-30] MEDS: ASPIRIN 81 MG TABLET, CHEWABLE PO SCH (09:38)
[2019-10-30] MEDS: METOPROLOL SUCCINATE 25 MG TAB.SR.24H PO SCH (09:38)
[2019-10-30] MEDS: MAGNESIUM OXIDE 400 MG TABLET PO SCH (09:38)
[2019-10-30] MEDS: CEFEPIME 1 GM/D5W RTU 1 GM/50 ML RTUPB IV SCH (09:38)
[2019-10-30] MEDS: CALCITRIOL 0.25 MCG CAPSULE PO SCH (09:38)
[2019-10-30] MEDS: CALCIUM CARBONATE 600 MG TABLET PO SCH ×2 (09:38→22:26)
[2019-10-30] MEDS: AMLODIPINE BESYLATE 2.5 MG TABLET PO SCH (09:47)
[2019-10-30 14:37] LABS: ALBUMIN 3 2.8 g/dL (2.9-4.4); ALPHA-1-GLOBULIN 0.3 g/dL (0.0-0.4); BETA GLOBULIN 0.7 g/dL (0.7-1.3); GAMMA GLOBULINS 1.2 g/dL (0.4-1.8); IMMUNOGLOBULIN A 486 mg/dL (61-437); IMMUNOGLOBULIN G 1116 mg/dL (603-1613); IMMUNOGLOBULIN M 80 mg/dL (15-143); MONOCLONAL-SPIKE Not Observed g/dL (Not Observ); PROTEIN TOTAL SERUM 5.8 g/dL (6.0-8.5)
[2019-10-30] MEDS: TAMSULOSIN HCL 0.4 MG CAP.SR.24H PO SCH (16:35)
--- NOTE | 2019-10-30 20:21 | PDOC PROGRESS REPORT ---
Subjective Progress Note for:: 10/30/19 Subjective:: Patient seen by the bedside, more alert today more oriented making progress Reason For Visit: RECURRENT FALLS,RIGHT FEMORAL FRACTURE,PNEUMONIA, Physical Exam Vital Signs: Temp Pulse Resp BP Pulse Ox 98.0 F 79 20 135/67 H 94 10/30/19 16:24 10/30/19 19:00 10/30/19 16:24 10/30/19 16:24 10/30/19 16:24 Intake & Output 10/29/19 10/30/19 10/31/19 06:59 06:59 06:59 Intake Total 1150 2617 50 Output Total 1500 1250 700 Balance -350 1367 -650 Weight 79.6 kg 79.7 kg General appearance: PRESENT: no acute distress Eye exam: PRESENT: PERRLA Respiratory exam: PRESENT: clear to auscultation karrie Cardiovascular exam: PRESENT: +S1, +S2 Neurological exam: PRESENT: alert Results Laboratory Results: 10/30/19 04:46 10/30/19 04:46 10/27/19 10/30/19 10/30/19 12:45 04:46 04:46 WBC 11.7 H RBC 3.42 L Hgb 10.2 L Hct 31.4 L MCV 92 MCH 29.8 MCHC 32.6 RDW 13.9 Plt Count 192 Seg Neutrophils % Not Reportable Sodium 140.7 Potassium 3.9 Chloride 108 H Carbon Dioxide 26 Anion Gap 7 BUN 32 H Creatinine 1.27 H Est GFR ( Amer) > 60 Glucose 129 H Calcium 5.8 L* Total Bilirubin 0.6 AST 33 Alkaline Phosphatase 68 Total Protein 5.8 L 4.9 L Albumin 2.5 L 10/20/19 10/20/19 10/20/19 11:40 11:40 12:38 Creatine Kinase Cancelled 1513 H CK-MB (CK-2) Troponin I Cancelled NT-Pro-B Natriuret Pep 10/20/19 10/20/19 10/20/19 12:38 12:38 16:55 Creatine Kinase CK-MB (CK-2) Troponin I 0.122 0.111 NT-Pro-B Natriuret Pep 4610 H 10/27/19 10/27/19 02:31 02:31 Creatine Kinase 106 CK-MB (CK-2) 2.04 Troponin I 0.013 NT-Pro-B Natriuret Pep Impressions: Cervical Spine CT 10/20/19 12:18 IMPRESSION: No acute fracture or dislocation of the cervical spine. Multilevel spondylosis, degenerative disc disease, and facet arthropathy. Head CT 10/20/19 12:18 IMPRESSION: No acute intracranial hemorrhage, mass, or evidence of acute territorial infarct. EVIDENCE OF ACUTE STROKE: NO. Chest CT 10/20/19 12:21 IMPRESSION: 1. Although there is motion in the pelvis, there appears to be an acute impacted subcapital fracture of the right proximal femur. Further evaluation with de dicated two view radiograph is recommended. 2. Age-indeterminate moderate compression fracture at T12, however this is stable since 10/04/2019 radiograph. This may be subacute or chronic. No retropulsed fracture fragments. 3. Acute appearing fractures of the anterolateral left 8-10th ribs. 4. Patchy areas of consolidation with areas of nodular consolidation in both lungs, suggestive of infectious/ inflammatory process. Given nodular components, a follow-up CT of the chest in 3 months is recommended to confirm complete resolution. Commonly reported imaging features of COVID-19 pneumonia are present. Other processes such as influenza pneumonia and organizing pneumonia, as can be seen with drug toxicity and connective tissue disease, can cause a similar imaging pattern. 5. No evidence of acute traumatic solid organ or vascular injury in the chest, abdomen or pelvis. Abdomen/Pelvis CT 10/20/19 12:23 IMPRESSION: 1. Although there is motion in the pelvis, there appears to be an acute impacted subcapital fracture of the right proximal femur. Further evaluation with dedicated two view radiograph is recommended. 2. Age-indeterminate moderate compression fracture at T12, however this is stable since 10/04/2019 radiograph. This may be subacute or chronic. No retropulsed fracture fragments. 3. Acute appearing fractures of the anterolateral left 8-10th ribs. 4. Patchy areas of consolidation with areas of nodular consolidation in both lungs, suggestive of infectious/ inflammatory process. Given nodular components, a follow-up CT of the chest in 3 months is recommended to confirm complete resolution. Commonly reported imaging features of COVID-19 pneumonia are present. Other processes such as influenza pneumonia and organizing pneumonia, as can be seen with drug toxicity and connective tissue disease, can cause a similar imaging pattern. 5. No evidence of acute traumatic solid organ or vascular injury in the chest, abdomen or pelvis. Hip/Pelvis X-Ray 10/20/19 14:33 IMPRESSION: 1. Acute subcapital fracture right femur. 2. Moderate osteopenia. Skeletal Survey 10/23/19 07:00 IMPRESSION: 1. Acute/subacute impacted fracture of the right femoral neck. 2. Findings as described. Chest X-Ray 10/28/19 00:00 IMPRESSION: Interval development of patchy opacity at the left lung base obscuring the left hemidiaphragm suspicious for infection. Recommend radi ographic follow-up after appropriate treatment interval to document resolution. Assessment & Plan - Diagnosis (1) Sepsis Qualifiers: Sepsis type: methicillin susceptible Staphylococcus aureus Sepsis acute organ dysfunction status: with acute organ dysfunction Severe sepsis acute organ dysfunction type: acute renal failure Acute renal failure type: with acute tubular necrosis Severe sepsis shock status: without septic shock Qualified Code(s): A41.01 - Sepsis due to Methicillin susceptible Staphylococcus aureus; R65.20 - Severe sepsis without septic shock; N17.0 - Acute kidney failure with tubular necrosis Is this a current diagnosis for this admission?: Yes (2) Pneumonia due to COVID-19 virus Is this a current diagnosis for this admission?: Yes Plan: Patient will continue dexamethasone for a total of 10 days (3) Staphylococcus aureus septicemia Is this a current diagnosis for this admission?: Yes Plan: Continue antibiotic (4) Acute kidney injury Is this a current diagnosis for this admission?: Yes (5) Multiple fractures of ribs of left side Qualifiers: Encounter type: initial encounter Fracture type: closed Qualified Code(s): S22.42XA - Multiple fractures of ribs, left side, initial encounter for closed fracture Is this a current diagnosis for this admission?: Yes (6) Compression fracture of T12 vertebra Qualifiers: Encounter type: initial encounter Qualified Code(s): S22.080A - Wedge compression fracture of T11-T12 vertebra, initial encounter for closed fracture Is this a current diagnosis for this admission?: Yes (7) Pathologic fracture Qualifiers: Pathology associated with fracture: osteoporosis Osteoporosis type: age- related Site of pathological fracture: vertebra Encounter type: initial encounter Qualified Code(s): M80.08XA - Age-related osteoporosis with current pathological fracture, vertebra(e), initial encounter for fracture Is this a current diagnosis for this admission?: Yes (8) Hypocalcemia Is this a current diagnosis for this admission?: Yes (9) Metabolic acidosis Is this a current diagnosis for this admission?: Yes (10) Subcapital fracture of right femur Qualifiers: Encounter type: initial encounter Fracture type: closed Qualified Code (s): S72.011A - Unspecified intracapsular fracture of right femur, initial encounter for closed fracture Is this a current diagnosis for this admission?: Yes (11) Secondary hyperparathyroidism Is this a current diagnosis for this admission?: Yes (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
[2019-10-30] MEDS: SIMVASTATIN 10 MG TABLET PO SCH (22:26)
[2019-10-30] MEDS: NORMAL SALINE 1000 ML 1,000 ML IV PRN (22:29)
[2019-10-31] MEDS: BUPROPION HCL 100 MG TABLET PO SCH ×3 (05:48→23:26)
[2019-10-31] MEDS: HEPARIN SOD (PORCINE) 5,000 UNIT/ML 1 ML VIAL SUBCUT SCH ×3 (05:49→23:26)
[2019-10-31] MEDS: PANTOPRAZOLE SODIUM 40 MG TABLET.DR PO SCH (05:49)
[2019-10-31] MEDS: DEXAMETHASONE SOD PHOSPHATE INJ 4 MG/1 ML VIAL IV SCH ×2 (05:49→17:13)
[2019-10-31] MEDS: INSULIN LISPRO 100 UNIT/ML 3 ML VIAL SUBCUT SCH ×4 (09:38→23:20)
[2019-10-31] MEDS: CALCIUM CARBONATE 600 MG TABLET PO SCH ×2 (09:39→23:25)
[2019-10-31] MEDS: METOPROLOL SUCCINATE 25 MG TAB.SR.24H PO SCH (09:39)
[2019-10-31] MEDS: AMLODIPINE BESYLATE 2.5 MG TABLET PO SCH (09:39)
[2019-10-31] MEDS: ASCORBIC ACID 500 MG TABLET PO SCH ×2 (09:39→17:13)
[2019-10-31] MEDS: CALCITRIOL 0.25 MCG CAPSULE PO SCH (09:39)
[2019-10-31] MEDS: ZINC SULFATE 220 MG CAPSULE PO SCH (09:39)
[2019-10-31] MEDS: MAGNESIUM OXIDE 400 MG TABLET PO SCH (09:39)
[2019-10-31] MEDS: VENLAFAXINE HCL 75 MG CAP.SR.24H PO SCH (09:39)
[2019-10-31] MEDS: MULTIVITAMIN TABLET PO SCH (09:39)
[2019-10-31] MEDS: ASPIRIN 81 MG TABLET, CHEWABLE PO SCH (09:39)
[2019-10-31] MEDS: CEFEPIME 1 GM/D5W RTU 1 GM/50 ML RTUPB IV SCH (09:40)
[2019-10-31] MEDS: NORMAL SALINE 1000 ML 1,000 ML IV PRN (09:47)
--- NOTE | 2019-10-31 15:45 | PDOC PROGRESS REPORT ---
Subjective Progress Note for:: 10/31/19 Subjective:: Patient seen by the bedside Reason For Visit: RECURRENT FALLS,RIGHT FEMORAL FRACTURE,PNEUMONIA, Physical Exam Vital Signs: Temp Pulse Resp BP Pulse Ox 98.2 F 77 16 112/72 93 10/31/19 08:37 10/31/19 14:00 10/31/19 08:37 10/31/19 08:37 10/31/19 08:37 Intake & Output 10/30/19 10/31/19 11/01/19 06:59 06:59 06:59 Intake Total 2617 1250 1050 Output Total 1250 1375 Balance 1367 -125 1050 Weight 79.7 kg 80.1 kg General appearance: PRESENT: no acute distress Eye exam: PRESENT: PERRLA Respiratory exam: PRESENT: clear to auscultation karrie Cardiovascular exam: PRESENT: +S1, +S2 GI/Abdominal exam: PRESENT: soft Neurological exam: PRESENT: alert Results Laboratory Results: 10/30/19 04:46 10/30/19 04:46 10/20/19 10/20/19 10/20/19 11:40 11:40 12:38 Creatine Kinase Cancelled 1513 H CK-MB (CK-2) Troponin I Cancelled NT-Pro-B Natriuret Pep 10/20/19 10/20/19 10/20/19 12:38 12:38 16:55 Creatine Kinase CK-MB (CK-2) Troponin I 0.122 0.111 NT-Pro-B Natriuret Pep 4610 H 10/27/19 10/27/19 02:31 02:31 Creatine Kinase 106 CK-MB (CK-2) 2.04 Troponin I 0.013 NT-Pro-B Natriuret Pep Impressions: Cervical Spine CT 10/20/19 12:18 IMPRESSION: No acute fracture or dislocation of the cervical spine. Multilevel spondylosis, degenerative disc disease, and facet arthropathy. Head CT 10/20/19 12:18 IMPRESSION: No acute intracranial hemorrhage, mass, or evidence of acute territorial infarct. EVIDENCE OF ACUTE STROKE: NO. Chest CT 10/20/19 12:21 IMPRESSION: 1. Although there is motion in the pelvis, there appears to be an acute impacted subcapital fracture of the right proximal femur. Further evaluation with dedicated two view radiograph is recommended. 2. Age-indeterminate moderate compression fracture at T12, however this is stable since 10/04/2019 radiograph. This may be subacute or chronic. No retropulsed fracture fragments. 3. Acute appearing fractures of the anterolateral left 8-10th ribs. 4. Patchy areas of consolidation with areas of nodular consolidation in both lungs, suggestive of infectious/ inflammatory process. Given nodular components, a follow-up CT of the chest in 3 months is recommended to confirm complete resolution. Commonly reported imaging features of COVID-19 pneumonia are present. Other processes such as influenza pneumonia and organizing pneu monia, as can be seen with drug toxicity and connective tissue disease, can cause a similar imaging pattern. 5. No evidence of acute traumatic solid organ or vascular injury in the chest, abdomen or pelvis. Abdomen/Pelvis CT 10/20/19 12:23 IMPRESSION: 1. Although there is motion in the pelvis, there appears to be an acute impacted subcapital fracture of the right proximal femur. Further evaluation with dedicated two view radiograph is recommended. 2. Age-indeterminate moderate compression fracture at T12, however this is stable since 10/04/2019 radiograph. This may be subacute or chronic. No retropulsed fracture fragments. 3. Acute appearing fractures of the anterolateral left 8-10th ribs. 4. Patchy areas of consolidation with areas of nodular consolidation in both lungs, suggestive of infectious/ inflammatory process. Given nodular components, a follow-up CT of the chest in 3 months is recommended to confirm complete resolution. Commonly reported imaging features of COVID-19 pneumonia are present. Other processes such as influenza pneumonia and organizing pneumonia, as can be seen with drug toxicity and connective tissue disease, can cause a similar imaging pattern. 5. No evidence of acute traumatic solid organ or vascular injury in the chest, a bdomen or pelvis. Hip/Pelvis X-Ray 10/20/19 14:33 IMPRESSION: 1. Acute subcapital fracture right femur. 2. Moderate osteopenia. Skeletal Survey 10/23/19 07:00 IMPRESSION: 1. Acute/subacute impacted fracture of the right femoral neck. 2. Findings as described. Chest X-Ray 10/28/19 00:00 IMPRESSION: Interval development of patchy opacity at the left lung base obscuring the left hemidiaphragm suspicious for infection. Recommend radiographic follow-up after appropriate treatment interval to document reso lution. Assessment & Plan - Diagnosis (1) Sepsis Qualifiers: Sepsis type: methicillin susceptible Staphylococcus aureus Sepsis acute organ dysfunction status: with acute organ dysfunction Severe sepsis acute organ dysfunction type: acute renal failure Acute renal failure type: with acute tubular necrosis Severe sepsis shock status: without septic shock Qualified Code(s): A41.01 - Sepsis due to Methicillin susceptible Staphylococcus aureus; R65.20 - Severe sepsis without septic shock; N17.0 - Acute kidney failure with tubular necrosis Is this a current diagnosis for this admission?: Yes (2) Pneumonia due to COVID-19 virus Is this a current diagnosis for this admission?: Yes (3) Staphylococcus aureus septicemia Is this a current diagnosis for this admission?: Yes (4) Acute kidney injury Is this a current diagnosis for this admission?: Yes (5) Multiple fractures of ribs of left side Qualifiers: Encounter type: initial encounter Fracture type: closed Qualified Code(s): S22.42XA - Multiple fractures of ribs, left side, initial encounter for closed fracture Is this a current diagnosis for this admission?: Yes (6) Compression fracture of T12 vertebra Qualifiers: Encounter type: initial encounter Qualified Code(s): S22.080A - Wedge compression fracture of T11-T12 vertebra, initial encounter for closed fracture Is this a current diagnosis for this admission?: Yes (7) Pathologic fracture Qualifiers: Pathology associated with fracture: osteoporosis Osteoporosis type: age- related Site of pathological fracture: vertebra Encounter type: initial encounter Qualified Code(s): M80.08XA - Age-related osteoporosis with current pathological fracture, vertebra(e), initial encounter for fracture Is this a current diagnosis for this admission?: Yes (8) Hypocalcemia Is this a current diagnosis for this admission?: Yes (9) Metabolic acidosis Is this a current diagnosis for this admission?: Yes (10) Subcapital fracture of right femur Qualifiers: Encounter type: initial encounter Fracture type: closed Qualified Code(s): S72.011A - Unspecified intracapsular fracture of right femur, initial encounter for closed fracture Is this a current diagnosis for this admission?: Yes Plan: Scheduled for ORIF tomorrow (11) Secondary hyperparathyroidism Is this a current diagnosis for this admission?: Yes (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
[2019-10-31] MEDS: TAMSULOSIN HCL 0.4 MG CAP.SR.24H PO SCH (17:13)
[2019-10-31] MEDS: SIMVASTATIN 10 MG TABLET PO SCH (23:25)
[2019-11-01] MEDS: NORMAL SALINE 1000 ML 1,000 ML IV PRN ×2 (00:33→09:34)
[2019-11-01] MEDS: HEPARIN SOD (PORCINE) 5,000 UNIT/ML 1 ML VIAL SUBCUT SCH ×3 (06:18→22:43)
[2019-11-01] MEDS: BUPROPION HCL 100 MG TABLET PO SCH ×3 (06:18→22:42)
[2019-11-01] MEDS: PANTOPRAZOLE SODIUM 40 MG TABLET.DR PO SCH (06:18)
[2019-11-01] MEDS: DEXAMETHASONE SOD PHOSPHATE INJ 4 MG/1 ML VIAL IV SCH (06:19)
[2019-11-01] MEDS: INSULIN LISPRO 100 UNIT/ML 3 ML VIAL SUBCUT SCH ×4 (09:14→22:43)
[2019-11-01] MEDS: ZINC SULFATE 220 MG CAPSULE PO SCH ×2 (09:32→13:26)
[2019-11-01] MEDS: METOPROLOL SUCCINATE 25 MG TAB.SR.24H PO SCH ×2 (09:32→13:26)
[2019-11-01] MEDS: ASCORBIC ACID 500 MG TABLET PO SCH ×3 (09:32→18:10)
[2019-11-01] MEDS: CALCIUM CARBONATE 600 MG TABLET PO SCH ×3 (09:33→22:42)
[2019-11-01] MEDS: ASPIRIN 81 MG TABLET, CHEWABLE PO SCH ×2 (09:33→13:25)
[2019-11-01] MEDS: MULTIVITAMIN TABLET PO SCH ×2 (09:33→13:27)
[2019-11-01] MEDS: CALCITRIOL 0.25 MCG CAPSULE PO SCH ×2 (09:33→13:25)
[2019-11-01] MEDS: VENLAFAXINE HCL 75 MG CAP.SR.24H PO SCH ×2 (09:33→13:27)
[2019-11-01] MEDS: AMLODIPINE BESYLATE 2.5 MG TABLET PO SCH ×2 (09:33→13:25)
[2019-11-01] MEDS: MAGNESIUM OXIDE 400 MG TABLET PO SCH ×2 (09:33→13:25)
[2019-11-01] MEDS: CEFEPIME 1 GM/D5W RTU 1 GM/50 ML RTUPB IV SCH (09:34)
--- NOTE | 2019-11-01 14:47 | RADIOLOGY REPORT (SQ) ---
EXAM DESCRIPTION: CHEST SINGLE VIEW IMAGES COMPLETED DATE/TIME: 11/01/2019 2:28 pm REASON FOR STUDY: pneumonia COMPARISON: 10/28/2019 NUMBER OF VIEWS: One view. TECHNIQUE: Single frontal radiographic image of the chest acquired. LIMITATIONS: None. FINDINGS: LUNGS AND PLEURA: Improved aeration left lower lobe with persistent elevation of the diaph ragm. Right lung is clear. MEDIASTINUM AND HEART: Stable heart size and mediastinal structures. BONY STRUCTURES: No acute findings. HARDWARE: None. OTHER: No other significant finding. IMPRESSION: Improving pneumonia. TECHNICAL DOCUMENTATION: JOB ID: [id number] Reading location - IP/workstation name: [email or web address]
--- NOTE | 2019-11-01 17:33 | Progress Note ---
Provider Note Provider Note: Notified this afternoon that patient's medical condition has stabilized and patient is able to undergo hemiarthroplasty of the right hip. Patient is scheduled for right hip hemiarthroplasty tomorrow. NPO post midnight.
[2019-11-01] MEDS: TAMSULOSIN HCL 0.4 MG CAP.SR.24H PO SCH (18:10)
--- NOTE | 2019-11-01 19:01 | PDOC PROGRESS REPORT ---
Subjective Progress Note for:: 11/01/19 Subjective:: Patient has finished treatment for SARS-CoV-2, is scheduled for right hemiarthroplasty tomorrow, Chest x-ray showed improved left lower lobe, right lung is clear Reason For Visit: RECURRENT FALLS,RIGHT FEMORAL FRACTURE,PNEUMONIA, Physical Exam Vital Signs: Temp Pulse Resp BP Pulse Ox 98.2 F 81 19 151/81 H 95 11/01/19 15:48 11/01/19 15:48 11/01/19 15:48 11/01/19 15:48 11/01/19 15:48 Intake & Output 10/31/19 11/01/19 11/02/19 06:59 06:59 06:59 Intake Total 1250 2790 1252 Output Total 1375 775 Balance -125 2015 1252 Weight 80.1 kg 82.3 kg General appearance: PRESENT: no acute distress Eye exam: PRESENT: PERRLA Respiratory exam: PRESENT: clear to auscultation karrie Cardiovascular exam: PRESENT: +S1, +S2 Neurological exam: PRESENT: alert Results Laboratory Results: 10/30/19 04:46 10/30/19 04:46 10/20/19 10/20/19 10/20/19 11:40 11:40 12:38 Creatine Kinase Cancelled 1513 H CK-MB (CK-2) Troponin I Cancelled NT-Pro-B Natriuret Pep 10/20/19 10/20/19 10/20/19 12:38 12:38 16:55 Creatine Kinase CK-MB (CK-2) Troponin I 0.122 0.111 NT-Pro-B Natriuret Pep 4610 H 10/27/19 10/27/19 02:31 02:31 Creatine Kinase 106 CK-MB (CK-2) 2.04 Troponin I 0.013 NT-Pro-B Natriuret Pep Impressions: Cervical Spine CT 10/20/19 12:18 IMPRESSION: No acute fracture or dislocation of the cervical spine. Multilevel spondylosis, degenerative disc disease, and facet arthropathy. Head CT 10/20/19 12:18 IMPRESSION: No acute intracranial hemorrhage, mass, or evidence of acute territorial infarct. EVIDENCE OF ACUTE STROKE: NO. Chest CT 10/20/19 12:21 IMPRESSION: 1. Although there is motion in the pelvis, there appears to be an acute impacted subcapital fracture of the right proximal femur. Further evaluation with dedicated two view radiograph is recommended. 2. Age-indeterminate moderate compression fracture at T12, however this is stable since 10/04/2019 radiograph. This may be subacute or chronic. No retro pulsed fracture fragments. 3. Acute appearing fractures of the anterolateral left 8-10th ribs. 4. Patchy areas of consolidation with areas of nodular consolidation in both lungs, suggestive of infectious/ inflammatory process. Given nodular components, a follow-up CT of the chest in 3 months is recommended to confirm complete resolution. Commonly reported imaging features of COVID-19 pneumonia are present. Other processes such as influenza pneumonia and organizing pneumonia, as can be seen with drug toxicity and connective tissue disease, can cause a similar imaging pattern. 5. No evidence of acute traumatic solid organ or vascular injury in the chest, abdomen or pelvis. Abdomen/Pelvis CT 10/20/19 12:23 IMPRESSION: 1. Although there is motion in the pelvis, there appears to be an acute impacted subcapital fracture of the right proximal femur. Further evaluation with dedicated two view radiograph is recommended. 2. Age-indeterminate moderate compression fracture at T12, however this is stable since 10/04/2019 radiograph. This may be subacute or chronic. No retropulsed fracture fragments. 3. Acute appearing fractures of the anterolateral left 8-10th ribs. 4. Patchy areas of consolidation with areas of nodular consolidation in both lungs, suggestive of infectious/ inflammatory process. Given nodular components, a follow-up CT of the chest in 3 months is recommended to confirm complete resolution. Commonly reported imaging features of COVID-19 pneumonia are present. Other processes such as influenza pneumonia and organizing pneumonia, as can be seen with drug toxicity and connective tissue disease, can cause a similar imaging pattern. 5. No evidence of acute traumatic solid organ or vascular injury in the chest, abdomen or pelvis. Hip/Pelvis X-Ray 10/20/19 14:33 IMPRESSION: 1. Acute subcapital fracture right femur. 2. Moderate osteopenia. Skeletal Survey 10/23/19 07:00 IMPRESSION: 1. Acute/subacute impacted fracture of the right femoral neck. 2. Findings as described. Chest X-Ray 11/01/19 00:00 IMPRESSION: Improving pneumonia. Assessment & Plan - Diagnosis (1) Sepsis Qualifiers: Sepsis type: methicillin susceptible Staphylococcus aureus Sepsis acute organ dysfunction status: with acute organ dysfunction Severe sepsis acute organ dysfunction type: acute renal failure Acute renal failure type: with acute tubular necrosis Severe sepsis shock status: without septic shock Qualified Code(s): A41.01 - Sepsis due to Methicillin susceptible Staphylococcus aureus; R65.20 - Severe sepsis without septic shock; N17.0 - Acute kidney failure with tubular necrosis Is this a current diagnosis for this admission?: Yes (2) Pneumonia due to COVID-19 virus Is this a current diagnosis for this admission?: Yes (3) Staphylococcus aureus septicemia Is this a current diagnosis for this admission?: Yes (4) Acute kidney injury Is this a current diagnosis for this admission?: Yes (5) Multiple fractures of ribs of left side Qualifiers: Encounter type: initial encounter Fracture type: closed Qualified Code(s): S22.42XA - Multiple fractures of ribs, left side, initial encounter for closed fracture Is this a current diagnosis for this admission?: Yes (6) Compression fracture of T12 vertebra Qualifiers: Encounter type: initial encounter Qualified Code(s): S22.080A - Wedge compression fracture of T11-T12 vertebra, initial encounter for closed fracture Is this a current diagnosis for this admission?: Yes (7) Pathologic fracture Qualifiers: Pathology associated with fracture: osteoporosis Osteoporosis type: age- related Site of pathological fracture: vertebra Encounter type: initial encounter Qualified Code(s): M80.08XA - Age-related osteoporosis with current pathological fracture, vertebra(e), initial encounter for fracture Is this a current diagnosis for this admission?: Yes (8) Hypocalcemia Is this a current diagnosis for this admission?: Yes (9) Metabolic acidosis Is this a current diagnosis for this admission?: Yes (10) Subcapital fracture of right femur Qualifiers: Encounter type: initial encounter Fracture type: closed Qualified Code(s): S72.011A - Unspecified intracapsular fracture of right femur, initial encounter for closed fracture Is this a current diagnosis for this admission?: Yes (11) Secondary hyperparathyroidism Is this a current diagnosis for this admission?: Yes (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
[2019-11-01] MEDS: SIMVASTATIN 10 MG TABLET PO SCH (22:42)
[2019-11-02] MEDS: PANTOPRAZOLE SODIUM 40 MG TABLET.DR PO SCH (05:17)
[2019-11-02] MEDS: BUPROPION HCL 100 MG TABLET PO SCH ×3 (05:17→22:07)
[2019-11-02] MEDS: HEPARIN SOD (PORCINE) 5,000 UNIT/ML 1 ML VIAL SUBCUT SCH ×3 (05:17→22:18)
[2019-11-02] MEDS: NORMAL SALINE 1000 ML 1,000 ML IV PRN (05:31)
[2019-11-02] MEDS ORDERED: MIDAZOLAM 2 MG/2 ML INJ ONE (06:28)
[2019-11-02] MEDS ORDERED: FENTANYL CITRATE INJ/PF 100 MCG/2 ML AMPUL ONE (06:28)
[2019-11-02] MEDS ORDERED: ONDANSETRON HCL INJ/PF 4 MG/2 ML SDV ONE (06:28)
[2019-11-02] MEDS ORDERED: PROPOFOL INJ 200 MG/20 ML VIAL IV ONE (06:29)
[2019-11-02] MEDS: MULTIVITAMIN TABLET PO SCH (08:49)
[2019-11-02] MEDS: VENLAFAXINE HCL 75 MG CAP.SR.24H PO SCH (08:49)
[2019-11-02] MEDS: INSULIN LISPRO 100 UNIT/ML 3 ML VIAL SUBCUT SCH ×4 (08:49→22:06)
[2019-11-02] MEDS: CALCIUM CARBONATE 600 MG TABLET PO SCH ×2 (09:20→22:07)
[2019-11-02] MEDS: ASPIRIN 81 MG TABLET, CHEWABLE PO SCH (09:20)
[2019-11-02] MEDS: MAGNESIUM OXIDE 400 MG TABLET PO SCH (09:20)
[2019-11-02] MEDS: AMLODIPINE BESYLATE 2.5 MG TABLET PO SCH (09:20)
[2019-11-02] MEDS: METOPROLOL SUCCINATE 25 MG TAB.SR.24H PO SCH (09:21)
[2019-11-02] MEDS: ZINC SULFATE 220 MG CAPSULE PO SCH (09:21)
[2019-11-02] MEDS: CALCITRIOL 0.25 MCG CAPSULE PO SCH (09:21)
[2019-11-02] MEDS: ASCORBIC ACID 500 MG TABLET PO SCH ×2 (09:21→17:26)
[2019-11-02] MEDS ORDERED: BACITRACIN INJ 50,000 UNIT VIAL ONE (09:24)
[2019-11-02 09:55] LABS: HEMATOCRIT 31.8 % (37.9-51.0); HEMOGLOBIN 10.8 g/dL (13.5-17.0); MEAN CORPUSCULAR HEMOGLOBIN 31.4 pg (27.0-33.4); MEAN CORPUSCULAR HGB CONC 33.8 g/dL (32.0-36.0); MEAN CORPUSCULAR VOLUME 93 fl (80-97); PLATELET COUNT 152 10^3/uL (150-450); RED BLOOD COUNT 3.42 10^6/uL (4.35-5.55); RED CELL DISTRIBUTION WIDTH 14.5 % (11.5-14.0); WHITE BLOOD COUNT 11.7 10^3/uL (4.0-10.5)
[2019-11-02 10:11] LABS: ALBUMIN 2.4 g/dL (3.5-5.0); ALKALINE PHOSPHATASE 62 U/L (38-126); ANION GAP 8 (5-19); ASPARTATE AMINO TRANSFERASE 21 U/L (17-59); BILIRUBIN,DIRECT 0.3 mg/dL (0.0-0.4); BILIRUBIN,TOTAL 0.6 mg/dL (0.2-1.3); BLOOD UREA NITROGEN 33 mg/dL (7-20); CARBON DIOXIDE 24 mmol/L (22-30); CHLORIDE 112 mmol/L (98-107); GLUCOSE 92 mg/dL (75-110); TOTAL PROTEIN 4.9 g/dL (6.3-8.2)
[2019-11-02 10:15] LABS: CALCIUM 6.1 mg/dL (8.4-10.2); POTASSIUM 2.8 mmol/L (3.6-5.0)
[2019-11-02 10:23] LABS: ABSOLUTE LYMPHOCYTES# (MANUAL) 0.6 10^3/uL (0.5-4.7); ABSOLUTE MONOCYTES # (MANUAL) 0.7 10^3/uL (0.1-1.4); BASOPHILS % (MANUAL) 0 % (0-2); EOSINOPHILS % (MANUAL) 1 % (0-6); LYMPHOCYTES % (MANUAL) 5 % (13-45); MONOCYTES % (MANUAL) 6 % (3-13); NUCLEATED RED BLOOD CELLS 1 /100 WBC (0); SEGMENTED NEUTROPHILS % (MAN) 88 % (42-78); TOTAL CELLS COUNTED 100
[2019-11-02 10:24] LABS: ANISOCYTOSIS SLIGHT; BURR CELLS SLIGHT; PLATELET COMMENT ADEQUATE; TEAR DROP CELLS SLIGHT
--- NOTE | 2019-11-02 11:18 | PDOC PROGRESS REPORT ---
Subjective Progress Note for:: 11/02/19 Subjective:: Surgery cancelled by anesthesia due to electrolyte abnormality. Reason For Visit: RECURRENT FALLS,RIGHT FEMORAL FRACTURE,PNEUMONIA, right hip femoral neck fracture Physical Exam Vital Signs: Temp Pulse Resp BP Pulse Ox 97.5 F 66 16 166/90 H 97 11/02/19 08:00 11/02/19 07:00 11/02/19 08:00 11/02/19 08:00 11/02/19 03:26 Intake & Output 11/01/19 11/02/19 11/03/19 06:59 06:59 06:59 Intake Total 2790 2072 Output Total 775 1070 Balance 2014 1001 Weight 82.3 kg 82.6 kg Results Laboratory Results: 11/02/19 09:20 11/02/19 09:20 11/02/19 11/02/19 09:20 09:20 WBC 11.7 H RBC 3.42 L Hgb 10.8 L Hct 31.8 L MCV 93 MCH 31.4 MCHC 33.8 RDW 14.5 H Plt Count 152 Seg Neutrophils % Not Reportable Sodium 144.4 Potassium 2.8 L* Chloride 112 H Carbon Dioxide 24 Anion Gap 8 BUN 33 H Creatinine 1.20 Est GFR ( Amer) > 60 Glucose 92 Calcium 6.1 L* Total Bilirubin 0.6 AST 21 Alkaline Phosphatase 62 Total Protein 4.9 L Albumin 2.4 L 10/20/19 10/20/19 10/20/19 11:40 11:40 12:38 Creatine Kinase Cancelled 1513 H CK-MB (CK-2) Troponin I Cancelled NT-Pro-B Natriuret Pep 10/20/19 10/20/19 10/20/19 12:38 12:38 16:55 Creatine Kinase CK-MB (CK-2) Troponin I 0.122 0.111 NT-Pro-B Natriuret Pep 4610 H 10/27/19 10/27/19 02:31 02:31 Creatine Kinase 106 CK-MB (CK-2) 2.04 Troponin I 0.013 NT-Pro-B Natriuret Pep Impressions: Cervical Spine CT 10/20/19 12:18 IMPRESSION: No acute fracture or dislocation of the cervical spine. Multilevel spondylosis, degenerative disc disease, and facet arthropathy. Head CT 10/20/19 12:18 IMPRESSION: No acute intracranial hemorrhage, mass, or evidence of acute territorial infarct. EVIDENCE OF ACUTE STROKE: NO. Chest CT 10/20/19 12:21 IMPRESSION: 1. Although there is motion in the pelvis, there appears to be an acute impacted subcapital fracture of the right proximal femur. Further evaluation with dedicated two view radiograph is recommended. 2. Age-indeterminate moderate compression fracture at T12, however this is stable since 10/04/2019 radiograph. This may be subacute or chronic. No retropulsed fracture fragments. 3. Acute appearing fractures of the anterolateral left 8-10th ribs. 4. Patchy areas of consolidation with areas of nodular consolidation in both lungs, suggestive of infectious/ inflammatory process. Given nodular components, a follow-up CT of the chest in 3 months is recommended to confirm complete resolution. Commonly reported imaging features of COVID-19 pneumonia are present. Other processes such as influenza pneumonia and organizing pneumonia, as can be seen with drug toxicity and connective tissue disease, can cause a similar imaging pattern. 5. No evidence of acute traumatic solid organ or vascular injury in the chest, abdomen or pelvis. Abdomen/Pelvis CT 10/20/19 12:23 IMPRESSION: 1. Although there is motion in the pelvis, there appears to be an acute impacted subcapital fracture of the right proximal femur. Further evaluation with dedicated two view radiograph is recommended. 2. Age-indeterminate moderate compression fracture at T12, however this is stable since 10/04/2019 radiograph. This may be subacute or chronic. No retropulsed fracture fragments. 3. Acute appearing fractures of the anterolateral left 8-10th ribs. 4. Patchy areas of consolidation with areas of nodular consolidation in both lungs, suggestive of infectious/ inflammatory process. Given nodular components, a follow-up CT of the chest in 3 months is recommended to confirm complete resolution. Commonly reported imaging features of COVID-19 pneumonia are present. Other processes such as influenza pneumonia and organizing pneumonia, as can be seen with drug toxicity and connective tissue disease, can cause a similar imaging pattern. 5. No evidence of acute traumatic solid organ or vascular injury in the chest, abdomen or pelvis. Hip/Pelvis X-Ray 10/20/19 14:33 IMPRESSION: 1. Acute subcapital fracture right femur. 2. Moderate osteopenia. Skeletal Survey 10/23/19 07:00 IMPRESSION: 1. Acute/subacute impacted fracture of the right femoral neck. 2. Findings as described. Chest X-Ray 11/01/19 00:00 IMPRESSION: Improving pneumonia. Assessment & Plan - Diagnosis (1) ARF (acute renal failure) Qualifiers: Acute renal failure type: unspecified Qualified Code(s): N17.9 - Acute kidney failure, unspecified Is this a current diagnosis for this admission?: Yes (4) Hypocalcemia Is this a current diagnosis for this admission?: Yes (6) Hypokalemia Is this a current diagnosis for this admission?: Yes (7) Subcapital fracture of right femur Qualifiers: Encounter type: initial encounter Fracture type: closed Qualified Code(s): S72.011A - Unspecified intracapsular fracture of right femur, initial encounter for closed fracture Is this a current diagnosis for this admission?: Yes - Time Critical Time spent with patient: Less than 15 minutes Anticipated Discharge Disposition: [facility] Facility Anticipated Discharge Timeframe: Following medical optimization and performance of right hip hemiarthroplasty - Plan Summary Plan Summary: Patient was scheduled for surgery this morning as he had been cleared by his [facility] team to undergo hemiarthroplasty. The patient was brought down to the operating room and the team was ready to perform the procedure. The surgery was cancelled by the anesthesiologist due to significant electrolyte abnormalities that prohibited anesthesia. Surgery has been scheduled for next week. This will provide the medical team adequate time to optimize the patient for a right hip hemiarthroplasty.
[2019-11-02] MEDS: CEFEPIME 1 GM/D5W RTU 1 GM/50 ML RTUPB IV SCH (11:44)
[2019-11-02] MEDS: POTASSI CL 20 MEQ/50 ML RIDER 20 MEQ/50 ML RTUPB IV SCH ×3 (13:47→20:19)
[2019-11-02] MEDS: TAMSULOSIN HCL 0.4 MG CAP.SR.24H PO SCH (17:26)
--- NOTE | 2019-11-02 20:50 | PDOC PROGRESS REPORT ---
Subjective Progress Note for:: 11/02/19 Subjective:: Patient was supposed to have ORIF of the right hip joint today but the anesthesiologist canceled the procedure because of hypokalemia Reason For Visit: RECURRENT FALLS,RIGHT FEMORAL FRACTURE,PNEUMONIA, Physical Exam Vital Signs: Temp Pulse Resp BP Pulse Ox 98.0 F 75 14 157/87 H 95 11/02/19 15:56 11/02/19 15:56 11/02/19 15:56 11/02/19 15:56 11/02/19 15:56 Intake & Output 11/01/19 11/02/19 11/03/19 06:59 06:59 06:59 Intake Total 2790 2072 410 Output Total 775 1070 600 Balance 2014 1002 -190 Weight 82.3 kg 82.6 kg Results Laboratory Results: 11/02/19 09:20 11/02/19 09:20 11/02/19 11/02/19 09:20 09:20 WBC 11.7 H RBC 3.42 L Hgb 10.8 L Hct 31.8 L MCV 93 MCH 31.4 MCHC 33.8 RDW 14.5 H Plt Count 152 Seg Neutrophils % Not Reportable Sodium 144.4 Potassium 2.8 L* Chloride 112 H Carbon Dioxide 24 Anion Gap 8 BUN 33 H Creatinine 1.20 Est GFR ( Amer) > 60 Glucose 92 Calcium 6.1 L* Total Bilirubin 0.6 AST 21 Alkaline Phosphatase 62 Total Protein 4.9 L Albumin 2.4 L 10/20/19 10/20/19 10/20/19 11:40 11:40 12:38 Creatine Kinase Cancelled 1513 H CK-MB (CK-2) Troponin I Cancelled NT-Pro-B Natriuret Pep 10/20/19 10/20/19 10/20/19 12:38 12:38 16:55 Creatine Kinase CK-MB (CK-2) Troponin I 0.122 0.111 NT-Pro-B Natriuret Pep 4610 H 10/27/19 10/27/19 02:31 02:31 Creatine Kinase 106 CK-MB (CK-2) 2.04 Troponin I 0.013 NT-Pro-B Natriuret Pep Impressions: Cervical Spine CT 10/20/19 12:18 IMPRESSION: No acute fracture or dislocation of the cervical spine. Multilevel spondylosis, degenerative disc disease, and facet arthropathy. Head CT 10/20/19 12:18 IMPRESSION: No acute intracranial hemorrhage, mass, or evidence of acute territorial infarct. EVIDENCE OF ACUTE STROKE: NO. Chest CT 10/20/19 12:21 IMPRESSION: 1. Although there is motion in the pelvis, there appears to be an acute impacted subcapital fracture of the right proximal femur. Further evaluation with dedicated two view radiograph is recommended. 2. Age-indeterminate moderate compression fracture at T12, however this is stable since 10/04/2019 radiograph. This may be subacute or chronic. No retropulsed fracture fragments. 3. Acute appearing fractures of the anterolateral left 8-10th ribs. 4. Patchy areas of consolidation with areas of nodular consolidation in both lungs, suggestive of infectious/ inflammatory process. Given nodular components, a follow-up CT of the chest in 3 months is recommended to confirm complete resolution. Commonly reported imaging features of COVID-19 pneumonia are present. Other processes such as influenza pneumonia and organizing pneumonia, as can be seen with drug toxicity and connective tissue disease, can cause a similar imaging pattern. 5. No evidence of acute traumatic solid organ or vascular injury in the chest, abdomen or pelvis. Abdomen/Pelvis CT 10/20/19 12:23 IMPRESSION: 1. Although there is motion in the pelvis, there appears to be an acute impacted subcapital fracture of the right proximal femur. Further evaluation with ded icated two view radiograph is recommended. 2. Age-indeterminate moderate compression fracture at T12, however this is stable since 10/04/2019 radiograph. This may be subacute or chronic. No retropulsed fracture fragments. 3. Acute appearing fractures of the anterolateral left 8-10th ribs. 4. Patchy areas of consolidation with areas of nodular consolidation in both lungs, suggestive of infectious/ inflammatory process. Given nodular components, a follow-up CT of the chest in 3 months is recommended to confirm complete resolution. Commonly reported imaging features of COVID-19 pneumonia are present. Other processes such as influenza pneumonia and organizing pneumonia, as can be seen with drug toxicity and connective tissue disease, can cause a similar imaging pattern. 5. No evidence of acute traumatic solid organ or vascular injury in the chest, abdomen or pelvis. Hip/Pelvis X-Ray 10/20/19 14:33 IMPRESSION: 1. Acute subcapital fracture right femur. 2. Moderate osteopenia. Skeletal Survey 10/23/19 07:00 IMPRESSION: 1. Acute/subacute impacted fracture of the right femoral neck. 2. Findings as described. Chest X-Ray 11/01/19 00:00 IMPRESSION: Improving pneumonia. Assessment & Plan - Diagnosis (1) Sepsis Qualifiers: Sepsis type: methicillin susceptible Staphylococcus aureus Sepsis acute organ dysfunction status: with acute organ dysfunction Severe sepsis acute organ dysfunction type: acute renal failure Acute renal failure type: with acute tubular necrosis Severe sepsis shock status: without septic shock Qualified Code(s): A41.01 - Sepsis due to Methicillin susceptible Staphylococcus aureus; R65.20 - Severe sepsis without septic shock; N17.0 - Acute kidney f ailure with tubular necrosis Is this a current diagnosis for this admission?: Yes (2) Pneumonia due to COVID-19 virus Is this a current diagnosis for this admission?: Yes (3) Staphylococcus aureus septicemia Is this a current diagnosis for this admission?: Yes (4) Acute kidney injury Is this a current diagnosis for this admission?: Yes Plan: improved (5) Multiple fractures of ribs of left side Qualifiers: Encounter type: initial encounter Fracture type: closed Qualified Code(s): S22.42XA - Multiple fractures of ribs, left side, initial encounter for closed fracture Is this a current diagnosis for this admission?: Yes (6) Compression fracture of T12 vertebra Qualifiers: Encounter type: initial encounter Qualified Code(s): S22.080A - Wedge compression fracture of T11-T12 vertebra, initial encounter for closed fracture Is this a current diagnosis for this admission?: Yes Plan: due to osteoporosis (7) Pathologic fracture Qualifiers: Pathology associated with fracture: osteoporosis Osteoporosis type: age- related Site of pathological fracture: vertebra Encounter type: initial encounter Qualified Code(s): M80.08XA - Age-related osteoporosis with current pathological fracture, vertebra(e), initial encounter for fracture Is this a current diagnosis for this admission?: Yes Plan: He has osteoporotic fracture (8) Hypocalcemia Is this a current diagnosis for this admission?: Yes Plan: This is secondary to CKD (9) Metabolic acidosis Is this a current diagnosis for this admission?: Yes Plan: Resolved (10) Subcapital fracture of right femur Qualifiers: Encounter type: initial encounter Fracture type: closed Qualified Code(s): S72.011A - Unspecified intracapsular fracture of right femur, initial encounter for closed fracture Is this a current diagnosis for this admission?: Yes Plan: per orthopedics (11) Secondary hyperparathyroidism Is this a current diagnosis for this admission?: Yes (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
[2019-11-02 21:38] LABS: ALBUMIN 2.6 g/dL (3.5-5.0); ALKALINE PHOSPHATASE 65 U/L (38-126); ANION GAP 7 (5-19); ASPARTATE AMINO TRANSFERASE 20 U/L (17-59); BILIRUBIN,DIRECT 0.4 mg/dL (0.0-0.4); BILIRUBIN,TOTAL 0.6 mg/dL (0.2-1.3); BLOOD UREA NITROGEN 31 mg/dL (7-20); CARBON DIOXIDE 25 mmol/L (22-30); CHLORIDE 112 mmol/L (98-107); GLUCOSE 153 mg/dL (75-110); TOTAL PROTEIN 5.2 g/dL (6.3-8.2)
[2019-11-02 21:51] LABS: POTASSIUM 2.9 mmol/L (3.6-5.0)
[2019-11-02] MEDS: SIMVASTATIN 10 MG TABLET PO SCH (22:07)
[2019-11-03] MEDS: NORMAL SALINE 1000 ML 1,000 ML IV PRN ×2 (02:52→13:19)
[2019-11-03] MEDS: BUPROPION HCL 100 MG TABLET PO SCH ×3 (05:49→22:01)
[2019-11-03] MEDS: PANTOPRAZOLE SODIUM 40 MG TABLET.DR PO SCH (05:49)
[2019-11-03] MEDS: HEPARIN SOD (PORCINE) 5,000 UNIT/ML 1 ML VIAL SUBCUT SCH ×3 (05:50→22:06)
[2019-11-03] MEDS: INSULIN LISPRO 100 UNIT/ML 3 ML VIAL SUBCUT SCH ×4 (07:58→22:02)
[2019-11-03] MEDS: VENLAFAXINE HCL 75 MG CAP.SR.24H PO SCH (08:23)
[2019-11-03] MEDS: MULTIVITAMIN TABLET PO SCH (08:23)
[2019-11-03 08:59] LABS: ALBUMIN 2.5 g/dL (3.5-5.0); ALKALINE PHOSPHATASE 63 U/L (38-126); ANION GAP 8 (5-19); ASPARTATE AMINO TRANSFERASE 20 U/L (17-59); BILIRUBIN,DIRECT 0.3 mg/dL (0.0-0.4); BILIRUBIN,TOTAL 0.6 mg/dL (0.2-1.3); BLOOD UREA NITROGEN 29 mg/dL (7-20); CARBON DIOXIDE 26 mmol/L (22-30); CHLORIDE 112 mmol/L (98-107); GLUCOSE 75 mg/dL (75-110); TOTAL PROTEIN 4.9 g/dL (6.3-8.2)
[2019-11-03 09:10] LABS: POTASSIUM 2.7 mmol/L (3.6-5.0)
[2019-11-03] MEDS: POTASSIUM CHLORIDE 20 MEQ/50 ML RTU IV SCH ×3 (10:11→14:21)
[2019-11-03] MEDS: ASPIRIN 81 MG TABLET, CHEWABLE PO SCH (10:12)
[2019-11-03] MEDS: METOPROLOL SUCCINATE 25 MG TAB.SR.24H PO SCH (10:12)
[2019-11-03] MEDS: AMLODIPINE BESYLATE 2.5 MG TABLET PO SCH (10:12)
[2019-11-03] MEDS: ZINC SULFATE 220 MG CAPSULE PO SCH (10:12)
[2019-11-03] MEDS: MAGNESIUM OXIDE 400 MG TABLET PO SCH (10:12)
[2019-11-03] MEDS: ASCORBIC ACID 500 MG TABLET PO SCH ×2 (10:12→17:13)
[2019-11-03] MEDS: CALCIUM CARBONATE 600 MG TABLET PO SCH ×2 (10:12→22:01)
[2019-11-03] MEDS: CALCITRIOL 0.25 MCG CAPSULE PO SCH (10:12)
[2019-11-03] MEDS ORDERED: MAGNESIUM SULFATE/D5W 1 GM/100 ML RTUPB IV SCH (10:30)
[2019-11-03] MEDS: MAGNESIUM SULFATE 1 GM/D5W 100 ML IV SCH ×2 (10:52→11:57)
[2019-11-03] MEDS: TAMSULOSIN HCL 0.4 MG CAP.SR.24H PO SCH (17:13)
--- NOTE | 2019-11-03 20:28 | PDOC PROGRESS REPORT ---
Subjective Progress Note for:: 11/03/19 Subjective:: Patient still awaiting surgery due to electrolyte imbalance. No reported fever or chills. No chest pain or difficulty with breathing. No nausea, vomiting, or abdominal pain. Reason For Visit: RECURRENT FALLS,RIGHT FEMORAL FRACTURE,PNEUMONIA, Physical Exam Vital Signs: Temp Pulse Resp BP Pulse Ox 98.5 F 84 20 145/90 H 92 11/03/19 15:34 11/03/19 15:34 11/03/19 15:34 11/03/19 15:34 11/03/19 15:34 Intake & Output 11/02/19 11/03/19 11/04/19 06:59 06:59 06:59 Intake Total 2072 1510 1590 Output Total 1070 1200 900 Balance 1002 310 690 Weight 82.6 kg 70.9 kg 70.9 kg Physical Exam: General appearance: PRESENT: no acute distress Head exam: PRESENT: atraumatic, normocephalic Eye exam: PRESENT: conjunctiva pink. ABSENT: pallor, sclera icterus Mouth exam: PRESENT: moist Respiratory exam: PRESENT: clear to auscultation karrie Cardiovascular exam: PRESENT: RRR, +S1, +S2. ABSENT: diastolic murmur, rubs, systolic murmur GI/Abdominal exam: PRESENT: normal bowel sounds, soft. ABSENT: tenderness Musculoskeletal exam: PRESENT: deformity - external rotation of right lower extremity, tenderness - right hip joint Neurological exam: PRESENT: alert, awake, oriented to person, oriented to place, oriented to time, oriented to situation, CN II-XII grossly intact. ABSENT: motor sensory deficit Psychiatric exam: PRESENT: appropriate affect, normal mood. ABSENT: homicidal ideation, suicidal ideation Skin exam: PRESENT: dry, warm Results Laboratory Results: 11/02/19 09:20 11/03/19 08:15 11/02/19 11/03/19 11/03/19 21:14 08:15 08:15 Sodium 144.3 145.7 H Potassium 2.9 L* 2.7 L* Chloride 112 H 112 H Carbon Dioxide 25 26 Anion Gap 7 8 BUN 31 H 29 H Creatinine 1.19 1.24 Est GFR ( Amer) > 60 > 60 Glucose 153 H 75 Calcium 6.0 L* 6.0 L* Magnesium 1.1 L* Total Bilirubin 0.6 0.6 AST 20 20 Alkaline Phosphatase 65 63 Total Protein 5.2 L 4.9 L Albumin 2.6 L 2.5 L 10/20/19 10/20/19 10/20/19 11:40 11:40 12:38 Creatine Kinase Cancelled 1513 H CK-MB (CK-2) Troponin I Cancelled NT-Pro-B Natriuret Pep 10/20/19 10/20/19 10/20/19 12:38 12:38 16:55 Creatine Kinase CK-MB (CK-2) Troponin I 0.122 0.111 NT-Pro-B Natriuret Pep 4610 H 10/27/19 10/27/19 02:31 02:31 Creatine Kinase 106 CK-MB (CK-2) 2.04 Troponin I 0.013 NT-Pro-B Natriuret Pep Impressions: Cervical Spine CT 10/20/19 12:18 IMPRESSION: No acute fracture or dislocation of the cervical spine. Multilevel spondylosis, degenerative disc disease, and facet arthropathy. Head CT 10/20/19 12:18 IMPRESSION: No acute intracranial hemorrhage, mass, or evidence of acute territorial infarct. EVIDENCE OF ACUTE STROKE: NO. Chest CT 10/20/19 12:21 IMPRESSION: 1. Although there is motion in the pelvis, there appears to be an acute impacted subcapital fracture of the right proximal femur. Further evaluation with dedicated two view radiograph is recommended. 2. Age-indeterminate moderate compression fracture at T12, however this is s table since 10/04/2019 radiograph. This may be subacute or chronic. No retropulsed fracture fragments. 3. Acute appearing fractures of the anterolateral left 8-10th ribs. 4. Patchy areas of consolidation with areas of nodular consolidation in both lungs, suggestive of infectious/ inflammatory process. Given nodular components, a follow-up CT of the chest in 3 months is recommended to confirm complete resolution. Commonly reported imaging features of COVID-19 pneumonia are present. Other processes such as influenza pneumonia and organizing pneumonia, as can be seen with drug toxicity and connective tissue disease, can cause a similar imaging pattern. 5. No evidence of acute traumatic solid organ or vascular injury in the chest, abdomen or pelvis. Abdomen/Pelvis CT 10/20/19 12:23 IMPRESSION: 1. Although there is motion in the pelvis, there appears to be an acute impacted subcapital fracture of the right proximal femur. Further evaluation with dedicated two view radiograph is recommended. 2. Age-indeterminate moderate compression fracture at T12, however this is stable since 10/04/2019 radiograph. This may be subacute or chronic. No retropulsed fracture fragments. 3. Acute appearing fractures of the anterolateral left 8-10th ribs. 4. Patchy areas of consolidation with areas of nodular consolidation in both lungs, suggestive of infectious/ inflammatory process. Given nodular components, a follow-up CT of the chest in 3 months is recommended to confirm complete resolution. Commonly reported imaging features of COVID-19 pneumonia are present. Other processes such as influenza pneumonia and organizing pneumonia, as can be seen with drug toxicity and connective tissue disease, can cause a similar imaging pattern. 5. No evidence of acute traumatic solid organ or vascular injury in the chest, abdomen or pelvis. Hip/Pelvis X-Ray 10/20/19 14:33 IMPRESSION: 1. Acute subcapital fracture right femur. 2. Moderate osteopenia. Skeletal Survey 10/23/19 07:00 IMPRESSION: 1. Acute/subacute impacted fracture of the right femoral neck. 2. Findings as described. Chest X-Ray 11/01/19 00:00 IMPRESSION: Improving pneumonia. Assessment & Plan - Diagnosis (1) Recurrent falls Is this a current diagnosis for this admission?: Yes (2) Subcapital fracture of right femur Qualifiers: Encounter type: initial encounter Fracture type: closed Qualified Code(s): S72.011A - Unspecified intracapsular fracture of right femur, initial encounter for closed fracture Is this a current diagnosis for this admission?: Yes (3) Pneumonia due to COVID-19 virus Is this a current diagnosis for this admission?: Yes Plan: Continue current supportive care. (4) ARF (acute renal failure) Qualifiers: Acute renal failure type: unspecified Qualified Code(s): N17.9 - Acute kidney failure, unspecified Is this a current diagnosis for this admission?: Yes Plan: Improved renal indices. (5) Hypocalcemia Is this a current diagnosis for this admission?: Yes Plan: Replacement therapy in progress. Repeat BMP in AM. (6) Hypokalemia Is this a current diagnosis for this admission?: Yes Plan: Replacement therapy in progress. Repeat BMP in AM. (7) Hypomagnesemia Is this a current diagnosis for this admission?: Yes Plan: Replacement therapy in progress. Repeat BMP in AM. (8) Left rib fracture Qualifiers: Encounter type: initial encounter Fracture type: closed Is this a current diagnosis for this admission?: Yes (9) Thyromegaly Is this a current diagnosis for this admission?: Yes - Time Time Spent with patient: 25-34 minutes Level of Care: IMCU Medications reviewed and adjusted accordingly: Yes Anticipated discharge: SNF Anticipated DC Timeframe: within 72 hours - Inpatient Certification Based on my medical assessment, after consideration of the patient's comorbidities, presenting symptoms, or acuity I expect that the services needed warrant INPATIENT care.: Yes I certify that my determination is in accordance with my understanding of Medicare's requirements for reasonable and necessary INPATIENT services [42 CFR 412.3e].: Yes Medical Necessity: Significant Comorbidiites Make Outpatient Treatment Too Risky, Need Close Monitoring Due to Risk of Patient Decompensation, Need For IV Fluids, Need For Continuous Telemetry Monitoring, Need for Pain Control, Need for IV Antibiotics, Need for Surgery, Risk of Complication if Not Cared For in Hospital, Risk of Diagnosis Which Will Require Inpatient Eval/Care/Monitoring Post Hospital Care: D/C or Transfer Summary - Plan Summary Plan Summary: Continue current medication management. Electrolytes replacement in progress. Obtain BMP and Mag level in AM.
[2019-11-03] MEDS ORDERED: CALCIUM GLUCONATE 2,222 MG in DEXTROSE 5%-WATER 100 ML IV ONE (21:00)
[2019-11-03] MEDS ORDERED: CALCIUM GLUCONATE 1000 MG/10 ML INJ IV ONE (21:54)
[2019-11-03] MEDS: SIMVASTATIN 10 MG TABLET PO SCH (22:01)
[2019-11-04] MEDS: PANTOPRAZOLE SODIUM 40 MG TABLET.DR PO SCH (05:25)
[2019-11-04] MEDS: BUPROPION HCL 100 MG TABLET PO SCH ×3 (05:25→21:36)
[2019-11-04] MEDS: HEPARIN SOD (PORCINE) 5,000 UNIT/ML 1 ML VIAL SUBCUT SCH ×3 (05:25→21:39)
[2019-11-04 07:56] LABS: ALBUMIN 2.2 g/dL (3.5-5.0); ALKALINE PHOSPHATASE 63 U/L (38-126); ANION GAP 7 (5-19); ASPARTATE AMINO TRANSFERASE 20 U/L (17-59); BILIRUBIN,DIRECT 0.3 mg/dL (0.0-0.4); BILIRUBIN,TOTAL 0.5 mg/dL (0.2-1.3); BLOOD UREA NITROGEN 25 mg/dL (7-20); CARBON DIOXIDE 24 mmol/L (22-30); CHLORIDE 114 mmol/L (98-107); GLUCOSE 90 mg/dL (75-110); TOTAL PROTEIN 4.6 g/dL (6.3-8.2)
[2019-11-04 08:04] LABS: CALCIUM 6.4 mg/dL (8.4-10.2)
[2019-11-04 08:05] LABS: POTASSIUM 2.8 mmol/L (3.6-5.0)
[2019-11-04] MEDS: ZINC SULFATE 220 MG CAPSULE PO SCH (09:42)
[2019-11-04] MEDS: VENLAFAXINE HCL 75 MG CAP.SR.24H PO SCH (09:43)
[2019-11-04] MEDS: INSULIN LISPRO 100 UNIT/ML 3 ML VIAL SUBCUT SCH ×4 (09:43→21:39)
[2019-11-04] MEDS: AMLODIPINE BESYLATE 2.5 MG TABLET PO SCH (09:43)
[2019-11-04] MEDS: MAGNESIUM OXIDE 400 MG TABLET PO SCH (09:43)
[2019-11-04] MEDS: ASPIRIN 81 MG TABLET, CHEWABLE PO SCH (09:43)
[2019-11-04] MEDS: CALCIUM CARBONATE 600 MG TABLET PO SCH ×2 (09:44→21:36)
[2019-11-04] MEDS: METOPROLOL SUCCINATE 25 MG TAB.SR.24H PO SCH (09:44)
[2019-11-04] MEDS: CALCITRIOL 0.25 MCG CAPSULE PO SCH (09:44)
[2019-11-04] MEDS: ASCORBIC ACID 500 MG TABLET PO SCH ×2 (09:44→17:34)
[2019-11-04] MEDS: MULTIVITAMIN TABLET PO SCH (09:45)
--- NOTE | 2019-11-04 12:35 | PDOC PROGRESS REPORT ---
Subjective Progress Note for:: 11/04/19 Subjective:: Electrolytes derangement persist despite replacement efforts. No reported fever or chills. No chest pain or difficulty with breathing. No nausea, vomiting, or abdominal pain. Reason For Visit: RECURRENT FALLS,RIGHT FEMORAL FRACTURE,PNEUMONIA, Physical Exam Vital Signs: Temp Pulse Resp BP Pulse Ox 98.3 F 91 18 149/82 H 94 11/04/19 10:00 11/04/19 07:33 11/03/19 23:59 11/04/19 07:33 11/04/19 07:33 Intake & Output 11/03/19 11/04/19 11/05/19 06:59 06:59 06:59 Intake Total 1510 1840 Output Total 1200 1100 Balance 310 740 Weight 70.9 kg 71.5 kg Physical Exam: General appearance: PRESENT: no acute distress Head exam: PRESENT: atraumatic, normocephalic Eye exam: PRESENT: conjunctiva pink. ABSENT: pallor, sclera icterus Mouth exam: PRESENT: moist Respiratory exam: PRESENT: clear to auscultation karrie Cardiovascular exam: PRESENT: RRR, +S1, +S2. ABSENT: diastolic murmur, rubs, systolic murmur GI/Abdominal exam: PRESENT: normal bowel sounds, soft. ABSENT: tenderness Musculoskeletal exam: PRESENT: deformity - external rotation of right lower extremity, tenderness - right hip joint Neurological exam: PRESENT: alert, awake, oriented to person, oriented to place, oriented to time, oriented to situation, CN II-XII grossly intact. ABSENT: motor sensory deficit Psychiatric exam: PRESENT: appropriate affect, normal mood. ABSENT: homicidal ideation, suicidal ideation Skin exam: PRESENT: dry, warm Results Laboratory Results: 11/02/19 09:20 11/04/19 07:23 11/04/19 07:23 Sodium 145.0 Potassium 2.8 L* Chloride 114 H Carbon Dioxide 24 Anion Gap 7 BUN 25 H Creatinine 1.13 Est GFR ( Amer) > 60 Glucose 90 Calcium 6.4 L* Total Bilirubin 0.5 AST 20 Alkaline Phosphatase 63 Total Protein 4.6 L Albumin 2.2 L 10/20/19 10/20/19 10/20/19 11:40 11:40 12:38 Creatine Kinase Cancelled 1513 H CK-MB (CK-2) Troponin I Cancelled NT-Pro-B Natriuret Pep 10/20/19 10/20/19 10/20/19 12:38 12:38 16:55 Creatine Kinase CK-MB (CK-2) Troponin I 0.122 0.111 NT-Pro-B Natriuret Pep 4610 H 10/27/19 10/27/19 02:31 02:31 Creatine Kinase 106 CK-MB (CK-2) 2.04 Troponin I 0.013 NT-Pro-B Natriuret Pep Impressions: Cervical Spine CT 10/20/19 12:18 IMPRESSION: No acute fracture or dislocation of the cervical spine. Multilevel spondylosis, degenerative disc disease, and facet arthropathy. Head CT 10/20/19 12:18 IMPRESSION: No acute intracranial hemorrhage, mass, or evidence of acute territorial infarct. EVIDENCE OF ACUTE STROKE: NO. Chest CT 10/20/19 12:21 IMPRESSION: 1. Although there is motion in the pelvis, there appears to be an acute impacted subcapital fracture of the right proximal femur. Further evaluation with dedicated two view radiograph is recommended. 2. Age-indeterminate moderate compression fracture at T12, however this is stable since 10/04/2019 radiograph. This may be subacute or chronic. No retr opulsed fracture fragments. 3. Acute appearing fractures of the anterolateral left 8-10th ribs. 4. Patchy areas of consolidation with areas of nodular consolidation in both lungs, suggestive of infectious/ inflammatory process. Given nodular components, a follow-up CT of the chest in 3 months is recommended to confirm complete resolution. Commonly reported imaging features of COVID-19 pneumonia are present. Other processes such as influenza pneumonia and organizing pneumonia, as can be seen with drug toxicity and connective tissue disease, can cause a similar imaging pattern. 5. No evidence of acute traumatic solid organ or vascular injury in the chest, abdomen or pelvis. Abdomen/Pelvis CT 10/20/19 12:23 IMPRESSION: 1. Although there is motion in the pelvis, there appears to be an acute impacted subcapital fracture of the right proximal femur. Further evaluation with dedicated two view radiograph is recommended. 2. Age-indeterminate moderate compression fracture at T12, however this is stable since 10/04/2019 radiograph. This may be subacute or chronic. No retropulsed fracture fragments. 3. Acute appearing fractures of the anterolateral left 8-10th ribs. 4. Patchy areas of consolidation with areas of nodular consolidation in both lungs, suggestive of infectious/ inflammatory process. Given nodular components, a follow-up CT of the chest in 3 months is recommended to confirm complete resolution. Commonly reported imaging features of COVID-19 pneumonia are present. Other processes such as influenza pneumonia and organizing pneumonia, as can be seen with drug toxicity and connective tissue disease, can cause a similar imaging pattern. 5. No evidence of acute traumatic solid organ or vascular injury in the chest, abdomen or pelvis. Hip/Pelvis X-Ray 10/20/19 14:33 IMPRESSION: 1. Acute subcapital fracture right femur. 2. Moderate osteopenia. Skeletal Survey 10/23/19 07:00 IMPRESSION: 1. Acute/subacute impacted fracture of the right femoral neck. 2. Findings as described. Chest X-Ray 11/01/19 00:00 IMPRESSION: Improving pneumonia. Assessment & Plan - Diagnosis (1) Recurrent falls Is this a current diagnosis for this admission?: Yes (2) Subcapital fracture of right femur Qualifiers: Encounter type: initial encounter Fracture type: closed Qualified Code(s): S72.011A - Unspecified intracapsular fracture of right femur, initial encounter for closed fracture Is this a current diagnosis for this admission?: Yes (3) Pneumonia due to COVID-19 virus Is this a current diagnosis for this admission?: Yes (4) ARF (acute renal failure) Qualifiers: Acute renal failure type: unspecified Qualified Code(s): N17.9 - Acute kidney failure, unspecified Is this a current diagnosis for this admission?: Yes (5) Hypocalcemia Is this a current diagnosis for this admission?: Yes (6) Hypokalemia Is this a current diagnosis for this admission?: Yes (7) Hypomagnesemia Is this a current diagnosis for this admission?: Yes (8) Left rib fracture Qualifiers: Encounter type: initial encounter Fracture type: closed Is this a current diagnosis for this admission?: Yes (9) Thyromegaly Is this a current diagnosis for this admission?: Yes - Time Time Spent with patient: 25-34 minutes Level of Care: IMCU Medications reviewed and adjusted accordingly: Yes Anticipated discharge: Home with Homehealth Anticipated DC Timeframe: within 72 hours - Inpatient Certification Based on my medical assessment, after consideration of the patient's comorbidities, presenting symptoms, or acuity I expect that the services needed warrant INPATIENT care.: Yes I certify that my determination is in accordance with my understanding of Medicare's requirements for reasonable and necessary INPATIENT services [42 CFR 412.3e].: Yes Medical Necessity: Significant Comorbidiites Make Outpatient Treatment Too Risky, Need Close Monitoring Due to Risk of Patient Decompensation, Need For IV Fluids, Risk of Complication if Not Cared For in Hospital, Risk of Diagnosis Which Will Require Inpatient Eval/Care/Monitoring - Plan Summary Plan Summary: Continue current medication management and electrolytes replacement efforts. Possible surgical intervention sharita with electrolyte correction.
[2019-11-04] MEDS: POTASSI CL 20 MEQ/50 ML RIDER 20 MEQ/50 ML RTUPB IV SCH ×4 (13:18→22:06)
[2019-11-04] MEDS ORDERED: CALCIUM GLUCONATE 6,666 MG in DEXTROSE 5%-WATER 500 ML IV ONE (14:00)
[2019-11-04] MEDS: TAMSULOSIN HCL 0.4 MG CAP.SR.24H PO SCH (17:36)
[2019-11-04] MEDS: SIMVASTATIN 10 MG TABLET PO SCH (21:36)
[2019-11-04] MEDS ORDERED: POTASSI CL 20 MEQ/50 ML RIDER 20 MEQ/50 ML RTUPB IV ONE (22:00)
[2019-11-05] MEDS: NORMAL SALINE 1000 ML 1,000 ML IV PRN (05:59)
[2019-11-05] MEDS: BUPROPION HCL 100 MG TABLET PO SCH ×3 (06:00→22:07)
[2019-11-05] MEDS: HEPARIN SOD (PORCINE) 5,000 UNIT/ML 1 ML VIAL SUBCUT SCH ×3 (06:00→22:10)
[2019-11-05] MEDS: PANTOPRAZOLE SODIUM 40 MG TABLET.DR PO SCH (06:00)
[2019-11-05 09:26] LABS: ALBUMIN 2.3 g/dL (3.5-5.0); ALKALINE PHOSPHATASE 66 U/L (38-126); ANION GAP 8 (5-19); ASPARTATE AMINO TRANSFERASE 18 U/L (17-59); BILIRUBIN,DIRECT 0.4 mg/dL (0.0-0.4); BILIRUBIN,TOTAL 0.6 mg/dL (0.2-1.3); BLOOD UREA NITROGEN 23 mg/dL (7-20); CALCIUM 7.2 mg/dL (8.4-10.2); CARBON DIOXIDE 23 mmol/L (22-30); CHLORIDE 115 mmol/L (98-107); GLUCOSE 91 mg/dL (75-110); POTASSIUM 3.1 mmol/L (3.6-5.0); TOTAL PROTEIN 4.8 g/dL (6.3-8.2)
[2019-11-05] MEDS: CALCITRIOL 0.25 MCG CAPSULE PO SCH (10:25)
[2019-11-05] MEDS: CALCIUM CARBONATE 600 MG TABLET PO SCH ×2 (10:25→22:07)
[2019-11-05] MEDS: ASCORBIC ACID 500 MG TABLET PO SCH ×2 (10:25→17:12)
[2019-11-05] MEDS: AMLODIPINE BESYLATE 2.5 MG TABLET PO SCH (10:25)
[2019-11-05] MEDS: ASPIRIN 81 MG TABLET, CHEWABLE PO SCH (10:25)
[2019-11-05] MEDS: MAGNESIUM OXIDE 400 MG TABLET PO SCH (10:25)
[2019-11-05] MEDS: VENLAFAXINE HCL 75 MG CAP.SR.24H PO SCH (10:25)
[2019-11-05] MEDS: ZINC SULFATE 220 MG CAPSULE PO SCH (10:26)
[2019-11-05] MEDS: METOPROLOL SUCCINATE 25 MG TAB.SR.24H PO SCH (10:26)
[2019-11-05] MEDS: MULTIVITAMIN TABLET PO SCH (10:26)
[2019-11-05] MEDS: POTASSI CL 20 MEQ/50 ML RIDER 20 MEQ/50 ML RTUPB IV SCH ×4 (10:42→23:21)
[2019-11-05] MEDS: INSULIN LISPRO 100 UNIT/ML 3 ML VIAL SUBCUT SCH ×2 (11:14→17:12)
[2019-11-05] MEDS ORDERED: CALCIUM GLUCONATE 6,666 MG in DEXTROSE 5%-WATER 500 ML IV ONE (12:00)
[2019-11-05] MEDS: NYSTATIN TOPICAL POWDER 15 GM TP SCH ×2 (12:55→18:23)
--- NOTE | 2019-11-05 14:32 | PDOC PROGRESS REPORT ---
Subjective Progress Note for:: 11/05/19 Subjective:: His electrolytes derangement remain a problem with some improvement. No chest pain or difficulty with breathing. No reported fever or chills. No nausea, vomiting, or abdominal pain. Reason For Visit: RECURRENT FALLS,RIGHT FEMORAL FRACTURE,PNEUMONIA, Physical Exam Vital Signs: Temp Pulse Resp BP Pulse Ox 98.2 F 93 20 156/84 H 96 11/05/19 03:47 11/05/19 07:00 11/05/19 03:47 11/05/19 03:47 11/05/19 03:47 Intake & Output 11/04/19 11/05/19 11/06/19 06:59 06:59 06:59 Intake Total 2840 530 616.66 Output Total 1100 1625 Balance 1740 -1095 616.66 Weight 71.5 kg 72.2 kg Physical Exam: General appearance: PRESENT: no acute distress Head exam: PRESENT: atraumatic, normocephalic Eye exam: PRESENT: conjunctiva pink. ABSENT: pallor, sclera icterus Mouth exam: PRESENT: moist Respiratory exam: PRESENT: clear to auscultation karrie Cardiovascular exam: PRESENT: RRR, +S1, +S2. ABSENT: diastolic murmur, rubs, systolic murmur GI/Abdominal exam: PRESENT: normal bowel sounds, soft. ABSENT: tenderness Musculoskeletal exam: PRESENT: deformity - external rotation of right lower extremity, tenderness - right hip joint Neurological exam: PRESENT: alert, awake, oriented to person, oriented to place, oriented to time, oriented to situation, CN II-XII grossly intact. ABSENT: motor sensory deficit Psychiatric exam: PRESENT: appropriate affect, normal mood. ABSENT: homicidal ideation, suicidal ideation Skin exam: PRESENT: dry, warm Results Laboratory Results: 11/02/19 09:20 11/05/19 08:28 11/05/19 08:28 Sodium 145.8 H Potassium 3.1 L Chloride 115 H Carbon Dioxide 23 Anion Gap 8 BUN 23 H Creatinine 1.19 Est GFR ( Amer) > 60 Glucose 91 Calcium 7.2 L Total Bilirubin 0.6 AST 18 Alkaline Phosphatase 66 Total Protein 4.8 L Albumin 2.3 L 10/20/19 10/20/19 10/20/19 11:40 11:40 12:38 Creatine Kinase Cancelled 1513 H CK-MB (CK-2) Troponin I Cancelled NT-Pro-B Natriuret Pep 10/20/19 10/20/19 10/20/19 12:38 12:38 16:55 Creatine Kinase CK-MB (CK-2) Troponin I 0.122 0.111 NT-Pro-B Natriuret Pep 4610 H 10/27/19 10/27/19 02:31 02:31 Creatine Kinase 106 CK-MB (CK-2) 2.04 Troponin I 0.013 NT-Pro-B Natriuret Pep Impressions: Cervical Spine CT 10/20/19 12:18 IMPRESSION: No acute fracture or dislocation of the cervical spine. Multilevel spondylosis, degenerative disc disease, and facet arthropathy. Head CT 10/20/19 12:18 IMPRESSION: No acute intracranial hemorrhage, mass, or evidence of acute territorial infarct. EVIDENCE OF ACUTE STROKE: NO. Chest CT 10/20/19 12:21 IMPRESSION: 1. Although there is motion in the pelvis, there appears to be an acute impacted subcapital fracture of the right proximal femur. Further evaluation with dedicated two view radiograph is recommended. 2. Age-indeterminate moderate compression fracture at T12, however this is stable since 10/04/2019 radiograph. This may be subacute or chronic. No retropulsed fracture fragments. 3. Acute appearing fractures of the anterolateral left 8-10th ribs. 4. Patchy areas of consolidation with areas of nodular consolidation in both lungs, suggestive of infectious/ inflammatory process. Given nodular components, a follow-up CT of the chest in 3 months is recommended to confirm complete resolution. Commonly reported imaging features of COVID-19 pneumonia are present. Other processes such as influenza pneumonia and organizing pneum onia, as can be seen with drug toxicity and connective tissue disease, can cause a similar imaging pattern. 5. No evidence of acute traumatic solid organ or vascular injury in the chest, abdomen or pelvis. Abdomen/Pelvis CT 10/20/19 12:23 IMPRESSION: 1. Although there is motion in the pelvis, there appears to be an acute impacted subcapital fracture of the right proximal femur. Further evaluation with dedicated two view radiograph is recommended. 2. Age-indeterminate moderate compression fracture at T12, however this is stable since 10/04/2019 radiograph. This may be subacute or chronic. No retropulsed fracture fragments. 3. Acute appearing fractures of the anterolateral left 8-10th ribs. 4. Patchy areas of consolidation with areas of nodular consolidation in both lungs, suggestive of infectious/ inflammatory process. Given nodular components, a follow-up CT of the chest in 3 months is recommended to confirm complete resolution. Commonly reported imaging features of COVID-19 pneumonia are present. Other processes such as influenza pneumonia and organizing pneumonia, as can be seen with drug toxicity and connective tissue disease, can cause a similar imaging pattern. 5. No evidence of acute traumatic solid organ or vascular injury in the chest, abdomen or pelvis. Hip/Pelvis X-Ray 10/20/19 14:33 IMPRESSION: 1. Acute subcapital fracture right femur. 2. Moderate osteopenia. Skeletal Survey 10/23/19 07:00 IMPRESSION: 1. Acute/subacute impacted fracture of the right femoral neck. 2. Findings as described. Chest X-Ray 11/01/19 00:00 IMPRESSION: Improving pneumonia. Assessment & Plan - Diagnosis (1) Recurrent falls Is this a current diagnosis for this admission?: Yes (2) Subcapital fracture of right femur Qualifiers: Encounter type: initial encounter Fracture type: closed Qualified Code(s): S72.011A - Unspecified intracapsular fracture of right femur, initial encounter for closed fracture Is this a current diagnosis for this admission?: Yes (3) Pneumonia due to COVID-19 virus Is this a current diagnosis for this admission?: Yes (4) ARF (acute renal failure) Qualifiers: Acute renal failure type: unspecified Qualified Code(s): N17.9 - Acute kidney failure, unspecified Is this a current diagnosis for this admission?: Yes (5) Hypocalcemia Is this a current diagnosis for this admission?: Yes (6) Hypokalemia Is this a current diagnosis for this admission?: Yes (7) Hypomagnesemia Is this a current diagnosis for this admission?: Yes (8) Left rib fracture Qualifiers: Encounter type: initial encounter Fracture type: closed Is this a current diagnosis for this admission?: Yes (9) Thyromegaly Is this a current diagnosis for this admission?: Yes - Time Time Spent with patient: 25-34 minutes Level of Care: IMCU Medications reviewed and adjusted accordingly: Yes Anticipated discharge: SNF Anticipated DC Timeframe: within 72 hours - Inpatient Certification Based on my medical assessment, after consideration of the patient's comorbidities, presenting symptoms, or acuity I expect that the services needed warrant INPATIENT care.: Yes I certify that my determination is in accordance with my understanding of Medicare's requirements for reasonable and necessary INPATIENT services [42 CFR 412.3e].: Yes Medical Necessity: Significant Comorbidiites Make Outpatient Treatment Too Risky, Need Close Monitoring Due to Risk of Patient Decompensation, Need For IV Fluids, Need For Continuous Telemetry Monitoring, Need for Surgery, Risk of Complication if Not Cared For in Hospital, Risk of Diagnosis Which Will Require Inpatient Eval/Care/Monitoring Post Hospital Care: D/C or Transfer Summary - Plan Summary Plan Summary: See covering attending physician orders for details about care plan.
[2019-11-05] MEDS: TAMSULOSIN HCL 0.4 MG CAP.SR.24H PO SCH (17:12)
[2019-11-05] MEDS: MAGNESIUM SULFATE/D5W 1 GM/100 ML RTUPB IV SCH ×3 (18:28→22:07)
[2019-11-05] MEDS ORDERED: MAGNESIUM SULFATE/D5W 1 GM/100 ML RTUPB IV ONE ×2 (20:31→22:04)
[2019-11-05 21:56] LABS: C DIFFICILE GDH POSITIVE (NEGATIVE)
[2019-11-05] MEDS: SIMVASTATIN 10 MG TABLET PO SCH (22:07)
[2019-11-05] MEDS ORDERED: POTASSI CL 20 MEQ/50 ML RIDER 20 MEQ/50 ML RTUPB IV ONE (23:20)
[2019-11-06] MEDS: INSULIN LISPRO 100 UNIT/ML 3 ML VIAL SUBCUT SCH ×5 (05:49→22:34)
[2019-11-06] MEDS: PANTOPRAZOLE SODIUM 40 MG TABLET.DR PO SCH (05:50)
[2019-11-06] MEDS: HEPARIN SOD (PORCINE) 5,000 UNIT/ML 1 ML VIAL SUBCUT SCH ×3 (05:50→22:36)
[2019-11-06] MEDS: BUPROPION HCL 100 MG TABLET PO SCH ×3 (05:50→22:36)
[2019-11-06] MEDS: MULTIVITAMIN TABLET PO SCH (08:44)
[2019-11-06] MEDS: VENLAFAXINE HCL 75 MG CAP.SR.24H PO SCH (08:44)
[2019-11-06 10:24] LABS: ALBUMIN 2.2 g/dL (3.5-5.0); ALKALINE PHOSPHATASE 75 U/L (38-126); ANION GAP 8 (5-19); ASPARTATE AMINO TRANSFERASE 20 U/L (17-59); BILIRUBIN,DIRECT 0.3 mg/dL (0.0-0.4); BILIRUBIN,TOTAL 0.6 mg/dL (0.2-1.3); BLOOD UREA NITROGEN 22 mg/dL (7-20); CALCIUM 7.6 mg/dL (8.4-10.2); CARBON DIOXIDE 20 mmol/L (22-30); CHLORIDE 116 mmol/L (98-107); GLUCOSE 109 mg/dL (75-110); TOTAL PROTEIN 4.6 g/dL (6.3-8.2)
[2019-11-06 10:30] LABS: POTASSIUM 3.3 mmol/L (3.6-5.0)
[2019-11-06] MEDS: ASPIRIN 81 MG TABLET, CHEWABLE PO SCH ×2 (12:32→12:54)
[2019-11-06] MEDS: CALCITRIOL 0.25 MCG CAPSULE PO SCH (12:54)
[2019-11-06] MEDS: METOPROLOL SUCCINATE 25 MG TAB.SR.24H PO SCH (12:54)
[2019-11-06] MEDS: ZINC SULFATE 220 MG CAPSULE PO SCH (12:54)
[2019-11-06] MEDS: ASCORBIC ACID 500 MG TABLET PO SCH ×2 (12:54→18:24)
[2019-11-06] MEDS: CALCIUM CARBONATE 600 MG TABLET PO SCH ×2 (12:54→22:36)
[2019-11-06] MEDS: MAGNESIUM OXIDE 400 MG TABLET PO SCH (12:54)
[2019-11-06] MEDS: AMLODIPINE BESYLATE 2.5 MG TABLET PO SCH (12:54)
[2019-11-06] MEDS: VANCOMYCIN HCL INJ 500 MG VIAL PO SCH ×2 (12:56→18:24)
[2019-11-06] MEDS: NYSTATIN TOPICAL POWDER 15 GM TP SCH ×2 (13:00→18:26)
[2019-11-06] MEDS ORDERED: POTASSI CL 20 MEQ/50 ML RIDER 20 MEQ/50 ML RTUPB IV ONE (13:30)
--- NOTE | 2019-11-06 13:54 | Progress Note ---
Provider Note Provider Note: Patient is scheduled for hemiarthroplasty 11/07/2019 at 0730. The anesthesiologist has reviewed the patient's labs and will proceed with surgery.
[2019-11-06] MEDS: NORMAL SALINE 1000 ML 1,000 ML IV PRN (14:24)
[2019-11-06] MEDS: TAMSULOSIN HCL 0.4 MG CAP.SR.24H PO SCH (18:24)
--- NOTE | 2019-11-06 19:53 | PDOC PROGRESS REPORT ---
Subjective Progress Note for:: 11/06/19 Subjective:: Patient seen today by the bedside, is scheduled for surgery tomorrow morning. Reason For Visit: RECURRENT FALLS,RIGHT FEMORAL FRACTURE,PNEUMONIA, Physical Exam Vital Signs: Temp Pulse Resp BP Pulse Ox 97.7 F 75 18 170/75 H 97 11/06/19 16:15 11/06/19 16:15 11/06/19 16:15 11/06/19 16:15 11/06/19 16:15 Intake & Output 11/05/19 11/06/19 11/07/19 06:59 06:59 06:59 Intake Total 530 2533.32 360 Output Total 1625 450 Balance -1095 2083.32 360 Weight 72.2 kg 84.1 kg General appearance: PRESENT: no acute distress Eye exam: PRESENT: PERRLA Respiratory exam: PRESENT: clear to auscultation karrie Cardiovascular exam: PRESENT: +S1, +S2 GI/Abdominal exam: PRESENT: soft Neurological exam: PRESENT: alert Results Laboratory Results: 11/02/19 09:20 11/06/19 09:30 11/05/19 11/06/19 19:30 09:30 Sodium 144.2 Potassium 3.3 L Chloride 116 H Carbon Dioxide 20 L Anion Gap 8 BUN 22 H Creatinine 1.07 Est GFR ( Amer) > 60 Glucose 109 Calcium 7.6 L Total Bilirubin 0.6 AST 20 Alkaline Phosphatase 75 Total Protein 4.6 L Albumin 2.2 L Stl C.difficile Tox PCR POSITIVE 10/20/19 10/20/19 10/20/19 11:40 11:40 12:38 Creatine Kinase Cancelled 1513 H CK-MB (CK-2) Troponin I Cancelled NT-Pro-B Natriuret Pep 10/20/19 10/20/19 10/20/19 12:38 12:38 16:55 Creatine Kinase CK-MB (CK-2) Troponin I 0.122 0.111 NT-Pro-B Natriuret Pep 4610 H 10/27/19 10/27/19 02:31 02:31 Creatine Kinase 106 CK-MB (CK-2) 2.04 Troponin I 0.013 NT-Pro-B Natriuret Pep Impressions: Cervical Spine CT 10/20/19 12:18 IMPRESSION: No acute fracture or dislocation of the cervical spine. Multilevel spondylosis, degenerative disc disease, and facet arthropathy. Head CT 10/20/19 12:18 IMPRESSION: No acute intracranial hemorrhage, mass, or evidence of acute territorial infarct. EVIDENCE OF ACUTE STROKE: NO. Chest CT 10/20/19 12:21 IMPRESSION: 1. Although there is motion in the pelvis, there appears to be an acute impacted subcapital fracture of the right proximal femur. Further evaluation with dedicated two view radiograph is recommended. 2. Age-indeterminate moderate compression fracture at T12, however this is stable since 10/04/2019 radiograph. This may be subacute or chronic. No retropulsed fracture fragments. 3. Acute appearing fractures of the anterolateral left 8-10th ribs. 4. Patchy areas of consolidation with areas of nodular consolidation in both lungs, suggestive of infectious/ inflammatory process. Given nodular components, a follow-up CT of the chest in 3 months is recommended to confirm complete resolution. Commonly reported imaging features of COVID-19 pneumonia are present. Other processes such as influenza pneumonia and organizing pneumonia, as can be seen with drug toxicity and connective tissue disease, can cause a similar imaging pattern. 5. No evidence of acute traumatic solid organ or vascular injury in the chest, abdomen or pelvis. Abdomen/Pelvis CT 10/20/19 12:23 IMPRESSION: 1. Although there is motion in the pelvis, there appears to be an acute impacted subcapital fracture of the right proximal femur. Further evaluation with dedic ated two view radiograph is recommended. 2. Age-indeterminate moderate compression fracture at T12, however this is stable since 10/04/2019 radiograph. This may be subacute or chronic. No retropulsed fracture fragments. 3. Acute appearing fractures of the anterolateral left 8-10th ribs. 4. Patchy areas of consolidation with areas of nodular consolidation in both lungs, suggestive of infectious/ inflammatory process. Given nodular components, a follow-up CT of the chest in 3 months is recommended to confirm complete resolution. Commonly reported imaging features of COVID-19 pneumonia are present. Other processes such as influenza pneumonia and organizing pneumonia, as can be seen with drug toxicity and connective tissue disease, can cause a similar imaging pattern. 5. No evidence of acute traumatic solid organ or vascular injury in the chest, abdomen or pelvis. Hip/Pelvis X-Ray 10/20/19 14:33 IMPRESSION: 1. Acute subcapital fracture right femur. 2. Moderate osteopenia. Skeletal Survey 10/23/19 07:00 IMPRESSION: 1. Acute/subacute impacted fracture of the right femoral neck. 2. Findings as described. Chest X-Ray 11/01/19 00:00 IMPRESSION: Improving pneumonia. Assessment & Plan - Diagnosis (1) Sepsis Qualifiers: Sepsis type: methicillin susceptible Staphylococcus aureus Sepsis acute organ dysfunction status: with acute organ dysfunction Severe sepsis acute organ dysfunction type: acute renal failure Acute renal failure type: with acute tubular necrosis Severe sepsis shock status: without septic shock Qualified Code(s): A41.01 - Sepsis due to Methicillin susceptible Staphylococcus aureus; R65.20 - Severe sepsis without septic shock; N17.0 - Acute kidney jose lure with tubular necrosis Is this a current diagnosis for this admission?: Yes (2) Pneumonia due to COVID-19 virus Is this a current diagnosis for this admission?: Yes (3) Staphylococcus aureus septicemia Is this a current diagnosis for this admission?: Yes (4) Acute kidney injury Is this a current diagnosis for this admission?: Yes (5) Multiple fractures of ribs of left side Qualifiers: Encounter type: initial encounter Fracture type: closed Qualified Code(s): S22.42XA - Multiple fractures of ribs, left side, initial encounter for closed fracture Is this a current diagnosis for this admission?: Yes (6) Compression fracture of T12 vertebra Qualifiers: Encounter type: initial encounter Qualified Code(s): S22.080A - Wedge compression fracture of T11-T12 vertebra, initial encounter for closed fracture Is this a current diagnosis for this admission?: Yes Plan: due to osteoporosis (7) Pathologic fracture Qualifiers: Pathology associated with fracture: osteoporosis Osteoporosis type: age- related Site of pathological fracture: vertebra Encounter type: initial encounter Qualified Code(s): M80.08XA - Age-related osteoporosis with current pathological fracture, vertebra(e), initial encounter for fracture Is this a current diagnosis for this admission?: Yes Plan: He has osteoporotic fracture (8) Hypocalcemia Is this a current diagnosis for this admission?: Yes (9) Metabolic acidosis Is this a current diagnosis for this admission?: Yes Plan: Resolved (10) Subcapital fracture of right femur Qualifiers: Encounter type: initial encounter Fracture type: closed Qualified Code(s): S72.011A - Unspecified intracapsular fracture of right femur, initial encounter for closed fracture Is this a current diagnosis for this admission?: Yes (11) Secondary hyperparathyroidism Is this a current diagnosis for this admission?: Yes (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 Is this a current diagnosis for this admission?: Yes - Time Time Spent with patient: 25-34 minutes Level of Care: IMCU Medications reviewed and adjusted accordingly: Yes Anticipated discharge: Home Anticipated DC Timeframe: within 72 hours - Inpatient Certification Based on my medical assessment, after consideration of the patient's comorbidities, presenting symptoms, or acuity I expect that the services needed warrant INPATIENT care.: Yes I certify that my determination is in accordance with my understanding of Medicare's requirements for reasonable and necessary INPATIENT services [42 CFR 412.3e].: Yes
[2019-11-06] MEDS: SIMVASTATIN 10 MG TABLET PO SCH (22:36)
[2019-11-07] MEDS: VANCOMYCIN HCL INJ 500 MG VIAL PO SCH ×4 (00:06→19:11)
[2019-11-07] MEDS: NORMAL SALINE 1000 ML 1,000 ML IV PRN (00:12)
[2019-11-07] MEDS ORDERED: FENTANYL CITRATE INJ/PF 100 MCG/2 ML AMPUL ONE (06:44)
[2019-11-07] MEDS ORDERED: KETAMINE HCL INJ 500 MG/10 ML VIAL ONE (06:44)
[2019-11-07] MEDS ORDERED: DEXAMETHASONE SOD PHOSPHATE INJ 4 MG/1 ML VIAL ONE (06:44)
[2019-11-07] MEDS ORDERED: ONDANSETRON HCL INJ/PF 4 MG/2 ML SDV ONE (06:45)
[2019-11-07] MEDS ORDERED: PROPOFOL INJ 200 MG/20 ML VIAL IV ONE (06:45)
[2019-11-07] MEDS: INSULIN LISPRO 100 UNIT/ML 3 ML VIAL SUBCUT SCH ×4 (07:58→23:11)
[2019-11-07] MEDS ORDERED: CEFAZOLIN INJ 1 GM VIAL ONE (09:29)
[2019-11-07 09:50] LABS: ALKALINE PHOSPHATASE 66 U/L (38-126); ASPARTATE AMINO TRANSFERASE 16 U/L (17-59); BILIRUBIN,DIRECT 0.3 mg/dL (0.0-0.4); BILIRUBIN,TOTAL 0.5 mg/dL (0.2-1.3); BLOOD UREA NITROGEN 18 mg/dL (7-20); GLUCOSE 82 mg/dL (75-110); TOTAL PROTEIN 4.2 g/dL (6.3-8.2)
[2019-11-07 09:55] LABS: ANION GAP 5 (5-19); CARBON DIOXIDE 23 mmol/L (22-30); CHLORIDE 117 mmol/L (98-107)
[2019-11-07] MEDS ORDERED: VASOPRESSIN INJ 20 UNIT/1 ML VIAL ONE (10:21)
[2019-11-07] MEDS ORDERED: THROMBIN (BOVINE) 5000 UNIT EPITAXIS KIT ONE (10:29)
[2019-11-07] MEDS ORDERED: BACITRACIN INJ 50,000 UNIT VIAL ONE (10:29)
[2019-11-07] MEDS ORDERED: BUPIVACAINE INJ/PF LIPOSOME/PF 266 MG/20 ML SDV ONE (10:30)
[2019-11-07 10:33] LABS: CALCIUM 6.6 mg/dL (8.4-10.2); POTASSIUM 2.5 mmol/L (3.6-5.0)
[2019-11-07] MEDS ORDERED: VANCOMYCIN HCL INJ 1000 MG VIAL ONE (10:47)
[2019-11-07] MEDS ORDERED: MEPERIDINE HCL/PF INJ 25 MG/1 ML DISP.SYRIN IV PRN (10:48)
[2019-11-07] MEDS ORDERED: DIPHENHYDRAMINE HCL 50 MG/ML VIAL IV PRN (10:48)
[2019-11-07] MEDS ORDERED: FENTANYL CITRATE INJ/PF 100 MCG/2 ML AMPUL IV PRN ×2 (10:48)
[2019-11-07] MEDS ORDERED: PROMETHAZINE HCL INJ 25 MG/1 ML VIAL IV PRN (10:48)
[2019-11-07] MEDS: NYSTATIN TOPICAL POWDER 15 GM TP SCH (10:50)
[2019-11-07] MEDS: MULTIVITAMIN TABLET PO SCH (10:50)
[2019-11-07] MEDS: ASPIRIN 81 MG TABLET, CHEWABLE PO SCH (10:50)
[2019-11-07] MEDS: MAGNESIUM OXIDE 400 MG TABLET PO SCH (10:50)
[2019-11-07] MEDS: VENLAFAXINE HCL 75 MG CAP.SR.24H PO SCH (10:50)
[2019-11-07] MEDS: CALCIUM CARBONATE 600 MG TABLET PO SCH ×2 (10:50→23:06)
[2019-11-07] MEDS: CALCITRIOL 0.25 MCG CAPSULE PO SCH (10:51)
[2019-11-07] MEDS: ZINC SULFATE 220 MG CAPSULE PO SCH (10:51)
[2019-11-07] MEDS: METOPROLOL SUCCINATE 25 MG TAB.SR.24H PO SCH (10:51)
[2019-11-07] MEDS: ASCORBIC ACID 500 MG TABLET PO SCH ×2 (10:51→19:12)
[2019-11-07] MEDS: AMLODIPINE BESYLATE 2.5 MG TABLET PO SCH (10:52)
--- NOTE | 2019-11-07 12:04 | Operative Report ---
Operative Report DATE OF SURGERY: 11/07/19 PREOPERATIVE DIAGNOSIS: right hip displaced fracture of femoral neck POSTOPERATIVE DIAGNOSIS: right hip displaced fracture of femoral neck OPERATION: right hip hemiarthroplasty. Patient is COVID positive SURGEON: RADHA RODRIGUEZ ANESTHESIA: GA COMPLICATIONS: none ESTIMATED BLOOD LOSS: 100cc INTRAOPERATIVE FINDINGS: same PROCEDURE: Indications for procedure: The patient is an 89-year-old man admitted to [facility] October 20, 2019 with sepsis, acute renal failure, and COVID positive. Prior to admission he had fallen and sustained a displaced fracture of the right femoral neck. His medical condition has just stabilized and he is clear for a right hip hemiarthroplasty Description of procedure: Following the induction of a spinal anesthetic and administration of 2 g of Ancef the patient was positioned lateral on a pegboard. An axillary roll was placed. All bony prominences were padded. The right leg was first scrubbed with Hibiclens impregnated surgical scrub brushes. It was then prepped with ChloraPrep and draped in standard fashion. A posterior approach to the hip was performed. Sharp incision was performed through skin with Bovie electrocautery through the subcutaneous tissue. The fascia was split and Charnley placed. The external rotators were taken off the bone with Bovie electrocautery. Femoral neck cut was made. Femoral head was removed and sized. Box osteotome was used to open the canal. Sequential broaching was then performed to a size 7. Trials were placed with a 51 mm head 7 mm stem and -4 mm neck. The leg was taken through a full range of motion and was found to be quite stable. Trials were removed. Copious irrigation was performed with pulsatile lavage. Urosept solution was then irrigated throughout the deep tissues. The implants were then placed. The leg was taken through a full range of motion and the hip was quite stable. Additional irrigation was performed with pulsatile lavage then followed by urosept. The external rotators were repaired back through bone using #1 Ethibond. 1 g of vancomycin powder was placed in the deep tissue prior to closure of the fascia. The fascia was then closed with #1 barbed PDS suture. Additional urosept irrigation was performed. The subcutaneous tissue was then closed with 2-0 barbed PDS suture. The skin was closed with 3-0 Monocryl suture and overlaid with a sterile adhesive dressing. A sterile dressing was then applied. The patient tolerated procedure well without complications was brought recovery room in stable condition. Implants: Accolade 2 femoral stem size 7 Unitrax 51 mm head Unitrax -4 mm neck
[2019-11-07] MEDS ORDERED: GLYCOPYRROLATE 1 MG/5 ML VIAL ONE (14:26)
[2019-11-07] MEDS ORDERED: PHENYLEPHRINE HCL INJ/PF 10 MG/1 ML SDV ONE (14:26)
[2019-11-07] MEDS: HEPARIN SOD (PORCINE) 5,000 UNIT/ML 1 ML VIAL SUBCUT SCH ×2 (15:44→23:10)
[2019-11-07] MEDS: BUPROPION HCL 100 MG TABLET PO SCH ×3 (15:44→23:11)
[2019-11-07] MEDS: POTASSI CL 20 MEQ/50 ML RIDER 20 MEQ/50 ML RTUPB IV SCH ×3 (15:46→23:11)
--- NOTE | 2019-11-07 17:08 | PDOC PROGRESS REPORT ---
Subjective Progress Note for:: 11/07/19 Subjective:: Patient seen by the bedside status post ORIF of the right hip joint,, I spoke to the patient spouse about this condition, the plan is for patient to go to rehab, family prefer for patient to stay in [facility] [place] [facility] Reason For Visit: RECURRENT FALLS,RIGHT FEMORAL FRACTURE,PNEUMONIA, Physical Exam Vital Signs: Temp Pulse Resp BP Pulse Ox 97.5 F 92 16 116/66 95 11/07/19 16:08 11/07/19 16:08 11/07/19 16:08 11/07/19 16:08 11/07/19 16:08 Intake & Output 11/06/19 11/07/19 11/08/19 06:59 06:59 06:59 Intake Total 2533.32 1390 2100 Output Total 450 800 25 Balance 2083.32 590 2075 Weight 84.1 kg 84.1 kg General appearance: PRESENT: no acute distress Respiratory exam: PRESENT: clear to auscultation karrie Cardiovascular exam: PRESENT: +S1, +S2 GI/Abdominal exam: PRESENT: soft Neurological exam: PRESENT: alert, CN II-XII grossly intact Results Laboratory Results: 11/02/19 09:20 11/07/19 08:49 11/07/19 08:49 Sodium 145.0 Potassium 2.5 L* Chloride 117 H Carbon Dioxide 23 Anion Gap 5 BUN 18 Creatinine 1.04 Est GFR ( Amer) > 60 Glucose 82 Calcium 6.6 L* Total Bilirubin 0.5 AST 16 L Alkaline Phosphatase 66 Total Protein 4.2 L Albumin 2.0 L 10/20/19 10/20/19 10/20/19 11:40 11:40 12:38 Creatine Kinase Cancelled 1513 H CK-MB (CK-2) Troponin I Cancelled NT-Pro-B Natriuret Pep 10/20/19 10/20/19 10/20/19 12:38 12:38 16:55 Creatine Kinase CK-MB (CK-2) Troponin I 0.122 0.111 NT-Pro-B Natriuret Pep 4610 H 10/27/19 10/27/19 02:31 02:31 Creatine Kinase 106 CK-MB (CK-2) 2.04 Troponin I 0.013 NT-Pro-B Natriuret Pep Impressions: Cervical Spine CT 10/20/19 12:18 IMPRESSION: No acute fracture or dislocation of the cervical spine. Multilevel spondylosis, degenerative disc disease, and facet arthropathy. Head CT 10/20/19 12:18 IMPRESSION: No acute intracranial hemorrhage, mass, or evidence of acute territorial infarct. EVIDENCE OF ACUTE STROKE: NO. Chest CT 10/20/19 12:21 IMPRESSION: 1. Although there is motion in the pelvis, there appears to be an acute impacted subcapital fracture of the right proximal femur. Further evaluation with dedicated two view radiograph is recommended. 2. Age-indeterminate moderate compression fracture at T12, however this is stable since 10/04/2019 radiograph. This may be subacute or chronic. No retropulsed fracture fragments. 3. Acute appearing fractures of the anterolateral left 8-10th ribs. 4. Patchy areas of consolidation with areas of nodular consolidation in both lungs, suggestive of infectious/ inflammatory process. Given nodular components, a follow-up CT of the chest in 3 months is recommended to confirm complete resolution. Commonly reported imaging features of COVID-19 pneumonia are present. Other processes such as influenza pneumonia and organizing pneumonia, as can be seen with drug toxicity and connective tissue disease, can cause a similar imaging pattern. 5. No evidence of acute traumatic solid organ or vascular injury in the chest, abdomen or pelvis. Abdomen/Pelvis CT 10/20/19 12:23 IMPRESSION: 1. Although there is motion in the pelvis, there appears to be an acute impacted subcapital fracture of the right proximal femur. Further evaluation with dedicated two view radiograph is recommended. 2. Age-indeterminate moderate compression fracture at T12, however this is stable since 10/04/2019 radiograph. This may be subacute or chronic. No retropulsed fracture fragments. 3. Acute appearing fractures of the anterolateral left 8-10th ribs. 4. Patchy areas of consolidation with areas of nodular consolidation in both lungs, suggestive of infectious/ inflammatory process. Given nodular components, a follow-up CT of the chest in 3 months is recommended to confirm complete resolution. Commonly reported imaging features of COVID-19 pneumonia are present. Other processes such as influenza pneumonia and organizing pneumonia, as can be seen with drug toxicity and connective tissue disease, can cause a similar imaging pattern. 5. No evidence of acute traumatic solid organ or vascular injury in the chest, abdomen or pelvis. Hip/Pelvis X-Ray 10/20/19 14:33 IMPRESSION: 1. Acute subcapital fracture right femur. 2. Moderate osteopenia. Skeletal Survey 10/23/19 07:00 IMPRESSION: 1. Acute/subacute impacted fracture of the right femoral neck. 2. Findings as described. Chest X-Ray 11/01/19 00:00 IMPRESSION: Improving pneumonia. Assessment & Plan - Diagnosis (1) Sepsis Qualifiers: Sepsis type: methicillin susceptible Staphylococcus aureus Sepsis acute organ dysfunction status: with acute organ dysfunction Severe sepsis acute organ dysfunction type: acute renal failure Acute renal failure type: with acute tubular necrosis Severe sepsis shock status: without septic shock Qualified Code(s): A41.01 - Sepsis due to Methicillin susceptible Staphylococcus aureus; R65.20 - Severe sepsis without septic shock; N17.0 - Acute kidney failure with tubular necrosis Is this a current diagnosis for this admission?: Yes (2) Pneumonia due to COVID-19 virus Is this a current diagnosis for this admission?: Yes (3) Staphylococcus aureus septicemia Is this a current diagnosis for this admission?: Yes (4) Acute kidney injury Is this a current diagnosis for this admission?: Yes (5) Multiple fractures of ribs of left side Qualifiers: Encounter type: initial encounter Fracture type: closed Qualified Code(s): S22.42XA - Multiple fractures of ribs, left side, initial encounter for closed fracture Is this a current diagnosis for this admission?: Yes (6) Compression fracture of T12 vertebra Qualifiers: Encounter type: initial encounter Qualified Code(s): S22.080A - Wedge compression fracture of T11-T12 vertebra, initial encounter for closed fracture Is this a current diagnosis for this admission?: Yes (7) Pathologic fracture Qualifiers: Pathology associated with fracture: osteoporosis Osteoporosis type: age- related Site of pathological fracture: vertebra Encounter type: initial encounter Qualified Code(s): M80.08XA - Age-related osteoporosis with current pathological fracture, vertebra(e), initial encounter for fracture Is this a current diagnosis for this admission?: Yes (8) Hypocalcemia Is this a current diagnosis for this admission?: Yes Plan: Replace calcium (9) Metabolic acidosis Is this a current diagnosis for this admission?: Yes (10) Subcapital fracture of right femur Qualifiers: Encounter type: initial encounter Fracture type: closed Qualified Code(s): S72.011A - Unspecified intracapsular fracture of right femur, initial encounter for closed fracture Is this a current diagnosis for this admission?: Yes (11) Secondary hyperparathyroidism Is this a current diagnosis for this admission?: Yes (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 Su (13) Clostridioides difficile diarrhea Is this a current diagnosis for this admission?: Yes Plan: Continue vancomycin p.o. (14) Hypokalemia Is this a current diagnosis for this admission?: Yes Plan: Replace potassium - Time Time Spent with patient: 25-34 minutes Level of Care: IMCU Medications reviewed and adjusted accordingly: Yes Anticipated discharge: SNF Anticipated DC Timeframe: when bed available
--- NOTE | 2019-11-07 18:39 | RADIOLOGY REPORT (SQ) ---
EXAM DESCRIPTION: HIP RIGHT AP/LATERAL IMAGES COMPLETED DATE/TIME: 11/07/2019 5:44 pm REASON FOR STUDY: postop hemiarthroplasty COMPARISON: None. NUMBER OF VIEWS: Two views. TECHNIQUE: AP pelvis and additional frog legview of the right hip. LIMITATIONS: None. FINDINGS: MINERALIZATION: Normal. RIGHT HIP: Right hemiarthroplasty. LEFT HIP: Prior ORIF left hip. PUBIS AND ISCHIUM: No fracture. PELVIS: No fracture. SACRUM: No fracture or dislocation. No worrisome bone lesions. LOWER LUMBAR SPINE: No fracture or dislocation. No worrisome bone lesions. No significant disc disea se. SOFT TISSUES: No findings. OTHER: No other significant finding. IMPRESSION: Right hip hemiarthroplasty. Refer to operative note for further information. TECHNICAL DOCUMENTATION: JOB ID: [id number] 2010 [employer]- All Rights Reserved Reading location - IP/workstation name: [email or web address]
[2019-11-07] MEDS: TAMSULOSIN HCL 0.4 MG CAP.SR.24H PO SCH (19:12)
[2019-11-07] MEDS: SIMVASTATIN 10 MG TABLET PO SCH (23:06)
[2019-11-08] MEDS: VANCOMYCIN HCL INJ 500 MG VIAL PO SCH ×5 (01:36→23:51)
[2019-11-08] MEDS: NORMAL SALINE 1000 ML 1,000 ML IV PRN ×2 (01:54→23:53)
[2019-11-08 05:19] LABS: HEMATOCRIT 24.6 % (37.9-51.0); HEMOGLOBIN 8.1 g/dL (13.5-17.0); MEAN CORPUSCULAR HEMOGLOBIN 30.7 pg (27.0-33.4); MEAN CORPUSCULAR HGB CONC 33.1 g/dL (32.0-36.0); MEAN CORPUSCULAR VOLUME 93 fl (80-97); PLATELET COUNT 115 10^3/uL (150-450); RED BLOOD COUNT 2.65 10^6/uL (4.35-5.55); RED CELL DISTRIBUTION WIDTH 14.5 % (11.5-14.0)
[2019-11-08 05:43] LABS: ALBUMIN 1.9 g/dL (3.5-5.0); ALKALINE PHOSPHATASE 52 U/L (38-126); ANION GAP 6 (5-19); ASPARTATE AMINO TRANSFERASE 17 U/L (17-59); BILIRUBIN,DIRECT 0.3 mg/dL (0.0-0.4); BILIRUBIN,TOTAL 0.5 mg/dL (0.2-1.3); BLOOD UREA NITROGEN 21 mg/dL (7-20); CARBON DIOXIDE 22 mmol/L (22-30); CHLORIDE 117 mmol/L (98-107); GLUCOSE 112 mg/dL (75-110); POTASSIUM 3.2 mmol/L (3.6-5.0)
[2019-11-08 05:55] LABS: CALCIUM 6.3 mg/dL (8.4-10.2)
[2019-11-08] MEDS: HEPARIN SOD (PORCINE) 5,000 UNIT/ML 1 ML VIAL SUBCUT SCH ×3 (07:33→21:23)
[2019-11-08] MEDS: BUPROPION HCL 100 MG TABLET PO SCH ×3 (07:36→21:31)
[2019-11-08] MEDS: PANTOPRAZOLE SODIUM 40 MG TABLET.DR PO SCH (07:37)
--- NOTE | 2019-11-08 08:32 | PDOC CONSULTATION ---
Consultation Consult Date: 11/08/19 Attending physician:: ADELINA BERTRAND Provider Consulted: MARIO OWEN Consult reason:: Asked by primary team to see patient for concern of paraproteinemia History of Present Illness Admission Date/PCP: 10/20/19 18:50 ADELINA BERTRAND MD Patient complains of: Anemia History of Present Illness: This is a telemedicine visit because of COVID restrictions with multiple medical issues, SIMRAN ARRIETA is a 89 year old male presents with sepsis, renal failure, also found to have right hip fracture, status post recent hip surgery. Hemoglobin was 9-10 on admission, and patient did have a work-up for myeloma. I reviewed the SPEP, immunoglobulins, immunofixation. This indicates a polyclonal gammopathy. There is no M spike. However urine protein electrophoresis does indicate presence of a urine monoclonal spike. However immunofixation on that is not yet available. His hemoglobin did drop from the 10 to the 8 range post surgery. Past Medical History Cardiac Medical History: Reports: Atrial Fibrillation, Hypertension Denies: Coronary Artery Disease, Myocardial Infarction Pulmonary Medical History: Denies: Asthma, Bronchitis, Chronic Obstructive Pulmonary Disease (COPD), Pneumonia Neurological Medical History: Denies: Seizures Endocrine Medical History: Reports: Diabetes Mellitus Type 2 Musculoskeltal Medical History: Denies: Arthritis Psychiatric Medical History: Reports: Depression Hematology: Denies: Anemia Past Surgical History Past Surgical History: Reports: Orthopedic Surgery - back, R ankle, R hip Social History Information Source: Patient Lives with: Family Smoking Status: Never Smoker Electronic Cigarette use?: No Frequency of Alcohol Use: None Hx Recreational Drug Use: No Drugs: None Hx Prescription Drug Abuse: No - Advance Directive Resuscitation Status: Do Not Resuscitate Family History Family History: Reviewed & Not Pertinent Parental Family History Reviewed: Yes Children Family History Reviewed: Yes Sibling(s) Family History Reviewed.: Yes Medication/Allergy Home Medications: Bupropion HCl [Bupropion HCl Sr] 150 mg PO BID 03/10/18 Tamsulosin HCl [Flomax 0.4 mg Cap.sr] 0.4 mg PO PCSUPPER 03/10/18 Amlodipine/Valsartan/Hcthiazid [Exforge Hct 10-320-25 mg Tab] 1 tab PO QAM 10/04/19 Cholecalciferol (Vitamin D3) [Vitamin D3 400 Unit Tablet] 400 unit PO QAM 10/04/19 Metoprolol Succinate [Toprol Xl] 100 mg PO QA 10/04/19 Potassium Chloride 20 meq PO DAILY 10/04/19 Simvastatin [Zocor 10 mg Tablet] 10 mg PO QHS 10/04/19 Aspirin [Adult Low Dose Aspirin EC] 81 mg PO QAM 10/21/19 Multivitamin [Multiple Vitamins] 1 tab PO QA 10/21/19 Venlafaxine HCl ER [Effexor Xr 75 mg Cap.sr] 75 mg PO QA 10/21/19 Allergies/Adverse Reactions: No Known Allergies Allergy (Verified 10/04/19 12:45) Review of Systems ROS unobtainable: Due to mental status Physical Exam Vital Signs: Temp Pulse Resp BP Pulse Ox 97.5 F 90 16 116/66 95 11/07/19 16:08 11/08/19 07:00 11/07/19 16:08 11/07/19 16:08 11/07/19 16:08 Intake & Output 11/07/19 11/08/19 11/09/19 06:59 06:59 06:59 Intake Total 1390 3728 0 Output Total 800 1000 Balance 590 2728 0 Weight 84.1 kg 85.8 kg Results Laboratory Results: 11/08/19 04:51 11/08/19 04:51 11/07/19 11/08/19 11/08/19 08:49 04:51 04:51 WBC 11.0 H RBC 2.65 L Hgb 8.1 L Hct 24.6 L MCV 93 MCH 30.7 MCHC 33.1 RDW 14.5 H Plt Count 115 L Sodium 145.0 144.9 Potassium 2.5 L* 3.2 L Chloride 117 H 117 H Carbon Dioxide 23 22 Anion Gap 5 6 BUN 18 21 H Creatinine 1.04 1.10 Est GFR ( Amer) > 60 > 60 Glucose 82 112 H Calcium 6.6 L* 6.3 L* Total Bilirubin 0.5 0.5 AST 16 L 17 Alkaline Phosphatase 66 52 Total Protein 4.2 L 4.0 L Albumin 2.0 L 1.9 L 10/20/19 10/20/19 10/20/19 11:40 11:40 12:38 Creatine Kinase Cancelled 1513 H CK-MB (CK-2) Troponin I Cancelled NT-Pro-B Natriuret Pep 10/20/19 10/20/19 10/20/19 12:38 12:38 16:55 Creatine Kinase CK-MB (CK-2) Troponin I 0.122 0.111 NT-Pro-B Natriuret Pep 4610 H 10/27/19 10/27/19 02:31 02:31 Creatine Kinase 106 CK-MB (CK-2) 2.04 Troponin I 0.013 NT-Pro-B Natriuret Pep Impressions: Cervical Spine CT 10/20/19 12:18 IMPRESSION: No acute fracture or dislocation of the cervical spine. Multilevel spondylosis, degenerative disc disease, and facet arthropathy. Head CT 10/20/19 12:18 IMPRESSION: No acute intracranial hemorrhage, mass, or evidence of acute territorial infarct. EVIDENCE OF ACUTE STROKE: NO. Chest CT 10/20/19 12:21 IMPRESSION: 1. Although there is motion in the pelvis, there appears to be an acute impacted subcapital fracture of the right proximal femur. Further evaluation with dedicated two view radiograph is recommended. 2. Age-indeterminate moderate compression fracture at T12, however this is stable since 10/04/2019 radiograph. This may be subacute or chronic. No ret ropulsed fracture fragments. 3. Acute appearing fractures of the anterolateral left 8-10th ribs. 4. Patchy areas of consolidation with areas of nodular consolidation in both lungs, suggestive of infectious/ inflammatory process. Given nodular components, a follow-up CT of the chest in 3 months is recommended to confirm complete resolution. Commonly reported imaging features of COVID-19 pneumonia are present. Other processes such as influenza pneumonia and organizing pneumonia, as can be seen with drug toxicity and connective tissue disease, can cause a similar imaging pattern. 5. No evidence of acute traumatic solid organ or vascular injury in the chest, abdomen or pelvis. Abdomen/Pelvis CT 10/20/19 12:23 IMPRESSION: 1. Although there is motion in the pelvis, there appears to be an acute impacted subcapital fracture of the right proximal femur. Further evaluation with dedicated two view radiograph is recommended. 2. Age-indeterminate moderate compression fracture at T12, however this is stable since 10/04/2019 radiograph. This may be subacute or chronic. No retropulsed fracture fragments. 3. Acute appearing fractures of the anterolateral left 8-10th ribs. 4. Patchy areas of consolidation with areas of nodular consolidation in both lungs, suggestive of infectious/ inflammatory process. Given nodular components, a follow-up CT of the chest in 3 months is recommended to confirm complete resolution. Commonly reported imaging features of COVID-19 pneumonia are present. Other processes such as influenza pneumonia and organizing pneumonia, as can be seen with drug toxicity and connective tissue disease, can cause a similar imaging pattern. 5. No evidence of acute traumatic solid organ or vascular injury in the chest, abdomen or pelvis. Skeletal Survey 10/23/19 07:00 IMPRESSION: 1. Acute/subacute impacted fracture of the right femoral neck. 2. Findings as described. Chest X-Ray 11/01/19 00:00 IMPRESSION: Improving pneumonia. Hip/Pelvis X-Ray 11/07/19 00:00 IMPRESSION: Right hip hemiarthroplasty. Refer to operative note for further information. Assessment & Plan - Diagnosis (1) Monoclonal paraproteinemia Is this a current diagnosis for this admission?: Yes Plan: He may have a myeloma ongoing, needs further work-up including skeletal survey and serum free light chain but at present he needs to recover from his multiple other issues, therefore I would do this as an outpatient. He would not be a candidate for therapy right now given the other issues. Recommend that patient get better through this hospitalization, and once he can be over COVID and other medical issues, we could see him in the office and consider further work-up. But given his age and other multiple medical issues, he may not get to that point. We will follow peripherally while in-house and make arrangements for follow-up thereafter. - Time Time Spent: Greater than 70 Minutes - Inpatient Certification Based on my medical assessment, after consideration of the patient's comorbi dities, presenting symptoms, or acuity I expect that the services needed warrant INPATIENT care.: Yes I certify that my determination is in accordance with my understanding of Medicare's requirements for reasonable and necessary INPATIENT services [42 CFR 412.3e].: Yes Medical Necessity: Risk of Complication if Not Cared For in Hospital
--- NOTE | 2019-11-08 08:36 | PDOC PROGRESS REPORT ---
Subjective Progress Note for:: 11/08/19 Subjective:: The patient is complaining of moderate discomfort associated with h emiarthroplasty surgery yesterday. Reason For Visit: RECURRENT FALLS,RIGHT FEMORAL FRACTURE,PNEUMONIA, Postoperative day #1 status post right hip hemiarthroplasty for fracture Physical Exam Vital Signs: Temp Pulse Resp BP Pulse Ox 97.5 F 90 16 116/66 95 11/07/19 16:08 11/08/19 07:00 11/07/19 16:08 11/07/19 16:08 11/07/19 16:08 Intake & Output 11/07/19 11/08/19 11/09/19 06:59 06:59 06:59 Intake Total 1390 3728 0 Output Total 800 1000 Balance 590 2728 0 Weight 84.1 kg 85.8 kg General appearance: PRESENT: no acute distress Head exam: PRESENT: atraumatic, normocephalic Musculoskeletal exam: PRESENT: other - The surgical dressing is intact. There is minimal discomfort with passive rotation of the right hip. The patient is able to dorsiflex and plantarflex the ankle. Sensation is intact to touch. Results Laboratory Results: 11/08/19 04:51 11/08/19 04:51 11/07/19 11/08/19 11/08/19 08:49 04:51 04:51 WBC 11.0 H RBC 2.65 L Hgb 8.1 L Hct 24.6 L MCV 93 MCH 30.7 MCHC 33.1 RDW 14.5 H Plt Count 115 L Sodium 145.0 144.9 Potassium 2.5 L* 3.2 L Chloride 117 H 117 H Carbon Dioxide 23 22 Anion Gap 5 6 BUN 18 21 H Creatinine 1.04 1.10 Est GFR ( Amer) > 60 > 60 Glucose 82 112 H Calcium 6.6 L* 6.3 L* Total Bilirubin 0.5 0.5 AST 16 L 17 Alkaline Phosphatase 66 52 Total Protein 4.2 L 4.0 L Albumin 2.0 L 1.9 L 10/20/19 10/20/19 10/20/19 11:40 11:40 12:38 Creatine Kinase Cancelled 1513 H CK-MB (CK-2) Troponin I Cancelled NT-Pro-B Natriuret Pep 10/20/19 10/20/19 10/20/19 12:38 12:38 16:55 Creatine Kinase CK-MB (CK-2) Troponin I 0.122 0.111 NT-Pro-B Natriuret Pep 4610 H 10/27/19 10/27/19 02:31 02:31 Creatine Kinase 106 CK-MB (CK-2) 2.04 Troponin I 0.013 NT-Pro-B Natriuret Pep Impressions: Cervical Spine CT 10/20/19 12:18 IMPRESSION: No acute fracture or dislocation of the cervical spine. Multilevel spondylosis, degenerative disc disease, and facet arthropathy. Head CT 10/20/19 12:18 IMPRESSION: No acute intracranial hemorrhage, mass, or evidence of acute territorial infarct. EVIDENCE OF ACUTE STROKE: NO. Chest CT 10/20/19 12:21 IMPRESSION: 1. Although there is motion in the pelvis, there appears to be an acute impacted subcapital fracture of the right proximal femur. Further evaluation with dedicated two view radiograph is recommended. 2. Age-indeterminate moderate compression fracture at T12, however this is stable since 10/04/2019 radiograph. This may be subacute or chronic. No retropulsed fracture fragments. 3. Acute appearing fractures of the anterolateral left 8-10th ribs. 4. Patchy areas of consolidation with areas of nodular consolidation in both lungs, suggestive of infectious/ inflammatory process. Given nodular components, a follow-up CT of the chest in 3 months is recommended to confirm complete resolution. Commonly reported imaging features of COVID-19 pneumonia are present. Other processes such as influenza pneumonia and organizing pneumonia, as can be seen with drug toxicity and connective tissue disease, can cause a similar imaging pattern. 5. No evidence of acute traumatic solid organ or vascular injury in the chest, abdomen or pelvis. Abdomen/Pelvis CT 10/20/19 12:23 IMPRESSION: 1. Although there is motion in the pelvis, there appears to be an acute impacted subcapital fracture of the right proximal femur. Further evaluation with dedicated two view radiograph is recommended. 2. Age-indeterminate moderate compression fracture at T12, however this is stable since 10/04/2019 radiograph. This may be subacute or chronic. No ret ropulsed fracture fragments. 3. Acute appearing fractures of the anterolateral left 8-10th ribs. 4. Patchy areas of consolidation with areas of nodular consolidation in both lungs, suggestive of infectious/ inflammatory process. Given nodular components, a follow-up CT of the chest in 3 months is recommended to confirm complete resolution. Commonly reported imaging features of COVID-19 pneumonia are present. Other processes such as influenza pneumonia and organizing pneumonia, as can be seen with drug toxicity and connective tissue disease, can cause a similar imaging pattern. 5. No evidence of acute traumatic solid organ or vascular injury in the chest, abdomen or pelvis. Skeletal Survey 10/23/19 07:00 IMPRESSION: 1. Acute/subacute impacted fracture of the right femoral neck. 2. Findings as described. Chest X-Ray 11/01/19 00:00 IMPRESSION: Improving pneumonia. Hip/Pelvis X-Ray 11/07/19 00:00 IMPRESSION: Right hip hemiarthroplasty. Refer to operative note for further information. Assessment & Plan - Diagnosis (1) ARF (acute renal failure) Qualifiers: Qualified Code(s): N17.9 - Acute kidney failure, unspecified Is this a current diagnosis for this admission?: Yes (4) Hypocalcemia Is this a current diagnosis for this admission?: Yes (6) Hypokalemia Is this a current diagnosis for this admission?: Yes (7) Subcapital fracture of right femur Qualifiers: Qualified Code(s): S72.011A - Unspecified intracapsular fracture of right femur, initial encounter for closed fracture Is this a current diagnosis for this admission?: Yes - Time Critical Time spent with patient: Less than 15 minutes Anticipated Discharge Disposition: Alf Facility Anticipated Discharge Timeframe: when bed available - Plan Summary Plan Summary: The patient is postoperative day #1 status post right hip hemiarthroplasty. Postoperative radiographs demonstrate the prosthetic hip to be in good position. The patient will complete 24 hours of perioperative antibiotics. Physical therapy has been ordered: The patient is weightbearing as tolerated with posterior hip precautions. The surgical wound has been closed with sterile surgical glue. The patient may shower when clinically appropriate per his other medical problems. The patient is stable from an orthopedic standpoint for discharge. The patient should follow-up in the office in 2 weeks following discharge for wound evaluation.
[2019-11-08] MEDS: INSULIN LISPRO 100 UNIT/ML 3 ML VIAL SUBCUT SCH ×4 (09:31→21:34)
[2019-11-08] MEDS: METOPROLOL SUCCINATE 25 MG TAB.SR.24H PO SCH (09:36)
[2019-11-08] MEDS: ZINC SULFATE 220 MG CAPSULE PO SCH (09:36)
[2019-11-08] MEDS: ASPIRIN 81 MG TABLET, CHEWABLE PO SCH (09:36)
[2019-11-08] MEDS: AMLODIPINE BESYLATE 2.5 MG TABLET PO SCH (09:36)
[2019-11-08] MEDS: VENLAFAXINE HCL 75 MG CAP.SR.24H PO SCH (09:36)
[2019-11-08] MEDS: CALCITRIOL 0.25 MCG CAPSULE PO SCH (09:36)
[2019-11-08] MEDS: ASCORBIC ACID 500 MG TABLET PO SCH ×2 (09:36→17:08)
[2019-11-08] MEDS: CALCIUM CARBONATE 600 MG TABLET PO SCH ×2 (09:37→21:31)
[2019-11-08] MEDS: MAGNESIUM OXIDE 400 MG TABLET PO SCH (09:37)
[2019-11-08] MEDS: MULTIVITAMIN TABLET PO SCH (09:40)
[2019-11-08] MEDS: POTASSI CL 20 MEQ/50 ML RIDER 20 MEQ/50 ML RTUPB IV SCH ×2 (09:41→12:36)
[2019-11-08] MEDS: NYSTATIN TOPICAL POWDER 15 GM TP SCH ×3 (09:42→17:10)
[2019-11-08] MEDS: TAMSULOSIN HCL 0.4 MG CAP.SR.24H PO SCH (17:08)
--- NOTE | 2019-11-08 20:29 | PDOC PROGRESS REPORT ---
Subjective Progress Note for:: 11/08/19 Subjective:: Patient seen by the bedside, patient Nurse said he is not eating that much today Reason For Visit: RECURRENT FALLS,RIGHT FEMORAL FRACTURE,PNEUMONIA, Physical Exam Vital Signs: Temp Pulse Resp BP Pulse Ox 98.2 F 78 17 100/51 L 94 11/08/19 15:47 11/08/19 15:47 11/08/19 15:47 11/08/19 15:47 11/08/19 15:47 Intake & Output 11/07/19 11/08/19 11/09/19 06:59 06:59 06:59 Intake Total 1390 3728 670 Output Total 800 1000 300 Balance 590 2728 370 Weight 84.1 kg 85.8 kg 85.8 kg Results Laboratory Results: 11/08/19 04:51 11/08/19 04:51 11/08/19 11/08/19 04:51 04:51 WBC 11.0 H RBC 2.65 L Hgb 8.1 L Hct 24.6 L MCV 93 MCH 30.7 MCHC 33.1 RDW 14.5 H Plt Count 115 L Sodium 144.9 Potassium 3.2 L Chloride 117 H Carbon Dioxide 22 Anion Gap 6 BUN 21 H Creatinine 1.10 Est GFR ( Amer) > 60 Glucose 112 H Calcium 6.3 L* Total Bilirubin 0.5 AST 17 Alkaline Phosphatase 52 Total Protein 4.0 L Albumin 1.9 L 10/20/19 10/20/19 10/20/19 11:40 11:40 12:38 Creatine Kinase Cancelled 1513 H CK-MB (CK-2) Troponin I Cancelled NT-Pro-B Natriuret Pep 10/20/19 10/20/19 10/20/19 12:38 12:38 16:55 Creatine Kinase CK-MB (CK-2) Troponin I 0.122 0.111 NT-Pro-B Natriuret Pep 4610 H 10/27/19 10/27/19 02:31 02:31 Creatine Kinase 106 CK-MB (CK-2) 2.04 Troponin I 0.013 NT-Pro-B Natriuret Pep Impressions: Cervical Spine CT 10/20/19 12:18 IMPRESSION: No acute fracture or dislocation of the cervical spine. Multilevel spondylosis, degenerative disc disease, and facet arthropathy. Head CT 08/22/20 12:18 IMPRESSION: No acute intracranial hemorrhage, mass, or evidence of acute territorial infarct. EVIDENCE OF ACUTE STROKE: NO. Chest CT 10/20/19 12:21 IMPRESSION: 1. Although there is motion in the pelvis, there appears to be an acute impacted subcapital fracture of the right proximal femur. Further evaluation with dedicated two view radiograph is recommended. 2. Age-indeterminate moderate compression fracture at T12, however this is stable since 10/04/2019 radiograph. This may be subacute or chronic. No ret ropulsed fracture fragments. 3. Acute appearing fractures of the anterolateral left 8-10th ribs. 4. Patchy areas of consolidation with areas of nodular consolidation in both lungs, suggestive of infectious/ inflammatory process. Given nodular components, a follow-up CT of the chest in 3 months is recommended to confirm complete resolution. Commonly reported imaging features of COVID-19 pneumonia are present. Other processes such as influenza pneumonia and organizing pneumonia, as can be seen with drug toxicity and connective tissue disease, can cause a similar imaging pattern. 5. No evidence of acute traumatic solid organ or vascular injury in the chest, abdomen or pelvis. Abdomen/Pelvis CT 10/20/19 12:23 IMPRESSION: 1. Although there is motion in the pelvis, there appears to be an acute impacted subcapital fracture of the right proximal femur. Further evaluation with dedicated two view radiograph is recommended. 2. Age-indeterminate moderate compression fracture at T12, however this is stable since 10/04/2019 radiograph. This may be subacute or chronic. No retropulsed fracture fragments. 3. Acute appearing fractures of the anterolateral left 8-10th ribs. 4. Patchy areas of consolidation with areas of nodular consolidation in both lungs, suggestive of infectious/ inflammatory process. Given nodular components, a follow-up CT of the chest in 3 months is recommended to confirm complete resolution. Commonly reported imaging features of COVID-19 pneumonia are present. Other processes such as influenza pneumonia and organizing pneumonia, as can be seen with drug toxicity and connective tissue disease, can cause a similar imaging pattern. 5. No evidence of acute traumatic solid organ or vascular injury in the chest, abdomen or pelvis. Skeletal Survey 10/23/19 07:00 IMPRESSION: 1. Acute/subacute impacted fracture of the right femoral neck. 2. Findings as described. Chest X-Ray 11/01/19 00:00 IMPRESSION: Improving pneumonia. Hip/Pelvis X-Ray 11/07/19 00:00 IMPRESSION: Right hip hemiarthroplasty. Refer to operative note for further information. Assessment & Plan - Diagnosis (1) Sepsis Qualifiers: Sepsis type: methicillin susceptible Staphylococcus aureus Sepsis acute organ dysfunction status: with acute organ dysfunction Severe sepsis acute organ dysfunction type: acute renal failure Acute renal failure type: with acute tubular necrosis Severe sepsis shock status: without septic shock Qualified Code(s): A41.01 - Sepsis due to Methicillin susceptible Staphylococcus aureus; R65.20 - Severe sepsis without septic shock; N17.0 - Acute kidney failure with tubular necrosis Is this a current diagnosis for this admission?: Yes (2) Pneumonia due to COVID-19 virus Is this a current diagnosis for this admission?: Yes (3) Staphylococcus aureus septicemia Is this a current diagnosis for this admission?: Yes (4) Acute kidney injury Is this a current diagnosis for this admission?: Yes (5) Multiple fractures of ribs of left side Qualifiers: Encounter type: initial encounter Fracture type: closed Qualified Code(s): S22.42XA - Multiple fractures of ribs, left side, initial encounter for closed fracture Is this a current diagnosis for this admission?: Yes (6) Compression fracture of T12 vertebra Qualifiers: Encounter type: initial encounter Qualified Code(s): S22.080A - Wedge compression fracture of T11-T12 vertebra, initial encounter for closed fracture Is this a current diagnosis for this admission?: Yes (7) Pathologic fracture Qualifiers: Pathology associated with fracture: osteoporosis Osteoporosis type: age- related Site of pathological fracture: vertebra Encounter type: initial encounter Qualified Code(s): M80.08XA - Age-related osteoporosis with current pathological fracture, vertebra(e), initial encounter for fracture Is this a current diagnosis for this admission?: Yes (8) Hypocalcemia Is this a current diagnosis for this admission?: Yes (9) Metabolic acidosis Is this a current diagnosis for this admission?: Yes (10) Subcapital fracture of right femur Qualifiers: Encounter type: initial encounter Fracture type: closed Qualified Code(s): S72.011A - Unspecified intracapsular fracture of right femur, initial encounter for closed fracture Is this a current diagnosis for this admission?: Yes (11) Secondary hyperparathyroidism Is this a current diagnosis for this admission?: Yes (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 Is this a current diagnosis for this admission?: Yes (13) Clostridioides difficile diarrhea Is this a current diagnosis for this admission?: Yes Plan: Continue vancomycin p.o. (14) Hypokalemia Is this a current diagnosis for this admission?: Yes Plan: Patient with persistent hypokalemia due to diarrhea, replace potassium - Time Time Spent with patient: 25-34 minutes Level of Care: IMCU Medications reviewed and adjusted accordingly: Yes Anticipated discharge: Home Anticipated DC Timeframe: when bed available
[2019-11-08] MEDS: SIMVASTATIN 10 MG TABLET PO SCH (21:31)
[2019-11-09] MEDS: HEPARIN SOD (PORCINE) 5,000 UNIT/ML 1 ML VIAL SUBCUT SCH ×3 (05:03→22:21)
[2019-11-09] MEDS: VANCOMYCIN HCL INJ 500 MG VIAL PO SCH ×4 (05:08→23:51)
[2019-11-09] MEDS: PANTOPRAZOLE SODIUM 40 MG TABLET.DR PO SCH (05:09)
[2019-11-09] MEDS: BUPROPION HCL 100 MG TABLET PO SCH ×3 (05:09→22:22)
[2019-11-09 06:06] LABS: MEAN CORPUSCULAR HEMOGLOBIN 30.6 pg (27.0-33.4); MEAN CORPUSCULAR HGB CONC 32.8 g/dL (32.0-36.0); MEAN CORPUSCULAR VOLUME 93 fl (80-97); PLATELET COUNT 111 10^3/uL (150-450); RED BLOOD COUNT 2.57 10^6/uL (4.35-5.55); RED CELL DISTRIBUTION WIDTH 14.9 % (11.5-14.0); WHITE BLOOD COUNT 11.6 10^3/uL (4.0-10.5)
[2019-11-09 06:09] LABS: HEMOGLOBIN 7.9 g/dL (13.5-17.0)
--- NOTE | 2019-11-09 08:18 | PDOC PROGRESS REPORT ---
Subjective Progress Note for:: 11/09/19 Subjective:: No acute events that I can tell overnight, from notes, I have placed a call to pathology and assess them of the situation with positive urine electrophoresis, they will need to pay attention to plasma cell count and monoclonality of the femoral neck specimen. Reason For Visit: RECURRENT FALLS,RIGHT FEMORAL FRACTURE,PNEUMONIA, Physical Exam Vital Signs: Temp Pulse Resp BP Pulse Ox 98.2 F 77 17 100/51 L 94 11/08/19 15:47 11/09/19 02:00 11/08/19 15:47 11/08/19 15:47 11/08/19 15:47 Intake & Output 11/08/19 11/09/19 11/10/19 06:59 06:59 06:59 Intake Total 3728 2774 Output Total 1000 550 Balance 2728 2224 Weight 85.8 kg 86.7 kg General appearance: PRESENT: no acute distress, well-developed, well-nourished Head exam: PRESENT: atraumatic, normocephalic Eye exam: PRESENT: conjunctiva pink, EOMI, PERRLA. ABSENT: scleral icterus Ear exam: PRESENT: normal external ear exam Mouth exam: PRESENT: moist, tongue midline Neck exam: ABSENT: carotid bruit, JVD, lymphadenopathy, thyromegaly Respiratory exam: PRESENT: clear to auscultation karrie. ABSENT: rales, rhonchi, wheezes Cardiovascular exam: PRESENT: RRR. ABSENT: diastolic murmur, rubs, systolic murmur Pulses: PRESENT: normal dorsalis pedis pul Vascular exam: PRESENT: normal capillary refill GI/Abdominal exam: PRESENT: normal bowel sounds, soft. ABSENT: distended, guarding, mass, organolmegaly, rebound, tenderness Rectal exam: PRESENT: deferred Extremities exam: PRESENT: full ROM. ABSENT: calf tenderness, clubbing, pedal edema Neurological exam: PRESENT: alert, awake, oriented to person, oriented to place, oriented to time, oriented to situation, CN II-XII grossly intact. ABSENT: motor sensory deficit Psychiatric exam: PRESENT: appropriate affect, normal mood. ABSENT: homicidal ideation, suicidal ideation Skin exam: PRESENT: dry, intact, warm. ABSENT: cyanosis, rash Results Laboratory Results: 11/09/19 05:16 11/08/19 04:51 11/09/19 05:16 WBC 11.6 H RBC 2.57 L Hgb 7.9 L Hct 24.0 L MCV 93 MCH 30.6 MCHC 32.8 RDW 14.9 H Plt Count 111 L 10/20/19 10/20/19 10/20/19 11:40 11:40 12:38 Creatine Kinase Cancelled 1513 H CK-MB (CK-2) Troponin I Cancelled NT-Pro-B Natriuret Pep 10/20/19 10/20/19 10/20/19 12:38 12:38 16:55 Creatine Kinase CK-MB (CK-2) Troponin I 0.122 0.111 NT-Pro-B Natriuret Pep 4610 H 10/27/19 10/27/19 02:31 02:31 Creatine Kinase 106 CK-MB (CK-2) 2.04 Troponin I 0.013 NT-Pro-B Natriuret Pep Impressions: Cervical Spine CT 10/20/19 12:18 IMPRESSION: No acute fracture or dislocation of the cervical spine. Multilevel spondylosis, degenerative disc disease, and facet arthropathy. Head CT 10/20/19 12:18 IMPRESSION: No acute intracranial hemorrhage, mass, or evidence of acute territorial infarct. EVIDENCE OF ACUTE STROKE: NO. Chest CT 10/20/19 12:21 IMPRESSION: 1. Although there is motion in the pelvis, there appears to be an acute impacted subcapital fracture of the right proximal femur. Further evaluation with dedicated two view radiograph is recommended. 2. Age-indeterminate moderate compression fracture at T12, however this is stable since 10/04/2019 radiograph. This may be subacute or chronic. No retropulsed fracture fragments. 3. Acute appearing fractures of the anterolateral left 8-10th ribs. 4. Patchy areas of consolidation with areas of nodular consolidation in both lungs, suggestive of infectious/ inflammatory process. Given nodular componen ts, a follow-up CT of the chest in 3 months is recommended to confirm complete resolution. Commonly reported imaging features of COVID-19 pneumonia are present. Other processes such as influenza pneumonia and organizing pneumonia, as can be seen with drug toxicity and connective tissue disease, can cause a similar imaging pattern. 5. No evidence of acute traumatic solid organ or vascular injury in the chest, abdomen or pelvis. Abdomen/Pelvis CT 10/20/19 12:23 IMPRESSION: 1. Although there is motion in the pelvis, there appears to be an acute impacted subcapital fracture of the right proximal femur. Further evaluation with dedicated two view radiograph is recommended. 2. Age-indeterminate moderate compression fracture at T12, however this is stable since 10/04/2019 radiograph. This may be subacute or chronic. No retropulsed fracture fragments. 3. Acute appearing fractures of the anterolateral left 8-10th ribs. 4. Patchy areas of consolidation with areas of nodular consolidation in both lungs, suggestive of infectious/ inflammatory process. Given nodular components, a follow-up CT of the chest in 3 months is recommended to confirm complete resolution. Commonly reported imaging features of COVID-19 pneumonia are present. Other processes such as influenza pneumonia and organizing pneumonia, as can be seen with drug toxicity and connective tissue disease, can cause a similar imaging pattern. 5. No evidence of acute traumatic solid organ or vascular injury in the chest, abdomen or pelvis. Skeletal Survey 10/23/19 07:00 IMPRESSION: 1. Acute/subacute impacted fracture of the right femoral neck. 2. Findings as described. Chest X-Ray 11/01/19 00:00 IMPRESSION: Improving pneumonia. Hip/Pelvis X-Ray 11/07/19 00:00 IMPRESSION: Right hip hemiarthroplasty. Refer to operative note for further information. Assessment & Plan - Diagnosis (1) Monoclonal paraproteinemia Is this a current diagnosis for this admission?: Yes Plan: Further work-up will be probably completed as an outpatient, await pathology assessment of the femoral neck specimen. We will follow peripherally. - Time Time Spent with patient: 35 or more minutes
[2019-11-09] MEDS: ASCORBIC ACID 500 MG TABLET PO SCH ×2 (11:11→17:57)
[2019-11-09] MEDS: CALCITRIOL 0.25 MCG CAPSULE PO SCH (11:11)
[2019-11-09] MEDS: ZINC SULFATE 220 MG CAPSULE PO SCH (11:11)
[2019-11-09] MEDS: AMLODIPINE BESYLATE 2.5 MG TABLET PO SCH (11:11)
[2019-11-09] MEDS: CALCIUM CARBONATE 600 MG TABLET PO SCH ×2 (11:11→22:22)
[2019-11-09] MEDS: VENLAFAXINE HCL 75 MG CAP.SR.24H PO SCH (11:11)
[2019-11-09] MEDS: METOPROLOL SUCCINATE 25 MG TAB.SR.24H PO SCH (11:11)
[2019-11-09] MEDS: MAGNESIUM OXIDE 400 MG TABLET PO SCH (11:11)
[2019-11-09] MEDS: ASPIRIN 81 MG TABLET, CHEWABLE PO SCH (11:11)
[2019-11-09] MEDS: MULTIVITAMIN TABLET PO SCH (11:12)
[2019-11-09] MEDS: INSULIN LISPRO 100 UNIT/ML 3 ML VIAL SUBCUT SCH ×4 (11:15→22:16)
[2019-11-09] MEDS: NYSTATIN TOPICAL POWDER 15 GM TP SCH ×2 (11:16→17:58)
[2019-11-09 11:24] LABS: ALBUMIN 1.7 g/dL (3.5-5.0); ALKALINE PHOSPHATASE 55 U/L (38-126); ANION GAP 6 (5-19); ASPARTATE AMINO TRANSFERASE 18 U/L (17-59); BILIRUBIN,DIRECT 0.3 mg/dL (0.0-0.4); BILIRUBIN,TOTAL 0.4 mg/dL (0.2-1.3); BLOOD UREA NITROGEN 21 mg/dL (7-20); CARBON DIOXIDE 23 mmol/L (22-30); CHLORIDE 117 mmol/L (98-107); GLUCOSE 113 mg/dL (75-110); POTASSIUM 3.1 mmol/L (3.6-5.0); TOTAL PROTEIN 3.7 g/dL (6.3-8.2)
[2019-11-09] MEDS: TAMSULOSIN HCL 0.4 MG CAP.SR.24H PO SCH (17:57)
--- NOTE | 2019-11-09 18:13 | PDOC PROGRESS REPORT ---
Subjective Progress Note for:: 11/09/19 Subjective:: Patient has no complaints of pain in the right hip following arthroplasty. Reason For Visit: RECURRENT FALLS,RIGHT FEMORAL FRACTURE,PNEUMONIA, Operative day #2 status post right hip hemiarthroplasty Physical Exam Vital Signs: Temp Pulse Resp BP Pulse Ox 98.1 F 86 18 150/75 H 92 11/09/19 12:00 11/09/19 14:00 11/09/19 12:00 11/09/19 12:00 11/09/19 12:00 Intake & Output 11/08/19 11/09/19 11/10/19 06:59 06:59 06:59 Intake Total 3728 2774 280 Output Total 1000 550 850 Balance 2728 2224 -570 Weight 85.8 kg 86.7 kg Musculoskeletal exam: PRESENT: other - The operative dressing is intact. The patient has no discomfort with rotation of the hip. The patient is able to dorsiflex and plantarflex the ankle. Sensation is intact to touch. Results Laboratory Results: 11/09/19 05:16 11/09/19 09:47 11/09/19 11/09/19 05:16 09:47 WBC 11.6 H RBC 2.57 L Hgb 7.9 L Hct 24.0 L MCV 93 MCH 30.6 MCHC 32.8 RDW 14.9 H Plt Count 111 L Sodium 145.7 H Potassium 3.1 L Chloride 117 H Carbon Dioxide 23 Anion Gap 6 BUN 21 H Creatinine 1.21 Est GFR ( Amer) > 60 Glucose 113 H Calcium 6.0 L* Total Bilirubin 0.4 AST 18 Alkaline Phosphatase 55 Total Protein 3.7 L Albumin 1.7 L 10/20/19 10/20/19 10/20/19 11:40 11:40 12:38 Creatine Kinase Cancelled 1513 H CK-MB (CK-2) Troponin I Cancelled NT-Pro-B Natriuret Pep 10/20/19 10/20/19 10/20/19 12:38 12:38 16:55 Creatine Kinase CK-MB (CK-2) Troponin I 0.122 0.111 NT-Pro-B Natriuret Pep 4610 H 10/27/19 10/27/19 02:31 02:31 Creatine Kinase 106 CK-MB (CK-2) 2.04 Troponin I 0.013 NT-Pro-B Natriuret Pep Impressions: Cervical Spine CT 10/20/19 12:18 IMPRESSION: No acute fracture or dislocation of the cervical spine. Multilevel spondylosis, degenerative disc disease, and facet arthropathy. Head CT 10/20/19 12:18 IMPRESSION: No acute intracranial hemorrhage, mass, or evidence of acute territorial infarct. EVIDENCE OF ACUTE STROKE: NO. Chest CT 10/20/19 12:21 IMPRESSION: 1. Although there is motion in the pelvis, there appears to be an acute impacted subcapital fracture of the right proximal femur. Further evaluation with ded icated two view radiograph is recommended. 2. Age-indeterminate moderate compression fracture at T12, however this is stable since 10/04/2019 radiograph. This may be subacute or chronic. No retropulsed fracture fragments. 3. Acute appearing fractures of the anterolateral left 8-10th ribs. 4. Patchy areas of consolidation with areas of nodular consolidation in both lungs, suggestive of infectious/ inflammatory process. Given nodular components, a follow-up CT of the chest in 3 months is recommended to confirm complete resolution. Commonly reported imaging features of COVID-19 pneumonia are present. Other processes such as influenza pneumonia and organizing pneumonia, as can be seen with drug toxicity and connective tissue disease, can cause a similar imaging pattern. 5. No evidence of acute traumatic solid organ or vascular injury in the chest, abdomen or pelvis. Abdomen/Pelvis CT 10/20/19 12:23 IMPRESSION: 1. Although there is motion in the pelvis, there appears to be an acute impacted subcapital fracture of the right proximal femur. Further evaluation with dedicated two view radiograph is recommended. 2. Age-indeterminate moderate compression fracture at T12, however this is stable since 10/04/2019 radiograph. This may be subacute or chronic. No retropulsed fracture fragments. 3. Acute appearing fractures of the anterolateral left 8-10th ribs. 4. Patchy areas of consolidation with areas of nodular consolidation in both lungs, suggestive of infectious/ inflammatory process. Given nodular components, a follow-up CT of the chest in 3 months is recommended to confirm complete resolution. Commonly reported imaging features of COVID-19 pneumonia are present. Other processes such as influenza pneumonia and organizing pneumonia, as can be seen with drug toxicity and connective tissue disease, can cause a similar imaging pattern. 5. No evidence of acute traumatic solid organ or vascular injury in the chest, abdomen or pelvis. Skeletal Survey 10/23/19 07:00 IMPRESSION: 1. Acute/subacute impacted fracture of the right femoral neck. 2. Findings as described. Chest X-Ray 11/01/19 00:00 IMPRESSION: Improving pneumonia. Hip/Pelvis X-Ray 11/07/19 00:00 IMPRESSION: Right hip hemiarthroplasty. Refer to operative note for further information. Assessment & Plan - Diagnosis (1) Subcapital fracture of right femur Qualifiers: Encounter type: initial encounter Fracture type: closed Qualified Code(s): S72.011A - Unspecified intracapsular fracture of right femur, initial encounter for closed fracture Is this a current diagnosis for this admission?: Yes (2) ARF (acute renal failure) Qualifiers: Acute renal failure type: unspecified Qualified Code(s): N17.9 - Acute kidney failure, unspecified Is this a current diagnosis for this admission?: Yes (5) Hypocalcemia Is this a current diagnosis for this admission?: Yes (7) Hypokalemia Is this a current diagnosis for this admission?: Yes - Time Critical Time spent with patient: Less than 15 minutes Anticipated Discharge Disposition: Nursing Home Facility Anticipated Discharge Timeframe: when bed available - Plan Summary Plan Summary: The patient is postoperative day #2 status post right hip hemiarthroplasty. Postoperative radiographs demonstrate the prosthetic hip to be in good position. The patient has completed 24 hours of perioperative antibiotics. Physical therapy has been ordered: The patient is weightbearing as tolerated with posterior hip precautions. The surgical wound has been closed with sterile surgical glue. The patient may shower when clinically appropriate per his other medical problems. The patient is stable from an orthopedic standpoint for discharge. The patient should follow-up in the office in 2 weeks following discharge for wound evaluation. Please reconsult as needed.
--- NOTE | 2019-11-09 21:28 | PDOC PROGRESS REPORT ---
Subjective Progress Note for:: 11/09/19 Subjective:: Patient seen by the bedside the hemoglobin is low for blood work, no evidence of active bleed, will continue to monitor for few days Reason For Visit: RECURRENT FALLS,RIGHT FEMORAL FRACTURE,PNEUMONIA, Physical Exam Vital Signs: Temp Pulse Resp BP Pulse Ox 97.4 F 84 18 99/58 L 93 11/09/19 15:31 11/09/19 15:31 11/09/19 15:31 11/09/19 15:31 11/09/19 15:31 Intake & Output 11/08/19 11/09/19 11/10/19 06:59 06:59 06:59 Intake Total 3728 2774 500 Output Total 1000 550 850 Balance 2728 2224 -350 Weight 85.8 kg 86.7 kg General appearance: PRESENT: no acute distress Eye exam: PRESENT: PERRLA Respiratory exam: PRESENT: clear to auscultation karrie Cardiovascular exam: PRESENT: +S1, +S2 Neurological exam: PRESENT: alert Results Laboratory Results: 11/09/19 05:16 11/09/19 09:47 11/09/19 11/09/19 05:16 09:47 WBC 11.6 H RBC 2.57 L Hgb 7.9 L Hct 24.0 L MCV 93 MCH 30.6 MCHC 32.8 RDW 14.9 H Plt Count 111 L Sodium 145.7 H Potassium 3.1 L Chloride 117 H Carbon Dioxide 23 Anion Gap 6 BUN 21 H Creatinine 1.21 Est GFR ( Amer) > 60 Glucose 113 H Calcium 6.0 L* Total Bilirubin 0.4 AST 18 Alkaline Phosphatase 55 Total Protein 3.7 L Albumin 1.7 L 10/20/19 10/20/19 10/20/19 11:40 11:40 12:38 Creatine Kinase Cancelled 1513 H CK-MB (CK-2) Troponin I Cancelled NT-Pro-B Natriuret Pep 10/20/19 10/20/19 10/20/19 12:38 12:38 16:55 Creatine Kinase CK-MB (CK-2) Troponin I 0.122 0.111 NT-Pro-B Natriuret Pep 4610 H 10/27/19 10/27/19 02:31 02:31 Creatine Kinase 106 CK-MB (CK-2) 2.04 Troponin I 0.013 NT-Pro-B Natriuret Pep Impressions: Cervical Spine CT 10/20/19 12:18 IMPRESSION: No acute fracture or dislocation of the cervical spine. Multilevel spondylosis, degenerative disc disease, and facet arthropathy. Head CT 10/20/19 12:18 IMPRESSION: No acute intracranial hemorrhage, mass, or evidence of acute territorial infarct. EVIDENCE OF ACUTE STROKE: NO. Chest CT 10/20/19 12:21 IMPRESSION: 1. Although there is motion in the pelvis, there appears to be an acute impacted subcapital fracture of the right proximal femur. Further evaluation with dedicated two view radiograph is recommended. 2. Age-indeterminate moderate compression fracture at T12, however this is st able since 10/04/2019 radiograph. This may be subacute or chronic. No retropulsed fracture fragments. 3. Acute appearing fractures of the anterolateral left 8-10th ribs. 4. Patchy areas of consolidation with areas of nodular consolidation in both lungs, suggestive of infectious/ inflammatory process. Given nodular components, a follow-up CT of the chest in 3 months is recommended to confirm complete resolution. Commonly reported imaging features of COVID-19 pneumonia are present. Other processes such as influenza pneumonia and organizing pneumonia, as can be seen with drug toxicity and connective tissue disease, can cause a similar imaging pattern. 5. No evidence of acute traumatic solid organ or vascular injury in the chest, abdomen or pelvis. Abdomen/Pelvis CT 10/20/19 12:23 IMPRESSION: 1. Although there is motion in the pelvis, there appears to be an acute impacted subcapital fracture of the right proximal femur. Further evaluation with dedicated two view radiograph is recommended. 2. Age-indeterminate moderate compression fracture at T12, however this is stable since 10/04/2019 radiograph. This may be subacute or chronic. No retropulsed fracture fragments. 3. Acute appearing fractures of the anterolateral left 8-10th ribs. 4. Patchy areas of consolidation with areas of nodular consolidation in both lungs, suggestive of infectious/ inflammatory process. Given nodular components, a follow-up CT of the chest in 3 months is recommended to confirm complete resolution. Commonly reported imaging features of COVID-19 pneumonia are present. Other processes such as influenza pneumonia and organizing pneumonia, as can be seen with drug toxicity and connective tissue disease, can cause a similar imaging pattern. 5. No evidence of acute traumatic solid organ or vascular injury in the chest, abdomen or pelvis. Skeletal Survey 10/23/19 07:00 IMPRESSION: 1. Acute/subacute impacted fracture of the right femoral neck. 2. Findings as described. Chest X-Ray 11/01/19 00:00 IMPRESSION: Improving pneumonia. Hip/Pelvis X-Ray 11/07/19 00:00 IMPRESSION: Right hip hemiarthroplasty. Refer to operative note for further information. Assessment & Plan - Diagnosis (1) Sepsis Qualifiers: Sepsis type: methicillin susceptible Staphylococcus aureus Sepsis acute organ dysfunction status: with acute organ dysfunction Severe sepsis acute organ dysfunction type: acute renal failure Acute renal failure type: with acute tubular necrosis Severe sepsis shock status: without septic shock Qualified Code(s): A41.01 - Sepsis due to Methicillin susceptible Staphylococcus aureus; R65.20 - Severe sepsis without septic shock; N17.0 - Acute kidney failure with tubular necrosis Is this a current diagnosis for this admission?: Yes (2) Pneumonia due to COVID-19 virus Is this a current diagnosis for this admission?: Yes (3) Staphylococcus aureus septicemia Is this a current diagnosis for this admission?: Yes (4) Acute kidney injury Is this a current diagnosis for this admission?: Yes (5) Multiple fractures of ribs of left side Qualifiers: Encounter type: initial encounter Fracture type: closed Qualified Code(s): S22.42XA - Multiple fractures of ribs, left side, initial encounter for closed fracture Is this a current diagnosis for this admission?: Yes (6) Compression fracture of T12 vertebra Qualifiers: Encounter type: initial encounter Qualified Code(s): S22.080A - Wedge compression fracture of T11-T12 vertebra, initial encounter for closed fracture Is this a current diagnosis for this admission?: Yes (7) Pathologic fracture Qualifiers: Pathology associated with fracture: osteoporosis Osteoporosis type: age- related Site of pathological fracture: vertebra Encounter type: initial encounter Qualified Code(s): M80.08XA - Age-related osteoporosis with current pathological fracture, vertebra(e), initial encounter for fracture Is this a current diagnosis for this admission?: Yes (8) Hypocalcemia Is this a current diagnosis for this admission?: Yes (9) Metabolic acidosis Is this a current diagnosis for this admission?: Yes (10) Subcapital fracture of right femur Qualifiers: Encounter type: initial encounter Fracture type: closed Qualified Code(s): S72.011A - Unspecified intracapsular fracture of right femur, initial encounter for closed fracture Is this a current diagnosis for this admission?: Yes (11) Secondary hyperparathyroidism Is this a current diagnosis for this admission?: Yes (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 Is this a current diagnosis for this admission?: Yes (13) Clostridioides difficile diarrhea Is this a current diagnosis for this admission?: Yes (14) Hypokalemia Is this a current diagnosis for this admission?: Yes - Time Time Spent with patient: 25-34 minutes Level of Care: IMCU Medications reviewed and adjusted accordingly: Yes Anticipated discharge: SNF Anticipated DC Timeframe: when bed available - Inpatient Certification Based on my medical assessment, after consideration of the patient's comorbidities, presenting symptoms, or acuity I expect that the services needed warrant INPATIENT care.: Yes I certify that my determination is in accordance with my understanding of Medicare's requirements for reasonable and necessary INPATIENT services [42 CFR 412.3e].: Yes - Plan Summary Plan Summary: Patient seen by the bedside, plan is for rehab
[2019-11-09] MEDS: SIMVASTATIN 10 MG TABLET PO SCH (22:22)
[2019-11-10] MEDS: NORMAL SALINE 1000 ML 1,000 ML IV PRN (00:32)
[2019-11-10] MEDS: HEPARIN SOD (PORCINE) 5,000 UNIT/ML 1 ML VIAL SUBCUT SCH ×2 (06:01→14:53)
[2019-11-10] MEDS: BUPROPION HCL 100 MG TABLET PO SCH ×2 (06:01→14:52)
[2019-11-10] MEDS: PANTOPRAZOLE SODIUM 40 MG TABLET.DR PO SCH (06:01)
[2019-11-10] MEDS: VANCOMYCIN HCL INJ 500 MG VIAL PO SCH ×2 (06:02→12:24)
[2019-11-10 07:01] LABS: ALBUMIN 1.6 g/dL (3.5-5.0); ALKALINE PHOSPHATASE 59 U/L (38-126); ANION GAP 5 (5-19); ASPARTATE AMINO TRANSFERASE 16 U/L (17-59); BILIRUBIN,DIRECT 0.3 mg/dL (0.0-0.4); BILIRUBIN,TOTAL 0.4 mg/dL (0.2-1.3); BLOOD UREA NITROGEN 26 mg/dL (7-20); CARBON DIOXIDE 20 mmol/L (22-30); CHLORIDE 118 mmol/L (98-107); GLUCOSE 106 mg/dL (75-110); POTASSIUM 3.5 mmol/L (3.6-5.0); TOTAL PROTEIN 3.5 g/dL (6.3-8.2)
[2019-11-10 07:17] LABS: CALCIUM 6.1 mg/dL (8.4-10.2)
[2019-11-10] MEDS: INSULIN LISPRO 100 UNIT/ML 3 ML VIAL SUBCUT SCH ×2 (09:50→12:23)
[2019-11-10] MEDS: ZINC SULFATE 220 MG CAPSULE PO SCH (09:55)
[2019-11-10] MEDS: CALCITRIOL 0.25 MCG CAPSULE PO SCH (09:55)
[2019-11-10] MEDS: VENLAFAXINE HCL 75 MG CAP.SR.24H PO SCH (09:55)
[2019-11-10] MEDS: MAGNESIUM OXIDE 400 MG TABLET PO SCH (09:57)
[2019-11-10] MEDS: ASCORBIC ACID 500 MG TABLET PO SCH (09:57)
[2019-11-10] MEDS: MULTIVITAMIN TABLET PO SCH (09:57)
[2019-11-10] MEDS: NYSTATIN TOPICAL POWDER 15 GM TP SCH (09:58)
[2019-11-10] MEDS: CALCIUM CARBONATE 600 MG TABLET PO SCH (09:58)
[2019-11-10] MEDS: ASPIRIN 81 MG TABLET, CHEWABLE PO SCH (09:58)
[2019-11-10 10:12] VITALS: BP 87/58
[2019-11-10] MEDS: AMLODIPINE BESYLATE 2.5 MG TABLET PO SCH (14:53)
[2019-11-10] MEDS: METOPROLOL SUCCINATE 25 MG TAB.SR.24H PO SCH (14:53)
--- NOTE | 2019-11-10 15:03 | PDOC PROGRESS REPORT ---
Subjective Progress Note for:: 11/10/19 Subjective:: Patient was seen in the COVID unit, is very confused, blood pressure was on the low side Reason For Visit: RECURRENT FALLS,RIGHT FEMORAL FRACTURE,PNEUMONIA, Physical Exam Vital Signs: Temp Pulse Resp BP Pulse Ox 97.9 F 86 21 H 87/58 L 91 L 11/10/19 00:14 11/10/19 07:00 11/10/19 00:14 11/10/19 10:11 11/10/19 00:14 Intake & Output 11/09/19 11/10/19 11/11/19 06:59 06:59 06:59 Intake Total 2774 1780 2 Output Total 550 990 Balance 2224 790 2 Weight 86.7 kg 87.5 kg Results Laboratory Results: 11/09/19 05:16 11/10/19 05:50 11/10/19 05:50 Sodium 142.5 Potassium 3.5 L Chloride 118 H Carbon Dioxide 20 L Anion Gap 5 BUN 26 H Creatinine 1.40 H Est GFR ( Amer) 58 L Glucose 106 Calcium 6.1 L* Total Bilirubin 0.4 AST 16 L Alkaline Phosphatase 59 Total Protein 3.5 L Albumin 1.6 L 10/20/19 10/20/19 10/20/19 11:40 11:40 12:38 Creatine Kinase Cancelled 1513 H CK-MB (CK-2) Troponin I Cancelled NT-Pro-B Natriuret Pep 10/20/19 10/20/19 10/20/19 12:38 12:38 16:55 Creatine Kinase CK-MB (CK-2) Troponin I 0.122 0.111 NT-Pro-B Natriuret Pep 4610 H 10/27/19 10/27/19 02:31 02:31 Creatine Kinase 106 CK-MB (CK-2) 2.04 Troponin I 0.013 NT-Pro-B Natriuret Pep Impressions: Cervical Spine CT 10/20/19 12:18 IMPRESSION: No acute fracture or dislocation of the cervical spine. Multilevel spondylosis, degenerative disc disease, and facet arthropathy. Head CT 10/20/19 12:18 IMPRESSION: No acute intracranial hemorrhage, mass, or evidence of acute territorial infarct. EVIDENCE OF ACUTE STROKE: NO. Chest CT 10/20/19 12:21 IMPRESSION: 1. Although there is motion in the pelvis, there appears to be an acute impacted subcapital fracture of the right proximal femur. Further evaluation with dedicated two view radiograph is recommended. 2. Age-indeterminate moderate compression fracture at T12, however this is stable since 10/04/2019 radiograph. This may be subacute or chronic. No retropulsed fracture fragments. 3. Acute appearing fractures of the anterolateral left 8-10th ribs. 4. Patchy areas of consolidation with areas of nodular consolidation in both lungs, suggestive of infectious/ inflammatory process. Given nodular components, a follow-up CT of the chest in 3 months is recommended to confirm complete resolution. Commonly reported imaging features of COVID-19 pneumonia are present. Other processes such as influenza pneumonia and organizing pneumonia, as can be seen with drug toxicity and connective tissue disease, can cause a similar imaging pattern. 5. No evidence of acute traumatic solid organ or vascular injury in the chest, abdomen or pelvis. Abdomen/Pelvis CT 10/20/19 12:23 IMPRESSION: 1. Although there is motion in the pelvis, there appears to be an acute impacted subcapital fracture of the right proximal femur. Further evaluation with dedicated two view radiograph is recommended. 2. Age-indeterminate moderate compression fracture at T12, however this is stable since 10/04/2019 radiograph. This may be subacute or chronic. No retropulsed fracture fragments. 3. Acute appearing fractures of the anterolateral left 8-10th ribs. 4. Patchy areas of consolidation with areas of nodular consolidation in both lungs, suggestive of infectious/ inflammatory process. Given nodular component s, a follow-up CT of the chest in 3 months is recommended to confirm complete resolution. Commonly reported imaging features of COVID-19 pneumonia are present. Other processes such as influenza pneumonia and organizing pneumonia, as can be seen with drug toxicity and connective tissue disease, can cause a similar imaging pattern. 5. No evidence of acute traumatic solid organ or vascular injury in the chest, abdomen or pelvis. Skeletal Survey 10/23/19 07:00 IMPRESSION: 1. Acute/subacute impacted fracture of the right femoral neck. 2. Findings as described. Chest X-Ray 11/01/19 00:00 IMPRESSION: Improving pneumonia. Hip/Pelvis X-Ray 11/07/19 00:00 IMPRESSION: Right hip hemiarthroplasty. Refer to operative note for further information. Assessment & Plan - Diagnosis (1) Sepsis Qualifiers: Sepsis type: methicillin susceptible Staphylococcus aureus Sepsis acute organ dysfunction status: with acute organ dysfunction Severe sepsis acute organ dysfunction type: acute renal failure Acute renal failure type: with acute tubular necrosis Severe sepsis shock status: without septic shock Q ualified Code(s): A41.01 - Sepsis due to Methicillin susceptible Staphylococcus aureus; R65.20 - Severe sepsis without septic shock; N17.0 - Acute kidney failure with tubular necrosis Is this a current diagnosis for this admission?: Yes (2) Pneumonia due to COVID-19 virus Is this a current diagnosis for this admission?: Yes (3) Staphylococcus aureus septicemia Is this a current diagnosis for this admission?: Yes (4) Acute kidney injury Is this a current diagnosis for this admission?: Yes (5) Multiple fractures of ribs of left side Qualifiers: Encounter type: initial encounter Fracture type: closed Qualified Code(s): S22.42XA - Multiple fractures of ribs, left side, initial encounter for closed fracture Is this a current diagnosis for this admission?: Yes (6) Compression fracture of T12 vertebra Qualifiers: Encounter type: initial encounter Qualified Code(s): S22.080A - Wedge compression fracture of T11-T12 vertebra, initial encounter for closed fracture Is this a current diagnosis for this admission?: Yes (7) Pathologic fracture Qualifiers: Pathology associated with fracture: osteoporosis Osteoporosis type: age-rel ated Site of pathological fracture: vertebra Encounter type: initial encounter Qualified Code(s): M80.08XA - Age-related osteoporosis with current pathological fracture, vertebra(e), initial encounter for fracture Is this a current diagnosis for this admission?: Yes (8) Hypocalcemia Is this a current diagnosis for this admission?: Yes (9) Metabolic acidosis Is this a current diagnosis for this admission?: Yes (10) Subcapital fracture of right femur Qualifiers: Encounter type: initial encounter Fracture type: closed Qualified Code(s): S72.011A - Unspecified intracapsular fracture of right femur, initial encounter for closed fracture Is this a current diagnosis for this admission?: Yes (11) Secondary hyperparathyroidism Is this a current diagnosis for this admission?: Yes (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 Is this a current diagnosis for this admission?: Yes (13) Clostridioides difficile diarrhea Is this a current diagnosis for this admission?: Yes (14) Hypokalemia Is this a current diagnosis for this admission?: Yes (15) Delirium Is this a current diagnosis for this admission?: Yes Plan: Patient is confused today, etiology is multifactorial (16) Hypotension Qualifiers: Hypotension type: other hypotension type Qualified Code(s): I95.89 - Other hypotension Is this a current diagnosis for this admission?: Yes Plan: The blood pressure is low, give bolus,250 cc start maintenance IV fluids normal saline at 100 cc/h - Time Time Spent with patient: 25-34 minutes Level of Care: IMCU Medications reviewed and adjusted accordingly: Yes Anticipated discharge: SNF Anticipated DC Timeframe: when bed available
--- NOTE | 2019-11-10 17:07 | Death Summary ---
Summary Date : 11/10/19 Time of :: 15:50 Autopsy: No Resuscitation Status: Do Not Resuscitate - Final Diagnosis (1) Pneumonia due to COVID-19 virus Is this a current diagnosis for this admission?: Yes (2) Sepsis Is this a current diagnosis for this admission?: Yes (3) Staphylococcus aureus septicemia Is this a current diagnosis for this admission?: Yes (4) Acute kidney injury Is this a current diagnosis for this admission?: Yes (5) Multiple fractures of ribs of left side Is this a current diagnosis for this admission?: Yes (6) Compression fracture of T12 vertebra Is this a current diagnosis for this admission?: Yes (7) Pathologic fracture Is this a current diagnosis for this admission?: Yes (8) Hypocalcemia Is this a current diagnosis for this admission?: Yes (9) Metabolic acidosis Is this a current diagnosis for this admission?: Yes (10) Subcapital fracture of right femur Is this a current diagnosis for this admission?: Yes (11) Secondary hyperparathyroidism Is this a current diagnosis for this admission?: Yes (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 Is this a current diagnosis for this admission?: Yes (13) Clostridioides difficile diarrhea Is this a current diagnosis for this admission?: Yes (14) Hypokalemia Is this a current diagnosis for this admission?: Yes (15) Delirium Is this a current diagnosis for this admission?: Yes (16) Hypotension Is this a current diagnosis for this admission?: Yes Hospital Course:: Patient 89-year-old male he came to the emergency room on October 20, 2019 for evaluation of recurrent falls, in the emergency room he was evaluated, he was found to have bilateral pneumonia, right hip joint subcapital fracture with multiple rib fracture, electrolyte derangements, he was admitted to the hospital for management. He was screened for SARS-CoV-2, he was positive for infection he was treated with Remdesivir, dexamethasone 6 mg IV divided doses for 10 days, he received the antiviral remdesivir for 5 days. He also have staph aureus septicemia, methicillin sensitive, treated with IV antibiotic. There was associated kidney injury with hypocalcemia associated with secondary hyperparathyroidism, hypokalemia due to transcellular shift. 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 Hospital course was very eventful, he was seen by orthopedic because he sustained a right hip fracture he underwent open reduction internal fixation of the right hip joint last week. Patient was making progress overall after he received the antiviral and the dexamethasone for his COVID he was supposed to be transferred to rehab next week, discharge planning was making arrangement for transfer. He also has C. difficile colitis treated with p.o. vancomycin earlier this morning was noticed to have low blood pressure and was confused he was given boluses of normal saline to restore blood pressure, patient was a DNR status, he this morning, the cause of is COVID related complications.
== END 2019-11-10 15:49 | DRG 981 ==
LOC: ER 10:29 → EH 18:50 → 3N 20:20
PROVIDERS: ADMIT Internal Medicine; ATTEND Internal Medicine
PROC: XW033E5 Introduction of Remdesivir Anti-infective into Peripheral Vein, Percutaneous Approach, New Technology Group 5 (ICD-10-PCS; 2019-10-22)
PROC: 0SRR0JA Replacement of Right Hip Joint, Femoral Surface with Synthetic Substitute, Uncemented, Open Approach (ICD-10-PCS; principal; 2019-11-07 09:00)
DX: U07.1 COVID-19 (principal); A41.01 Sepsis due to Methicillin susceptible Staphylococcus aureus; S72.011A Unspecified intracapsular fracture of right femur, initial encounter for closed fracture; J12.89 Other viral pneumonia; N17.0 Acute kidney failure with tubular necrosis; R65.20 Severe sepsis without septic shock; S22.080A Wedge compression fracture of T11-T12 vertebra, initial encounter for closed fracture; S22.42XA Multiple fractures of ribs, left side, initial encounter for closed fracture; M48.32 Traumatic spondylopathy, cervical region; E87.2 Acidosis; N25.81 Secondary hyperparathyroidism of renal origin; A04.72 Enterocolitis due to Clostridium difficile, not specified as recurrent; M80.08XA Age-related osteoporosis with current pathological fracture, vertebra(e), initial encounter for fracture; W01.0XXA Fall on same level from slipping, tripping and stumbling without subsequent striking against object, initial encounter; E87.6 Hypokalemia; E83.51 Hypocalcemia; E83.42 Hypomagnesemia; Z66 Do not resuscitate; D47.2 Monoclonal gammopathy; R41.0 Disorientation, unspecified; I95.9 Hypotension, unspecified; R29.6 Repeated falls; I48.91 Unspecified atrial fibrillation; F32.9 Major depressive disorder, single episode, unspecified; E01.0 Iodine-deficiency related diffuse (endemic) goiter; E86.0 Dehydration; I27.20 Pulmonary hypertension, unspecified; I12.9 Hypertensive chronic kidney disease with stage 1 through stage 4 chronic kidney disease, or unspecified chronic kidney disease; N18.3 Chronic kidney disease, stage 3 (moderate); E11.22 Type 2 diabetes mellitus with diabetic chronic kidney disease; Z91.81 History of falling; Z79.899 Other long term (current) drug therapy; Z79.82 Long term (current) use of aspirin
CPT/HCPCS: 01210; 36415; 36600; 51702; 70450; 71045; 71250; 72125; 74176; 77075; 80048; 80053; 81001; 82150; 82306; 82330; 82550; 82553; 82570; 82652; 82803; 82962; 83605; 83615; 83690; 83735; 83880; 83970; 84075; 84100; 84145; 84156; 84166; 84478; 84484; 85025; 85027; 85379; 85610; 85730; 86140; 86320; 86850; 86900; 86901; 87040; 87045; 87070; 87077; 87150; 87186; 87205; 87324; 87449; 87493; 87635; 88304; 88311; 93005; 93010; 96361; 96365; 96366; 96367; 96368; 96375; 96376; 99291; J0610; C1776; C9113; C9290; C9803; J0456; J0690; J0692; J1100; J1644; J1815; J2020; J2250; J2270; J2370; J2405; J2704; J3010; J3370; J3475; J3480; J3490; J7030; J7040; J7050; J7060